=== PATIENT | female | born 1945 | race Caucasian/White ===

== ENCOUNTER 2018-06-26 12:33 | Inpatient (IN) ==
[2018-06-26] MEDS ORDERED: ACETAMINOPHEN 500 MG TABLET ONE (14:06)
[2018-06-26] MEDS ORDERED: ACETAMINOPHEN 500 MG TABLET PO STA (14:14)
[2018-06-26 14:15] LABS: Basophils # 0.1 10*3/uL (0.0-0.2); Basophils % 0.4 % (0.0-0.8); Eosinophils % 0.2 % (0.00-10.9); Hematocrit 35.1 VOL% (35.7-47.0); Hemoglobin 11.5 GM/DL (12.0-16.0); Immature Granulocytes % 0.4 %; Immature Granulocytes Absolute 0.05 #; Lymphocytes # 0.7 10*3/uL (1.4-4.0); Lymphocytes % 5.4 % (21.3-54.2); Mean Corpuscular HGB Conc 32.8 GM/DL (32-36); Mean Corpuscular Hemoglobin 27 PG (27-34); Mean Corpuscular Volume 83.6 FL (87-102); Mean Platelet Volume 9.2 FL (9.6-12.0); Monocytes # 0.5 10*3/uL (0.11-0.8); Monocytes % 4.2 % (1.7-12.7); Neutrophils # 11.3 10*3/uL (1.4-7.4); Neutrophils % 89.4 % (38.7-73.9); Platelet Count 311 T/CUMM (130-400); Red Cell Distribution Width 15.5 % (9.3-17.3); White Blood Count 12.6 T/CUMM (4-12)
[2018-06-26 14:23] LABS: INR 0.9
[2018-06-26] MEDS ORDERED: ALBUTEROL 2.5 MG/3 ML NEB RESP TX STA (14:26)
[2018-06-26] MEDS ORDERED: cefTRIAXone 1,000 MG in SODIUM CHLORIDE 0.9% 100 ML IV STA (14:28)
[2018-06-26 14:31] LABS: Albumin 3.4 G/DL (3.4-5.0); Bilirubin,Total 0.4 MG/DL (0.2-1.0); Calcium 8.8 MG/DL (8.5-10.1); Osmolality,Calculated 282.8 MOS/KG (273-304); Potassium 4.3 MMOL/L (3.5-5.1); Total Protein 6.7 G/DL (6.4-8.3)
[2018-06-26 14:32] LABS: Lactic Acid 1.8 MMOL/L (0.4-2.0)
[2018-06-26] MEDS ORDERED: cefTRIAXone 1,000 MG VIAL ONE (14:39)
[2018-06-26] MEDS ORDERED: SODIUM CHLORIDE 0.9% 100 ML IV ONE (14:39)
[2018-06-26] MEDS ORDERED: ACETAMINOPHEN 325 MG TABLET PO PRN (16:26)
[2018-06-26] MEDS ORDERED: GLUCAGON 1 MG VIAL IM PRN (16:26)
[2018-06-26] MEDS ORDERED: DEXTROSE 50% 25 GM/50 ML VIAL IV PRN (16:26)
[2018-06-26] MEDS: LACTATED RINGERS 1,000 ML IV SCH (16:53)
[2018-06-26] MEDS: EZETIMIBE 10 MG TABLET PO SCH (20:49)
[2018-06-26] MEDS: FOLIC ACID 0.4 MG TABLET PO SCH (20:49)
[2018-06-26] MEDS: GABAPENTIN 600 MG TABLET PO SCH (20:49)
[2018-06-26] MEDS: CHOLECALCIFEROL 1,000 UNIT TABLET PO SCH (20:50)
[2018-06-26] MEDS: LOVASTATIN 20 MG TABLET PO SCH (20:50)
[2018-06-26] MEDS: LOSARTAN 25 MG TABLET PO SCH (20:50)
[2018-06-26] MEDS: POTASSIUM CHLORIDE 10 MEQ TABLET PO SCH (20:50)
[2018-06-26] MEDS: DULoxetine 30 MG CAPSULE PO SCH (20:50)
[2018-06-26] MEDS ORDERED: VITAMIN E 400 UNIT CAPSULE PO SCH (21:00)
[2018-06-26] MEDS: oxyCODONE IR 5 MG TABLET PO SCH (22:17)
[2018-06-27] MEDS ORDERED: azaTHIOprine 50 MG TABLET PO SCH (09:00)
[2018-06-27] MEDS ORDERED: ELDERBERRY PO SCH (09:00)
[2018-06-27] MEDS ORDERED: [UNRECOGNIZED DRUG - OTHER] PO SCH (09:00)
[2018-06-27] MEDS: LEVOFLOXACIN INJ 500 MG in PREMIX 1 EACH IV SCH (09:26)
[2018-06-27] MEDS: PANTOPRAZOLE 40 MG TABLET PO SCH (09:28)
[2018-06-27] MEDS: DULoxetine 30 MG CAPSULE PO SCH ×2 (09:28→20:40)
[2018-06-27] MEDS: methylPREDNISolone SOD SUC 40 MG/1 ML VIAL IV SCH ×2 (09:28→20:41)
[2018-06-27] MEDS: FUROSEMIDE 80 MG TABLET PO SCH (09:29)
[2018-06-27] MEDS: amLODIPine 10 MG TABLET PO SCH (09:29)
[2018-06-27] MEDS: MAGNESIUM OXIDE 400 MG TABLET PO SCH (09:29)
[2018-06-27] MEDS: metOLazone 2.5 MG TABLET PO SCH (09:29)
[2018-06-27] MEDS: ASPIRIN EC 81 MG TABLET PO SCH (09:29)
[2018-06-27] MEDS: GABAPENTIN 600 MG TABLET PO SCH ×2 (09:29→20:40)
[2018-06-27] MEDS: POTASSIUM CHLORIDE 10 MEQ TABLET PO SCH ×3 (09:30→20:39)
[2018-06-27] MEDS: oxyCODONE IR 5 MG TABLET PO SCH ×2 (09:30→20:40)
[2018-06-27] MEDS: PIPERACILLIN/TAZOBACTAM 3,375 MG in SODIUM CHLORIDE 0.9% 100 ML IV SCH ×2 (10:35→17:59)
[2018-06-27] MEDS: SILDENAFIL 20 MG TABLET PO SCH (10:35)
[2018-06-27] MEDS: IPRATROPIUM 500 MCG/2.5 ML NEB RESP TX SCH (12:50)
[2018-06-27] MEDS: ALBUTEROL 0.63 MG/3 ML NEB RESP TX SCH ×2 (12:50→19:28)
[2018-06-27] MEDS: FUROSEMIDE 40 MG TABLET PO SCH (12:52)
[2018-06-27] MEDS: LACTATED RINGERS 1,000 ML IV SCH (12:52)
[2018-06-27] MEDS: oxyCODONE IR 5 MG TABLET PO PRN (14:58)
[2018-06-27] MEDS: LOVASTATIN 20 MG TABLET PO SCH (20:39)
[2018-06-27] MEDS: EZETIMIBE 10 MG TABLET PO SCH (20:40)
[2018-06-27] MEDS: LOSARTAN 25 MG TABLET PO SCH (20:40)
[2018-06-27] MEDS: CHOLECALCIFEROL 1,000 UNIT TABLET PO SCH (20:40)
[2018-06-27] MEDS: FOLIC ACID 0.4 MG TABLET PO SCH (20:40)
[2018-06-28] MEDS: ALBUTEROL 0.63 MG/3 ML NEB RESP TX SCH ×4 (01:39→19:55)
[2018-06-28] MEDS: PIPERACILLIN/TAZOBACTAM 3,375 MG in SODIUM CHLORIDE 0.9% 100 ML IV SCH ×3 (02:54→18:04)
[2018-06-28] MEDS: IPRATROPIUM 500 MCG/2.5 ML NEB RESP TX SCH (07:27)
[2018-06-28] MEDS: methylPREDNISolone SOD SUC 40 MG/1 ML VIAL IV SCH ×2 (08:32→21:08)
[2018-06-28] MEDS: LEVOFLOXACIN INJ 500 MG in PREMIX 1 EACH IV SCH (08:35)
[2018-06-28] MEDS: POTASSIUM CHLORIDE 10 MEQ TABLET PO SCH ×3 (08:36→21:08)
[2018-06-28] MEDS: DULoxetine 30 MG CAPSULE PO SCH ×2 (08:37→21:09)
[2018-06-28] MEDS: amLODIPine 10 MG TABLET PO SCH (08:37)
[2018-06-28] MEDS: metOLazone 2.5 MG TABLET PO SCH (08:37)
[2018-06-28] MEDS: SILDENAFIL 20 MG TABLET PO SCH (08:37)
[2018-06-28] MEDS: MAGNESIUM OXIDE 400 MG TABLET PO SCH (08:37)
[2018-06-28] MEDS: GABAPENTIN 600 MG TABLET PO SCH ×2 (08:37→21:09)
[2018-06-28] MEDS: ASPIRIN EC 81 MG TABLET PO SCH (08:37)
[2018-06-28] MEDS: oxyCODONE IR 5 MG TABLET PO SCH ×2 (08:37→21:08)
[2018-06-28] MEDS: PANTOPRAZOLE 40 MG TABLET PO SCH (08:37)
[2018-06-28] MEDS: FUROSEMIDE 80 MG TABLET PO SCH (08:38)
[2018-06-28] MEDS: FUROSEMIDE 40 MG TABLET PO SCH (14:09)
[2018-06-28] MEDS: oxyCODONE IR 5 MG TABLET PO PRN (16:28)
[2018-06-28] MEDS: LOSARTAN 25 MG TABLET PO SCH (21:08)
[2018-06-28] MEDS: FOLIC ACID 0.4 MG TABLET PO SCH (21:08)
[2018-06-28] MEDS: CHOLECALCIFEROL 1,000 UNIT TABLET PO SCH (21:09)
[2018-06-28] MEDS: EZETIMIBE 10 MG TABLET PO SCH (21:09)
[2018-06-28] MEDS: LOVASTATIN 20 MG TABLET PO SCH (21:09)
[2018-06-29] MEDS: ALBUTEROL 0.63 MG/3 ML NEB RESP TX SCH ×4 (01:44→19:02)
[2018-06-29] MEDS: PIPERACILLIN/TAZOBACTAM 3,375 MG in SODIUM CHLORIDE 0.9% 100 ML IV SCH ×3 (02:50→17:31)
[2018-06-29 03:07] LABS: Basophils % 0.2 % (0.0-0.8); Hematocrit 33.5 VOL% (35.7-47.0); Hemoglobin 11.1 GM/DL (12.0-16.0); Immature Granulocytes % 0.9 %; Lymphocytes # 0.7 10*3/uL (1.4-4.0); Lymphocytes % 5.9 % (21.3-54.2); Mean Corpuscular HGB Conc 33.1 GM/DL (32-36); Mean Corpuscular Hemoglobin 27 PG (27-34); Mean Corpuscular Volume 81.7 FL (87-102); Mean Platelet Volume 9.5 FL (9.6-12.0); Monocytes # 0.4 10*3/uL (0.11-0.8); Monocytes % 3.1 % (1.7-12.7); Neutrophils # 10.5 10*3/uL (1.4-7.4); Neutrophils % 89.9 % (38.7-73.9); Platelet Count 322 T/CUMM (130-400); Red Cell Distribution Width 15.3 % (9.3-17.3); White Blood Count 11.6 T/CUMM (4-12)
[2018-06-29 03:35] LABS: Calcium 9.2 MG/DL (8.5-10.1); Osmolality,Calculated 290.3 MOS/KG (273-304); Potassium 3.7 MMOL/L (3.5-5.1)
[2018-06-29] MEDS: IPRATROPIUM 500 MCG/2.5 ML NEB RESP TX SCH (07:26)
[2018-06-29] MEDS ORDERED: methylPREDNISolone SOD SUC 40 MG/1 ML VIAL IV SCH (08:00)
[2018-06-29] MEDS: oxyCODONE IR 5 MG TABLET PO SCH ×2 (10:08→20:59)
[2018-06-29] MEDS: GABAPENTIN 600 MG TABLET PO SCH ×2 (10:08→21:00)
[2018-06-29] MEDS: POTASSIUM CHLORIDE 10 MEQ TABLET PO SCH ×3 (10:09→21:00)
[2018-06-29] MEDS: metOLazone 2.5 MG TABLET PO SCH (10:10)
[2018-06-29] MEDS: FUROSEMIDE 80 MG TABLET PO SCH (10:11)
[2018-06-29] MEDS: amLODIPine 10 MG TABLET PO SCH (10:11)
[2018-06-29] MEDS: DULoxetine 30 MG CAPSULE PO SCH ×2 (10:11→21:00)
[2018-06-29] MEDS: MAGNESIUM OXIDE 400 MG TABLET PO SCH (10:12)
[2018-06-29] MEDS: ASPIRIN EC 81 MG TABLET PO SCH (10:12)
[2018-06-29] MEDS: LEVOFLOXACIN INJ 500 MG in PREMIX 1 EACH IV SCH (10:13)
[2018-06-29] MEDS: SILDENAFIL 20 MG TABLET PO SCH (10:19)
[2018-06-29] MEDS: PANTOPRAZOLE 40 MG TABLET PO SCH ×2 (12:03→21:01)
[2018-06-29] MEDS: FUROSEMIDE 40 MG TABLET PO SCH (12:49)
[2018-06-29] MEDS: LOSARTAN 25 MG TABLET PO SCH (21:00)
[2018-06-29] MEDS: LOVASTATIN 20 MG TABLET PO SCH (21:00)
[2018-06-29] MEDS: FOLIC ACID 0.4 MG TABLET PO SCH (21:00)
[2018-06-29] MEDS: CHOLECALCIFEROL 1,000 UNIT TABLET PO SCH (21:01)
[2018-06-29] MEDS: EZETIMIBE 10 MG TABLET PO SCH (21:01)
[2018-06-30] MEDS: ALBUTEROL 0.63 MG/3 ML NEB RESP TX SCH ×2 (00:55→07:52)
[2018-06-30] MEDS: PIPERACILLIN/TAZOBACTAM 3,375 MG in SODIUM CHLORIDE 0.9% 100 ML IV SCH ×2 (04:49→09:58)
[2018-06-30] MEDS: IPRATROPIUM 500 MCG/2.5 ML NEB RESP TX SCH (07:52)
[2018-06-30 08:36] VITALS: BP 136/71
[2018-06-30] MEDS ORDERED: predniSONE 20 MG TABLET PO SCH (09:00)
[2018-06-30] MEDS: DULoxetine 30 MG CAPSULE PO SCH (09:30)
[2018-06-30] MEDS: oxyCODONE IR 5 MG TABLET PO SCH (09:31)
[2018-06-30] MEDS: POTASSIUM CHLORIDE 10 MEQ TABLET PO SCH (09:32)
[2018-06-30] MEDS: ASPIRIN EC 81 MG TABLET PO SCH (09:32)
[2018-06-30] MEDS: GABAPENTIN 600 MG TABLET PO SCH (09:34)
[2018-06-30] MEDS: metOLazone 2.5 MG TABLET PO SCH (09:34)
[2018-06-30] MEDS: MAGNESIUM OXIDE 400 MG TABLET PO SCH (09:34)
[2018-06-30] MEDS: amLODIPine 10 MG TABLET PO SCH (09:34)
[2018-06-30] MEDS: LEVOFLOXACIN INJ 500 MG in PREMIX 1 EACH IV SCH (09:35)
[2018-06-30] MEDS: SILDENAFIL 20 MG TABLET PO SCH (09:42)
[2018-06-30] MEDS: FUROSEMIDE 80 MG TABLET PO SCH (09:42)
[2018-06-30] MEDS: PANTOPRAZOLE 40 MG TABLET PO SCH (09:42)
== END 2018-06-30 12:10 | disposition home or self-care (01) | DRG 190 ==
LOC: N.ED 12:33 → N.EDINP 14:52 → N.TELES 16:25
PROVIDERS: ADMIT Internal Medicine; ATTEND Internal Medicine

== ENCOUNTER 2018-09-02 14:27 | Inpatient (IN) ==
[2018-09-02 16:25] LABS: Basophils % 0.6 % (0.0-0.8); Eosinophils # 0.2 10*3/uL (0.0-0.87); Eosinophils % 3.5 % (0.00-10.9); Hematocrit 32.8 VOL% (35.7-47.0); Hemoglobin 10.3 GM/DL (12.0-16.0); Immature Granulocytes % 0.4 %; Immature Granulocytes Absolute 0.03 #; Lymphocytes # 1.7 10*3/uL (1.4-4.0); Lymphocytes % 25.1 % (21.3-54.2); Mean Corpuscular HGB Conc 31.4 GM/DL (32-36); Mean Corpuscular Hemoglobin 26 PG (27-34); Mean Corpuscular Volume 83.9 FL (87-102); Mean Platelet Volume 9.1 FL (9.6-12.0); Monocytes # 0.6 10*3/uL (0.11-0.8); Monocytes % 9.3 % (1.7-12.7); Neutrophils # 4.2 10*3/uL (1.4-7.4); Neutrophils % 61.1 % (38.7-73.9); Platelet Count 266 T/CUMM (130-400); Red Blood Count 3.91 MC/CUMM (3.8-5.5); Red Cell Distribution Width 16.2 % (9.3-17.3); White Blood Count 6.9 T/CUMM (4-12)
[2018-09-02 16:48] LABS: Alanine Aminotransferase 14 U/L (13-56); Albumin 3.2 G/DL (3.4-5.0); Alkaline Phosphatase 94 U/L (45-117); Aspartate Amino Transferase 10 U/L (0-37); Bilirubin,Total < 0.39 MG/DL (0.2-1.0); Blood Urea Nitrogen 16 MG/DL (7-18); Calcium 8.9 MG/DL (8.5-10.1); Glucose 148 MG/DL (74-106); Osmolality,Calculated 282.4 MOS/KG (273-304); Potassium 3.7 MMOL/L (3.5-5.1); Sodium 140 MMOL/L (136-145); Total Protein 6.9 G/DL (6.4-8.3)
[2018-09-02] MEDS ORDERED: FUROSEMIDE 40 MG/4 ML VIAL IV STA (16:59)
[2018-09-02] MEDS ORDERED: ONDANSETRON 4 MG/2 ML VIAL IV PRN (17:37)
[2018-09-02] MEDS ORDERED: ACETAMINOPHEN 325 MG TABLET PO PRN (17:37)
[2018-09-02 18:13] LABS: Apearance,Urine CLEAR (Clear); Bacteria,Urine Occasional /HPF (Few); Bilirubin,Urine Negative (Negative); Blood, Urine Negative (Negative); Glucose,Urine (UA) Negative (Negative); Ketones,Urine Negative (Negative); Nitrite,Urine Negative (Negative); Protein,Urine Negative; RBC,Urine 1 /HPF (0-4); Urine Color Yellow (Yellow); Urine Specific Gravity 1.006 (1.001-1.035); Urine Urobilinogen < 2.0 EU/DL (0.2-1.0); WBC,Urine 1 /HPF (0-6)
[2018-09-02] MEDS ORDERED: INSULIN LISPRO 100 UNIT/ML SUBCUT SCH (19:30)
[2018-09-02] MEDS ORDERED: oxyCODONE IR 5 MG TABLET PO PRN (19:30)
[2018-09-02] MEDS ORDERED: ALBUTEROL/IPRATROPIUM 3 ML NEB RESP TX PRN (19:30)
[2018-09-02] MEDS ORDERED: ALBUTEROL 2.5 MG/3 ML NEB RESP TX PRN (19:30)
[2018-09-02] MEDS ORDERED: GLUCAGON 1 MG VIAL IM PRN (19:44)
[2018-09-02] MEDS ORDERED: DEXTROSE 50% 25 GM/50 ML VIAL IV PRN (19:44)
[2018-09-02] MEDS ORDERED: DOCUSATE SODIUM 100 MG CAPSULE PO SCH (21:00)
[2018-09-02] MEDS: ENOXAPARIN 40 MG/0.4 ML SYRINGE SUBCUT SCH (21:13)
[2018-09-02] MEDS: EZETIMIBE 10 MG TABLET PO SCH (21:14)
[2018-09-02] MEDS: FOLIC ACID 0.4 MG TABLET PO SCH (21:14)
[2018-09-02] MEDS: DOCUSATE SODIUM 100 MG CAPSULE PO SCH (21:14)
[2018-09-02] MEDS: VITAMIN E 400 UNIT CAPSULE PO SCH (21:14)
[2018-09-02] MEDS: MULTIVITAMIN (OCUVITE) TABLET PO SCH (21:14)
[2018-09-02] MEDS: GABAPENTIN 600 MG TABLET PO SCH (21:14)
[2018-09-02] MEDS: oxyCODONE ER 20 MG TABLET PO SCH (21:15)
[2018-09-02] MEDS: DULoxetine 30 MG CAPSULE PO SCH (21:15)
[2018-09-02] MEDS: CHOLECALCIFEROL 1,000 UNIT TABLET PO SCH (21:15)
[2018-09-02] MEDS: PANTOPRAZOLE 40 MG TABLET PO SCH (21:16)
[2018-09-02] MEDS: LOVASTATIN 20 MG TABLET PO SCH (23:28)
[2018-09-03 06:38] LABS: Basophils % 0.7 % (0.0-0.8); Eosinophils # 0.4 10*3/uL (0.0-0.87); Hematocrit 32.7 VOL% (35.7-47.0); Hemoglobin 10.2 GM/DL (12.0-16.0); Immature Granulocytes % 0.5 %; Immature Granulocytes Absolute 0.03 #; Lymphocytes # 1.7 10*3/uL (1.4-4.0); Lymphocytes % 29.5 % (21.3-54.2); Mean Corpuscular HGB Conc 31.2 GM/DL (32-36); Mean Corpuscular Hemoglobin 26 PG (27-34); Mean Corpuscular Volume 84.3 FL (87-102); Mean Platelet Volume 9.1 FL (9.6-12.0); Monocytes # 0.6 10*3/uL (0.11-0.8); Neutrophils # 3.1 10*3/uL (1.4-7.4); Neutrophils % 53.3 % (38.7-73.9); Platelet Count 268 T/CUMM (130-400); Red Blood Count 3.88 MC/CUMM (3.8-5.5); Red Cell Distribution Width 16.4 % (9.3-17.3); White Blood Count 5.8 T/CUMM (4-12)
[2018-09-03 07:09] LABS: Calcium 8.4 MG/DL (8.5-10.1); Osmolality,Calculated 283.1 MOS/KG (273-304); Potassium 3.2 MMOL/L (3.5-5.1)
[2018-09-03] MEDS: IPRATROPIUM 500 MCG/2.5 ML NEB RESP TX SCH ×4 (07:16→20:23)
[2018-09-03] MEDS ORDERED: PANTOPRAZOLE 40 MG TABLET PO SCH (09:00)
[2018-09-03] MEDS ORDERED: metOLazone 2.5 MG TABLET PO SCH (09:00)
[2018-09-03] MEDS ORDERED: ELDERBERRY PO SCH (09:00)
[2018-09-03] MEDS ORDERED: NON-FORMULARY MEDICATION (Cranberry Conc/C/Bacill Coag [Cranberry Tablet] 1 EACH) PO SCH (09:00)
[2018-09-03] MEDS: oxyCODONE ER 20 MG TABLET PO SCH ×2 (09:45→21:00)
[2018-09-03] MEDS: GABAPENTIN 600 MG TABLET PO SCH ×2 (09:50→20:59)
[2018-09-03] MEDS: MAGNESIUM OXIDE 400 MG TABLET PO SCH (09:50)
[2018-09-03] MEDS: LOSARTAN 25 MG TABLET PO SCH (09:50)
[2018-09-03] MEDS: SILDENAFIL 20 MG TABLET PO SCH (09:50)
[2018-09-03] MEDS: CYANOCOBALAMIN 500 MCG TABLET PO SCH (09:50)
[2018-09-03] MEDS: DULoxetine 30 MG CAPSULE PO SCH ×2 (09:50→20:59)
[2018-09-03] MEDS: DOCUSATE SODIUM 100 MG CAPSULE PO SCH ×2 (09:50→20:59)
[2018-09-03] MEDS: amLODIPine 10 MG TABLET PO SCH (09:51)
[2018-09-03] MEDS: ATENOLOL 25 MG TABLET PO SCH (10:06)
[2018-09-03] MEDS: ASPIRIN EC 81 MG TABLET PO SCH (10:13)
[2018-09-03] MEDS: PANTOPRAZOLE 40 MG TABLET PO SCH (10:15)
[2018-09-03] MEDS: LEVOFLOXACIN 500 MG TABLET PO SCH (12:08)
[2018-09-03] MEDS: POTASSIUM CHLORIDE 8 MEQ CAPSULE PO SCH ×2 (12:09→20:59)
[2018-09-03] MEDS: POTASSIUM CHLORIDE 20 MEQ TABLET PO PRN ×4 (13:35→19:23)
[2018-09-03] MEDS: FUROSEMIDE 40 MG TABLET PO SCH (15:41)
[2018-09-03] MEDS: NEXIUM 40 MG PO SCH (20:58)
[2018-09-03] MEDS: VITAMIN E 400 UNIT CAPSULE PO SCH (20:59)
[2018-09-03] MEDS: ENOXAPARIN 40 MG/0.4 ML SYRINGE SUBCUT SCH (20:59)
[2018-09-03] MEDS: EZETIMIBE 10 MG TABLET PO SCH (20:59)
[2018-09-03] MEDS: MULTIVITAMIN (OCUVITE) TABLET PO SCH (21:00)
[2018-09-03] MEDS: FOLIC ACID 0.4 MG TABLET PO SCH (21:00)
[2018-09-03] MEDS: CHOLECALCIFEROL 1,000 UNIT TABLET PO SCH (21:00)
[2018-09-03] MEDS: LOVASTATIN 20 MG TABLET PO SCH (21:01)
[2018-09-04 05:22] LABS: Basophils # 0.1 10*3/uL (0.0-0.2); Basophils % 1.3 % (0.0-0.8); Eosinophils # 0.4 10*3/uL (0.0-0.87); Eosinophils % 6.6 % (0.00-10.9); Hematocrit 31.3 VOL% (35.7-47.0); Hemoglobin 9.8 GM/DL (12.0-16.0); Immature Granulocytes % 0.4 %; Immature Granulocytes Absolute 0.02 #; Lymphocytes # 1.8 10*3/uL (1.4-4.0); Lymphocytes % 34.4 % (21.3-54.2); Mean Corpuscular HGB Conc 31.3 GM/DL (32-36); Mean Corpuscular Hemoglobin 27 PG (27-34); Mean Corpuscular Volume 84.6 FL (87-102); Mean Platelet Volume 9.4 FL (9.6-12.0); Monocytes # 0.6 10*3/uL (0.11-0.8); Monocytes % 11.8 % (1.7-12.7); Neutrophils # 2.4 10*3/uL (1.4-7.4); Neutrophils % 45.5 % (38.7-73.9); Platelet Count 265 T/CUMM (130-400); White Blood Count 5.3 T/CUMM (4-12)
[2018-09-04 05:36] LABS: Osmolality,Calculated 283.3 MOS/KG (273-304); Potassium 3.9 MMOL/L (3.5-5.1)
[2018-09-04] MEDS: IPRATROPIUM 500 MCG/2.5 ML NEB RESP TX SCH (07:08)
[2018-09-04] MEDS: CYANOCOBALAMIN 500 MCG TABLET PO SCH (08:12)
[2018-09-04] MEDS: MAGNESIUM OXIDE 400 MG TABLET PO SCH (08:12)
[2018-09-04] MEDS: DULoxetine 30 MG CAPSULE PO SCH (08:12)
[2018-09-04] MEDS: ATENOLOL 25 MG TABLET PO SCH (08:12)
[2018-09-04] MEDS: DOCUSATE SODIUM 100 MG CAPSULE PO SCH (08:12)
[2018-09-04] MEDS: SILDENAFIL 20 MG TABLET PO SCH (08:13)
[2018-09-04] MEDS: FUROSEMIDE 40 MG TABLET PO SCH (08:13)
[2018-09-04] MEDS: GABAPENTIN 600 MG TABLET PO SCH (08:13)
[2018-09-04] MEDS: LEVOFLOXACIN 500 MG TABLET PO SCH (08:13)
[2018-09-04] MEDS: ASPIRIN EC 81 MG TABLET PO SCH (08:13)
[2018-09-04] MEDS: LOSARTAN 25 MG TABLET PO SCH (08:13)
[2018-09-04] MEDS: POTASSIUM CHLORIDE 8 MEQ CAPSULE PO SCH (08:13)
[2018-09-04] MEDS: amLODIPine 10 MG TABLET PO SCH (08:14)
[2018-09-04] MEDS: oxyCODONE ER 20 MG TABLET PO SCH (08:14)
[2018-09-04] MEDS: NEXIUM 40 MG PO SCH (08:14)
[2018-09-04 08:27] VITALS: BP 149/69
[2018-09-04] MEDS: POTASSIUM CHLORIDE 20 MEQ TABLET PO PRN (09:05)
== END 2018-09-04 12:40 | disposition home or self-care (01) | DRG 293 ==
LOC: N.ED 14:27 → N.EDINP 17:35 → N.5E 18:37
PROVIDERS: ADMIT Internal Medicine; ATTEND Internal Medicine

== ENCOUNTER 2018-10-04 07:37 | Inpatient (IN) ==
[2018-10-04] MEDS ORDERED: PIPERACILLIN/TAZOBACTAM 3,375 MG in SODIUM CHLORIDE 0.9% 100 ML IV STA (08:18)
[2018-10-04] MEDS ORDERED: ACETAMINOPHEN 500 MG TABLET PO STA (08:18)
[2018-10-04 08:29] LABS: Basophils % 0.4 % (0.0-0.8); Eosinophils # 0.1 10*3/uL (0.0-0.87); Eosinophils % 1.5 % (0.00-10.9); Hematocrit 39.6 VOL% (35.7-47.0); Hemoglobin 12.2 GM/DL (12.0-16.0); Immature Granulocytes % 0.4 %; Immature Granulocytes Absolute 0.02 #; Lymphocytes # 0.9 10*3/uL (1.4-4.0); Lymphocytes % 15.9 % (21.3-54.2); Mean Corpuscular HGB Conc 30.8 GM/DL (32-36); Mean Corpuscular Hemoglobin 26 PG (27-34); Mean Platelet Volume 8.7 FL (9.6-12.0); Monocytes # 0.2 10*3/uL (0.11-0.8); Monocytes % 3.5 % (1.7-12.7); Neutrophils # 4.3 10*3/uL (1.4-7.4); Neutrophils % 78.3 % (38.7-73.9); Platelet Count 381 T/CUMM (130-400); Red Blood Count 4.77 MC/CUMM (3.8-5.5); Red Cell Distribution Width 15.6 % (9.3-17.3); White Blood Count 5.5 T/CUMM (4-12)
[2018-10-04 08:38] LABS: INR 0.9; Partial Thromboplastin Time < 21.0 SECS (0-40)
[2018-10-04 08:46] LABS: Alanine Aminotransferase 14 U/L (13-56); Albumin 3.6 G/DL (3.4-5.0); Alkaline Phosphatase 111 U/L (45-117); Aspartate Amino Transferase 10 U/L (0-37); Blood Urea Nitrogen 19 MG/DL (7-18); Calcium 9.6 MG/DL (8.5-10.1); Glucose 170 MG/DL (74-106); Osmolality,Calculated 282.5 MOS/KG (273-304); Potassium 4.2 MMOL/L (3.5-5.1); Sodium 139 MMOL/L (136-145); Total Protein 7.3 G/DL (6.4-8.3)
[2018-10-04 08:52] LABS: Apearance,Urine CLEAR (Clear); Bacteria,Urine Occasional /HPF (Few); Bilirubin,Urine Negative (Negative); Blood, Urine Negative (Negative); Glucose,Urine (UA) Negative (Negative); Ketones,Urine Negative (Negative); Nitrite,Urine Negative (Negative); Protein,Urine Negative; RBC,Urine 1 /HPF (0-4); Urine Color Straw (Yellow); Urine Specific Gravity 1.005 (1.001-1.035); Urine Urobilinogen < 2.0 EU/DL (0.2-1.0); WBC,Urine <1 /HPF (0-6)
[2018-10-04] MEDS ORDERED: GLUCAGON 1 MG VIAL IM PRN (09:51)
[2018-10-04] MEDS ORDERED: DEXTROSE 50% 25 GM/50 ML VIAL IV PRN (09:51)
[2018-10-04] MEDS ORDERED: ACETAMINOPHEN 325 MG TABLET PO PRN (09:51)
[2018-10-04] MEDS ORDERED: ONDANSETRON 4 MG/2 ML VIAL IV PRN (09:51)
[2018-10-04] MEDS ORDERED: methylPREDNISolone SOD SUC 40 MG/1 ML VIAL IV SCH (10:00)
[2018-10-04] MEDS: SODIUM CHLORIDE 0.9% 1,000 ML IV SCH ×2 (10:13→18:34)
[2018-10-04] MEDS ORDERED: DEXTROSE 50% 25 GM/50 ML SYRINGE IV PRN (10:30)
[2018-10-04] MEDS ORDERED: ALBUTEROL 2.5 MG/3 ML NEB RESP TX SCH (11:00)
[2018-10-04] MEDS ORDERED: LINACLOTIDE 145 MCG CAPSULE PO PRN (11:34)
[2018-10-04] MEDS: PANTOPRAZOLE 40 MG TABLET PO SCH (11:39)
[2018-10-04] MEDS: ENOXAPARIN 40 MG/0.4 ML SYRINGE SUBCUT SCH (11:39)
[2018-10-04] MEDS: DOCUSATE SODIUM 100 MG CAPSULE PO SCH ×4 (11:39→21:19)
[2018-10-04] MEDS ORDERED: INSULIN LISPRO 100 UNIT/ML SUBCUT SCH (12:00)
[2018-10-04 12:02] LABS: ABG Base Excess 4.5 MMOL/L (-2.5-2.5); ABG HCO3 28.4 MMOL/L (20-26); ABG Oxygen Saturation 95.7 % (95-100); ABG PCO2 43.1 MM HG (35-48); ABG PH 7.439 (7.35-7.45); ABG PO2 82.7 MM HG (80-95); ABG TCO2 26.3 MMOL/L (23-27); Allen Test Positive
[2018-10-04] MEDS: ALBUTEROL/IPRATROPIUM 3 ML NEB RESP TX SCH ×2 (12:05→20:02)
[2018-10-04] MEDS: INSULIN LISPRO 100 UNIT/ML SUBCUT SCH ×3 (12:40→21:20)
[2018-10-04] MEDS: ASPIRIN EC 81 MG TABLET PO SCH (12:40)
[2018-10-04] MEDS: ATENOLOL 25 MG TABLET PO SCH (12:41)
[2018-10-04] MEDS: KETOROLAC 15 MG/1 ML VIAL IV SCH ×2 (12:41→21:16)
[2018-10-04] MEDS: SILDENAFIL 20 MG TABLET PO SCH (12:41)
[2018-10-04] MEDS: methylPREDNISolone SOD SUC 40 MG/1 ML VIAL IV SCH ×2 (12:41→21:14)
[2018-10-04] MEDS: metOLazone 2.5 MG TABLET PO SCH (12:42)
[2018-10-04] MEDS: oxyCODONE IR 5 MG TABLET PO PRN (12:56)
[2018-10-04] MEDS ORDERED: IPRATROPIUM 500 MCG/2.5 ML NEB RESP TX SCH (15:00)
[2018-10-04] MEDS ORDERED: oxyCODONE IR 5 MG TABLET PO ONE (15:30)
[2018-10-04] MEDS: POTASSIUM CHLORIDE 10 MEQ TABLET PO SCH ×2 (15:40→21:10)
[2018-10-04] MEDS: PIPERACILLIN/TAZOBACTAM 3,375 MG in SODIUM CHLORIDE 0.9% 100 ML IV SCH (15:41)
[2018-10-04] MEDS: GABAPENTIN 600 MG TABLET PO SCH (21:10)
[2018-10-04] MEDS: DULoxetine 30 MG CAPSULE PO SCH (21:10)
[2018-10-04] MEDS: FOLIC ACID 0.4 MG TABLET PO SCH (21:10)
[2018-10-04] MEDS: oxyCODONE ER 20 MG TABLET PO SCH (21:12)
[2018-10-05] MEDS: ALBUTEROL/IPRATROPIUM 3 ML NEB RESP TX SCH ×4 (00:10→20:20)
[2018-10-05] MEDS: PIPERACILLIN/TAZOBACTAM 3,375 MG in SODIUM CHLORIDE 0.9% 100 ML IV SCH ×3 (00:34→16:39)
[2018-10-05] MEDS: methylPREDNISolone SOD SUC 40 MG/1 ML VIAL IV SCH ×3 (04:14→20:42)
[2018-10-05 04:51] LABS: ABG Base Excess 1.9 MMOL/L (-2.5-2.5); ABG HCO3 26.6 MMOL/L (20-26); ABG Oxygen Saturation 96.9 % (95-100); ABG PCO2 42.5 MM HG (35-48); ABG PH 7.415 (7.35-7.45); ABG PO2 99.3 MM HG (80-95); ABG TCO2 27.9 MMOL/L (23-27); Allen Test Positive
[2018-10-05 05:06] LABS: Basophils % 0.2 % (0.0-0.8); Hematocrit 30.3 VOL% (35.7-47.0); Hemoglobin 9.7 GM/DL (12.0-16.0); Immature Granulocytes % 0.7 %; Immature Granulocytes Absolute 0.11 #; Lymphocytes # 0.7 10*3/uL (1.4-4.0); Lymphocytes % 4.1 % (21.3-54.2); Mean Corpuscular Hemoglobin 26 PG (27-34); Mean Corpuscular Volume 82.3 FL (87-102); Mean Platelet Volume 9.4 FL (9.6-12.0); Monocytes # 0.6 10*3/uL (0.11-0.8); Monocytes % 3.5 % (1.7-12.7); Neutrophils # 14.6 10*3/uL (1.4-7.4); Neutrophils % 91.5 % (38.7-73.9); Platelet Count 323 T/CUMM (130-400); Red Blood Count 3.68 MC/CUMM (3.8-5.5); Red Cell Distribution Width 15.9 % (9.3-17.3); White Blood Count 15.9 T/CUMM (4-12)
[2018-10-05 05:10] LABS: Calcium 8.7 MG/DL (8.5-10.1); Potassium 4.5 MMOL/L (3.5-5.1)
[2018-10-05 05:33] LABS: Band Neutrophils 8 % (0-10); Hypochromasia 1+; Lymphocytes 3 % (20-55); Ovalocytes Slight; Platelet Estimate Adequate; Segmented Neutrophils 88 % (50-85); Total Cells Counted 100
[2018-10-05] MEDS ORDERED: azaTHIOprine 50 MG TABLET PO SCH (09:00)
[2018-10-05] MEDS: DULoxetine 30 MG CAPSULE PO SCH ×2 (09:10→20:41)
[2018-10-05] MEDS: POTASSIUM CHLORIDE 10 MEQ TABLET PO SCH ×3 (09:10→20:40)
[2018-10-05] MEDS: ASPIRIN EC 81 MG TABLET PO SCH (09:11)
[2018-10-05] MEDS: oxyCODONE ER 20 MG TABLET PO SCH ×2 (09:11→20:41)
[2018-10-05] MEDS: GABAPENTIN 600 MG TABLET PO SCH ×2 (09:12→20:42)
[2018-10-05] MEDS: DOCUSATE SODIUM 100 MG CAPSULE PO SCH ×4 (09:12→20:47)
[2018-10-05] MEDS: ATENOLOL 25 MG TABLET PO SCH (09:12)
[2018-10-05] MEDS: SILDENAFIL 20 MG TABLET PO SCH (09:13)
[2018-10-05] MEDS: PANTOPRAZOLE 40 MG TABLET PO SCH (09:14)
[2018-10-05] MEDS: ENOXAPARIN 40 MG/0.4 ML SYRINGE SUBCUT SCH (09:17)
[2018-10-05] MEDS: MAGNESIUM OXIDE 400 MG TABLET PO SCH (09:21)
[2018-10-05] MEDS: INSULIN LISPRO 100 UNIT/ML SUBCUT SCH ×4 (09:21→20:43)
[2018-10-05] MEDS: amLODIPine 10 MG TABLET PO SCH (09:21)
[2018-10-05] MEDS: SODIUM CHLORIDE 0.9% 1,000 ML IV SCH ×3 (09:22→20:49)
[2018-10-05] MEDS: FOLIC ACID 0.4 MG TABLET PO SCH (20:42)
[2018-10-06] MEDS: ALBUTEROL/IPRATROPIUM 3 ML NEB RESP TX SCH ×4 (02:15→20:55)
[2018-10-06] MEDS: PIPERACILLIN/TAZOBACTAM 3,375 MG in SODIUM CHLORIDE 0.9% 100 ML IV SCH ×4 (02:21→16:23)
[2018-10-06 05:12] LABS: Basophils % 0.1 % (0.0-0.8); Hematocrit 28.7 VOL% (35.7-47.0); Hemoglobin 8.9 GM/DL (12.0-16.0); Immature Granulocytes % 0.8 %; Immature Granulocytes Absolute 0.11 #; Lymphocytes # 0.7 10*3/uL (1.4-4.0); Lymphocytes % 5.1 % (21.3-54.2); Mean Corpuscular Hemoglobin 26 PG (27-34); Mean Corpuscular Volume 83.7 FL (87-102); Mean Platelet Volume 9.5 FL (9.6-12.0); Monocytes # 0.7 10*3/uL (0.11-0.8); Monocytes % 5.1 % (1.7-12.7); Neutrophils # 12.3 10*3/uL (1.4-7.4); Neutrophils % 88.9 % (38.7-73.9); Platelet Count 321 T/CUMM (130-400); Red Blood Count 3.43 MC/CUMM (3.8-5.5); Red Cell Distribution Width 16.4 % (9.3-17.3); White Blood Count 13.9 T/CUMM (4-12)
[2018-10-06 05:46] LABS: Calcium 8.9 MG/DL (8.5-10.1); Osmolality,Calculated 284.5 MOS/KG (273-304); Potassium 5.1 MMOL/L (3.5-5.1)
[2018-10-06] MEDS: DULoxetine 30 MG CAPSULE PO SCH ×2 (09:11→21:39)
[2018-10-06] MEDS: methylPREDNISolone SOD SUC 40 MG/1 ML VIAL IV SCH ×2 (09:11→21:40)
[2018-10-06] MEDS: ASPIRIN EC 81 MG TABLET PO SCH (09:11)
[2018-10-06] MEDS: POTASSIUM CHLORIDE 10 MEQ TABLET PO SCH (09:11)
[2018-10-06] MEDS: GABAPENTIN 600 MG TABLET PO SCH ×2 (09:11→21:39)
[2018-10-06] MEDS ORDERED: POTASSIUM CHLORIDE 10 MEQ TABLET PO SCH (09:12)
[2018-10-06] MEDS: DOCUSATE SODIUM 100 MG CAPSULE PO SCH ×4 (09:12→21:45)
[2018-10-06] MEDS: MAGNESIUM OXIDE 400 MG TABLET PO SCH (09:12)
[2018-10-06] MEDS: PANTOPRAZOLE 40 MG TABLET PO SCH (09:12)
[2018-10-06] MEDS: oxyCODONE ER 20 MG TABLET PO SCH ×2 (09:12→21:39)
[2018-10-06] MEDS: SILDENAFIL 20 MG TABLET PO SCH (09:12)
[2018-10-06] MEDS: amLODIPine 10 MG TABLET PO SCH (09:12)
[2018-10-06] MEDS: ATENOLOL 25 MG TABLET PO SCH (09:13)
[2018-10-06] MEDS: INSULIN LISPRO 100 UNIT/ML SUBCUT SCH ×4 (09:22→21:45)
[2018-10-06] MEDS: ENOXAPARIN 40 MG/0.4 ML SYRINGE SUBCUT SCH (09:23)
[2018-10-06] MEDS: SODIUM CHLORIDE 0.9% 1,000 ML IV SCH ×2 (13:06→16:20)
[2018-10-06] MEDS ORDERED: FUROSEMIDE 40 MG TABLET PO SCH (13:30)
[2018-10-06] MEDS: FOLIC ACID 0.4 MG TABLET PO SCH (21:39)
[2018-10-07] MEDS: PIPERACILLIN/TAZOBACTAM 3,375 MG in SODIUM CHLORIDE 0.9% 100 ML IV SCH ×3 (00:49→17:42)
[2018-10-07 05:34] LABS: Basophils % 0.1 % (0.0-0.8); Hematocrit 29.7 VOL% (35.7-47.0); Hemoglobin 9.2 GM/DL (12.0-16.0); Immature Granulocytes Absolute 0.12 #; Lymphocytes # 0.6 10*3/uL (1.4-4.0); Lymphocytes % 5.2 % (21.3-54.2); Mean Corpuscular Hemoglobin 26 PG (27-34); Mean Corpuscular Volume 83.2 FL (87-102); Mean Platelet Volume 9.6 FL (9.6-12.0); Monocytes # 0.4 10*3/uL (0.11-0.8); Monocytes % 3.6 % (1.7-12.7); Neutrophils # 10.9 10*3/uL (1.4-7.4); Neutrophils % 90.1 % (38.7-73.9); Platelet Count 349 T/CUMM (130-400); Red Blood Count 3.57 MC/CUMM (3.8-5.5); Red Cell Distribution Width 16.5 % (9.3-17.3); White Blood Count 12.1 T/CUMM (4-12)
[2018-10-07] MEDS: ALBUTEROL/IPRATROPIUM 3 ML NEB RESP TX SCH ×4 (05:38→20:48)
[2018-10-07 05:55] LABS: Calcium 8.9 MG/DL (8.5-10.1); Osmolality,Calculated 290.8 MOS/KG (273-304); Potassium 4.7 MMOL/L (3.5-5.1)
[2018-10-07] MEDS: INSULIN LISPRO 100 UNIT/ML SUBCUT SCH ×4 (09:13→21:31)
[2018-10-07] MEDS: DULoxetine 30 MG CAPSULE PO SCH ×2 (09:19→21:28)
[2018-10-07] MEDS: ATENOLOL 25 MG TABLET PO SCH (09:19)
[2018-10-07] MEDS: oxyCODONE ER 20 MG TABLET PO SCH ×2 (09:19→21:29)
[2018-10-07] MEDS: GABAPENTIN 600 MG TABLET PO SCH ×2 (09:19→21:29)
[2018-10-07] MEDS: methylPREDNISolone SOD SUC 40 MG/1 ML VIAL IV SCH (09:19)
[2018-10-07] MEDS: DOCUSATE SODIUM 100 MG CAPSULE PO SCH ×4 (09:20→21:31)
[2018-10-07] MEDS: MAGNESIUM OXIDE 400 MG TABLET PO SCH (09:20)
[2018-10-07] MEDS: ASPIRIN EC 81 MG TABLET PO SCH (09:20)
[2018-10-07] MEDS: SILDENAFIL 20 MG TABLET PO SCH (09:20)
[2018-10-07] MEDS: amLODIPine 10 MG TABLET PO SCH (09:20)
[2018-10-07] MEDS: FUROSEMIDE 40 MG TABLET PO SCH ×2 (09:24→17:42)
[2018-10-07] MEDS: ENOXAPARIN 40 MG/0.4 ML SYRINGE SUBCUT SCH (09:25)
[2018-10-07] MEDS: PANTOPRAZOLE 40 MG TABLET PO SCH (09:41)
[2018-10-07] MEDS: FOLIC ACID 0.4 MG TABLET PO SCH (21:28)
[2018-10-08] MEDS: SODIUM CHLORIDE 0.9% 1,000 ML IV SCH (00:04)
[2018-10-08] MEDS: PIPERACILLIN/TAZOBACTAM 3,375 MG in SODIUM CHLORIDE 0.9% 100 ML IV SCH ×3 (00:29→17:06)
[2018-10-08] MEDS: ALBUTEROL/IPRATROPIUM 3 ML NEB RESP TX SCH ×4 (01:35→19:27)
[2018-10-08 05:25] LABS: Basophils % 0.3 % (0.0-0.8); Eosinophils # 0.2 10*3/uL (0.0-0.87); Eosinophils % 1.5 % (0.00-10.9); Hematocrit 29.9 VOL% (35.7-47.0); Hemoglobin 9.3 GM/DL (12.0-16.0); Immature Granulocytes % 3.6 %; Immature Granulocytes Absolute 0.38 #; Lymphocytes # 2.2 10*3/uL (1.4-4.0); Lymphocytes % 21.2 % (21.3-54.2); Mean Corpuscular HGB Conc 31.1 GM/DL (32-36); Mean Corpuscular Hemoglobin 26 PG (27-34); Mean Corpuscular Volume 83.5 FL (87-102); Mean Platelet Volume 9.4 FL (9.6-12.0); Monocytes # 0.9 10*3/uL (0.11-0.8); Monocytes % 8.2 % (1.7-12.7); Neutrophils # 6.9 10*3/uL (1.4-7.4); Neutrophils % 65.2 % (38.7-73.9); Platelet Count 349 T/CUMM (130-400); Red Blood Count 3.58 MC/CUMM (3.8-5.5); Red Cell Distribution Width 16.3 % (9.3-17.3); White Blood Count 10.5 T/CUMM (4-12)
[2018-10-08 05:54] LABS: Calcium 8.7 MG/DL (8.5-10.1); Osmolality,Calculated 287.3 MOS/KG (273-304); Potassium 3.7 MMOL/L (3.5-5.1)
[2018-10-08] MEDS: INSULIN LISPRO 100 UNIT/ML SUBCUT SCH ×4 (09:09→21:14)
[2018-10-08] MEDS: MAGNESIUM OXIDE 400 MG TABLET PO SCH (09:10)
[2018-10-08] MEDS: DOCUSATE SODIUM 100 MG CAPSULE PO SCH ×4 (09:10→21:13)
[2018-10-08] MEDS: DULoxetine 30 MG CAPSULE PO SCH ×2 (09:10→21:10)
[2018-10-08] MEDS: FUROSEMIDE 40 MG TABLET PO SCH ×2 (09:10→17:05)
[2018-10-08] MEDS: ASPIRIN EC 81 MG TABLET PO SCH (09:10)
[2018-10-08] MEDS: GABAPENTIN 600 MG TABLET PO SCH ×2 (09:10→21:10)
[2018-10-08] MEDS: ATENOLOL 25 MG TABLET PO SCH (09:10)
[2018-10-08] MEDS: amLODIPine 10 MG TABLET PO SCH (09:11)
[2018-10-08] MEDS: oxyCODONE ER 20 MG TABLET PO SCH ×2 (09:11→21:10)
[2018-10-08] MEDS: methylPREDNISolone SOD SUC 40 MG/1 ML VIAL IV SCH (09:11)
[2018-10-08] MEDS: ENOXAPARIN 40 MG/0.4 ML SYRINGE SUBCUT SCH (09:11)
[2018-10-08] MEDS: PANTOPRAZOLE 40 MG TABLET PO SCH (09:16)
[2018-10-08] MEDS: SILDENAFIL 20 MG TABLET PO SCH (09:17)
[2018-10-08] MEDS: metOLazone 2.5 MG TABLET PO SCH (12:24)
[2018-10-08] MEDS: oxyCODONE IR 5 MG TABLET PO PRN (17:05)
[2018-10-08] MEDS: FOLIC ACID 0.4 MG TABLET PO SCH (21:09)
[2018-10-08] MEDS: predniSONE 20 MG TABLET PO SCH (21:10)
[2018-10-09] MEDS: PIPERACILLIN/TAZOBACTAM 3,375 MG in SODIUM CHLORIDE 0.9% 100 ML IV SCH ×2 (00:08→10:04)
[2018-10-09] MEDS: ALBUTEROL/IPRATROPIUM 3 ML NEB RESP TX SCH ×2 (00:16→07:40)
[2018-10-09 06:19] LABS: Basophils % 0.4 % (0.0-0.8); Eosinophils % 0.3 % (0.00-10.9); Hematocrit 31.9 VOL% (35.7-47.0); Immature Granulocytes % 4.1 %; Immature Granulocytes Absolute 0.33 #; Lymphocytes # 1.1 10*3/uL (1.4-4.0); Lymphocytes % 13.3 % (21.3-54.2); Mean Corpuscular HGB Conc 31.3 GM/DL (32-36); Mean Corpuscular Hemoglobin 26 PG (27-34); Mean Corpuscular Volume 82.4 FL (87-102); Mean Platelet Volume 9.2 FL (9.6-12.0); Monocytes # 0.5 10*3/uL (0.11-0.8); Monocytes % 6.4 % (1.7-12.7); Neutrophils % 75.5 % (38.7-73.9); Platelet Count 363 T/CUMM (130-400); Red Blood Count 3.87 MC/CUMM (3.8-5.5)
[2018-10-09 06:43] LABS: Calcium 9.2 MG/DL (8.5-10.1); Osmolality,Calculated 282.8 MOS/KG (273-304); Potassium 4.2 MMOL/L (3.5-5.1)
[2018-10-09 09:33] VITALS: BP 160/66
[2018-10-09] MEDS: INSULIN LISPRO 100 UNIT/ML SUBCUT SCH ×2 (09:36→12:07)
[2018-10-09] MEDS: oxyCODONE ER 20 MG TABLET PO SCH (09:37)
[2018-10-09] MEDS: ASPIRIN EC 81 MG TABLET PO SCH (09:37)
[2018-10-09] MEDS: amLODIPine 10 MG TABLET PO SCH (09:37)
[2018-10-09] MEDS: DULoxetine 30 MG CAPSULE PO SCH (09:37)
[2018-10-09] MEDS: DOCUSATE SODIUM 100 MG CAPSULE PO SCH ×2 (09:37→10:04)
[2018-10-09] MEDS: ATENOLOL 25 MG TABLET PO SCH (09:38)
[2018-10-09] MEDS: MAGNESIUM OXIDE 400 MG TABLET PO SCH (09:38)
[2018-10-09] MEDS: GABAPENTIN 600 MG TABLET PO SCH (09:38)
[2018-10-09] MEDS: predniSONE 20 MG TABLET PO SCH (09:38)
[2018-10-09] MEDS: FUROSEMIDE 40 MG TABLET PO SCH (09:38)
[2018-10-09] MEDS: PANTOPRAZOLE 40 MG TABLET PO SCH (09:38)
[2018-10-09] MEDS: SILDENAFIL 20 MG TABLET PO SCH (09:44)
[2018-10-09] MEDS: ENOXAPARIN 40 MG/0.4 ML SYRINGE SUBCUT SCH (09:48)
[2018-10-09] MEDS: oxyCODONE IR 5 MG TABLET PO PRN (12:05)
== END 2018-10-09 13:35 | disposition home or self-care (01) | DRG 178 ==
LOC: N.ED 07:37 → N.EDINP 08:20 → N.ICU 09:30 → N.4E 17:34
PROVIDERS: ADMIT Internal Medicine; ATTEND Internal Medicine

== ENCOUNTER 2019-05-20 13:29 | Inpatient (IN) ==
[2019-05-20 14:14] LABS: Basophils % 0.3 % (0.0-0.8); Eosinophils % 0.4 % (0.00-10.9); Hematocrit 36.8 VOL% (35.7-47.0); Hemoglobin 12.2 GM/DL (12.0-16.0); Immature Granulocytes % 0.6 %; Immature Granulocytes Absolute 0.06 #; Lymphocytes # 0.5 10*3/uL (1.4-4.0); Lymphocytes % 4.9 % (21.3-54.2); Mean Corpuscular HGB Conc 33.2 GM/DL (32-36); Mean Corpuscular Volume 81.6 FL (87-102); Monocytes % 4.2 % (1.7-12.7); Neutrophils % 89.6 % (38.7-73.9); Platelet Count 281 T/CUMM (130-400); Red Blood Count 4.51 MC/CUMM (3.8-5.5); Red Cell Distribution Width 15.5 % (9.3-17.3); White Blood Count 10.5 T/CUMM (4-12)
[2019-05-20 14:35] LABS: Albumin 3.4 G/DL (3.4-5.0); Bilirubin,Total 0.7 MG/DL (0.2-1.0); Calcium 9.4 MG/DL (8.5-10.1); Osmolality,Calculated 288.1 MOS/KG (273-304); Total Protein 7.7 G/DL (6.4-8.3)
[2019-05-20 14:37] LABS: Band Neutrophils 1 % (0-10); Eosinophils 2 % (0-10); Lymphocytes 3 % (20-55); Segmented Neutrophils 91 % (50-85); Total Cells Counted 100
[2019-05-20 14:38] LABS: Hypochromasia 1+; Microcytosis 1+; Platelet Estimate Adequate; Polychromasia Slight
[2019-05-20 14:43] LABS: Apearance,Urine Slightly Hazy (Clear); Bacteria,Urine Occasional /HPF (Few); Bilirubin,Urine Negative (Negative); Blood, Urine Small mg/dL (Negative); Glucose,Urine (UA) Negative (Negative); Ketones,Urine Negative (Negative); Nitrite,Urine Negative (Negative); Protein,Urine Negative; RBC,Urine 8 /HPF (0-4); Squamous Epithelial Cell,Urine Occasional /HPF (0-10); Urine Color Yellow (Yellow); Urine Specific Gravity 1.008 (1.001-1.035); Urine Urobilinogen < 2.0 EU/DL (0.2-1.0); WBC,Urine 5 /HPF (0-6)
[2019-05-20] MEDS ORDERED: DEXTROSE 50% 25 GM/50 ML VIAL IV PRN (15:15)
[2019-05-20] MEDS ORDERED: GLUCAGON 1 MG VIAL IM PRN (15:15)
[2019-05-20] MEDS ORDERED: ONDANSETRON 4 MG/2 ML VIAL IV PRN (15:15)
[2019-05-20] MEDS ORDERED: ACETAMINOPHEN 325 MG TABLET PO PRN (15:15)
[2019-05-20] MEDS ORDERED: PIPERACILLIN/TAZOBACTAM 3,375 MG in SODIUM CHLORIDE 0.9% 100 ML IV STA (15:18)
[2019-05-20] MEDS: INSULIN LISPRO 100 UNIT/ML SUBCUT SCH ×2 (17:14→21:36)
[2019-05-20] MEDS: POTASSIUM CHLORIDE 20 MEQ TABLET PO PRN (18:15)
[2019-05-20] MEDS ORDERED: metOLazone 2.5 MG TABLET PO SCH (20:30)
[2019-05-20] MEDS ORDERED: PANTOPRAZOLE 40 MG TABLET PO SCH (21:00)
[2019-05-20] MEDS ORDERED: ESOMEPRAZOLE MAGNESIUM 80 MG PO SCH (21:00)
[2019-05-20] MEDS: VITAMIN E 400 UNIT CAPSULE PO SCH (21:30)
[2019-05-20] MEDS: EZETIMIBE 10 MG TABLET PO SCH (21:30)
[2019-05-20] MEDS: CHOLECALCIFEROL 1,000 UNIT TABLET PO SCH (21:30)
[2019-05-20] MEDS: DULoxetine 30 MG CAPSULE PO SCH (21:30)
[2019-05-20] MEDS: FOLIC ACID 0.4 MG TABLET PO SCH (21:31)
[2019-05-20] MEDS: GABAPENTIN 600 MG TABLET PO SCH (21:31)
[2019-05-20] MEDS: MULTIVITAMIN (OCUVITE) TABLET PO SCH (21:32)
[2019-05-20] MEDS: DOCUSATE SODIUM 100 MG CAPSULE PO SCH (21:33)
[2019-05-20] MEDS: ATENOLOL 25 MG TABLET PO SCH (21:33)
[2019-05-20] MEDS: POTASSIUM CHLORIDE 10 MEQ TABLET PO SCH (21:33)
[2019-05-20] MEDS: SIMVASTATIN 20 MG TABLET PO SCH (21:34)
[2019-05-20] MEDS: ENOXAPARIN 30 MG/0.3 ML SYRINGE SUBCUT SCH (21:35)
[2019-05-20] MEDS: oxyCODONE ER 20 MG TABLET PO SCH (21:35)
[2019-05-20] MEDS: SODIUM CHLORIDE 0.45% 1,000 ML IV SCH (21:36)
[2019-05-20] MEDS: metOLazone 2.5 MG TABLET PO SCH (21:36)
[2019-05-21] MEDS ORDERED: cefTRIAXone 1,000 MG VIAL IM ONE (04:16)
[2019-05-21] MEDS: PIPERACILLIN/TAZOBACTAM 3,375 MG in SODIUM CHLORIDE 0.9% 100 ML IV SCH ×4 (04:31→23:08)
[2019-05-21] MEDS: SODIUM CHLORIDE 0.45% 1,000 ML IV SCH ×3 (04:31→23:21)
[2019-05-21 06:40] LABS: Basophils % 0.4 % (0.0-0.8); Eosinophils # 0.2 10*3/uL (0.0-0.87); Eosinophils % 2.4 % (0.00-10.9); Hematocrit 34.5 VOL% (35.7-47.0); Hemoglobin 11.3 GM/DL (12.0-16.0); Immature Granulocytes % 0.3 %; Immature Granulocytes Absolute 0.02 #; Lymphocytes # 1.4 10*3/uL (1.4-4.0); Lymphocytes % 20.7 % (21.3-54.2); Mean Corpuscular HGB Conc 32.8 GM/DL (32-36); Mean Corpuscular Volume 83.1 FL (87-102); Mean Platelet Volume 9.7 FL (9.6-12.0); Monocytes % 7.7 % (1.7-12.7); Neutrophils % 68.5 % (38.7-73.9); Platelet Count 271 T/CUMM (130-400); Red Blood Count 4.15 MC/CUMM (3.8-5.5); Red Cell Distribution Width 15.9 % (9.3-17.3); White Blood Count 6.8 T/CUMM (4-12)
[2019-05-21] MEDS: ESOMEPRAZOLE PO SCH ×2 (08:39→20:36)
[2019-05-21] MEDS: SILDENAFIL 20 MG TABLET PO SCH (08:40)
[2019-05-21] MEDS: ASPIRIN EC 81 MG TABLET PO SCH (08:40)
[2019-05-21] MEDS: ATENOLOL 25 MG TABLET PO SCH ×2 (08:40→20:36)
[2019-05-21] MEDS: DOCUSATE SODIUM 100 MG CAPSULE PO SCH ×2 (08:41→20:34)
[2019-05-21] MEDS: oxyCODONE ER 20 MG TABLET PO SCH ×2 (08:41→20:35)
[2019-05-21] MEDS: POTASSIUM CHLORIDE 10 MEQ TABLET PO SCH ×3 (08:41→20:31)
[2019-05-21] MEDS: DULoxetine 30 MG CAPSULE PO SCH ×2 (08:41→20:33)
[2019-05-21] MEDS: GABAPENTIN 600 MG TABLET PO SCH ×2 (08:41→20:32)
[2019-05-21] MEDS: FUROSEMIDE 80 MG TABLET PO SCH (08:42)
[2019-05-21] MEDS: amLODIPine 10 MG TABLET PO SCH (08:42)
[2019-05-21] MEDS: CYANOCOBALAMIN 500 MCG TABLET PO SCH (08:42)
[2019-05-21] MEDS: azaTHIOprine 50 MG TABLET PO SCH (08:42)
[2019-05-21] MEDS: LOSARTAN 50 MG TABLET PO SCH (08:43)
[2019-05-21] MEDS: INSULIN LISPRO 100 UNIT/ML SUBCUT SCH ×4 (08:50→22:17)
[2019-05-21] MEDS ORDERED: CRANBERRY C BACILLUS COAG PO SCH (09:00)
[2019-05-21] MEDS ORDERED: ELDERBERRY FRUIT AND FLOWER PO SCH (09:00)
[2019-05-21] MEDS: MAGNESIUM OXIDE 400 MG TABLET PO SCH (12:05)
[2019-05-21] MEDS: FUROSEMIDE 40 MG TABLET PO SCH (15:42)
[2019-05-21] MEDS: FOLIC ACID 0.4 MG TABLET PO SCH (20:29)
[2019-05-21] MEDS: SIMVASTATIN 20 MG TABLET PO SCH (20:32)
[2019-05-21] MEDS: CHOLECALCIFEROL 1,000 UNIT TABLET PO SCH (20:33)
[2019-05-21] MEDS: VITAMIN E 400 UNIT CAPSULE PO SCH (20:34)
[2019-05-21] MEDS: EZETIMIBE 10 MG TABLET PO SCH (20:34)
[2019-05-21] MEDS: MULTIVITAMIN (OCUVITE) TABLET PO SCH (20:34)
[2019-05-21] MEDS: ENOXAPARIN 30 MG/0.3 ML SYRINGE SUBCUT SCH (20:37)
[2019-05-22 05:42] LABS: Basophils # 0.1 10*3/uL (0.0-0.2); Basophils % 0.8 % (0.0-0.8); Eosinophils # 0.4 10*3/uL (0.0-0.87); Hematocrit 32.5 VOL% (35.7-47.0); Hemoglobin 10.6 GM/DL (12.0-16.0); Immature Granulocytes % 0.6 %; Immature Granulocytes Absolute 0.04 #; Lymphocytes # 1.7 10*3/uL (1.4-4.0); Lymphocytes % 27.6 % (21.3-54.2); Mean Corpuscular HGB Conc 32.6 GM/DL (32-36); Mean Corpuscular Volume 83.5 FL (87-102); Mean Platelet Volume 9.5 FL (9.6-12.0); Monocytes % 9.1 % (1.7-12.7); Neutrophils % 54.9 % (38.7-73.9); Platelet Count 282 T/CUMM (130-400); Red Blood Count 3.89 MC/CUMM (3.8-5.5); Red Cell Distribution Width 15.4 % (9.3-17.3); White Blood Count 6.3 T/CUMM (4-12)
[2019-05-22 06:08] LABS: Calcium 9.1 MG/DL (8.5-10.1); Osmolality,Calculated 291.4 MOS/KG (273-304)
[2019-05-22] MEDS: PIPERACILLIN/TAZOBACTAM 3,375 MG in SODIUM CHLORIDE 0.9% 100 ML IV SCH ×3 (06:15→23:19)
[2019-05-22] MEDS ORDERED: INSULIN LISPRO 100 UNIT/ML SUBCUT PRN (07:00)
[2019-05-22] MEDS: FUROSEMIDE 80 MG TABLET PO SCH (08:08)
[2019-05-22] MEDS: ESOMEPRAZOLE PO SCH ×2 (08:11→21:03)
[2019-05-22] MEDS: POTASSIUM CHLORIDE 10 MEQ TABLET PO SCH (08:11)
[2019-05-22] MEDS: CYANOCOBALAMIN 500 MCG TABLET PO SCH (08:11)
[2019-05-22] MEDS: SILDENAFIL 20 MG TABLET PO SCH (08:11)
[2019-05-22] MEDS: amLODIPine 10 MG TABLET PO SCH (08:11)
[2019-05-22] MEDS: GABAPENTIN 600 MG TABLET PO SCH ×2 (08:11→20:59)
[2019-05-22] MEDS: DOCUSATE SODIUM 100 MG CAPSULE PO SCH ×2 (08:12→20:58)
[2019-05-22] MEDS: MAGNESIUM OXIDE 400 MG TABLET PO SCH (08:12)
[2019-05-22] MEDS: oxyCODONE ER 20 MG TABLET PO SCH ×2 (08:12→21:00)
[2019-05-22] MEDS: ASPIRIN EC 81 MG TABLET PO SCH (08:12)
[2019-05-22] MEDS: INSULIN LISPRO 100 UNIT/ML SUBCUT SCH ×4 (08:13→22:03)
[2019-05-22] MEDS: LOSARTAN 50 MG TABLET PO SCH (08:13)
[2019-05-22] MEDS: azaTHIOprine 50 MG TABLET PO SCH (08:13)
[2019-05-22] MEDS: ATENOLOL 25 MG TABLET PO SCH ×2 (08:51→21:40)
[2019-05-22] MEDS: DULoxetine 30 MG CAPSULE PO SCH ×2 (10:00→20:57)
[2019-05-22] MEDS ORDERED: oxyCODONE IR 5 MG TABLET PO PRN ×2 (16:15→21:00)
[2019-05-22] MEDS: SODIUM CHLORIDE 0.45% 1,000 ML IV SCH (16:17)
[2019-05-22] MEDS ORDERED: OXYCODONE 15 MG PO PRN (20:48)
[2019-05-22] MEDS: MULTIVITAMIN (OCUVITE) TABLET PO SCH (20:57)
[2019-05-22] MEDS: SIMVASTATIN 20 MG TABLET PO SCH (20:59)
[2019-05-22] MEDS: VITAMIN E 400 UNIT CAPSULE PO SCH (20:59)
[2019-05-22] MEDS: EZETIMIBE 10 MG TABLET PO SCH (21:00)
[2019-05-22] MEDS: CHOLECALCIFEROL 1,000 UNIT TABLET PO SCH (21:00)
[2019-05-22] MEDS: ENOXAPARIN 30 MG/0.3 ML SYRINGE SUBCUT SCH (21:02)
[2019-05-22] MEDS: FOLIC ACID 0.4 MG TABLET PO SCH (21:05)
[2019-05-23 04:44] LABS: Basophils # 0.1 10*3/uL (0.0-0.2); Basophils % 0.8 % (0.0-0.8); Eosinophils # 0.4 10*3/uL (0.0-0.87); Eosinophils % 6.8 % (0.00-10.9); Hematocrit 32.3 VOL% (35.7-47.0); Hemoglobin 10.2 GM/DL (12.0-16.0); Immature Granulocytes % 0.7 %; Immature Granulocytes Absolute 0.04 #; Lymphocytes # 1.6 10*3/uL (1.4-4.0); Lymphocytes % 26.7 % (21.3-54.2); Mean Corpuscular HGB Conc 31.6 GM/DL (32-36); Mean Corpuscular Volume 85.2 FL (87-102); Mean Platelet Volume 8.8 FL (9.6-12.0); Monocytes % 9.9 % (1.7-12.7); Neutrophils % 55.1 % (38.7-73.9); Platelet Count 275 T/CUMM (130-400); Red Blood Count 3.79 MC/CUMM (3.8-5.5); Red Cell Distribution Width 15.3 % (9.3-17.3)
[2019-05-23 05:12] LABS: Calcium 8.9 MG/DL (8.5-10.1); Osmolality,Calculated 285.5 MOS/KG (273-304)
[2019-05-23] MEDS: PIPERACILLIN/TAZOBACTAM 3,375 MG in SODIUM CHLORIDE 0.9% 100 ML IV SCH ×2 (06:16→17:51)
[2019-05-23] MEDS: metOLazone 2.5 MG TABLET PO SCH (09:44)
[2019-05-23] MEDS: amLODIPine 10 MG TABLET PO SCH (09:44)
[2019-05-23] MEDS: oxyCODONE ER 20 MG TABLET PO SCH ×2 (09:44→22:18)
[2019-05-23] MEDS: GABAPENTIN 600 MG TABLET PO SCH ×2 (09:44→22:18)
[2019-05-23] MEDS: ASPIRIN EC 81 MG TABLET PO SCH (09:44)
[2019-05-23] MEDS: DULoxetine 30 MG CAPSULE PO SCH ×2 (09:45→22:19)
[2019-05-23] MEDS: MAGNESIUM OXIDE 400 MG TABLET PO SCH (09:45)
[2019-05-23] MEDS: SILDENAFIL 20 MG TABLET PO SCH (09:45)
[2019-05-23] MEDS: DOCUSATE SODIUM 100 MG CAPSULE PO SCH ×2 (09:45→22:18)
[2019-05-23] MEDS: CYANOCOBALAMIN 500 MCG TABLET PO SCH (09:45)
[2019-05-23] MEDS: ESOMEPRAZOLE PO SCH ×2 (09:46→22:16)
[2019-05-23] MEDS: INSULIN LISPRO 100 UNIT/ML SUBCUT SCH ×4 (09:47→23:29)
[2019-05-23] MEDS: FUROSEMIDE 40 MG TABLET PO SCH (09:54)
[2019-05-23] MEDS: ATENOLOL 25 MG TABLET PO SCH ×2 (12:13→22:19)
[2019-05-23] MEDS: SODIUM CHLORIDE 0.45% 1,000 ML IV SCH (17:52)
[2019-05-23] MEDS: EZETIMIBE 10 MG TABLET PO SCH (22:17)
[2019-05-23] MEDS: FOLIC ACID 0.4 MG TABLET PO SCH (22:17)
[2019-05-23] MEDS: MULTIVITAMIN (OCUVITE) TABLET PO SCH (22:18)
[2019-05-23] MEDS: VITAMIN E 400 UNIT CAPSULE PO SCH (22:18)
[2019-05-23] MEDS: CHOLECALCIFEROL 1,000 UNIT TABLET PO SCH (22:19)
[2019-05-23] MEDS: SIMVASTATIN 20 MG TABLET PO SCH (22:19)
[2019-05-23] MEDS: ENOXAPARIN 30 MG/0.3 ML SYRINGE SUBCUT SCH (22:21)
[2019-05-24] MEDS: SODIUM CHLORIDE 0.45% 1,000 ML IV SCH (00:29)
[2019-05-24] MEDS ORDERED: hydrALAZINE 10 MG TABLET NG PRN (00:39)
[2019-05-24] MEDS: PIPERACILLIN/TAZOBACTAM 3,375 MG in SODIUM CHLORIDE 0.9% 100 ML IV SCH ×2 (00:56→09:30)
[2019-05-24 06:02] LABS: Basophils % 0.7 % (0.0-0.8); Eosinophils # 0.3 10*3/uL (0.0-0.87); Eosinophils % 5.3 % (0.00-10.9); Hematocrit 32.8 VOL% (35.7-47.0); Hemoglobin 10.6 GM/DL (12.0-16.0); Immature Granulocytes % 0.7 %; Immature Granulocytes Absolute 0.04 #; Lymphocytes # 1.5 10*3/uL (1.4-4.0); Lymphocytes % 26.5 % (21.3-54.2); Mean Corpuscular HGB Conc 32.3 GM/DL (32-36); Mean Corpuscular Volume 83.5 FL (87-102); Mean Platelet Volume 9.2 FL (9.6-12.0); Monocytes % 8.2 % (1.7-12.7); Neutrophils % 58.6 % (38.7-73.9); Platelet Count 299 T/CUMM (130-400); Red Blood Count 3.93 MC/CUMM (3.8-5.5); Red Cell Distribution Width 15.4 % (9.3-17.3); White Blood Count 5.6 T/CUMM (4-12)
[2019-05-24 06:29] LABS: Calcium 8.9 MG/DL (8.5-10.1); Osmolality,Calculated 287.1 MOS/KG (273-304)
[2019-05-24 08:00] VITALS: BP 156/90
[2019-05-24] MEDS: DULoxetine 30 MG CAPSULE PO SCH (09:31)
[2019-05-24] MEDS: MAGNESIUM OXIDE 400 MG TABLET PO SCH (09:32)
[2019-05-24] MEDS: CYANOCOBALAMIN 500 MCG TABLET PO SCH (09:32)
[2019-05-24] MEDS: GABAPENTIN 600 MG TABLET PO SCH (09:32)
[2019-05-24] MEDS: oxyCODONE ER 20 MG TABLET PO SCH (09:32)
[2019-05-24] MEDS: DOCUSATE SODIUM 100 MG CAPSULE PO SCH (09:32)
[2019-05-24] MEDS: ASPIRIN EC 81 MG TABLET PO SCH (09:32)
[2019-05-24] MEDS: SILDENAFIL 20 MG TABLET PO SCH (09:33)
[2019-05-24] MEDS: amLODIPine 10 MG TABLET PO SCH (09:33)
[2019-05-24] MEDS: ATENOLOL 25 MG TABLET PO SCH (09:33)
[2019-05-24] MEDS: INSULIN LISPRO 100 UNIT/ML SUBCUT SCH (09:34)
[2019-05-24] MEDS: ESOMEPRAZOLE PO SCH (09:36)
[2019-05-24] MEDS: FUROSEMIDE 80 MG TABLET PO SCH (09:38)
[2019-05-24] MEDS: POTASSIUM CHLORIDE 20 MEQ TABLET PO PRN (09:38)
== END 2019-05-24 10:35 | disposition home or self-care (01) | DRG 178 ==
LOC: N.ED 13:29 → N.EDINP 15:15 → N.2E 16:34
PROVIDERS: ADMIT Internal Medicine; ATTEND Internal Medicine

== ENCOUNTER 2019-06-04 12:57 | Inpatient (IN) ==
[2019-06-04] MEDS ORDERED: FUROSEMIDE 40 MG/4 ML VIAL IV STA (14:13)
[2019-06-04] MEDS: ALBUTEROL 2.5 MG/3 ML NEB RESP TX SCH (14:38)
[2019-06-04] MEDS ORDERED: GLUCAGON 1 MG VIAL IM PRN (15:49)
[2019-06-04] MEDS ORDERED: ACETAMINOPHEN 325 MG TABLET PO PRN (15:49)
[2019-06-04] MEDS ORDERED: NALOXONE 0.4 MG/ML VIAL IV PRN (15:49)
[2019-06-04] MEDS ORDERED: DEXTROSE 10% 250 ML BAG IV PRN (15:49)
[2019-06-04] MEDS ORDERED: ONDANSETRON 4 MG/2 ML VIAL IV PRN (15:49)
[2019-06-04] MEDS ORDERED: LINACLOTIDE 145 MCG CAPSULE PO PRN (15:54)
[2019-06-04] MEDS ORDERED: NALOXONE 4 MG BOTH NARES PRN (15:54)
[2019-06-04] MEDS: FUROSEMIDE 40 MG/4 ML VIAL IV SCH (16:20)
[2019-06-04] MEDS: INSULIN LISPRO 100 UNIT/ML SUBCUT SCH ×2 (17:35→21:54)
[2019-06-04] MEDS: MULTIVITAMIN (OCUVITE) TABLET PO SCH (21:45)
[2019-06-04] MEDS: ENOXAPARIN 30 MG/0.3 ML SYRINGE SUBCUT SCH (21:45)
[2019-06-04] MEDS: CHOLECALCIFEROL 1,000 UNIT TABLET PO SCH (21:45)
[2019-06-04] MEDS: VITAMIN E 400 UNIT CAPSULE PO SCH (21:46)
[2019-06-04] MEDS: DULoxetine 30 MG CAPSULE PO SCH (21:46)
[2019-06-04] MEDS: GABAPENTIN 600 MG TABLET PO SCH (21:46)
[2019-06-04] MEDS: DOCUSATE SODIUM 100 MG CAPSULE PO SCH (21:46)
[2019-06-04] MEDS: FOLIC ACID 0.4 MG TABLET PO SCH (21:46)
[2019-06-04] MEDS: EZETIMIBE 10 MG TABLET PO SCH (21:47)
[2019-06-04] MEDS: POTASSIUM CHLORIDE 20 MEQ TABLET PO SCH (21:47)
[2019-06-04] MEDS: SIMVASTATIN 20 MG TABLET PO SCH (21:47)
[2019-06-04] MEDS: MAGNESIUM OXIDE 400 MG TABLET PO SCH (21:47)
[2019-06-04] MEDS: PANTOPRAZOLE 40 MG TABLET PO SCH (21:47)
[2019-06-04] MEDS: oxyCODONE ER 20 MG TABLET PO SCH (21:47)
[2019-06-05 05:37] LABS: Risk Ratio 2.97; VLDL CHOLESTEROL 27.4 MG/DL
[2019-06-05] MEDS ORDERED: LOSARTAN 50 MG TABLET PO SCH (09:00)
[2019-06-05] MEDS ORDERED: azaTHIOprine 50 MG TABLET PO SCH (09:00)
[2019-06-05] MEDS ORDERED: PANTOPRAZOLE 40 MG TABLET PO SCH (09:00)
[2019-06-05 09:24] LABS: Basophils % 0.4 % (0.0-0.8); Eosinophils # 0.3 10*3/uL (0.0-0.87); Eosinophils % 3.3 % (0.00-10.9); Hemoglobin 9.4 GM/DL (12.0-16.0); Immature Granulocytes % 0.6 %; Immature Granulocytes Absolute 0.05 #; Lymphocytes # 1.2 10*3/uL (1.4-4.0); Lymphocytes % 14.8 % (21.3-54.2); Mean Corpuscular HGB Conc 32.4 GM/DL (32-36); Mean Corpuscular Volume 85.3 FL (87-102); Monocytes % 9.6 % (1.7-12.7); Neutrophils % 71.3 % (38.7-73.9); Platelet Count 246 T/CUMM (130-400); Red Cell Distribution Width 15.9 % (9.3-17.3)
[2019-06-05] MEDS: CYANOCOBALAMIN 500 MCG TABLET PO SCH (09:28)
[2019-06-05] MEDS: POTASSIUM CHLORIDE 20 MEQ TABLET PO SCH ×3 (09:29→21:59)
[2019-06-05] MEDS: amLODIPine 10 MG TABLET PO SCH (09:30)
[2019-06-05] MEDS: DOCUSATE SODIUM 100 MG CAPSULE PO SCH ×2 (09:31→22:02)
[2019-06-05] MEDS: oxyCODONE ER 20 MG TABLET PO SCH ×2 (09:31→23:05)
[2019-06-05] MEDS: ASPIRIN EC 81 MG TABLET PO SCH (09:31)
[2019-06-05] MEDS: SILDENAFIL 20 MG TABLET PO SCH (09:31)
[2019-06-05] MEDS: GABAPENTIN 600 MG TABLET PO SCH ×2 (09:32→22:00)
[2019-06-05] MEDS: DULoxetine 30 MG CAPSULE PO SCH ×2 (09:32→21:59)
[2019-06-05] MEDS: ATENOLOL 25 MG TABLET PO SCH (09:33)
[2019-06-05] MEDS: FUROSEMIDE 40 MG/4 ML VIAL IV SCH ×2 (09:36→15:14)
[2019-06-05 09:51] LABS: Calcium 8.6 MG/DL (8.5-10.1); Osmolality,Calculated 266.9 MOS/KG (273-304)
[2019-06-05] MEDS: PANTOPRAZOLE 40 MG TABLET PO SCH ×2 (10:53→22:02)
[2019-06-05] MEDS: oxyCODONE IR 5 MG TABLET PO PRN ×2 (11:01→22:08)
[2019-06-05] MEDS: INSULIN LISPRO 100 UNIT/ML SUBCUT SCH ×4 (11:10→22:02)
[2019-06-05] MEDS: [UNRECOGNIZED DRUG - OTHER] PO SCH (12:12)
[2019-06-05] MEDS: ELDERBERRY FRUIT AND FLOWER PO SCH (12:12)
[2019-06-05] MEDS ORDERED: ALBUTEROL 2.5 MG/3 ML NEB RESP TX STA (20:41)
[2019-06-05] MEDS: FOLIC ACID 0.4 MG TABLET PO SCH (21:59)
[2019-06-05] MEDS: MULTIVITAMIN (OCUVITE) TABLET PO SCH (21:59)
[2019-06-05] MEDS: VITAMIN E 400 UNIT CAPSULE PO SCH (21:59)
[2019-06-05] MEDS: EZETIMIBE 10 MG TABLET PO SCH (22:00)
[2019-06-05] MEDS: CHOLECALCIFEROL 1,000 UNIT TABLET PO SCH (22:00)
[2019-06-05] MEDS: ENOXAPARIN 30 MG/0.3 ML SYRINGE SUBCUT SCH (22:01)
[2019-06-05] MEDS: SIMVASTATIN 20 MG TABLET PO SCH (22:01)
[2019-06-05] MEDS: MAGNESIUM OXIDE 400 MG TABLET PO SCH (22:02)
[2019-06-06] MEDS: ALBUTEROL 2.5 MG/3 ML NEB RESP TX SCH ×3 (02:05→07:40)
[2019-06-06 04:29] LABS: Basophils % 0.3 % (0.0-0.8); Eosinophils # 0.2 10*3/uL (0.0-0.87); Eosinophils % 2.1 % (0.00-10.9); Hematocrit 27.7 VOL% (35.7-47.0); Hemoglobin 9.2 GM/DL (12.0-16.0); Immature Granulocytes % 0.7 %; Immature Granulocytes Absolute 0.05 #; Lymphocytes % 12.5 % (21.3-54.2); Mean Corpuscular HGB Conc 33.2 GM/DL (32-36); Mean Corpuscular Volume 83.4 FL (87-102); Mean Platelet Volume 9.7 FL (9.6-12.0); Monocytes % 9.9 % (1.7-12.7); Neutrophils % 74.5 % (38.7-73.9); Platelet Count 247 T/CUMM (130-400); Red Blood Count 3.32 MC/CUMM (3.8-5.5); Red Cell Distribution Width 15.3 % (9.3-17.3); White Blood Count 7.6 T/CUMM (4-12)
[2019-06-06 05:00] LABS: Calcium 8.7 MG/DL (8.5-10.1); Osmolality,Calculated 271.5 MOS/KG (273-304)
[2019-06-06 09:39] LABS: Apearance,Urine CLEAR (Clear); Bilirubin,Urine Negative (Negative); Blood, Urine Negative (Negative); Glucose,Urine (UA) Negative (Negative); Ketones,Urine Negative (Negative); Nitrite,Urine Negative (Negative); Protein,Urine Negative; RBC,Urine 1 /HPF (0-4); Urine Color Straw (Yellow); Urine Specific Gravity 1.006 (1.001-1.035); Urine Urobilinogen < 2.0 EU/DL (0.2-1.0); WBC,Urine <1 /HPF (0-6)
[2019-06-06] MEDS: INSULIN LISPRO 100 UNIT/ML SUBCUT SCH ×4 (09:48→22:13)
[2019-06-06] MEDS: FUROSEMIDE 40 MG/4 ML VIAL IV SCH ×2 (10:27→15:38)
[2019-06-06] MEDS: methylPREDNISolone SOD SUC 40 MG/1 ML VIAL IV SCH ×3 (10:29→22:15)
[2019-06-06] MEDS: metOLazone 2.5 MG TABLET PO SCH (10:32)
[2019-06-06] MEDS: PANTOPRAZOLE 40 MG TABLET PO SCH ×2 (10:32→22:15)
[2019-06-06] MEDS: DULoxetine 30 MG CAPSULE PO SCH ×2 (10:32→22:13)
[2019-06-06] MEDS: DOCUSATE SODIUM 100 MG CAPSULE PO SCH ×2 (10:33→22:13)
[2019-06-06] MEDS: GABAPENTIN 600 MG TABLET PO SCH ×2 (10:33→22:14)
[2019-06-06] MEDS: SILDENAFIL 20 MG TABLET PO SCH (10:33)
[2019-06-06] MEDS: CYANOCOBALAMIN 500 MCG TABLET PO SCH (10:33)
[2019-06-06] MEDS: ASPIRIN EC 81 MG TABLET PO SCH (10:33)
[2019-06-06] MEDS: ATENOLOL 25 MG TABLET PO SCH (10:33)
[2019-06-06] MEDS: amLODIPine 10 MG TABLET PO SCH (10:34)
[2019-06-06] MEDS: POTASSIUM CHLORIDE 20 MEQ TABLET PO SCH (10:34)
[2019-06-06] MEDS: [UNRECOGNIZED DRUG - OTHER] PO SCH (10:36)
[2019-06-06] MEDS: ELDERBERRY FRUIT AND FLOWER PO SCH (10:37)
[2019-06-06] MEDS: oxyCODONE ER 20 MG TABLET PO SCH ×2 (10:41→22:14)
[2019-06-06] MEDS: MORPHINE 4 MG/1 ML VIAL IV PRN ×2 (12:00→20:00)
[2019-06-06] MEDS: CEFEPIME 1,000 MG in SYRINGE 1 EACH IV SCH (12:29)
[2019-06-06] MEDS: metroNIDAZOLE INJ 500 MG in PREMIX 1 EACH IV SCH ×2 (12:37→18:53)
[2019-06-06] MEDS: ALBUTEROL/IPRATROPIUM 3 ML NEB RESP TX SCH ×2 (13:35→19:09)
[2019-06-06] MEDS ORDERED: ERYTHROMYCIN INJ 500 MG in SODIUM CHLORIDE 0.9% 100 ML IV SCH (14:00)
[2019-06-06 14:21] LABS: CKMB % 1.5 %; Troponin I < 0.015 NG/ML (0.00-0.045)
[2019-06-06] MEDS ORDERED: POTASSIUM CHLORIDE 20 MEQ TABLET PO SCH (21:00)
[2019-06-06] MEDS: FOLIC ACID 0.4 MG TABLET PO SCH (22:13)
[2019-06-06] MEDS: MULTIVITAMIN (OCUVITE) TABLET PO SCH (22:14)
[2019-06-06] MEDS: ENOXAPARIN 30 MG/0.3 ML SYRINGE SUBCUT SCH (22:14)
[2019-06-06] MEDS: MAGNESIUM OXIDE 400 MG TABLET PO SCH (22:14)
[2019-06-06] MEDS: VITAMIN E 400 UNIT CAPSULE PO SCH (22:15)
[2019-06-06] MEDS: CHOLECALCIFEROL 1,000 UNIT TABLET PO SCH (22:15)
[2019-06-06] MEDS: EZETIMIBE 10 MG TABLET PO SCH (22:16)
[2019-06-06] MEDS: SIMVASTATIN 20 MG TABLET PO SCH (22:16)
[2019-06-07] MEDS: ALBUTEROL/IPRATROPIUM 3 ML NEB RESP TX SCH ×4 (01:42→19:39)
[2019-06-07] MEDS: metroNIDAZOLE INJ 500 MG in PREMIX 1 EACH IV SCH ×4 (02:32→18:41)
[2019-06-07] MEDS: methylPREDNISolone SOD SUC 40 MG/1 ML VIAL IV SCH ×3 (02:33→16:27)
[2019-06-07 05:01] LABS: Basophils % 0.1 % (0.0-0.8); Hematocrit 26.8 VOL% (35.7-47.0); Hemoglobin 8.8 GM/DL (12.0-16.0); Immature Granulocytes % 0.8 %; Immature Granulocytes Absolute 0.07 #; Lymphocytes # 0.3 10*3/uL (1.4-4.0); Lymphocytes % 3.4 % (21.3-54.2); Mean Corpuscular HGB Conc 32.8 GM/DL (32-36); Mean Corpuscular Volume 82.7 FL (87-102); Mean Platelet Volume 9.5 FL (9.6-12.0); Monocytes % 2.5 % (1.7-12.7); Neutrophils % 93.2 % (38.7-73.9); Platelet Count 273 T/CUMM (130-400); Red Blood Count 3.24 MC/CUMM (3.8-5.5); Red Cell Distribution Width 15.1 % (9.3-17.3); White Blood Count 9.2 T/CUMM (4-12)
[2019-06-07 05:32] LABS: Band Neutrophils 2 % (0-10); Hypochromasia 1+; Lymphocytes 5 % (20-55); Ovalocytes Slight; Platelet Estimate Adequate; Segmented Neutrophils 92 % (50-85); Total Cells Counted 100
[2019-06-07 05:35] LABS: Calcium 9.1 MG/DL (8.5-10.1); Osmolality,Calculated 275.6 MOS/KG (273-304)
[2019-06-07 05:38] LABS: Calcium 8.7 MG/DL (8.5-10.1); Osmolality,Calculated 280.4 MOS/KG (273-304)
[2019-06-07] MEDS: oxyCODONE IR 5 MG TABLET PO PRN (08:27)
[2019-06-07] MEDS: FUROSEMIDE 40 MG/4 ML VIAL IV SCH ×2 (08:31→16:27)
[2019-06-07] MEDS: amLODIPine 10 MG TABLET PO SCH (08:33)
[2019-06-07] MEDS: SILDENAFIL 20 MG TABLET PO SCH (08:33)
[2019-06-07] MEDS: DULoxetine 30 MG CAPSULE PO SCH ×2 (08:33→21:28)
[2019-06-07] MEDS: ASPIRIN EC 81 MG TABLET PO SCH (08:33)
[2019-06-07] MEDS: DOCUSATE SODIUM 100 MG CAPSULE PO SCH ×2 (08:33→21:29)
[2019-06-07] MEDS: [UNRECOGNIZED DRUG - OTHER] PO SCH (08:33)
[2019-06-07] MEDS: oxyCODONE ER 20 MG TABLET PO SCH ×2 (08:33→21:37)
[2019-06-07] MEDS: ELDERBERRY FRUIT AND FLOWER PO SCH (08:33)
[2019-06-07] MEDS: GABAPENTIN 600 MG TABLET PO SCH ×2 (08:33→21:28)
[2019-06-07] MEDS: ATENOLOL 25 MG TABLET PO SCH (08:33)
[2019-06-07] MEDS: CYANOCOBALAMIN 500 MCG TABLET PO SCH (08:33)
[2019-06-07] MEDS: PANTOPRAZOLE 40 MG TABLET PO SCH ×2 (08:37→21:30)
[2019-06-07] MEDS: INSULIN LISPRO 100 UNIT/ML SUBCUT SCH ×4 (08:52→21:33)
[2019-06-07] MEDS: CLORAZEPATE 3.75 MG TABLET PO PRN ×2 (11:30→21:27)
[2019-06-07] MEDS: CEFEPIME 1,000 MG in SYRINGE 1 EACH IV SCH (11:58)
[2019-06-07] MEDS ORDERED: FUROSEMIDE 40 MG/4 ML VIAL IV SCH (13:34)
[2019-06-07] MEDS: MORPHINE 4 MG/1 ML VIAL IV PRN ×2 (14:34→20:53)
[2019-06-07] MEDS: FOLIC ACID 0.4 MG TABLET PO SCH (21:28)
[2019-06-07] MEDS: MAGNESIUM OXIDE 400 MG TABLET PO SCH (21:29)
[2019-06-07] MEDS: MULTIVITAMIN (OCUVITE) TABLET PO SCH (21:29)
[2019-06-07] MEDS: CHOLECALCIFEROL 1,000 UNIT TABLET PO SCH (21:29)
[2019-06-07] MEDS: SIMVASTATIN 20 MG TABLET PO SCH (21:29)
[2019-06-07] MEDS: VITAMIN E 400 UNIT CAPSULE PO SCH (21:30)
[2019-06-07] MEDS: EZETIMIBE 10 MG TABLET PO SCH (21:30)
[2019-06-07] MEDS: ENOXAPARIN 30 MG/0.3 ML SYRINGE SUBCUT SCH (21:34)
[2019-06-08] MEDS: oxyCODONE IR 5 MG TABLET PO PRN (00:40)
[2019-06-08] MEDS: methylPREDNISolone SOD SUC 40 MG/1 ML VIAL IV SCH (00:42)
[2019-06-08] MEDS: metroNIDAZOLE INJ 500 MG in PREMIX 1 EACH IV SCH ×4 (00:49→18:18)
[2019-06-08] MEDS: ALBUTEROL/IPRATROPIUM 3 ML NEB RESP TX SCH ×4 (01:32→19:30)
[2019-06-08] MEDS: ZALEPLON 5 MG CAPSULE PO PRN (02:47)
[2019-06-08 05:40] LABS: Basophils % 0.1 % (0.0-0.8); Hematocrit 29.3 VOL% (35.7-47.0); Hemoglobin 9.9 GM/DL (12.0-16.0); Immature Granulocytes % 0.6 %; Immature Granulocytes Absolute 0.08 #; Lymphocytes # 0.7 10*3/uL (1.4-4.0); Lymphocytes % 5.7 % (21.3-54.2); Mean Corpuscular HGB Conc 33.8 GM/DL (32-36); Mean Corpuscular Volume 80.9 FL (87-102); Mean Platelet Volume 9.4 FL (9.6-12.0); Monocytes % 7.5 % (1.7-12.7); Neutrophils % 86.1 % (38.7-73.9); Platelet Count 371 T/CUMM (130-400); Red Blood Count 3.62 MC/CUMM (3.8-5.5); Red Cell Distribution Width 15.1 % (9.3-17.3); White Blood Count 12.9 T/CUMM (4-12)
[2019-06-08 05:53] LABS: Calcium 9.3 MG/DL (8.5-10.1); Osmolality,Calculated 276.2 MOS/KG (273-304)
[2019-06-08] MEDS: MORPHINE 4 MG/1 ML VIAL IV PRN ×2 (06:38→18:31)
[2019-06-08] MEDS: DORNASE ALFA 2.5 MG/2.5 ML VIAL RESP TX SCH ×2 (07:32→19:40)
[2019-06-08] MEDS ORDERED: LACTULOSE 20 GM/30 ML UDCUP PO PRN (08:07)
[2019-06-08] MEDS: DULoxetine 30 MG CAPSULE PO SCH ×2 (08:32→20:10)
[2019-06-08] MEDS: ASPIRIN EC 81 MG TABLET PO SCH (08:32)
[2019-06-08] MEDS: CLORAZEPATE 3.75 MG TABLET PO PRN ×2 (08:33→22:06)
[2019-06-08] MEDS: PANTOPRAZOLE 40 MG TABLET PO SCH ×2 (08:33→20:21)
[2019-06-08] MEDS: CYANOCOBALAMIN 500 MCG TABLET PO SCH (08:33)
[2019-06-08] MEDS: SILDENAFIL 20 MG TABLET PO SCH (08:33)
[2019-06-08] MEDS: oxyCODONE ER 20 MG TABLET PO SCH ×2 (08:33→20:11)
[2019-06-08] MEDS: GABAPENTIN 600 MG TABLET PO SCH ×2 (08:33→20:10)
[2019-06-08] MEDS: ATENOLOL 25 MG TABLET PO SCH (08:33)
[2019-06-08] MEDS: DOCUSATE SODIUM 100 MG CAPSULE PO SCH ×2 (08:33→20:11)
[2019-06-08] MEDS: amLODIPine 10 MG TABLET PO SCH (08:33)
[2019-06-08] MEDS: [UNRECOGNIZED DRUG - OTHER] PO SCH (08:34)
[2019-06-08] MEDS: ELDERBERRY FRUIT AND FLOWER PO SCH (08:34)
[2019-06-08] MEDS: FUROSEMIDE 40 MG/4 ML VIAL IV SCH ×3 (08:35→17:03)
[2019-06-08] MEDS: INSULIN LISPRO 100 UNIT/ML SUBCUT SCH ×4 (08:37→20:22)
[2019-06-08] MEDS: LINACLOTIDE 145 MCG CAPSULE PO SCH (10:23)
[2019-06-08] MEDS: cloNIDine 0.1 MG TABLET PO PRN (10:45)
[2019-06-08] MEDS: CEFEPIME 1,000 MG in SYRINGE 1 EACH IV SCH (12:59)
[2019-06-08] MEDS: FOLIC ACID 0.4 MG TABLET PO SCH (20:10)
[2019-06-08] MEDS: MAGNESIUM OXIDE 400 MG TABLET PO SCH (20:10)
[2019-06-08] MEDS: CHOLECALCIFEROL 1,000 UNIT TABLET PO SCH (20:10)
[2019-06-08] MEDS: ENOXAPARIN 30 MG/0.3 ML SYRINGE SUBCUT SCH (20:10)
[2019-06-08] MEDS: SIMVASTATIN 20 MG TABLET PO SCH (20:11)
[2019-06-08] MEDS: EZETIMIBE 10 MG TABLET PO SCH (20:11)
[2019-06-08] MEDS: VITAMIN E 400 UNIT CAPSULE PO SCH (20:11)
[2019-06-08] MEDS: MULTIVITAMIN (OCUVITE) TABLET PO SCH (20:21)
[2019-06-08] MEDS: LORazepam 2 MG/1 ML VIAL IV PRN (23:01)
[2019-06-09] MEDS: metroNIDAZOLE INJ 500 MG in PREMIX 1 EACH IV SCH ×4 (00:47→18:20)
[2019-06-09] MEDS: LORazepam 2 MG/1 ML VIAL IV PRN (03:55)
[2019-06-09 04:38] LABS: Basophils % 0.1 % (0.0-0.8); Eosinophils % 0.1 % (0.00-10.9); Hematocrit 29.4 VOL% (35.7-47.0); Immature Granulocytes % 0.5 %; Immature Granulocytes Absolute 0.06 #; Lymphocytes # 0.8 10*3/uL (1.4-4.0); Lymphocytes % 7.4 % (21.3-54.2); Mean Corpuscular Volume 81.2 FL (87-102); Mean Platelet Volume 9.4 FL (9.6-12.0); Monocytes % 4.4 % (1.7-12.7); Neutrophils % 87.5 % (38.7-73.9); Platelet Count 338 T/CUMM (130-400); Red Blood Count 3.62 MC/CUMM (3.8-5.5); Red Cell Distribution Width 15.6 % (9.3-17.3); White Blood Count 10.9 T/CUMM (4-12)
[2019-06-09 04:40] LABS: Calcium 8.7 MG/DL (8.5-10.1); Osmolality,Calculated 281.1 MOS/KG (273-304)
[2019-06-09] MEDS: INSULIN LISPRO 100 UNIT/ML SUBCUT SCH ×5 (07:30→20:55)
[2019-06-09] MEDS: ALBUTEROL/IPRATROPIUM 3 ML NEB RESP TX SCH ×3 (08:03→19:26)
[2019-06-09] MEDS: DORNASE ALFA 2.5 MG/2.5 ML VIAL RESP TX SCH ×2 (08:03→19:26)
[2019-06-09] MEDS: ELDERBERRY FRUIT AND FLOWER PO SCH (09:00)
[2019-06-09] MEDS: CYANOCOBALAMIN 500 MCG TABLET PO SCH (09:00)
[2019-06-09] MEDS: FUROSEMIDE 40 MG/4 ML VIAL IV SCH ×2 (09:00→16:07)
[2019-06-09] MEDS: DOCUSATE SODIUM 100 MG CAPSULE PO SCH ×2 (09:00→21:45)
[2019-06-09] MEDS: [UNRECOGNIZED DRUG - OTHER] PO SCH (09:00)
[2019-06-09] MEDS: SILDENAFIL 20 MG TABLET PO SCH (09:40)
[2019-06-09] MEDS: ATENOLOL 25 MG TABLET PO SCH (09:40)
[2019-06-09] MEDS: amLODIPine 10 MG TABLET PO SCH (09:40)
[2019-06-09] MEDS: ASPIRIN EC 81 MG TABLET PO SCH (09:40)
[2019-06-09] MEDS: GABAPENTIN 600 MG TABLET PO SCH ×2 (09:40→20:53)
[2019-06-09] MEDS: PANTOPRAZOLE 40 MG TABLET PO SCH ×2 (09:40→20:54)
[2019-06-09] MEDS: DULoxetine 30 MG CAPSULE PO SCH ×2 (09:40→20:54)
[2019-06-09] MEDS: oxyCODONE ER 20 MG TABLET PO SCH ×2 (09:40→20:54)
[2019-06-09] MEDS: CLORAZEPATE 3.75 MG TABLET PO PRN ×2 (09:40→23:10)
[2019-06-09] MEDS: methylPREDNISolone SOD SUC 40 MG/1 ML VIAL IV SCH ×3 (10:00→21:42)
[2019-06-09] MEDS: INSULIN GLARGINE 100 UNIT/ML SUBCUT SCH (11:35)
[2019-06-09] MEDS: LINACLOTIDE 145 MCG CAPSULE PO SCH (12:17)
[2019-06-09] MEDS: PIPERACILLIN/TAZOBACTAM 3,375 MG in SODIUM CHLORIDE 0.9% 100 ML IV SCH ×2 (13:50→21:42)
[2019-06-09] MEDS: oxyCODONE IR 5 MG TABLET PO PRN (14:20)
[2019-06-09] MEDS: SIMVASTATIN 20 MG TABLET PO SCH (20:53)
[2019-06-09] MEDS: MAGNESIUM OXIDE 400 MG TABLET PO SCH (20:53)
[2019-06-09] MEDS: FOLIC ACID 0.4 MG TABLET PO SCH (20:53)
[2019-06-09] MEDS: ENOXAPARIN 30 MG/0.3 ML SYRINGE SUBCUT SCH (20:55)
[2019-06-09] MEDS: CHOLECALCIFEROL 1,000 UNIT TABLET PO SCH (21:47)
[2019-06-09] MEDS: MULTIVITAMIN (OCUVITE) TABLET PO SCH (21:47)
[2019-06-09] MEDS: VITAMIN E 400 UNIT CAPSULE PO SCH (21:47)
[2019-06-09] MEDS: EZETIMIBE 10 MG TABLET PO SCH (21:48)
[2019-06-10] MEDS: INSULIN LISPRO 100 UNIT/ML SUBCUT SCH ×6 (00:13→20:55)
[2019-06-10] MEDS: LORazepam 2 MG/1 ML VIAL IV PRN ×2 (00:30→22:36)
[2019-06-10] MEDS: metroNIDAZOLE INJ 500 MG in PREMIX 1 EACH IV SCH ×4 (01:26→18:30)
[2019-06-10] MEDS: methylPREDNISolone SOD SUC 40 MG/1 ML VIAL IV SCH ×4 (05:01→22:35)
[2019-06-10] MEDS: PIPERACILLIN/TAZOBACTAM 3,375 MG in SODIUM CHLORIDE 0.9% 100 ML IV SCH ×3 (05:02→22:37)
[2019-06-10 05:14] LABS: Basophils % 0.1 % (0.0-0.8); Hematocrit 28.8 VOL% (35.7-47.0); Hemoglobin 9.6 GM/DL (12.0-16.0); Immature Granulocytes % 0.9 %; Immature Granulocytes Absolute 0.09 #; Lymphocytes # 0.3 10*3/uL (1.4-4.0); Lymphocytes % 3.1 % (21.3-54.2); Mean Corpuscular HGB Conc 33.3 GM/DL (32-36); Mean Corpuscular Volume 81.4 FL (87-102); Mean Platelet Volume 9.3 FL (9.6-12.0); Monocytes % 5.2 % (1.7-12.7); Neutrophils % 90.7 % (38.7-73.9); Platelet Count 313 T/CUMM (130-400); Red Blood Count 3.54 MC/CUMM (3.8-5.5); Red Cell Distribution Width 15.4 % (9.3-17.3); White Blood Count 10.5 T/CUMM (4-12)
[2019-06-10 05:55] LABS: Band Neutrophils 2 % (0-10); Hypochromasia 1+; Lymphocytes 2 % (20-55); Ovalocytes Few; Segmented Neutrophils 93 % (50-85); Total Cells Counted 100
[2019-06-10 05:56] LABS: Microcytosis 1+; Platelet Estimate Normal
[2019-06-10 05:57] LABS: Calcium 8.7 MG/DL (8.5-10.1); Osmolality,Calculated 285.4 MOS/KG (273-304)
[2019-06-10] MEDS: ALBUTEROL/IPRATROPIUM 3 ML NEB RESP TX SCH ×4 (07:37→19:35)
[2019-06-10] MEDS: DORNASE ALFA 2.5 MG/2.5 ML VIAL RESP TX SCH ×2 (07:37→19:35)
[2019-06-10] MEDS: INSULIN GLARGINE 100 UNIT/ML SUBCUT SCH (07:55)
[2019-06-10] MEDS: FUROSEMIDE 40 MG/4 ML VIAL IV SCH (07:55)
[2019-06-10] MEDS: amLODIPine 10 MG TABLET PO SCH (08:45)
[2019-06-10] MEDS: oxyCODONE ER 20 MG TABLET PO SCH ×2 (08:45→22:02)
[2019-06-10] MEDS: DOCUSATE SODIUM 100 MG CAPSULE PO SCH ×2 (08:45→20:54)
[2019-06-10] MEDS: POTASSIUM CHLORIDE RIDER 10 MEQ in PREMIX 1 EACH IV PRN ×4 (08:45→12:35)
[2019-06-10] MEDS: ELDERBERRY FRUIT AND FLOWER PO SCH (08:45)
[2019-06-10] MEDS: PANTOPRAZOLE 40 MG TABLET PO SCH ×2 (08:45→20:54)
[2019-06-10] MEDS: LINACLOTIDE 145 MCG CAPSULE PO SCH (08:45)
[2019-06-10] MEDS: CYANOCOBALAMIN 500 MCG TABLET PO SCH (08:45)
[2019-06-10] MEDS: [UNRECOGNIZED DRUG - OTHER] PO SCH (08:45)
[2019-06-10] MEDS: SILDENAFIL 20 MG TABLET PO SCH (08:45)
[2019-06-10] MEDS: ASPIRIN EC 81 MG TABLET PO SCH (08:45)
[2019-06-10] MEDS: GABAPENTIN 600 MG TABLET PO SCH ×2 (08:45→20:54)
[2019-06-10] MEDS: metOLazone 2.5 MG TABLET PO SCH (08:45)
[2019-06-10] MEDS: DULoxetine 30 MG CAPSULE PO SCH ×2 (08:45→20:53)
[2019-06-10] MEDS: ATENOLOL 25 MG TABLET PO SCH (08:45)
[2019-06-10] MEDS: oxyCODONE IR 5 MG TABLET PO PRN (14:35)
[2019-06-10] MEDS: VITAMIN E 400 UNIT CAPSULE PO SCH (20:53)
[2019-06-10] MEDS: FOLIC ACID 0.4 MG TABLET PO SCH (20:53)
[2019-06-10] MEDS: SIMVASTATIN 20 MG TABLET PO SCH (20:53)
[2019-06-10] MEDS: MAGNESIUM OXIDE 400 MG TABLET PO SCH (20:54)
[2019-06-10] MEDS: MULTIVITAMIN (OCUVITE) TABLET PO SCH (20:54)
[2019-06-10] MEDS: ZALEPLON 5 MG CAPSULE PO PRN (20:54)
[2019-06-10] MEDS: CHOLECALCIFEROL 1,000 UNIT TABLET PO SCH (20:54)
[2019-06-10] MEDS: EZETIMIBE 10 MG TABLET PO SCH (20:54)
[2019-06-10] MEDS: ENOXAPARIN 30 MG/0.3 ML SYRINGE SUBCUT SCH (20:55)
[2019-06-11] MEDS: INSULIN LISPRO 100 UNIT/ML SUBCUT SCH ×9 (00:16→23:53)
[2019-06-11] MEDS: metroNIDAZOLE INJ 500 MG in PREMIX 1 EACH IV SCH ×4 (00:17→18:29)
[2019-06-11] MEDS: ALBUTEROL/IPRATROPIUM 3 ML NEB RESP TX SCH ×4 (01:32→19:19)
[2019-06-11 05:16] LABS: Basophils % 0.1 % (0.0-0.8); Hemoglobin 9.6 GM/DL (12.0-16.0); Immature Granulocytes Absolute 0.11 #; Lymphocytes # 0.5 10*3/uL (1.4-4.0); Mean Corpuscular HGB Conc 34.3 GM/DL (32-36); Mean Corpuscular Volume 80.2 FL (87-102); Mean Platelet Volume 9.4 FL (9.6-12.0); Monocytes % 4.1 % (1.7-12.7); Neutrophils % 90.8 % (38.7-73.9); Platelet Count 374 T/CUMM (130-400); Red Blood Count 3.49 MC/CUMM (3.8-5.5); Red Cell Distribution Width 15.4 % (9.3-17.3); White Blood Count 11.2 T/CUMM (4-12)
[2019-06-11 05:26] LABS: Calcium 8.9 MG/DL (8.5-10.1); Osmolality,Calculated 298.2 MOS/KG (273-304)
[2019-06-11] MEDS: methylPREDNISolone SOD SUC 40 MG/1 ML VIAL IV SCH ×4 (05:37→21:26)
[2019-06-11] MEDS: PIPERACILLIN/TAZOBACTAM 3,375 MG in SODIUM CHLORIDE 0.9% 100 ML IV SCH ×3 (05:40→21:27)
[2019-06-11 05:50] LABS: Band Neutrophils 2 % (0-10); Lymphocytes 3 % (20-55); Platelet Estimate Normal; Segmented Neutrophils 90 % (50-85); Total Cells Counted 100
[2019-06-11] MEDS: POTASSIUM CHLORIDE RIDER 10 MEQ in PREMIX 1 EACH IV PRN ×6 (08:55→18:30)
[2019-06-11] MEDS: PANTOPRAZOLE 40 MG TABLET PO SCH ×2 (08:56→21:25)
[2019-06-11] MEDS: CYANOCOBALAMIN 500 MCG TABLET PO SCH (08:56)
[2019-06-11] MEDS: GABAPENTIN 600 MG TABLET PO SCH ×2 (08:56→21:07)
[2019-06-11] MEDS: ATENOLOL 25 MG TABLET PO SCH (08:56)
[2019-06-11] MEDS: amLODIPine 10 MG TABLET PO SCH (08:56)
[2019-06-11] MEDS: ASPIRIN EC 81 MG TABLET PO SCH (08:56)
[2019-06-11] MEDS: SILDENAFIL 20 MG TABLET PO SCH (08:56)
[2019-06-11] MEDS: DOCUSATE SODIUM 100 MG CAPSULE PO SCH ×2 (08:56→21:06)
[2019-06-11] MEDS: DULoxetine 30 MG CAPSULE PO SCH ×2 (08:56→21:06)
[2019-06-11] MEDS: INSULIN GLARGINE 100 UNIT/ML SUBCUT SCH (08:57)
[2019-06-11] MEDS: FUROSEMIDE 40 MG/4 ML VIAL IV SCH (08:57)
[2019-06-11] MEDS: ELDERBERRY FRUIT AND FLOWER PO SCH (08:59)
[2019-06-11] MEDS: [UNRECOGNIZED DRUG - OTHER] PO SCH (09:00)
[2019-06-11] MEDS: oxyCODONE ER 20 MG TABLET PO SCH ×2 (09:03→21:04)
[2019-06-11] MEDS: LINACLOTIDE 145 MCG CAPSULE PO SCH (09:04)
[2019-06-11] MEDS: oxyCODONE IR 5 MG TABLET PO PRN (14:44)
[2019-06-11] MEDS: ENOXAPARIN 30 MG/0.3 ML SYRINGE SUBCUT SCH (21:04)
[2019-06-11] MEDS: MAGNESIUM OXIDE 400 MG TABLET PO SCH (21:05)
[2019-06-11] MEDS: VITAMIN E 400 UNIT CAPSULE PO SCH (21:05)
[2019-06-11] MEDS: MULTIVITAMIN (OCUVITE) TABLET PO SCH (21:05)
[2019-06-11] MEDS: SIMVASTATIN 20 MG TABLET PO SCH (21:05)
[2019-06-11] MEDS: ZALEPLON 5 MG CAPSULE PO PRN (21:06)
[2019-06-11] MEDS: EZETIMIBE 10 MG TABLET PO SCH (21:06)
[2019-06-11] MEDS: CLORAZEPATE 3.75 MG TABLET PO PRN (21:06)
[2019-06-11] MEDS: CHOLECALCIFEROL 1,000 UNIT TABLET PO SCH (21:06)
[2019-06-11] MEDS: FOLIC ACID 0.4 MG TABLET PO SCH (21:07)
[2019-06-11] MEDS: LORazepam 2 MG/1 ML VIAL IV PRN (23:18)
[2019-06-12] MEDS: ALBUTEROL/IPRATROPIUM 3 ML NEB RESP TX SCH ×4 (00:44→19:01)
[2019-06-12] MEDS: INSULIN LISPRO 100 UNIT/ML SUBCUT SCH ×6 (00:58→20:39)
[2019-06-12] MEDS: metroNIDAZOLE INJ 500 MG in PREMIX 1 EACH IV SCH ×4 (00:59→18:18)
[2019-06-12 04:44] LABS: Basophils % 0.1 % (0.0-0.8); Eosinophils % 0.1 % (0.00-10.9); Hematocrit 29.7 VOL% (35.7-47.0); Hemoglobin 9.8 GM/DL (12.0-16.0); Immature Granulocytes % 4.1 %; Lymphocytes # 0.9 10*3/uL (1.4-4.0); Lymphocytes % 7.3 % (21.3-54.2); Mean Corpuscular Volume 81.6 FL (87-102); Monocytes % 6.4 % (1.7-12.7); Platelet Count 361 T/CUMM (130-400); Red Blood Count 3.64 MC/CUMM (3.8-5.5); Red Cell Distribution Width 15.8 % (9.3-17.3); White Blood Count 12.1 T/CUMM (4-12)
[2019-06-12] MEDS: methylPREDNISolone SOD SUC 40 MG/1 ML VIAL IV SCH ×4 (04:55→21:14)
[2019-06-12] MEDS: PIPERACILLIN/TAZOBACTAM 3,375 MG in SODIUM CHLORIDE 0.9% 100 ML IV SCH ×3 (05:00→21:14)
[2019-06-12 05:23] LABS: Albumin 1.9 G/DL (3.4-5.0); Bilirubin,Total 0.7 MG/DL (0.2-1.0); Calcium 7.9 MG/DL (8.5-10.1); Total Protein 5.8 G/DL (6.4-8.3)
[2019-06-12] MEDS: INSULIN GLARGINE 100 UNIT/ML SUBCUT SCH ×2 (08:04→20:40)
[2019-06-12] MEDS: DULoxetine 30 MG CAPSULE PO SCH ×2 (08:05→20:40)
[2019-06-12] MEDS: ATENOLOL 25 MG TABLET PO SCH ×2 (08:05→20:42)
[2019-06-12] MEDS: SILDENAFIL 20 MG TABLET PO SCH (08:05)
[2019-06-12] MEDS: DOCUSATE SODIUM 100 MG CAPSULE PO SCH ×2 (08:05→20:42)
[2019-06-12] MEDS: LINACLOTIDE 145 MCG CAPSULE PO SCH (08:06)
[2019-06-12] MEDS: ASPIRIN EC 81 MG TABLET PO SCH (08:06)
[2019-06-12] MEDS: GABAPENTIN 600 MG TABLET PO SCH ×2 (08:06→20:42)
[2019-06-12] MEDS: CYANOCOBALAMIN 500 MCG TABLET PO SCH (08:06)
[2019-06-12] MEDS: PANTOPRAZOLE 40 MG TABLET PO SCH ×2 (08:06→20:42)
[2019-06-12] MEDS: amLODIPine 10 MG TABLET PO SCH (08:06)
[2019-06-12] MEDS: [UNRECOGNIZED DRUG - OTHER] PO SCH (08:10)
[2019-06-12] MEDS: ELDERBERRY FRUIT AND FLOWER PO SCH (08:10)
[2019-06-12] MEDS: FUROSEMIDE 40 MG/4 ML VIAL IV SCH (08:15)
[2019-06-12] MEDS: oxyCODONE ER 20 MG TABLET PO SCH ×2 (08:20→20:45)
[2019-06-12] MEDS: POTASSIUM CHLORIDE RIDER 10 MEQ in PREMIX 1 EACH IV PRN ×2 (08:28→09:55)
[2019-06-12] MEDS: oxyCODONE IR 5 MG TABLET PO PRN (11:19)
[2019-06-12] MEDS: ENOXAPARIN 30 MG/0.3 ML SYRINGE SUBCUT SCH (20:39)
[2019-06-12] MEDS: ZALEPLON 5 MG CAPSULE PO PRN (20:40)
[2019-06-12] MEDS: CHOLECALCIFEROL 1,000 UNIT TABLET PO SCH (20:40)
[2019-06-12] MEDS: MAGNESIUM OXIDE 400 MG TABLET PO SCH (20:40)
[2019-06-12] MEDS: MULTIVITAMIN (OCUVITE) TABLET PO SCH (20:40)
[2019-06-12] MEDS: FOLIC ACID 0.4 MG TABLET PO SCH (20:40)
[2019-06-12] MEDS: VITAMIN E 400 UNIT CAPSULE PO SCH (20:41)
[2019-06-12] MEDS: EZETIMIBE 10 MG TABLET PO SCH (20:41)
[2019-06-12] MEDS: SIMVASTATIN 20 MG TABLET PO SCH (20:42)
[2019-06-13] MEDS: INSULIN LISPRO 100 UNIT/ML SUBCUT SCH ×6 (00:14→21:14)
[2019-06-13] MEDS: ALBUTEROL/IPRATROPIUM 3 ML NEB RESP TX SCH ×4 (00:28→20:40)
[2019-06-13] MEDS: metroNIDAZOLE INJ 500 MG in PREMIX 1 EACH IV SCH ×4 (01:30→18:40)
[2019-06-13] MEDS: methylPREDNISolone SOD SUC 40 MG/1 ML VIAL IV SCH ×4 (04:28→21:18)
[2019-06-13 04:34] LABS: Basophils # 0.1 10*3/uL (0.0-0.2); Basophils % 0.4 % (0.0-0.8); Eosinophils % 0.3 % (0.00-10.9); Hematocrit 32.4 VOL% (35.7-47.0); Hemoglobin 10.5 GM/DL (12.0-16.0); Immature Granulocytes % 10.4 %; Immature Granulocytes Absolute 1.31 #; Lymphocytes # 1.5 10*3/uL (1.4-4.0); Lymphocytes % 11.8 % (21.3-54.2); Mean Corpuscular HGB Conc 32.4 GM/DL (32-36); Mean Corpuscular Volume 82.2 FL (87-102); Monocytes % 7.7 % (1.7-12.7); Neutrophils % 69.4 % (38.7-73.9); Platelet Count 485 T/CUMM (130-400); Red Blood Count 3.94 MC/CUMM (3.8-5.5); Red Cell Distribution Width 16.1 % (9.3-17.3); White Blood Count 12.6 T/CUMM (4-12)
[2019-06-13 04:48] LABS: Osmolality,Calculated 295.4 MOS/KG (273-304)
[2019-06-13] MEDS: cloNIDine 0.1 MG TABLET PO PRN (05:05)
[2019-06-13 05:09] LABS: Anisocytosis 2+; Eosinophils 2 % (0-10); Hypochromasia Slight; Lymphocytes 13 % (20-55); Macrocytosis 2+; Platelet Estimate Increased; Segmented Neutrophils 79 % (50-85); Total Cells Counted 100
[2019-06-13] MEDS: PIPERACILLIN/TAZOBACTAM 3,375 MG in SODIUM CHLORIDE 0.9% 100 ML IV SCH ×3 (06:00→21:18)
[2019-06-13] MEDS: POTASSIUM CHLORIDE RIDER 10 MEQ in PREMIX 1 EACH IV PRN ×2 (06:32→07:30)
[2019-06-13] MEDS: GABAPENTIN 600 MG TABLET PO SCH ×2 (08:19→21:16)
[2019-06-13] MEDS: SILDENAFIL 20 MG TABLET PO SCH (08:20)
[2019-06-13] MEDS: DOXAZOSIN 1 MG TABLET PO SCH ×2 (08:20→21:15)
[2019-06-13] MEDS: ASPIRIN EC 81 MG TABLET PO SCH (08:20)
[2019-06-13] MEDS: CYANOCOBALAMIN 500 MCG TABLET PO SCH (08:20)
[2019-06-13] MEDS: metOLazone 2.5 MG TABLET PO SCH (08:20)
[2019-06-13] MEDS: DULoxetine 30 MG CAPSULE PO SCH ×2 (08:20→21:16)
[2019-06-13] MEDS: ATENOLOL 25 MG TABLET PO SCH ×2 (08:21→21:17)
[2019-06-13] MEDS: amLODIPine 10 MG TABLET PO SCH (08:21)
[2019-06-13] MEDS: DOCUSATE SODIUM 100 MG CAPSULE PO SCH ×2 (08:21→21:17)
[2019-06-13] MEDS: oxyCODONE ER 20 MG TABLET PO SCH ×2 (08:21→21:24)
[2019-06-13] MEDS: LINACLOTIDE 145 MCG CAPSULE PO SCH (08:22)
[2019-06-13] MEDS: INSULIN GLARGINE 100 UNIT/ML SUBCUT SCH ×2 (08:25→21:14)
[2019-06-13] MEDS: FUROSEMIDE 40 MG/4 ML VIAL IV SCH (08:25)
[2019-06-13] MEDS: [UNRECOGNIZED DRUG - OTHER] PO SCH (08:31)
[2019-06-13] MEDS: ELDERBERRY FRUIT AND FLOWER PO SCH (08:31)
[2019-06-13] MEDS: PANTOPRAZOLE 40 MG TABLET PO SCH ×2 (08:31→21:18)
[2019-06-13] MEDS: oxyCODONE IR 5 MG TABLET PO PRN (13:08)
[2019-06-13] MEDS ORDERED: CALCIUM CARBONATE CHEW 500 MG TABLET PO PRN (19:29)
[2019-06-13] MEDS: ENOXAPARIN 30 MG/0.3 ML SYRINGE SUBCUT SCH (21:14)
[2019-06-13] MEDS: ESOMEPRAZOLE PO SCH (21:14)
[2019-06-13] MEDS: MAGNESIUM OXIDE 400 MG TABLET PO SCH (21:15)
[2019-06-13] MEDS: FOLIC ACID 0.4 MG TABLET PO SCH (21:15)
[2019-06-13] MEDS: ZALEPLON 5 MG CAPSULE PO PRN (21:15)
[2019-06-13] MEDS: VITAMIN E 400 UNIT CAPSULE PO SCH (21:16)
[2019-06-13] MEDS: MULTIVITAMIN (OCUVITE) TABLET PO SCH (21:16)
[2019-06-13] MEDS: EZETIMIBE 10 MG TABLET PO SCH (21:16)
[2019-06-13] MEDS: SIMVASTATIN 20 MG TABLET PO SCH (21:17)
[2019-06-13] MEDS: CHOLECALCIFEROL 1,000 UNIT TABLET PO SCH (21:17)
[2019-06-14] MEDS: INSULIN LISPRO 100 UNIT/ML SUBCUT SCH ×4 (00:29→10:08)
[2019-06-14] MEDS: ALBUTEROL/IPRATROPIUM 3 ML NEB RESP TX SCH ×4 (01:19→19:23)
[2019-06-14] MEDS: methylPREDNISolone SOD SUC 40 MG/1 ML VIAL IV SCH ×4 (04:15→22:08)
[2019-06-14] MEDS: oxyCODONE IR 5 MG TABLET PO PRN ×2 (04:16→14:52)
[2019-06-14 04:44] LABS: Calcium 8.8 MG/DL (8.5-10.1); Osmolality,Calculated 296.7 MOS/KG (273-304)
[2019-06-14] MEDS: PIPERACILLIN/TAZOBACTAM 3,375 MG in SODIUM CHLORIDE 0.9% 100 ML IV SCH ×3 (05:49→22:13)
[2019-06-14] MEDS: LINACLOTIDE 145 MCG CAPSULE PO SCH (09:22)
[2019-06-14] MEDS: PANTOPRAZOLE 40 MG TABLET PO SCH ×2 (09:23→22:04)
[2019-06-14] MEDS: ESOMEPRAZOLE PO SCH ×2 (09:24→22:04)
[2019-06-14] MEDS: [UNRECOGNIZED DRUG - OTHER] PO SCH (09:24)
[2019-06-14] MEDS: ELDERBERRY FRUIT AND FLOWER PO SCH (09:24)
[2019-06-14] MEDS: oxyCODONE ER 20 MG TABLET PO SCH ×2 (09:25→22:03)
[2019-06-14] MEDS: amLODIPine 10 MG TABLET PO SCH (09:25)
[2019-06-14] MEDS: ASPIRIN EC 81 MG TABLET PO SCH (09:25)
[2019-06-14] MEDS: SILDENAFIL 20 MG TABLET PO SCH (09:25)
[2019-06-14] MEDS: ATENOLOL 25 MG TABLET PO SCH ×2 (09:25→22:05)
[2019-06-14] MEDS: DOCUSATE SODIUM 100 MG CAPSULE PO SCH ×2 (09:25→22:03)
[2019-06-14] MEDS: CYANOCOBALAMIN 500 MCG TABLET PO SCH (09:25)
[2019-06-14] MEDS: GABAPENTIN 600 MG TABLET PO SCH ×2 (09:25→22:05)
[2019-06-14] MEDS: DOXAZOSIN 1 MG TABLET PO SCH ×2 (09:25→22:02)
[2019-06-14] MEDS: DULoxetine 30 MG CAPSULE PO SCH ×2 (09:25→22:01)
[2019-06-14] MEDS: INSULIN GLARGINE 100 UNIT/ML SUBCUT SCH (10:07)
[2019-06-14] MEDS: VITAMIN E 400 UNIT CAPSULE PO SCH (22:00)
[2019-06-14] MEDS: MAGNESIUM OXIDE 400 MG TABLET PO SCH (22:00)
[2019-06-14] MEDS: MULTIVITAMIN (OCUVITE) TABLET PO SCH (22:00)
[2019-06-14] MEDS: FOLIC ACID 0.4 MG TABLET PO SCH (22:00)
[2019-06-14] MEDS: EZETIMIBE 10 MG TABLET PO SCH (22:01)
[2019-06-14] MEDS: ENOXAPARIN 30 MG/0.3 ML SYRINGE SUBCUT SCH (22:05)
[2019-06-14] MEDS: CHOLECALCIFEROL 1,000 UNIT TABLET PO SCH (22:05)
[2019-06-14] MEDS: SIMVASTATIN 20 MG TABLET PO SCH (22:05)
[2019-06-14] MEDS: ZALEPLON 5 MG CAPSULE PO PRN (22:26)
[2019-06-15] MEDS: ALBUTEROL/IPRATROPIUM 3 ML NEB RESP TX SCH ×4 (00:58→19:16)
[2019-06-15] MEDS: methylPREDNISolone SOD SUC 40 MG/1 ML VIAL IV SCH ×3 (04:11→21:48)
[2019-06-15 04:32] LABS: Basophils # 0.1 10*3/uL (0.0-0.2); Basophils % 0.4 % (0.0-0.8); Eosinophils # 0.1 10*3/uL (0.0-0.87); Eosinophils % 0.3 % (0.00-10.9); Hematocrit 29.9 VOL% (35.7-47.0); Immature Granulocytes % 11.1 %; Lymphocytes # 1.7 10*3/uL (1.4-4.0); Lymphocytes % 8.6 % (21.3-54.2); Mean Corpuscular HGB Conc 33.4 GM/DL (32-36); Mean Corpuscular Volume 81.9 FL (87-102); Mean Platelet Volume 8.7 FL (9.6-12.0); Monocytes % 5.4 % (1.7-12.7); NRBC # 0.02 10*3/uL; Neutrophils % 74.2 % (38.7-73.9); Platelet Count 467 T/CUMM (130-400); Red Blood Count 3.65 MC/CUMM (3.8-5.5); Red Cell Distribution Width 16.2 % (9.3-17.3); White Blood Count 19.9 T/CUMM (4-12)
[2019-06-15 04:46] LABS: Calcium 8.8 MG/DL (8.5-10.1); Osmolality,Calculated 289.7 MOS/KG (273-304)
[2019-06-15 05:05] LABS: Band Neutrophils 1 % (0-10); Hypochromasia 1+; Lymphocytes 9 % (20-55); Microcytosis 1+; Myelocytes 2 %; Segmented Neutrophils 85 % (50-85); Target Cells Slight; Total Cells Counted 100
[2019-06-15 05:06] LABS: Ovalocytes Slight; Platelet Estimate Increased; Polychromasia Slight
[2019-06-15] MEDS: PIPERACILLIN/TAZOBACTAM 3,375 MG in SODIUM CHLORIDE 0.9% 100 ML IV SCH ×3 (06:32→21:43)
[2019-06-15] MEDS ORDERED: DOXAZOSIN 1 MG TABLET PO ONE (09:17)
[2019-06-15] MEDS: DULoxetine 30 MG CAPSULE PO SCH ×2 (09:28→21:46)
[2019-06-15] MEDS: GABAPENTIN 600 MG TABLET PO SCH ×2 (09:29→21:45)
[2019-06-15] MEDS: ASPIRIN EC 81 MG TABLET PO SCH (09:30)
[2019-06-15] MEDS: oxyCODONE ER 20 MG TABLET PO SCH ×2 (09:30→21:47)
[2019-06-15] MEDS: DOCUSATE SODIUM 100 MG CAPSULE PO SCH ×2 (09:30→21:46)
[2019-06-15] MEDS: ESOMEPRAZOLE PO SCH ×2 (09:31→21:51)
[2019-06-15] MEDS: ATENOLOL 25 MG TABLET PO SCH ×2 (09:31→21:47)
[2019-06-15] MEDS: amLODIPine 10 MG TABLET PO SCH (09:31)
[2019-06-15] MEDS: SILDENAFIL 20 MG TABLET PO SCH (09:31)
[2019-06-15] MEDS: ELDERBERRY FRUIT AND FLOWER PO SCH (09:32)
[2019-06-15] MEDS: [UNRECOGNIZED DRUG - OTHER] PO SCH (09:32)
[2019-06-15] MEDS: PANTOPRAZOLE 40 MG TABLET PO SCH ×2 (10:22→21:46)
[2019-06-15] MEDS: LINACLOTIDE 145 MCG CAPSULE PO SCH (10:23)
[2019-06-15] MEDS: CYANOCOBALAMIN 500 MCG TABLET PO SCH (10:23)
[2019-06-15] MEDS: FUROSEMIDE 40 MG TABLET PO SCH (10:40)
[2019-06-15] MEDS: DOXAZOSIN 1 MG TABLET PO SCH ×2 (19:14→21:45)
[2019-06-15] MEDS: CHOLECALCIFEROL 1,000 UNIT TABLET PO SCH (21:45)
[2019-06-15] MEDS: MULTIVITAMIN (OCUVITE) TABLET PO SCH (21:45)
[2019-06-15] MEDS: VITAMIN E 400 UNIT CAPSULE PO SCH (21:45)
[2019-06-15] MEDS: FOLIC ACID 0.4 MG TABLET PO SCH (21:45)
[2019-06-15] MEDS: EZETIMIBE 10 MG TABLET PO SCH (21:46)
[2019-06-15] MEDS: SIMVASTATIN 20 MG TABLET PO SCH (21:46)
[2019-06-15] MEDS: MAGNESIUM OXIDE 400 MG TABLET PO SCH (21:46)
[2019-06-15] MEDS: ENOXAPARIN 30 MG/0.3 ML SYRINGE SUBCUT SCH (21:51)
[2019-06-15] MEDS: oxyCODONE IR 5 MG TABLET PO PRN (22:58)
[2019-06-16] MEDS: ALBUTEROL/IPRATROPIUM 3 ML NEB RESP TX SCH ×4 (00:54→19:23)
[2019-06-16] MEDS: methylPREDNISolone SOD SUC 40 MG/1 ML VIAL IV SCH ×3 (03:56→19:24)
[2019-06-16 04:11] LABS: Basophils % 0.2 % (0.0-0.8); Eosinophils # 0.1 10*3/uL (0.0-0.87); Eosinophils % 0.3 % (0.00-10.9); Hematocrit 28.9 VOL% (35.7-47.0); Hemoglobin 9.5 GM/DL (12.0-16.0); Immature Granulocytes % 9.3 %; Immature Granulocytes Absolute 1.75 #; Lymphocytes # 1.4 10*3/uL (1.4-4.0); Lymphocytes % 7.3 % (21.3-54.2); Mean Corpuscular HGB Conc 32.9 GM/DL (32-36); Mean Corpuscular Volume 82.8 FL (87-102); Mean Platelet Volume 8.9 FL (9.6-12.0); Monocytes % 5.1 % (1.7-12.7); NRBC # 0.02 10*3/uL; Neutrophils % 77.8 % (38.7-73.9); Platelet Count 473 T/CUMM (130-400); Red Blood Count 3.49 MC/CUMM (3.8-5.5); White Blood Count 18.8 T/CUMM (4-12)
[2019-06-16 04:29] LABS: Calcium 8.4 MG/DL (8.5-10.1); Osmolality,Calculated 293.8 MOS/KG (273-304)
[2019-06-16 04:30] LABS: Osmolality,Calculated 296.7 MOS/KG (273-304)
[2019-06-16 04:33] LABS: Band Neutrophils 1 % (0-10); Eosinophils 1 % (0-10); Hypochromasia 1+; Lymphocytes 11 % (20-55); Platelet Estimate Adequate; Segmented Neutrophils 82 % (50-85); Total Cells Counted 100
[2019-06-16 04:34] LABS: Microcytosis 1+
[2019-06-16] MEDS: PIPERACILLIN/TAZOBACTAM 3,375 MG in SODIUM CHLORIDE 0.9% 100 ML IV SCH ×3 (06:18→21:21)
[2019-06-16] MEDS: DOXAZOSIN 1 MG TABLET PO SCH ×2 (08:45→21:23)
[2019-06-16] MEDS: CYANOCOBALAMIN 500 MCG TABLET PO SCH (08:45)
[2019-06-16] MEDS: SILDENAFIL 20 MG TABLET PO SCH (08:45)
[2019-06-16] MEDS: DOCUSATE SODIUM 100 MG CAPSULE PO SCH ×2 (08:45→21:24)
[2019-06-16] MEDS: FUROSEMIDE 40 MG TABLET PO SCH (08:45)
[2019-06-16] MEDS: amLODIPine 10 MG TABLET PO SCH (08:45)
[2019-06-16] MEDS: LINACLOTIDE 145 MCG CAPSULE PO SCH (08:45)
[2019-06-16] MEDS: ASPIRIN EC 81 MG TABLET PO SCH (08:45)
[2019-06-16] MEDS: DULoxetine 30 MG CAPSULE PO SCH ×2 (08:45→21:22)
[2019-06-16] MEDS: PANTOPRAZOLE 40 MG TABLET PO SCH ×2 (08:45→21:26)
[2019-06-16] MEDS: GABAPENTIN 600 MG TABLET PO SCH ×2 (08:46→21:22)
[2019-06-16] MEDS: ATENOLOL 25 MG TABLET PO SCH ×2 (08:46→21:24)
[2019-06-16] MEDS: ESOMEPRAZOLE PO SCH ×2 (08:46→21:24)
[2019-06-16] MEDS: oxyCODONE ER 20 MG TABLET PO SCH ×2 (08:46→21:29)
[2019-06-16] MEDS: [UNRECOGNIZED DRUG - OTHER] PO SCH (08:47)
[2019-06-16] MEDS: ELDERBERRY FRUIT AND FLOWER PO SCH (08:47)
[2019-06-16] MEDS: MAGNESIUM OXIDE 400 MG TABLET PO SCH (21:22)
[2019-06-16] MEDS: VITAMIN E 400 UNIT CAPSULE PO SCH (21:22)
[2019-06-16] MEDS: MULTIVITAMIN (OCUVITE) TABLET PO SCH (21:23)
[2019-06-16] MEDS: FOLIC ACID 0.4 MG TABLET PO SCH (21:23)
[2019-06-16] MEDS: ENOXAPARIN 30 MG/0.3 ML SYRINGE SUBCUT SCH (21:23)
[2019-06-16] MEDS: CHOLECALCIFEROL 1,000 UNIT TABLET PO SCH (21:24)
[2019-06-16] MEDS: SIMVASTATIN 20 MG TABLET PO SCH (21:24)
[2019-06-16] MEDS: EZETIMIBE 10 MG TABLET PO SCH (21:29)
[2019-06-17] MEDS: ALBUTEROL/IPRATROPIUM 3 ML NEB RESP TX SCH ×4 (00:57→20:17)
[2019-06-17] MEDS: methylPREDNISolone SOD SUC 40 MG/1 ML VIAL IV SCH ×3 (04:53→21:38)
[2019-06-17] MEDS: PIPERACILLIN/TAZOBACTAM 3,375 MG in SODIUM CHLORIDE 0.9% 100 ML IV SCH ×3 (05:00→23:00)
[2019-06-17 05:48] LABS: Basophils % 0.2 % (0.0-0.8); Eosinophils # 0.1 10*3/uL (0.0-0.87); Eosinophils % 0.3 % (0.00-10.9); Hematocrit 27.6 VOL% (35.7-47.0); Hemoglobin 8.8 GM/DL (12.0-16.0); Immature Granulocytes % 6.3 %; Lymphocytes # 1.9 10*3/uL (1.4-4.0); Lymphocytes % 10.8 % (21.3-54.2); Mean Corpuscular HGB Conc 31.9 GM/DL (32-36); Mean Corpuscular Volume 84.9 FL (87-102); Mean Platelet Volume 9.2 FL (9.6-12.0); Monocytes % 5.3 % (1.7-12.7); Neutrophils % 77.1 % (38.7-73.9); Platelet Count 486 T/CUMM (130-400); Red Blood Count 3.25 MC/CUMM (3.8-5.5); Red Cell Distribution Width 17.3 % (9.3-17.3); White Blood Count 17.6 T/CUMM (4-12)
[2019-06-17 06:05] LABS: Calcium 8.4 MG/DL (8.5-10.1); Osmolality,Calculated 294.4 MOS/KG (273-304)
[2019-06-17 07:46] LABS: Atypical Lymphocytes Few; Band Neutrophils 1 % (0-10); Lymphocytes 11 % (20-55); Segmented Neutrophils 82 % (50-85); Total Cells Counted 100
[2019-06-17 07:47] LABS: Hypochromasia 1+; Microcytosis 1+; Ovalocytes Few; Platelet Estimate Increased; Polychromasia Slight; Target Cells Slight
[2019-06-17] MEDS: ESOMEPRAZOLE PO SCH ×2 (09:12→21:33)
[2019-06-17] MEDS: [UNRECOGNIZED DRUG - OTHER] PO SCH (09:13)
[2019-06-17] MEDS: LINACLOTIDE 145 MCG CAPSULE PO SCH (09:14)
[2019-06-17] MEDS: ELDERBERRY FRUIT AND FLOWER PO SCH (09:14)
[2019-06-17] MEDS: GABAPENTIN 600 MG TABLET PO SCH ×2 (09:15→21:36)
[2019-06-17] MEDS: CYANOCOBALAMIN 500 MCG TABLET PO SCH (09:15)
[2019-06-17] MEDS: SILDENAFIL 20 MG TABLET PO SCH (09:15)
[2019-06-17] MEDS: DOXAZOSIN 1 MG TABLET PO SCH ×2 (09:15→21:33)
[2019-06-17] MEDS: ASPIRIN EC 81 MG TABLET PO SCH (09:15)
[2019-06-17] MEDS: ATENOLOL 25 MG TABLET PO SCH ×2 (09:16→21:37)
[2019-06-17] MEDS: DULoxetine 30 MG CAPSULE PO SCH ×2 (09:16→21:36)
[2019-06-17] MEDS: oxyCODONE ER 20 MG TABLET PO SCH ×2 (09:17→21:36)
[2019-06-17] MEDS: amLODIPine 10 MG TABLET PO SCH (09:17)
[2019-06-17] MEDS: PANTOPRAZOLE 40 MG TABLET PO SCH ×2 (09:17→21:37)
[2019-06-17] MEDS: DOCUSATE SODIUM 100 MG CAPSULE PO SCH ×2 (09:17→21:37)
[2019-06-17] MEDS: FUROSEMIDE 40 MG TABLET PO SCH (09:17)
[2019-06-17] MEDS: INSULIN LISPRO 100 UNIT/ML SUBCUT SCH (11:22)
[2019-06-17] MEDS: oxyCODONE IR 5 MG TABLET PO PRN (15:44)
[2019-06-17] MEDS: VITAMIN E 400 UNIT CAPSULE PO SCH (21:33)
[2019-06-17] MEDS: MAGNESIUM OXIDE 400 MG TABLET PO SCH (21:35)
[2019-06-17] MEDS: FOLIC ACID 0.4 MG TABLET PO SCH (21:35)
[2019-06-17] MEDS: SIMVASTATIN 20 MG TABLET PO SCH (21:36)
[2019-06-17] MEDS: EZETIMIBE 10 MG TABLET PO SCH (21:36)
[2019-06-17] MEDS: CHOLECALCIFEROL 1,000 UNIT TABLET PO SCH (21:37)
[2019-06-17] MEDS: MULTIVITAMIN (OCUVITE) TABLET PO SCH (21:37)
[2019-06-17] MEDS: ENOXAPARIN 30 MG/0.3 ML SYRINGE SUBCUT SCH (21:37)
[2019-06-18] MEDS: ALBUTEROL/IPRATROPIUM 3 ML NEB RESP TX SCH ×4 (01:48→19:49)
[2019-06-18 04:42] LABS: Basophils # 0.1 10*3/uL (0.0-0.2); Basophils % 0.3 % (0.0-0.8); Eosinophils % 0.1 % (0.00-10.9); Hematocrit 27.4 VOL% (35.7-47.0); Hemoglobin 8.8 GM/DL (12.0-16.0); Immature Granulocytes Absolute 1.11 #; Lymphocytes # 1.1 10*3/uL (1.4-4.0); Lymphocytes % 5.8 % (21.3-54.2); Mean Corpuscular HGB Conc 32.1 GM/DL (32-36); Mean Corpuscular Volume 85.4 FL (87-102); Mean Platelet Volume 9.3 FL (9.6-12.0); Monocytes % 4.7 % (1.7-12.7); NRBC # 0.02 10*3/uL; Neutrophils % 83.1 % (38.7-73.9); Platelet Count 484 T/CUMM (130-400); Red Blood Count 3.21 MC/CUMM (3.8-5.5); Red Cell Distribution Width 17.6 % (9.3-17.3); White Blood Count 18.5 T/CUMM (4-12)
[2019-06-18 05:08] LABS: Calcium 8.5 MG/DL (8.5-10.1); Osmolality,Calculated 294.3 MOS/KG (273-304)
[2019-06-18] MEDS: PIPERACILLIN/TAZOBACTAM 3,375 MG in SODIUM CHLORIDE 0.9% 100 ML IV SCH (06:20)
[2019-06-18 06:24] LABS: Anisocytosis Slight; Band Neutrophils 1 % (0-10); Lymphocytes 9 % (20-55); Metamyelocytes 1 %; Polychromasia Few; Segmented Neutrophils 85 % (50-85); Target Cells Slight; Total Cells Counted 100
[2019-06-18 06:25] LABS: Hypochromasia Slight; Microcytosis 1+; Ovalocytes Slight
[2019-06-18 06:26] LABS: Platelet Estimate Normal
[2019-06-18] MEDS: DULoxetine 30 MG CAPSULE PO SCH ×2 (08:48→20:22)
[2019-06-18] MEDS: GABAPENTIN 600 MG TABLET PO SCH ×2 (08:49→20:23)
[2019-06-18] MEDS: SILDENAFIL 20 MG TABLET PO SCH (08:49)
[2019-06-18] MEDS: DOCUSATE SODIUM 100 MG CAPSULE PO SCH ×2 (08:49→20:24)
[2019-06-18] MEDS: ASPIRIN EC 81 MG TABLET PO SCH (08:49)
[2019-06-18] MEDS: CYANOCOBALAMIN 500 MCG TABLET PO SCH (08:49)
[2019-06-18] MEDS: DOXAZOSIN 1 MG TABLET PO SCH ×2 (08:49→20:23)
[2019-06-18] MEDS: amLODIPine 10 MG TABLET PO SCH (08:49)
[2019-06-18] MEDS: ATENOLOL 25 MG TABLET PO SCH ×2 (08:50→20:23)
[2019-06-18] MEDS: FUROSEMIDE 40 MG TABLET PO SCH (08:50)
[2019-06-18] MEDS: oxyCODONE ER 20 MG TABLET PO SCH ×2 (08:50→20:24)
[2019-06-18] MEDS: LINACLOTIDE 145 MCG CAPSULE PO SCH (08:51)
[2019-06-18] MEDS: ELDERBERRY FRUIT AND FLOWER PO SCH (08:55)
[2019-06-18] MEDS: ESOMEPRAZOLE PO SCH ×2 (08:55→20:24)
[2019-06-18] MEDS: [UNRECOGNIZED DRUG - OTHER] PO SCH (08:55)
[2019-06-18] MEDS: methylPREDNISolone SOD SUC 40 MG/1 ML VIAL IV SCH (09:28)
[2019-06-18] MEDS: PANTOPRAZOLE 40 MG TABLET PO SCH ×2 (10:09→20:24)
[2019-06-18] MEDS ORDERED: methylPREDNISolone SOD SUC 40 MG/1 ML VIAL IV SCH (10:30)
[2019-06-18] MEDS: MEROPENEM 1,000 MG in SODIUM CHLORIDE 0.9% 100 ML IV SCH ×2 (12:51→23:40)
[2019-06-18] MEDS: ENOXAPARIN 30 MG/0.3 ML SYRINGE SUBCUT SCH (20:22)
[2019-06-18] MEDS: VITAMIN E 400 UNIT CAPSULE PO SCH (20:22)
[2019-06-18] MEDS: MULTIVITAMIN (OCUVITE) TABLET PO SCH (20:23)
[2019-06-18] MEDS: SIMVASTATIN 20 MG TABLET PO SCH (20:23)
[2019-06-18] MEDS: CHOLECALCIFEROL 1,000 UNIT TABLET PO SCH (20:23)
[2019-06-18] MEDS: FOLIC ACID 0.4 MG TABLET PO SCH (20:23)
[2019-06-18] MEDS: EZETIMIBE 10 MG TABLET PO SCH (20:23)
[2019-06-18] MEDS: MAGNESIUM OXIDE 400 MG TABLET PO SCH (20:23)
[2019-06-19] MEDS: ALBUTEROL/IPRATROPIUM 3 ML NEB RESP TX SCH ×2 (00:38→08:08)
[2019-06-19 04:39] LABS: Basophils % 0.2 % (0.0-0.8); Eosinophils # 0.2 10*3/uL (0.0-0.87); Hemoglobin 9.5 GM/DL (12.0-16.0); Immature Granulocytes % 4.6 %; Immature Granulocytes Absolute 0.75 #; Lymphocytes # 2.7 10*3/uL (1.4-4.0); Lymphocytes % 16.5 % (21.3-54.2); Mean Corpuscular HGB Conc 31.7 GM/DL (32-36); Mean Corpuscular Volume 85.5 FL (87-102); Monocytes % 7.3 % (1.7-12.7); NRBC # 0.03 10*3/uL; Neutrophils % 70.4 % (38.7-73.9); Platelet Count 503 T/CUMM (130-400); Red Blood Count 3.51 MC/CUMM (3.8-5.5); Red Cell Distribution Width 18.5 % (9.3-17.3); White Blood Count 16.2 T/CUMM (4-12)
[2019-06-19 05:05] LABS: Calcium 8.6 MG/DL (8.5-10.1); Osmolality,Calculated 292.1 MOS/KG (273-304)
[2019-06-19 05:09] LABS: Eosinophils 4 % (0-10); Hypochromasia 1+; Lymphocytes 18 % (20-55); Platelet Estimate Adequate; Segmented Neutrophils 75 % (50-85); Total Cells Counted 100
[2019-06-19 05:10] LABS: Microcytosis Slight
[2019-06-19 08:14] VITALS: BP 159/70
[2019-06-19] MEDS ORDERED: methylPREDNISolone SOD SUC 40 MG/1 ML VIAL IV SCH (09:00)
[2019-06-19] MEDS ORDERED: DOXAZOSIN 4 MG TABLET PO SCH (09:00)
[2019-06-19] MEDS: ASPIRIN EC 81 MG TABLET PO SCH (09:32)
[2019-06-19] MEDS: DOCUSATE SODIUM 100 MG CAPSULE PO SCH (09:35)
[2019-06-19] MEDS: [UNRECOGNIZED DRUG - OTHER] PO SCH (09:35)
[2019-06-19] MEDS: DULoxetine 30 MG CAPSULE PO SCH (09:36)
[2019-06-19] MEDS: ELDERBERRY FRUIT AND FLOWER PO SCH (09:37)
[2019-06-19] MEDS: FUROSEMIDE 40 MG TABLET PO SCH (09:38)
[2019-06-19] MEDS: GABAPENTIN 600 MG TABLET PO SCH (09:41)
[2019-06-19] MEDS: amLODIPine 10 MG TABLET PO SCH (09:42)
[2019-06-19] MEDS: ESOMEPRAZOLE PO SCH (09:42)
[2019-06-19] MEDS: PANTOPRAZOLE 40 MG TABLET PO SCH (09:43)
[2019-06-19] MEDS: oxyCODONE ER 20 MG TABLET PO SCH (09:43)
[2019-06-19] MEDS: SILDENAFIL 20 MG TABLET PO SCH (09:44)
[2019-06-19] MEDS: ATENOLOL 25 MG TABLET PO SCH (09:44)
[2019-06-19] MEDS: CYANOCOBALAMIN 500 MCG TABLET PO SCH (09:45)
[2019-06-19] MEDS: MEROPENEM 1,000 MG in SODIUM CHLORIDE 0.9% 100 ML IV SCH (11:41)
[2019-06-19] MEDS: LINACLOTIDE 145 MCG CAPSULE PO SCH (12:29)
== END 2019-06-19 13:21 | disposition home health service (06) | DRG 291 ==
LOC: N.ED 12:57 → N.EDINP 15:49 → N.TELEN 17:33 → N.ICU 06-06 08:51 → N.TELES 06-14 12:08
PROVIDERS: ADMIT Internal Medicine; ATTEND Internal Medicine

== ENCOUNTER 2019-07-11 12:29 | Inpatient (IN) ==
[2019-07-11] MEDS ORDERED: FUROSEMIDE 100 MG/10 ML VIAL IV STA (13:17)
[2019-07-11] MEDS ORDERED: LEVOFLOXACIN INJ 750 MG in PREMIX 1 EACH IV STA (14:20)
[2019-07-11 14:45] LABS: Basophils % 0.4 % (0.0-0.8); Eosinophils # 0.1 10*3/uL (0.0-0.87); Eosinophils % 1.4 % (0.00-10.9); Hematocrit 28.8 VOL% (35.7-47.0); Hemoglobin 9.3 GM/DL (12.0-16.0); Immature Granulocytes % 0.9 %; Immature Granulocytes Absolute 0.07 #; Lymphocytes # 0.8 10*3/uL (1.4-4.0); Lymphocytes % 10.6 % (21.3-54.2); Mean Corpuscular HGB Conc 32.3 GM/DL (32-36); Mean Platelet Volume 8.9 FL (9.6-12.0); Monocytes % 6.1 % (1.7-12.7); Neutrophils % 80.6 % (38.7-73.9); Platelet Count 202 T/CUMM (130-400); Red Blood Count 3.35 MC/CUMM (3.8-5.5); Red Cell Distribution Width 17.2 % (9.3-17.3); White Blood Count 7.7 T/CUMM (4-12)
[2019-07-11 14:54] LABS: PT Patient Result 10.4 SECS (9.6-12.2)
[2019-07-11 15:04] LABS: Bilirubin,Total 0.4 MG/DL (0.2-1.0); Calcium 9.2 MG/DL (8.5-10.1); Osmolality,Calculated 280.7 MOS/KG (273-304); Total Protein 6.5 G/DL (6.4-8.3)
[2019-07-11 15:21] LABS: Apearance,Urine CLEAR (Clear); Bilirubin,Urine Negative (Negative); Blood, Urine Negative (Negative); Glucose,Urine (UA) Negative (Negative); Ketones,Urine Negative (Negative); Nitrite,Urine Negative (Negative); Protein,Urine Negative; RBC,Urine 1 /HPF (0-4); Urine Color Straw (Yellow); Urine Specific Gravity 1.004 (1.001-1.035); Urine Urobilinogen < 2.0 EU/DL (0.2-1.0); WBC,Urine 11 /HPF (0-6)
[2019-07-11] MEDS ORDERED: ONDANSETRON 4 MG/2 ML VIAL IV PRN (17:11)
[2019-07-11] MEDS ORDERED: GLUCAGON 1 MG VIAL IM PRN (17:11)
[2019-07-11] MEDS ORDERED: DEXTROSE 10% 250 ML BAG IV PRN (17:11)
[2019-07-11] MEDS ORDERED: POTASSIUM CHLORIDE 20 MEQ TABLET PO PRN (19:19)
[2019-07-11] MEDS ORDERED: NALOXONE 4 MG BOTH NARES PRN (19:36)
[2019-07-11] MEDS ORDERED: INSULIN LISPRO 100 UNIT/ML SUBCUT SCH (20:00)
[2019-07-11] MEDS ORDERED: SIMVASTATIN 20 MG TABLET PO SCH (21:00)
[2019-07-11] MEDS ORDERED: predniSONE 10 MG TABLET PO SCH (21:00)
[2019-07-11] MEDS: VITAMIN E 400 UNIT CAPSULE PO SCH (23:08)
[2019-07-11] MEDS: ESOMEPRAZOLE MAGNESIUM 80 MG PO SCH (23:08)
[2019-07-11] MEDS: POTASSIUM CHLORIDE 20 MEQ TABLET PO SCH (23:12)
[2019-07-11] MEDS: DULoxetine 30 MG CAPSULE PO SCH (23:12)
[2019-07-11] MEDS: GABAPENTIN 600 MG TABLET PO SCH (23:12)
[2019-07-11] MEDS: FOLIC ACID 0.4 MG TABLET PO SCH (23:12)
[2019-07-11] MEDS: CHOLECALCIFEROL 1,000 UNIT TABLET PO SCH (23:12)
[2019-07-11] MEDS: DOXAZOSIN 4 MG TABLET PO SCH (23:13)
[2019-07-11] MEDS: EZETIMIBE 10 MG TABLET PO SCH (23:13)
[2019-07-11] MEDS: MULTIVITAMIN (OCUVITE) TABLET PO SCH (23:13)
[2019-07-11] MEDS: DOCUSATE SODIUM 100 MG CAPSULE PO SCH (23:13)
[2019-07-11] MEDS: oxyCODONE ER 20 MG TABLET PO SCH (23:15)
[2019-07-12] MEDS: ALBUTEROL/IPRATROPIUM 3 ML NEB RESP TX SCH ×4 (00:20→19:10)
[2019-07-12] MEDS: POTASSIUM CHLORIDE 20 MEQ TABLET PO SCH ×5 (02:10→22:22)
[2019-07-12] MEDS ORDERED: FUROSEMIDE 40 MG/4 ML VIAL IV ONE (02:50)
[2019-07-12] MEDS ORDERED: FUROSEMIDE 40 MG/4 ML VIAL ONE (02:53)
[2019-07-12] MEDS: ALBUTEROL/IPRATROPIUM 3 ML NEB RESP TX PRN (03:15)
[2019-07-12 04:25] LABS: Basophils % 0.3 % (0.0-0.8); Eosinophils # 0.1 10*3/uL (0.0-0.87); Eosinophils % 1.5 % (0.00-10.9); Hematocrit 27.6 VOL% (35.7-47.0); Hemoglobin 8.9 GM/DL (12.0-16.0); Immature Granulocytes % 0.8 %; Immature Granulocytes Absolute 0.05 #; Lymphocytes # 0.9 10*3/uL (1.4-4.0); Mean Corpuscular HGB Conc 32.2 GM/DL (32-36); Mean Corpuscular Volume 84.7 FL (87-102); Mean Platelet Volume 9.3 FL (9.6-12.0); Monocytes % 9.9 % (1.7-12.7); Neutrophils % 73.5 % (38.7-73.9); Platelet Count 220 T/CUMM (130-400); Red Blood Count 3.26 MC/CUMM (3.8-5.5); Red Cell Distribution Width 16.8 % (9.3-17.3); White Blood Count 6.1 T/CUMM (4-12)
[2019-07-12 04:41] LABS: Albumin 2.9 G/DL (3.4-5.0); Bilirubin,Total 0.5 MG/DL (0.2-1.0); Calcium 8.7 MG/DL (8.5-10.1); Osmolality,Calculated 277.7 MOS/KG (273-304); Total Protein 6.4 G/DL (6.4-8.3)
[2019-07-12] MEDS ORDERED: LOSARTAN 50 MG TABLET PO SCH (09:00)
[2019-07-12] MEDS: ASPIRIN EC 81 MG TABLET PO SCH (09:00)
[2019-07-12] MEDS ORDERED: azaTHIOprine 50 MG TABLET PO SCH (09:00)
[2019-07-12] MEDS ORDERED: CRANBERRY C BACILLUS COAG PO SCH (09:00)
[2019-07-12] MEDS ORDERED: PANTOPRAZOLE 40 MG TABLET PO SCH (09:00)
[2019-07-12] MEDS ORDERED: ELDERBERRY FRUIT AND FLOWER PO SCH (09:00)
[2019-07-12] MEDS ORDERED: FUROSEMIDE 40 MG TABLET PO SCH (09:00)
[2019-07-12] MEDS: GABAPENTIN 600 MG TABLET PO SCH ×2 (09:01→22:22)
[2019-07-12] MEDS: DULoxetine 30 MG CAPSULE PO SCH ×2 (09:01→22:20)
[2019-07-12] MEDS: CYANOCOBALAMIN 500 MCG TABLET PO SCH (09:01)
[2019-07-12] MEDS: DOCUSATE SODIUM 100 MG CAPSULE PO SCH ×2 (09:01→22:20)
[2019-07-12] MEDS: DOXAZOSIN 4 MG TABLET PO SCH ×2 (09:01→22:21)
[2019-07-12] MEDS: amLODIPine 10 MG TABLET PO SCH (09:02)
[2019-07-12] MEDS: oxyCODONE ER 20 MG TABLET PO SCH ×2 (09:02→22:22)
[2019-07-12] MEDS: SILDENAFIL 20 MG TABLET PO SCH (09:02)
[2019-07-12] MEDS: FUROSEMIDE 40 MG/4 ML VIAL IV SCH ×2 (09:03→16:20)
[2019-07-12] MEDS: ATENOLOL 25 MG TABLET PO SCH (09:03)
[2019-07-12] MEDS: ESOMEPRAZOLE MAGNESIUM 80 MG PO SCH ×2 (09:04→22:19)
[2019-07-12] MEDS: oxyCODONE IR 5 MG TABLET PO PRN (10:34)
[2019-07-12] MEDS: SIMVASTATIN 20 MG TABLET PO SCH (16:20)
[2019-07-12] MEDS ORDERED: MAGNESIUM OXIDE 400 MG TABLET PO SCH (19:00)
[2019-07-12] MEDS: EZETIMIBE 10 MG TABLET PO SCH (22:21)
[2019-07-12] MEDS: FOLIC ACID 0.4 MG TABLET PO SCH (22:21)
[2019-07-12] MEDS: MULTIVITAMIN (OCUVITE) TABLET PO SCH (22:21)
[2019-07-12] MEDS: VITAMIN E 400 UNIT CAPSULE PO SCH (22:21)
[2019-07-12] MEDS: CHOLECALCIFEROL 1,000 UNIT TABLET PO SCH (22:22)
[2019-07-12] MEDS: MAGNESIUM OXIDE 400 MG TABLET PO SCH (22:22)
[2019-07-12] MEDS: LEVOFLOXACIN INJ 250 MG in PREMIX 1 EACH IV SCH (22:27)
[2019-07-13] MEDS: ALBUTEROL/IPRATROPIUM 3 ML NEB RESP TX SCH ×4 (00:49→19:32)
[2019-07-13 08:05] LABS: Basophils % 0.1 % (0.0-0.8); Eosinophils # 0.1 10*3/uL (0.0-0.87); Eosinophils % 2.1 % (0.00-10.9); Hematocrit 26.2 VOL% (35.7-47.0); Hemoglobin 8.2 GM/DL (12.0-16.0); Immature Granulocytes % 0.9 %; Immature Granulocytes Absolute 0.06 #; Lymphocytes % 14.5 % (21.3-54.2); Mean Corpuscular HGB Conc 31.3 GM/DL (32-36); Mean Corpuscular Volume 86.8 FL (87-102); Monocytes % 11.1 % (1.7-12.7); Neutrophils % 71.3 % (38.7-73.9); Platelet Count 218 T/CUMM (130-400); Red Blood Count 3.02 MC/CUMM (3.8-5.5); Red Cell Distribution Width 16.9 % (9.3-17.3); White Blood Count 6.7 T/CUMM (4-12)
[2019-07-13 08:27] LABS: Osmolality,Calculated 274.5 MOS/KG (273-304)
[2019-07-13] MEDS: FUROSEMIDE 40 MG/4 ML VIAL IV SCH ×2 (08:50→10:13)
[2019-07-13] MEDS: ASPIRIN EC 81 MG TABLET PO SCH (08:51)
[2019-07-13] MEDS: DULoxetine 30 MG CAPSULE PO SCH ×2 (08:51→21:54)
[2019-07-13] MEDS: oxyCODONE ER 20 MG TABLET PO SCH ×2 (08:51→23:05)
[2019-07-13] MEDS: SILDENAFIL 20 MG TABLET PO SCH (08:52)
[2019-07-13] MEDS: DOCUSATE SODIUM 100 MG CAPSULE PO SCH ×2 (08:55→21:54)
[2019-07-13] MEDS: CYANOCOBALAMIN 500 MCG TABLET PO SCH (08:55)
[2019-07-13] MEDS: ATENOLOL 25 MG TABLET PO SCH (08:56)
[2019-07-13] MEDS: POTASSIUM CHLORIDE 20 MEQ TABLET PO SCH ×2 (08:56→21:59)
[2019-07-13] MEDS: GABAPENTIN 600 MG TABLET PO SCH ×2 (08:56→21:55)
[2019-07-13] MEDS: DOXAZOSIN 4 MG TABLET PO SCH ×2 (08:56→21:53)
[2019-07-13] MEDS: ESOMEPRAZOLE MAGNESIUM 80 MG PO SCH ×2 (08:57→21:50)
[2019-07-13] MEDS: amLODIPine 10 MG TABLET PO SCH (08:57)
[2019-07-13] MEDS: ALBUTEROL/IPRATROPIUM 3 ML NEB RESP TX PRN (14:46)
[2019-07-13] MEDS: SIMVASTATIN 20 MG TABLET PO SCH (18:00)
[2019-07-13] MEDS: LINACLOTIDE 145 MCG CAPSULE PO PRN (18:00)
[2019-07-13] MEDS ORDERED: FUROSEMIDE 40 MG/4 ML VIAL IV ONE (18:35)
[2019-07-13] MEDS: ACETAMINOPHEN 325 MG TABLET PO PRN (19:30)
[2019-07-13] MEDS: VITAMIN E 400 UNIT CAPSULE PO SCH (21:53)
[2019-07-13] MEDS: MULTIVITAMIN (OCUVITE) TABLET PO SCH (21:55)
[2019-07-13] MEDS: FOLIC ACID 0.4 MG TABLET PO SCH (21:56)
[2019-07-13] MEDS: MAGNESIUM OXIDE 400 MG TABLET PO SCH (21:56)
[2019-07-13] MEDS: CHOLECALCIFEROL 1,000 UNIT TABLET PO SCH (21:56)
[2019-07-13] MEDS: EZETIMIBE 10 MG TABLET PO SCH (21:56)
[2019-07-13] MEDS: oxyCODONE IR 5 MG TABLET PO PRN (21:57)
[2019-07-13] MEDS: methylPREDNISolone SOD SUC 40 MG/1 ML VIAL IV SCH (22:00)
[2019-07-13] MEDS: LEVOFLOXACIN INJ 250 MG in PREMIX 1 EACH IV SCH (22:05)
[2019-07-13] MEDS: INSULIN REGULAR 100 UNIT/ML SUBCUT SCH (22:10)
[2019-07-14] MEDS: ALBUTEROL/IPRATROPIUM 3 ML NEB RESP TX SCH ×4 (00:05→20:21)
[2019-07-14] MEDS: methylPREDNISolone SOD SUC 40 MG/1 ML VIAL IV SCH ×4 (02:37→16:18)
[2019-07-14 04:39] LABS: Basophils % 0.2 % (0.0-0.8); Hematocrit 24.8 VOL% (35.7-47.0); Hemoglobin 8.1 GM/DL (12.0-16.0); Immature Granulocytes % 1.5 %; Immature Granulocytes Absolute 0.13 #; Lymphocytes # 0.2 10*3/uL (1.4-4.0); Lymphocytes % 2.8 % (21.3-54.2); Mean Corpuscular HGB Conc 32.7 GM/DL (32-36); Mean Corpuscular Volume 86.4 FL (87-102); Mean Platelet Volume 8.9 FL (9.6-12.0); Monocytes % 1.6 % (1.7-12.7); Neutrophils % 93.9 % (38.7-73.9); Platelet Count 241 T/CUMM (130-400); Red Blood Count 2.87 MC/CUMM (3.8-5.5); Red Cell Distribution Width 16.4 % (9.3-17.3); White Blood Count 8.7 T/CUMM (4-12)
[2019-07-14 05:02] LABS: Band Neutrophils 3 % (0-10); Hypochromasia Slight; Lymphocytes 2 % (20-55); Platelet Estimate Normal; Segmented Neutrophils 93 % (50-85); Total Cells Counted 100
[2019-07-14 05:30] LABS: Calcium 8.4 MG/DL (8.5-10.1); Osmolality,Calculated 267.8 MOS/KG (273-304)
[2019-07-14 06:34] LABS: Basophils % 0.3 % (0.0-0.8); Hematocrit 26.1 VOL% (35.7-47.0); Hemoglobin 8.4 GM/DL (12.0-16.0); Immature Granulocytes % 1.3 %; Lymphocytes # 0.2 10*3/uL (1.4-4.0); Mean Corpuscular HGB Conc 32.2 GM/DL (32-36); Mean Corpuscular Volume 85.6 FL (87-102); Mean Platelet Volume 8.7 FL (9.6-12.0); Monocytes % 1.6 % (1.7-12.7); Neutrophils % 93.8 % (38.7-73.9); Platelet Count 238 T/CUMM (130-400); Red Blood Count 3.05 MC/CUMM (3.8-5.5); Red Cell Distribution Width 16.2 % (9.3-17.3); White Blood Count 7.5 T/CUMM (4-12)
[2019-07-14 06:49] LABS: Calcium 8.9 MG/DL (8.5-10.1); Osmolality,Calculated 270.5 MOS/KG (273-304)
[2019-07-14 06:58] LABS: Band Neutrophils 2 % (0-10); Hypochromasia 1+; Lymphocytes 7 % (20-55); Ovalocytes Slight; Platelet Estimate Adequate; Segmented Neutrophils 90 % (50-85); Total Cells Counted 100
[2019-07-14] MEDS ORDERED: SODIUM POLYSTYRENE SULFATE 15 GM/60 ML BOTTLE PO STA (07:09)
[2019-07-14] MEDS: INSULIN REGULAR 100 UNIT/ML SUBCUT SCH ×4 (08:55→21:09)
[2019-07-14] MEDS: ASPIRIN EC 81 MG TABLET PO SCH (08:56)
[2019-07-14] MEDS: ATENOLOL 25 MG TABLET PO SCH (08:56)
[2019-07-14] MEDS: GABAPENTIN 600 MG TABLET PO SCH ×2 (08:56→21:06)
[2019-07-14] MEDS: DULoxetine 30 MG CAPSULE PO SCH ×2 (08:56→21:06)
[2019-07-14] MEDS: DOXAZOSIN 4 MG TABLET PO SCH ×2 (08:57→21:06)
[2019-07-14] MEDS: CYANOCOBALAMIN 500 MCG TABLET PO SCH (08:57)
[2019-07-14] MEDS: DOCUSATE SODIUM 100 MG CAPSULE PO SCH ×2 (08:57→21:19)
[2019-07-14] MEDS: amLODIPine 10 MG TABLET PO SCH (08:57)
[2019-07-14] MEDS: FUROSEMIDE 40 MG/4 ML VIAL IV SCH (08:58)
[2019-07-14] MEDS: ESOMEPRAZOLE MAGNESIUM 80 MG PO SCH ×2 (09:00→21:10)
[2019-07-14] MEDS: SILDENAFIL 20 MG TABLET PO SCH (09:05)
[2019-07-14] MEDS: oxyCODONE ER 20 MG TABLET PO SCH ×2 (09:06→21:05)
[2019-07-14] MEDS ORDERED: FUROSEMIDE 40 MG/4 ML VIAL IV ONE (13:01)
[2019-07-14 14:19] LABS: Osmolality,Calculated 273.4 MOS/KG (273-304)
[2019-07-14] MEDS: SIMVASTATIN 20 MG TABLET PO SCH (16:18)
[2019-07-14] MEDS: MULTIVITAMIN (OCUVITE) TABLET PO SCH (21:05)
[2019-07-14] MEDS: MAGNESIUM OXIDE 400 MG TABLET PO SCH (21:05)
[2019-07-14] MEDS: CHOLECALCIFEROL 1,000 UNIT TABLET PO SCH (21:05)
[2019-07-14] MEDS: EZETIMIBE 10 MG TABLET PO SCH (21:05)
[2019-07-14] MEDS: FOLIC ACID 0.4 MG TABLET PO SCH (21:06)
[2019-07-14] MEDS: VITAMIN E 400 UNIT CAPSULE PO SCH (21:06)
[2019-07-14] MEDS: LEVOFLOXACIN INJ 250 MG in PREMIX 1 EACH IV SCH (21:20)
[2019-07-14] MEDS ORDERED: SODIUM PHOSPHATE ENEMA 133 ML BOTTLE RECTAL ONE (21:59)
[2019-07-14] MEDS: ALPRAZolam 0.5 MG TABLET PO PRN (22:15)
[2019-07-15] MEDS: ALBUTEROL/IPRATROPIUM 3 ML NEB RESP TX SCH ×4 (00:46→20:16)
[2019-07-15] MEDS: methylPREDNISolone SOD SUC 40 MG/1 ML VIAL IV SCH (02:48)
[2019-07-15] MEDS ORDERED: methylPREDNISolone SOD SUC 40 MG/1 ML VIAL IV SCH (03:00)
[2019-07-15 04:32] LABS: Basophils % 0.2 % (0.0-0.8); Hemoglobin 8.4 GM/DL (12.0-16.0); Immature Granulocytes % 1.3 %; Immature Granulocytes Absolute 0.16 #; Lymphocytes # 0.6 10*3/uL (1.4-4.0); Lymphocytes % 5.2 % (21.3-54.2); Mean Corpuscular HGB Conc 32.3 GM/DL (32-36); Mean Corpuscular Volume 83.9 FL (87-102); Monocytes % 7.5 % (1.7-12.7); Neutrophils % 85.8 % (38.7-73.9); Platelet Count 288 T/CUMM (130-400); Red Cell Distribution Width 15.9 % (9.3-17.3)
[2019-07-15 04:58] LABS: Calcium 8.8 MG/DL (8.5-10.1); Osmolality,Calculated 267.6 MOS/KG (273-304)
[2019-07-15] MEDS: ALBUTEROL/IPRATROPIUM 3 ML NEB RESP TX PRN (05:45)
[2019-07-15] MEDS: oxyCODONE IR 5 MG TABLET PO PRN (05:45)
[2019-07-15] MEDS: LINACLOTIDE 145 MCG CAPSULE PO PRN (08:18)
[2019-07-15] MEDS: CYANOCOBALAMIN 500 MCG TABLET PO SCH (09:24)
[2019-07-15] MEDS: ATENOLOL 25 MG TABLET PO SCH (09:24)
[2019-07-15] MEDS: DOCUSATE SODIUM 100 MG CAPSULE PO SCH ×2 (09:24→21:15)
[2019-07-15] MEDS: GABAPENTIN 600 MG TABLET PO SCH ×2 (09:24→21:17)
[2019-07-15] MEDS: amLODIPine 10 MG TABLET PO SCH (09:24)
[2019-07-15] MEDS: DOXAZOSIN 4 MG TABLET PO SCH ×2 (09:24→21:15)
[2019-07-15] MEDS: SILDENAFIL 20 MG TABLET PO SCH (09:24)
[2019-07-15] MEDS: DULoxetine 30 MG CAPSULE PO SCH ×2 (09:24→21:15)
[2019-07-15] MEDS: FUROSEMIDE 40 MG/4 ML VIAL IV SCH ×2 (09:25→17:31)
[2019-07-15] MEDS: ASPIRIN EC 81 MG TABLET PO SCH (09:25)
[2019-07-15] MEDS: INSULIN REGULAR 100 UNIT/ML SUBCUT SCH ×4 (09:25→21:19)
[2019-07-15] MEDS: ESOMEPRAZOLE MAGNESIUM 80 MG PO SCH ×2 (09:43→21:17)
[2019-07-15] MEDS: oxyCODONE ER 20 MG TABLET PO SCH ×2 (09:43→21:16)
[2019-07-15] MEDS ORDERED: LACTULOSE 20 GM/30 ML UDCUP PO SCH (11:30)
[2019-07-15] MEDS: LACTULOSE 20 GM/30 ML UDCUP PO PRN (11:48)
[2019-07-15] MEDS: SIMVASTATIN 20 MG TABLET PO SCH (17:32)
[2019-07-15] MEDS: CHOLECALCIFEROL 1,000 UNIT TABLET PO SCH (21:15)
[2019-07-15] MEDS: FOLIC ACID 0.4 MG TABLET PO SCH (21:15)
[2019-07-15] MEDS: VITAMIN E 400 UNIT CAPSULE PO SCH (21:15)
[2019-07-15] MEDS: MULTIVITAMIN (OCUVITE) TABLET PO SCH (21:16)
[2019-07-15] MEDS: MAGNESIUM OXIDE 400 MG TABLET PO SCH (21:17)
[2019-07-15] MEDS: EZETIMIBE 10 MG TABLET PO SCH (21:17)
[2019-07-15] MEDS: LEVOFLOXACIN INJ 250 MG in PREMIX 1 EACH IV SCH (21:38)
[2019-07-16] MEDS: oxyCODONE IR 5 MG TABLET PO PRN ×2 (01:46→22:19)
[2019-07-16] MEDS: ALBUTEROL/IPRATROPIUM 3 ML NEB RESP TX SCH ×4 (01:55→19:30)
[2019-07-16 05:32] LABS: Basophils % 0.2 % (0.0-0.8); Eosinophils % 0.5 % (0.00-10.9); Hematocrit 26.1 VOL% (35.7-47.0); Hemoglobin 8.5 GM/DL (12.0-16.0); Immature Granulocytes % 1.9 %; Immature Granulocytes Absolute 0.16 #; Lymphocytes # 1.1 10*3/uL (1.4-4.0); Lymphocytes % 12.9 % (21.3-54.2); Mean Corpuscular HGB Conc 32.6 GM/DL (32-36); Mean Corpuscular Volume 84.2 FL (87-102); Mean Platelet Volume 8.8 FL (9.6-12.0); Monocytes % 10.1 % (1.7-12.7); Neutrophils % 74.4 % (38.7-73.9); Platelet Count 344 T/CUMM (130-400); Red Cell Distribution Width 16.7 % (9.3-17.3); White Blood Count 8.2 T/CUMM (4-12)
[2019-07-16 05:45] LABS: Calcium 8.9 MG/DL (8.5-10.1); Osmolality,Calculated 285.4 MOS/KG (273-304)
[2019-07-16] MEDS: INSULIN REGULAR 100 UNIT/ML SUBCUT SCH ×4 (08:57→20:08)
[2019-07-16] MEDS: ESOMEPRAZOLE MAGNESIUM 80 MG PO SCH ×2 (08:58→20:01)
[2019-07-16] MEDS: CYANOCOBALAMIN 500 MCG TABLET PO SCH (08:59)
[2019-07-16] MEDS: ATENOLOL 25 MG TABLET PO SCH (08:59)
[2019-07-16] MEDS: DULoxetine 30 MG CAPSULE PO SCH ×2 (08:59→20:01)
[2019-07-16] MEDS: ASPIRIN EC 81 MG TABLET PO SCH (08:59)
[2019-07-16] MEDS: DOCUSATE SODIUM 100 MG CAPSULE PO SCH ×2 (09:00→20:02)
[2019-07-16] MEDS: SILDENAFIL 20 MG TABLET PO SCH (09:00)
[2019-07-16] MEDS: DOXAZOSIN 4 MG TABLET PO SCH ×2 (09:00→20:02)
[2019-07-16] MEDS: amLODIPine 10 MG TABLET PO SCH (09:00)
[2019-07-16] MEDS: GABAPENTIN 600 MG TABLET PO SCH ×2 (09:03→20:02)
[2019-07-16] MEDS: oxyCODONE ER 20 MG TABLET PO SCH ×2 (09:03→20:02)
[2019-07-16] MEDS: LINACLOTIDE 145 MCG CAPSULE PO PRN (09:09)
[2019-07-16] MEDS: LACTULOSE 20 GM/30 ML UDCUP PO PRN (09:09)
[2019-07-16] MEDS: FUROSEMIDE 40 MG/4 ML VIAL IV SCH ×2 (09:54→18:43)
[2019-07-16] MEDS: SIMVASTATIN 20 MG TABLET PO SCH (18:10)
[2019-07-16] MEDS: FOLIC ACID 0.4 MG TABLET PO SCH (20:01)
[2019-07-16] MEDS: VITAMIN E 400 UNIT CAPSULE PO SCH (20:02)
[2019-07-16] MEDS: MAGNESIUM OXIDE 400 MG TABLET PO SCH (20:02)
[2019-07-16] MEDS: CHOLECALCIFEROL 1,000 UNIT TABLET PO SCH (20:02)
[2019-07-16] MEDS: MULTIVITAMIN (OCUVITE) TABLET PO SCH (20:02)
[2019-07-16] MEDS: EZETIMIBE 10 MG TABLET PO SCH (20:02)
[2019-07-16] MEDS: LEVOFLOXACIN INJ 250 MG in PREMIX 1 EACH IV SCH (20:07)
[2019-07-17] MEDS: ALBUTEROL/IPRATROPIUM 3 ML NEB RESP TX SCH ×4 (00:59→19:10)
[2019-07-17 04:35] LABS: Basophils % 0.3 % (0.0-0.8); Eosinophils # 0.1 10*3/uL (0.0-0.87); Eosinophils % 0.8 % (0.00-10.9); Hematocrit 27.5 VOL% (35.7-47.0); Hemoglobin 8.7 GM/DL (12.0-16.0); Immature Granulocytes % 2.8 %; Immature Granulocytes Absolute 0.17 #; Lymphocytes # 1.1 10*3/uL (1.4-4.0); Lymphocytes % 17.6 % (21.3-54.2); Mean Corpuscular HGB Conc 31.6 GM/DL (32-36); Mean Corpuscular Volume 85.7 FL (87-102); Mean Platelet Volume 8.5 FL (9.6-12.0); Monocytes % 12.9 % (1.7-12.7); Neutrophils % 65.6 % (38.7-73.9); Platelet Count 355 T/CUMM (130-400); Red Blood Count 3.21 MC/CUMM (3.8-5.5); Red Cell Distribution Width 16.9 % (9.3-17.3)
[2019-07-17 05:12] LABS: Calcium 8.7 MG/DL (8.5-10.1); Osmolality,Calculated 284.5 MOS/KG (273-304)
[2019-07-17] MEDS: INSULIN REGULAR 100 UNIT/ML SUBCUT SCH ×4 (07:52→20:59)
[2019-07-17] MEDS: FUROSEMIDE 40 MG/4 ML VIAL IV SCH ×2 (08:33→17:14)
[2019-07-17] MEDS: ASPIRIN EC 81 MG TABLET PO SCH (08:41)
[2019-07-17] MEDS: DOXAZOSIN 4 MG TABLET PO SCH ×2 (08:41→20:58)
[2019-07-17] MEDS: DOCUSATE SODIUM 100 MG CAPSULE PO SCH ×2 (08:42→20:59)
[2019-07-17] MEDS: DULoxetine 30 MG CAPSULE PO SCH ×2 (08:43→20:57)
[2019-07-17] MEDS: ESOMEPRAZOLE MAGNESIUM 80 MG PO SCH ×2 (08:44→20:59)
[2019-07-17] MEDS: GABAPENTIN 600 MG TABLET PO SCH ×2 (08:45→20:58)
[2019-07-17] MEDS: amLODIPine 10 MG TABLET PO SCH (08:46)
[2019-07-17] MEDS: oxyCODONE ER 20 MG TABLET PO SCH ×2 (08:46→20:58)
[2019-07-17] MEDS: SILDENAFIL 20 MG TABLET PO SCH (08:48)
[2019-07-17] MEDS: CYANOCOBALAMIN 500 MCG TABLET PO SCH (08:48)
[2019-07-17] MEDS: ATENOLOL 25 MG TABLET PO SCH (08:48)
[2019-07-17] MEDS: LACTULOSE 20 GM/30 ML UDCUP PO PRN (09:04)
[2019-07-17] MEDS: LINACLOTIDE 145 MCG CAPSULE PO SCH (10:47)
[2019-07-17] MEDS: SIMVASTATIN 20 MG TABLET PO SCH (17:15)
[2019-07-17] MEDS: LEVOFLOXACIN INJ 250 MG in PREMIX 1 EACH IV SCH (20:57)
[2019-07-17] MEDS: EZETIMIBE 10 MG TABLET PO SCH (20:58)
[2019-07-17] MEDS: MULTIVITAMIN (OCUVITE) TABLET PO SCH (20:58)
[2019-07-17] MEDS: FOLIC ACID 0.4 MG TABLET PO SCH (20:58)
[2019-07-17] MEDS: MAGNESIUM OXIDE 400 MG TABLET PO SCH (20:58)
[2019-07-17] MEDS: VITAMIN E 400 UNIT CAPSULE PO SCH (20:58)
[2019-07-17] MEDS: CHOLECALCIFEROL 1,000 UNIT TABLET PO SCH (20:58)
[2019-07-17] MEDS: oxyCODONE IR 5 MG TABLET PO PRN (23:45)
[2019-07-17] MEDS: ALPRAZolam 0.5 MG TABLET PO PRN (23:48)
[2019-07-18] MEDS: ALBUTEROL/IPRATROPIUM 3 ML NEB RESP TX SCH ×4 (00:20→19:21)
[2019-07-18 05:48] LABS: Basophils % 0.6 % (0.0-0.8); Eosinophils # 0.1 10*3/uL (0.0-0.87); Eosinophils % 1.8 % (0.00-10.9); Hematocrit 28.9 VOL% (35.7-47.0); Hemoglobin 9.2 GM/DL (12.0-16.0); Immature Granulocytes % 4.3 %; Lymphocytes # 1.5 10*3/uL (1.4-4.0); Lymphocytes % 21.6 % (21.3-54.2); Mean Corpuscular HGB Conc 31.8 GM/DL (32-36); Mean Corpuscular Volume 86.3 FL (87-102); Mean Platelet Volume 8.4 FL (9.6-12.0); Monocytes % 10.8 % (1.7-12.7); Neutrophils % 60.9 % (38.7-73.9); Platelet Count 393 T/CUMM (130-400); Red Blood Count 3.35 MC/CUMM (3.8-5.5); Red Cell Distribution Width 17.2 % (9.3-17.3); White Blood Count 7.1 T/CUMM (4-12)
[2019-07-18 06:07] LABS: Calcium 8.8 MG/DL (8.5-10.1); Osmolality,Calculated 282.7 MOS/KG (273-304)
[2019-07-18] MEDS ORDERED: FUROSEMIDE 40 MG/4 ML VIAL IV ONE (08:14)
[2019-07-18] MEDS ORDERED: FUROSEMIDE 80 MG TABLET PO ONE (10:12)
[2019-07-18] MEDS: ENOXAPARIN 40 MG/0.4 ML SYRINGE SUBCUT SCH (10:56)
[2019-07-18] MEDS: DOXAZOSIN 4 MG TABLET PO SCH ×2 (10:57→20:34)
[2019-07-18] MEDS: POTASSIUM CHLORIDE 8 MEQ CAPSULE PO SCH (10:58)
[2019-07-18] MEDS: GABAPENTIN 600 MG TABLET PO SCH ×2 (10:58→20:37)
[2019-07-18] MEDS: DULoxetine 30 MG CAPSULE PO SCH ×2 (10:58→20:35)
[2019-07-18] MEDS: ATENOLOL 25 MG TABLET PO SCH (10:58)
[2019-07-18] MEDS: DOCUSATE SODIUM 100 MG CAPSULE PO SCH ×2 (10:59→20:34)
[2019-07-18] MEDS: amLODIPine 10 MG TABLET PO SCH (10:59)
[2019-07-18] MEDS: ASPIRIN EC 81 MG TABLET PO SCH (10:59)
[2019-07-18] MEDS: oxyCODONE ER 20 MG TABLET PO SCH ×2 (11:00→20:36)
[2019-07-18] MEDS: SILDENAFIL 20 MG TABLET PO SCH (11:00)
[2019-07-18] MEDS: ESOMEPRAZOLE MAGNESIUM 80 MG PO SCH ×2 (11:01→20:37)
[2019-07-18] MEDS: CYANOCOBALAMIN 500 MCG TABLET PO SCH (11:01)
[2019-07-18] MEDS: LINACLOTIDE 145 MCG CAPSULE PO SCH (11:04)
[2019-07-18] MEDS: INSULIN REGULAR 100 UNIT/ML SUBCUT SCH ×3 (12:53→21:44)
[2019-07-18] MEDS: FUROSEMIDE 40 MG/4 ML VIAL IV SCH (14:29)
[2019-07-18] MEDS: FUROSEMIDE 80 MG TABLET PO SCH (17:11)
[2019-07-18] MEDS: SIMVASTATIN 20 MG TABLET PO SCH (17:11)
[2019-07-18] MEDS: LACTULOSE 20 GM/30 ML UDCUP PO PRN (17:40)
[2019-07-18] MEDS: FOLIC ACID 0.4 MG TABLET PO SCH (20:34)
[2019-07-18] MEDS: MAGNESIUM OXIDE 400 MG TABLET PO SCH (20:34)
[2019-07-18] MEDS: MULTIVITAMIN (OCUVITE) TABLET PO SCH (20:35)
[2019-07-18] MEDS: VITAMIN E 400 UNIT CAPSULE PO SCH (20:35)
[2019-07-18] MEDS: EZETIMIBE 10 MG TABLET PO SCH (20:35)
[2019-07-18] MEDS: CHOLECALCIFEROL 1,000 UNIT TABLET PO SCH (20:35)
[2019-07-18] MEDS: LEVOFLOXACIN INJ 250 MG in PREMIX 1 EACH IV SCH (21:29)
[2019-07-19] MEDS: ALBUTEROL/IPRATROPIUM 3 ML NEB RESP TX SCH ×4 (00:27→20:00)
[2019-07-19 04:38] LABS: Basophils # 0.1 10*3/uL (0.0-0.2); Basophils % 0.6 % (0.0-0.8); Eosinophils # 0.2 10*3/uL (0.0-0.87); Eosinophils % 1.9 % (0.00-10.9); Hematocrit 27.3 VOL% (35.7-47.0); Hemoglobin 8.6 GM/DL (12.0-16.0); Immature Granulocytes % 5.9 %; Immature Granulocytes Absolute 0.49 #; Lymphocytes # 1.6 10*3/uL (1.4-4.0); Lymphocytes % 19.6 % (21.3-54.2); Mean Corpuscular HGB Conc 31.5 GM/DL (32-36); Mean Corpuscular Volume 85.8 FL (87-102); Mean Platelet Volume 8.1 FL (9.6-12.0); Monocytes % 8.4 % (1.7-12.7); Neutrophils % 63.6 % (38.7-73.9); Platelet Count 404 T/CUMM (130-400); Red Blood Count 3.18 MC/CUMM (3.8-5.5); White Blood Count 8.3 T/CUMM (4-12)
[2019-07-19 05:03] LABS: Band Neutrophils 1 % (0-10); Eosinophils 2 % (0-10); Hypochromasia 1+; Lymphocytes 28 % (20-55); Ovalocytes Slight; Platelet Estimate Adequate; Segmented Neutrophils 62 % (50-85); Total Cells Counted 100
[2019-07-19 05:19] LABS: Calcium 8.8 MG/DL (8.5-10.1); Osmolality,Calculated 288.1 MOS/KG (273-304)
[2019-07-19] MEDS: INSULIN REGULAR 100 UNIT/ML SUBCUT SCH ×4 (09:05→21:22)
[2019-07-19] MEDS: LINACLOTIDE 145 MCG CAPSULE PO SCH (09:08)
[2019-07-19] MEDS: ASPIRIN EC 81 MG TABLET PO SCH (09:09)
[2019-07-19] MEDS: ATENOLOL 25 MG TABLET PO SCH (09:09)
[2019-07-19] MEDS: CYANOCOBALAMIN 500 MCG TABLET PO SCH (09:09)
[2019-07-19] MEDS: SILDENAFIL 20 MG TABLET PO SCH (09:09)
[2019-07-19] MEDS: DOXAZOSIN 4 MG TABLET PO SCH ×2 (09:10→20:35)
[2019-07-19] MEDS: GABAPENTIN 600 MG TABLET PO SCH ×2 (09:10→20:35)
[2019-07-19] MEDS: POTASSIUM CHLORIDE 8 MEQ CAPSULE PO SCH (09:10)
[2019-07-19] MEDS: amLODIPine 10 MG TABLET PO SCH (09:10)
[2019-07-19] MEDS: DULoxetine 30 MG CAPSULE PO SCH ×2 (09:10→20:34)
[2019-07-19] MEDS: FUROSEMIDE 80 MG TABLET PO SCH ×2 (09:11→16:20)
[2019-07-19] MEDS: DOCUSATE SODIUM 100 MG CAPSULE PO SCH ×2 (09:12→20:34)
[2019-07-19] MEDS: ENOXAPARIN 40 MG/0.4 ML SYRINGE SUBCUT SCH (09:12)
[2019-07-19] MEDS: ESOMEPRAZOLE MAGNESIUM 80 MG PO SCH ×2 (09:14→20:35)
[2019-07-19] MEDS: ACETAMINOPHEN 325 MG TABLET PO PRN (13:59)
[2019-07-19] MEDS: LACTULOSE 20 GM/30 ML UDCUP PO PRN (14:07)
[2019-07-19] MEDS: SIMVASTATIN 20 MG TABLET PO SCH (16:20)
[2019-07-19] MEDS: MULTIVITAMIN (OCUVITE) TABLET PO SCH (20:34)
[2019-07-19] MEDS: FOLIC ACID 0.4 MG TABLET PO SCH (20:34)
[2019-07-19] MEDS: CHOLECALCIFEROL 1,000 UNIT TABLET PO SCH (20:34)
[2019-07-19] MEDS: LEVOFLOXACIN INJ 250 MG in PREMIX 1 EACH IV SCH (20:34)
[2019-07-19] MEDS: VITAMIN E 400 UNIT CAPSULE PO SCH (20:34)
[2019-07-19] MEDS: MAGNESIUM OXIDE 400 MG TABLET PO SCH (20:35)
[2019-07-19] MEDS: EZETIMIBE 10 MG TABLET PO SCH (20:35)
[2019-07-20] MEDS: ALBUTEROL/IPRATROPIUM 3 ML NEB RESP TX SCH ×2 (00:29→07:20)
[2019-07-20 05:21] LABS: Basophils % 0.5 % (0.0-0.8); Eosinophils % 1.9 % (0.00-10.9); Hematocrit 27.9 VOL% (35.7-47.0); Hemoglobin 8.9 GM/DL (12.0-16.0); Immature Granulocytes % 5.3 %; Lymphocytes % 21.5 % (21.3-54.2); Mean Corpuscular HGB Conc 31.9 GM/DL (32-36); Mean Corpuscular Volume 84.5 FL (87-102); Mean Platelet Volume 8.6 FL (9.6-12.0); Monocytes % 8.6 % (1.7-12.7); Neutrophils % 62.2 % (38.7-73.9); Platelet Count 430 T/CUMM (130-400); Red Cell Distribution Width 17.2 % (9.3-17.3)
[2019-07-20 05:22] LABS: Eosinophils # 0.2 10*3/uL (0.0-0.87); Immature Granulocytes Absolute 0.42 #; Lymphocytes # 1.7 10*3/uL (1.4-4.0)
[2019-07-20 05:48] LABS: Atypical Lymphocytes Few; Band Neutrophils 1 % (0-10); Eosinophils 2 % (0-10); Lymphocytes 20 % (20-55); Myelocytes 2 %; Segmented Neutrophils 67 % (50-85); Total Cells Counted 100
[2019-07-20 05:49] LABS: Hypochromasia 1+; Microcytosis 1+; Platelet Estimate Increased; Polychromasia Slight
[2019-07-20 05:52] LABS: Calcium 8.9 MG/DL (8.5-10.1); Osmolality,Calculated 289.1 MOS/KG (273-304)
[2019-07-20 08:04] VITALS: BP 161/80
[2019-07-20] MEDS ORDERED: hydrALAZINE 25 MG TABLET PO SCH (09:00)
[2019-07-20] MEDS ORDERED: ATENOLOL 25 MG TABLET PO SCH (09:00)
[2019-07-20] MEDS: ESOMEPRAZOLE MAGNESIUM 80 MG PO SCH (09:10)
[2019-07-20] MEDS: LINACLOTIDE 145 MCG CAPSULE PO SCH (09:10)
[2019-07-20] MEDS: FUROSEMIDE 80 MG TABLET PO SCH (09:11)
[2019-07-20] MEDS: POTASSIUM CHLORIDE 8 MEQ CAPSULE PO SCH (09:11)
[2019-07-20] MEDS: DOCUSATE SODIUM 100 MG CAPSULE PO SCH (09:11)
[2019-07-20] MEDS: amLODIPine 10 MG TABLET PO SCH (09:12)
[2019-07-20] MEDS: ASPIRIN EC 81 MG TABLET PO SCH (09:12)
[2019-07-20] MEDS: CYANOCOBALAMIN 500 MCG TABLET PO SCH (09:12)
[2019-07-20] MEDS: DULoxetine 30 MG CAPSULE PO SCH (09:12)
[2019-07-20] MEDS: GABAPENTIN 600 MG TABLET PO SCH (09:13)
[2019-07-20] MEDS: DOXAZOSIN 4 MG TABLET PO SCH (09:13)
[2019-07-20] MEDS: SILDENAFIL 20 MG TABLET PO SCH (09:13)
[2019-07-20] MEDS: ENOXAPARIN 40 MG/0.4 ML SYRINGE SUBCUT SCH (09:13)
[2019-07-20] MEDS: INSULIN REGULAR 100 UNIT/ML SUBCUT SCH (09:14)
== END 2019-07-20 11:01 | disposition home health service (06) | DRG 291 ==
LOC: N.EDINP 12:29 → N.ED 12:29 → N.TELES 17:44
PROVIDERS: ADMIT Internal Medicine; ATTEND Internal Medicine

== ENCOUNTER 2019-12-29 01:23 | Inpatient (IN) ==
[2019-12-29] MEDS ORDERED: methylPREDNISolone SOD SUC 125 MG/2 ML VIAL IV STA (02:08)
[2019-12-29] MEDS ORDERED: ALBUTEROL/IPRATROPIUM 3 ML NEB RESP TX STA (02:08)
[2019-12-29 02:18] LABS: Basophils % 0.3 % (0.0-0.8); Eosinophils % 0.3 % (0.00-10.9); Hematocrit 32.4 VOL% (35.7-47.0); Immature Granulocytes % 0.3 %; Immature Granulocytes Absolute 0.04 #; Lymphocytes # 0.4 10*3/uL (1.4-4.0); Lymphocytes % 3.5 % (21.3-54.2); Mean Corpuscular HGB Conc 30.9 GM/DL (32-36); Mean Corpuscular Volume 83.5 FL (87-102); Mean Platelet Volume 8.8 FL (9.6-12.0); Monocytes % 4.6 % (1.7-12.7); Platelet Count 299 T/CUMM (130-400); Red Blood Count 3.88 MC/CUMM (3.8-5.5); Red Cell Distribution Width 18.6 % (9.3-17.3); White Blood Count 11.9 T/CUMM (4-12)
[2019-12-29 02:31] LABS: Albumin 3.3 G/DL (3.4-5.0); Bilirubin,Total 0.5 MG/DL (0.2-1.0); Calcium 8.8 MG/DL (8.5-10.1); Osmolality,Calculated 283.5 MOS/KG (273-304); Total Protein 7.4 G/DL (6.4-8.3)
[2019-12-29] MEDS ORDERED: LEVOFLOXACIN INJ 750 MG in PREMIX 1 EACH IV STA (02:37)
[2019-12-29] MEDS ORDERED: ACETAMINOPHEN 325 MG TABLET PO PRN (02:40)
[2019-12-29] MEDS ORDERED: ONDANSETRON 4 MG/2 ML VIAL IV PRN (02:40)
[2019-12-29 02:52] LABS: Band Neutrophils 4 % (0-10); Eosinophils 1 % (0-10); Lymphocytes 2 % (20-55); Segmented Neutrophils 88 % (50-85); Total Cells Counted 100
[2019-12-29 02:53] LABS: Anisocytosis 1+; Ovalocytes 1+; Platelet Estimate Normal
[2019-12-29] MEDS: ALBUTEROL/IPRATROPIUM 3 ML NEB RESP TX SCH ×6 (03:00→23:49)
[2019-12-29 05:24] LABS: Basophils % 0.3 % (0.0-0.8); Hematocrit 30.8 VOL% (35.7-47.0); Hemoglobin 9.8 GM/DL (12.0-16.0); Immature Granulocytes % 0.2 %; Immature Granulocytes Absolute 0.03 #; Lymphocytes # 0.2 10*3/uL (1.4-4.0); Lymphocytes % 1.5 % (21.3-54.2); Mean Corpuscular HGB Conc 31.8 GM/DL (32-36); Mean Corpuscular Volume 82.1 FL (87-102); Mean Platelet Volume 9.3 FL (9.6-12.0); Monocytes % 2.2 % (1.7-12.7); Neutrophils % 95.8 % (38.7-73.9); Platelet Count 287 T/CUMM (130-400); Red Blood Count 3.75 MC/CUMM (3.8-5.5); Red Cell Distribution Width 18.6 % (9.3-17.3); White Blood Count 12.8 T/CUMM (4-12)
[2019-12-29 05:46] LABS: Band Neutrophils 9 % (0-10); Segmented Neutrophils 88 % (50-85); Total Cells Counted 100
[2019-12-29 05:47] LABS: Acanthocytes Few; Anisocytosis 1+; Ovalocytes 1+; Platelet Estimate Normal
[2019-12-29 05:55] LABS: Calcium 8.6 MG/DL (8.5-10.1); Osmolality,Calculated 287.8 MOS/KG (273-304)
[2019-12-29] MEDS: SODIUM CHLORIDE 0.9% 1,000 ML IV SCH (06:00)
[2019-12-29] MEDS ORDERED: LINACLOTIDE 145 MCG CAPSULE PO PRN (08:29)
[2019-12-29] MEDS ORDERED: ALBUTEROL/IPRATROPIUM 3 ML NEB RESP TX PRN (08:29)
[2019-12-29] MEDS ORDERED: MUPIROCIN 2% OINT 22 GM TUBE TOP PRN (08:29)
[2019-12-29] MEDS ORDERED: INSULIN ASPART SUBCUT SCH (08:30)
[2019-12-29] MEDS ORDERED: ESOMEPRAZOLE MAGNESIUM 80 MG PO SCH (09:00)
[2019-12-29] MEDS ORDERED: MULTIVITAMIN (PRENATAL) TABLET PO SCH (09:00)
[2019-12-29] MEDS: PIPERACILLIN/TAZOBACTAM 3,375 MG in SODIUM CHLORIDE 0.9% 100 ML IV SCH ×2 (09:31→18:56)
[2019-12-29] MEDS: PANTOPRAZOLE 40 MG VIAL IV SCH (09:33)
[2019-12-29] MEDS: methylPREDNISolone SOD SUC 40 MG/1 ML VIAL IV SCH ×2 (09:35→17:11)
[2019-12-29] MEDS: POTASSIUM CHLORIDE 8 MEQ CAPSULE PO SCH ×2 (09:36→14:03)
[2019-12-29] MEDS: NITROFURANTOIN MACROCRYSTALS 50 MG CAPSULE PO SCH (09:36)
[2019-12-29] MEDS: DULoxetine 30 MG CAPSULE PO SCH ×2 (09:36→22:00)
[2019-12-29] MEDS: DOXAZOSIN 4 MG TABLET PO SCH (09:36)
[2019-12-29] MEDS: FUROSEMIDE 80 MG TABLET PO SCH ×2 (09:37→14:03)
[2019-12-29] MEDS: amLODIPine 5 MG TABLET PO SCH (09:37)
[2019-12-29] MEDS: [UNRECOGNIZED DRUG - OTHER] PO SCH (09:37)
[2019-12-29] MEDS: atenoloL 25 MG TABLET PO SCH (09:37)
[2019-12-29] MEDS: GABAPENTIN 600 MG TABLET PO SCH ×2 (09:37→22:00)
[2019-12-29] MEDS: DOCUSATE SODIUM 100 MG CAPSULE PO SCH ×2 (09:37→22:00)
[2019-12-29] MEDS: oxyCODONE ER 20 MG TABLET PO SCH ×2 (09:37→22:03)
[2019-12-29 09:38] LABS: Apearance,Urine CLEAR (Clear); Bilirubin,Urine Negative (Negative); Blood, Urine Negative (Negative); Glucose,Urine (UA) >=500 mg/dL (Negative); Ketones,Urine 5 mg/dL (Negative); Mucus,Urine Occasional /LPF (Occasional); Nitrite,Urine Negative (Negative); Protein,Urine Negative; RBC,Urine 3 /HPF (0-4); Urine Color Yellow (Yellow); Urine Specific Gravity 1.012 (1.001-1.035); Urine Urobilinogen < 2.0 EU/DL (0.2-1.0)
[2019-12-29] MEDS: SILDENAFIL 20 MG TABLET PO SCH (09:38)
[2019-12-29] MEDS: SIMVASTATIN 20 MG TABLET PO SCH (09:39)
[2019-12-29] MEDS: ASPIRIN EC 81 MG TABLET PO SCH (09:39)
[2019-12-29] MEDS: hydrALAZINE 25 MG TABLET PO SCH ×2 (09:39→22:03)
[2019-12-29] MEDS: ENOXAPARIN 30 MG/0.3 ML SYRINGE SUBCUT SCH (09:39)
[2019-12-29] MEDS: MULTIVITAMIN (PRENATAL) TABLET PO SCH (15:30)
[2019-12-29] MEDS ORDERED: LIDOCAINE 2% 5 ML VIAL ONE (18:11)
[2019-12-29] MEDS ORDERED: SEVOFLURANE 1 UNIT/15 MINUTE INH ONE (18:11)
[2019-12-29] MEDS ORDERED: propofoL 200 MG/20 ML VIAL IV ONE (18:11)
[2019-12-29] MEDS: MAGNESIUM OXIDE 400 MG TABLET PO SCH (21:59)
[2019-12-29] MEDS: FOLIC ACID 0.4 MG TABLET PO SCH (22:00)
[2019-12-29] MEDS: MULTIVITAMIN (OCUVITE) TABLET PO SCH (22:00)
[2019-12-29] MEDS: EZETIMIBE 10 MG TABLET PO SCH (22:00)
[2019-12-30] MEDS: PIPERACILLIN/TAZOBACTAM 3,375 MG in SODIUM CHLORIDE 0.9% 100 ML IV SCH ×3 (02:17→21:03)
[2019-12-30] MEDS: methylPREDNISolone SOD SUC 40 MG/1 ML VIAL IV SCH ×3 (02:19→18:18)
[2019-12-30] MEDS: SODIUM CHLORIDE 0.9% 1,000 ML IV SCH ×2 (02:58→20:56)
[2019-12-30] MEDS: ALBUTEROL/IPRATROPIUM 3 ML NEB RESP TX SCH ×6 (03:03→23:52)
[2019-12-30 04:32] LABS: Basophils % 0.1 % (0.0-0.8); Hemoglobin 9.4 GM/DL (12.0-16.0); Immature Granulocytes % 0.9 %; Immature Granulocytes Absolute 0.12 #; Lymphocytes # 0.3 10*3/uL (1.4-4.0); Lymphocytes % 2.2 % (21.3-54.2); Mean Corpuscular HGB Conc 32.4 GM/DL (32-36); Mean Platelet Volume 9.3 FL (9.6-12.0); Neutrophils % 93.8 % (38.7-73.9); Platelet Count 272 T/CUMM (130-400); Red Blood Count 3.58 MC/CUMM (3.8-5.5); Red Cell Distribution Width 18.7 % (9.3-17.3)
[2019-12-30 05:06] LABS: Osmolality,Calculated 286.5 MOS/KG (273-304)
[2019-12-30 08:44] LABS: Hypochromasia 2+; Lymphocytes 4 % (20-55); Macrocytosis Slight; Microcytosis 1+; Ovalocytes Few; Polychromasia Slight; Segmented Neutrophils 95 % (50-85); Total Cells Counted 100
[2019-12-30 08:45] LABS: Platelet Estimate Normal
[2019-12-30] MEDS: PANTOPRAZOLE 40 MG VIAL IV SCH (09:35)
[2019-12-30] MEDS: ENOXAPARIN 30 MG/0.3 ML SYRINGE SUBCUT SCH (09:42)
[2019-12-30] MEDS: FUROSEMIDE 80 MG TABLET PO SCH ×2 (09:43→14:21)
[2019-12-30] MEDS: [UNRECOGNIZED DRUG - OTHER] PO SCH (09:43)
[2019-12-30] MEDS: DULoxetine 30 MG CAPSULE PO SCH ×2 (09:44→20:55)
[2019-12-30] MEDS: POTASSIUM CHLORIDE 8 MEQ CAPSULE PO SCH ×2 (09:45→14:21)
[2019-12-30] MEDS: SIMVASTATIN 20 MG TABLET PO SCH (09:45)
[2019-12-30] MEDS: NITROFURANTOIN MACROCRYSTALS 50 MG CAPSULE PO SCH (09:45)
[2019-12-30] MEDS: ASPIRIN EC 81 MG TABLET PO SCH (09:46)
[2019-12-30] MEDS: atenoloL 25 MG TABLET PO SCH (09:46)
[2019-12-30] MEDS: hydrALAZINE 25 MG TABLET PO SCH ×2 (09:46→20:55)
[2019-12-30] MEDS: GABAPENTIN 600 MG TABLET PO SCH ×2 (09:46→21:05)
[2019-12-30] MEDS: MULTIVITAMIN (PRENATAL) TABLET PO SCH (09:46)
[2019-12-30] MEDS: DOCUSATE SODIUM 100 MG CAPSULE PO SCH ×2 (09:47→20:55)
[2019-12-30] MEDS: DOXAZOSIN 4 MG TABLET PO SCH (09:47)
[2019-12-30] MEDS: amLODIPine 5 MG TABLET PO SCH (09:47)
[2019-12-30] MEDS: oxyCODONE ER 20 MG TABLET PO SCH ×2 (09:51→20:54)
[2019-12-30] MEDS: SILDENAFIL 20 MG TABLET PO SCH (09:51)
[2019-12-30] MEDS ORDERED: GLUCAGON 1 MG VIAL IM PRN (11:55)
[2019-12-30] MEDS ORDERED: DEXTROSE 10% 250 ML BAG IV PRN (11:55)
[2019-12-30] MEDS: oxyCODONE IR 5 MG TABLET PO PRN (14:35)
[2019-12-30] MEDS: EZETIMIBE 10 MG TABLET PO SCH (20:54)
[2019-12-30] MEDS: MAGNESIUM OXIDE 400 MG TABLET PO SCH (20:54)
[2019-12-30] MEDS: MULTIVITAMIN (OCUVITE) TABLET PO SCH (20:55)
[2019-12-30] MEDS: FOLIC ACID 0.4 MG TABLET PO SCH (20:55)
[2019-12-31] MEDS: methylPREDNISolone SOD SUC 40 MG/1 ML VIAL IV SCH ×3 (02:39→17:45)
[2019-12-31] MEDS: ALBUTEROL/IPRATROPIUM 3 ML NEB RESP TX SCH ×6 (03:53→23:00)
[2019-12-31] MEDS: PIPERACILLIN/TAZOBACTAM 3,375 MG in SODIUM CHLORIDE 0.9% 100 ML IV SCH ×3 (04:17→20:47)
[2019-12-31 05:19] LABS: Basophils % 0.1 % (0.0-0.8); Hematocrit 28.6 VOL% (35.7-47.0); Hemoglobin 9.2 GM/DL (12.0-16.0); Immature Granulocytes Absolute 0.12 #; Lymphocytes # 0.5 10*3/uL (1.4-4.0); Lymphocytes % 4.2 % (21.3-54.2); Mean Corpuscular HGB Conc 32.2 GM/DL (32-36); Mean Corpuscular Volume 80.3 FL (87-102); Mean Platelet Volume 9.3 FL (9.6-12.0); Monocytes % 3.3 % (1.7-12.7); Neutrophils % 91.4 % (38.7-73.9); Platelet Count 326 T/CUMM (130-400); Red Blood Count 3.56 MC/CUMM (3.8-5.5); White Blood Count 11.9 T/CUMM (4-12)
[2019-12-31] MEDS: LEVOFLOXACIN INJ 750 MG in PREMIX 1 EACH IV SCH (05:27)
[2019-12-31 05:53] LABS: Calcium 9.1 MG/DL (8.5-10.1); Osmolality,Calculated 292.4 MOS/KG (273-304)
[2019-12-31 06:25] LABS: Anisocytosis 1+; Eosinophils 1 % (0-10); Hypochromasia 1+; Lymphocytes 3 % (20-55); Microcytosis 1+; Ovalocytes 1+; Platelet Estimate Adequate; Polychromasia Slight; Segmented Neutrophils 92 % (50-85); Target Cells Slight; Total Cells Counted 100
[2019-12-31] MEDS: MULTIVITAMIN (PRENATAL) TABLET PO SCH (09:04)
[2019-12-31] MEDS: DOCUSATE SODIUM 100 MG CAPSULE PO SCH ×2 (09:04→20:43)
[2019-12-31] MEDS: DOXAZOSIN 4 MG TABLET PO SCH (09:04)
[2019-12-31] MEDS: [UNRECOGNIZED DRUG - OTHER] PO SCH (09:04)
[2019-12-31] MEDS: DULoxetine 30 MG CAPSULE PO SCH ×2 (09:04→20:42)
[2019-12-31] MEDS: NITROFURANTOIN MACROCRYSTALS 50 MG CAPSULE PO SCH (09:04)
[2019-12-31] MEDS: POTASSIUM CHLORIDE 8 MEQ CAPSULE PO SCH ×2 (09:04→13:45)
[2019-12-31] MEDS: ASPIRIN EC 81 MG TABLET PO SCH (09:05)
[2019-12-31] MEDS: FUROSEMIDE 80 MG TABLET PO SCH ×2 (09:05→13:45)
[2019-12-31] MEDS: SIMVASTATIN 20 MG TABLET PO SCH (09:05)
[2019-12-31] MEDS: oxyCODONE ER 20 MG TABLET PO SCH ×2 (09:05→20:43)
[2019-12-31] MEDS: SILDENAFIL 20 MG TABLET PO SCH (09:05)
[2019-12-31] MEDS: GABAPENTIN 600 MG TABLET PO SCH ×2 (09:05→20:42)
[2019-12-31] MEDS: atenoloL 25 MG TABLET PO SCH (09:05)
[2019-12-31] MEDS: amLODIPine 5 MG TABLET PO SCH (09:06)
[2019-12-31] MEDS: hydrALAZINE 25 MG TABLET PO SCH ×2 (09:06→20:42)
[2019-12-31] MEDS: ENOXAPARIN 30 MG/0.3 ML SYRINGE SUBCUT SCH (09:06)
[2019-12-31] MEDS: PANTOPRAZOLE 40 MG VIAL IV SCH (09:09)
[2019-12-31] MEDS ORDERED: BISACODYL 10 MG SUPP RECTAL PRN (09:42)
[2019-12-31] MEDS: FOLIC ACID 0.4 MG TABLET PO SCH (20:42)
[2019-12-31] MEDS: MULTIVITAMIN (OCUVITE) TABLET PO SCH (20:42)
[2019-12-31] MEDS: SODIUM CHLORIDE 0.9% 1,000 ML IV SCH (20:48)
[2019-12-31] MEDS: EZETIMIBE 10 MG TABLET PO SCH (20:48)
[2019-12-31] MEDS: MAGNESIUM OXIDE 400 MG TABLET PO SCH (20:51)
[2020-01-01] MEDS: ALBUTEROL/IPRATROPIUM 3 ML NEB RESP TX SCH ×5 (02:40→20:04)
[2020-01-01] MEDS: methylPREDNISolone SOD SUC 40 MG/1 ML VIAL IV SCH ×3 (03:03→22:05)
[2020-01-01] MEDS: PIPERACILLIN/TAZOBACTAM 3,375 MG in SODIUM CHLORIDE 0.9% 100 ML IV SCH ×3 (03:25→22:04)
[2020-01-01] MEDS: SODIUM CHLORIDE 0.9% 1,000 ML IV SCH (03:32)
[2020-01-01 05:42] LABS: Hematocrit 30.5 VOL% (35.7-47.0); Hemoglobin 9.4 GM/DL (12.0-16.0); Immature Granulocytes % 1.6 %; Immature Granulocytes Absolute 0.15 #; Lymphocytes # 0.8 10*3/uL (1.4-4.0); Mean Corpuscular HGB Conc 30.8 GM/DL (32-36); Mean Corpuscular Volume 81.6 FL (87-102); Mean Platelet Volume 8.9 FL (9.6-12.0); Monocytes % 6.1 % (1.7-12.7); Neutrophils % 84.3 % (38.7-73.9); Platelet Count 346 T/CUMM (130-400); Red Blood Count 3.74 MC/CUMM (3.8-5.5); Red Cell Distribution Width 18.6 % (9.3-17.3); White Blood Count 9.5 T/CUMM (4-12)
[2020-01-01 06:13] LABS: Calcium 8.8 MG/DL (8.5-10.1); Osmolality,Calculated 300.2 MOS/KG (273-304)
[2020-01-01] MEDS: MULTIVITAMIN (PRENATAL) TABLET PO SCH (09:03)
[2020-01-01] MEDS: DULoxetine 30 MG CAPSULE PO SCH ×2 (09:03→22:02)
[2020-01-01] MEDS: DOXAZOSIN 4 MG TABLET PO SCH (09:04)
[2020-01-01] MEDS: POTASSIUM CHLORIDE 8 MEQ CAPSULE PO SCH ×2 (09:04→13:15)
[2020-01-01] MEDS: NITROFURANTOIN MACROCRYSTALS 50 MG CAPSULE PO SCH (09:05)
[2020-01-01] MEDS: SIMVASTATIN 20 MG TABLET PO SCH (09:05)
[2020-01-01] MEDS: GABAPENTIN 600 MG TABLET PO SCH ×2 (09:05→22:03)
[2020-01-01] MEDS: FUROSEMIDE 80 MG TABLET PO SCH ×2 (09:06→13:16)
[2020-01-01] MEDS: SILDENAFIL 20 MG TABLET PO SCH (09:06)
[2020-01-01] MEDS: POTASSIUM CHLORIDE 20 MEQ TABLET PO PRN ×3 (09:06→13:15)
[2020-01-01] MEDS: [UNRECOGNIZED DRUG - OTHER] PO SCH (09:06)
[2020-01-01] MEDS: hydrALAZINE 25 MG TABLET PO SCH ×2 (09:06→22:06)
[2020-01-01] MEDS: atenoloL 25 MG TABLET PO SCH (09:07)
[2020-01-01] MEDS: ASPIRIN EC 81 MG TABLET PO SCH (09:07)
[2020-01-01] MEDS: amLODIPine 5 MG TABLET PO SCH (09:07)
[2020-01-01] MEDS: DOCUSATE SODIUM 100 MG CAPSULE PO SCH ×2 (09:07→22:06)
[2020-01-01] MEDS: oxyCODONE ER 20 MG TABLET PO SCH ×2 (09:07→22:03)
[2020-01-01] MEDS: PANTOPRAZOLE 40 MG VIAL IV SCH (09:08)
[2020-01-01] MEDS: ENOXAPARIN 30 MG/0.3 ML SYRINGE SUBCUT SCH (09:14)
[2020-01-01] MEDS: oxyCODONE IR 5 MG TABLET PO PRN (14:55)
[2020-01-01] MEDS: MAGNESIUM OXIDE 400 MG TABLET PO SCH (18:25)
[2020-01-01] MEDS: FOLIC ACID 0.4 MG TABLET PO SCH (22:02)
[2020-01-01] MEDS: EZETIMIBE 10 MG TABLET PO SCH (22:03)
[2020-01-01] MEDS: BISACODYL 5 MG TABLET PO SCH (22:04)
[2020-01-01] MEDS: MULTIVITAMIN (OCUVITE) TABLET PO SCH (22:04)
[2020-01-02] MEDS: ALBUTEROL/IPRATROPIUM 3 ML NEB RESP TX SCH ×6 (00:46→20:21)
[2020-01-02] MEDS: PIPERACILLIN/TAZOBACTAM 3,375 MG in SODIUM CHLORIDE 0.9% 100 ML IV SCH ×3 (03:10→20:52)
[2020-01-02 05:28] LABS: Basophils % 0.3 % (0.0-0.8); Eosinophils % 0.1 % (0.00-10.9); Hematocrit 31.8 VOL% (35.7-47.0); Hemoglobin 10.3 GM/DL (12.0-16.0); Immature Granulocytes % 2.7 %; Immature Granulocytes Absolute 0.26 #; Lymphocytes # 0.8 10*3/uL (1.4-4.0); Lymphocytes % 7.7 % (21.3-54.2); Mean Corpuscular HGB Conc 32.4 GM/DL (32-36); Mean Corpuscular Volume 79.9 FL (87-102); Mean Platelet Volume 8.7 FL (9.6-12.0); Monocytes % 6.3 % (1.7-12.7); Neutrophils % 82.9 % (38.7-73.9); Platelet Count 324 T/CUMM (130-400); Red Blood Count 3.98 MC/CUMM (3.8-5.5); Red Cell Distribution Width 18.6 % (9.3-17.3); White Blood Count 9.7 T/CUMM (4-12)
[2020-01-02 05:54] LABS: Calcium 8.7 MG/DL (8.5-10.1)
[2020-01-02] MEDS: LEVOFLOXACIN INJ 750 MG in PREMIX 1 EACH IV SCH (07:11)
[2020-01-02] MEDS ORDERED: LEVOFLOXACIN 500 MG TABLET PO SCH (08:30)
[2020-01-02] MEDS: DOXAZOSIN 4 MG TABLET PO SCH (09:07)
[2020-01-02] MEDS: SILDENAFIL 20 MG TABLET PO SCH (09:08)
[2020-01-02] MEDS: ASPIRIN EC 81 MG TABLET PO SCH (09:08)
[2020-01-02] MEDS: oxyCODONE ER 20 MG TABLET PO SCH ×2 (09:08→20:54)
[2020-01-02] MEDS: [UNRECOGNIZED DRUG - OTHER] PO SCH (09:08)
[2020-01-02] MEDS: atenoloL 25 MG TABLET PO SCH (09:08)
[2020-01-02] MEDS: SIMVASTATIN 20 MG TABLET PO SCH (09:09)
[2020-01-02] MEDS: DOCUSATE SODIUM 100 MG CAPSULE PO SCH ×2 (09:09→20:53)
[2020-01-02] MEDS: MULTIVITAMIN (PRENATAL) TABLET PO SCH (09:09)
[2020-01-02] MEDS: POTASSIUM CHLORIDE 8 MEQ CAPSULE PO SCH ×2 (09:09→13:21)
[2020-01-02] MEDS: DULoxetine 30 MG CAPSULE PO SCH ×2 (09:09→20:52)
[2020-01-02] MEDS: GABAPENTIN 600 MG TABLET PO SCH ×2 (09:10→20:54)
[2020-01-02] MEDS: amLODIPine 5 MG TABLET PO SCH (09:10)
[2020-01-02] MEDS: hydrALAZINE 25 MG TABLET PO SCH ×2 (09:10→20:53)
[2020-01-02] MEDS: FUROSEMIDE 80 MG TABLET PO SCH ×2 (09:10→13:20)
[2020-01-02] MEDS: NITROFURANTOIN MACROCRYSTALS 50 MG CAPSULE PO SCH (09:10)
[2020-01-02] MEDS: methylPREDNISolone SOD SUC 40 MG/1 ML VIAL IV SCH (09:14)
[2020-01-02] MEDS: PANTOPRAZOLE 40 MG VIAL IV SCH (09:15)
[2020-01-02] MEDS: ENOXAPARIN 30 MG/0.3 ML SYRINGE SUBCUT SCH (09:17)
[2020-01-02] MEDS: SODIUM CHLORIDE 0.9% 1,000 ML IV SCH (10:45)
[2020-01-02] MEDS: oxyCODONE IR 5 MG TABLET PO PRN (15:19)
[2020-01-02] MEDS: MAGNESIUM OXIDE 400 MG TABLET PO SCH (18:11)
[2020-01-02] MEDS: MULTIVITAMIN (OCUVITE) TABLET PO SCH (20:53)
[2020-01-02] MEDS: EZETIMIBE 10 MG TABLET PO SCH (20:53)
[2020-01-02] MEDS: BISACODYL 5 MG TABLET PO SCH (20:53)
[2020-01-02] MEDS: FOLIC ACID 0.4 MG TABLET PO SCH (20:53)
[2020-01-03] MEDS: ALBUTEROL/IPRATROPIUM 3 ML NEB RESP TX SCH ×3 (00:07→07:18)
[2020-01-03] MEDS: PIPERACILLIN/TAZOBACTAM 3,375 MG in SODIUM CHLORIDE 0.9% 100 ML IV SCH (04:03)
[2020-01-03 05:30] LABS: Basophils % 0.3 % (0.0-0.8); Eosinophils # 0.3 10*3/uL (0.0-0.87); Hemoglobin 10.8 GM/DL (12.0-16.0); Immature Granulocytes % 4.7 %; Immature Granulocytes Absolute 0.48 #; Lymphocytes # 2.1 10*3/uL (1.4-4.0); Lymphocytes % 20.9 % (21.3-54.2); Mean Corpuscular HGB Conc 30.9 GM/DL (32-36); Mean Corpuscular Volume 82.4 FL (87-102); Mean Platelet Volume 8.6 FL (9.6-12.0); Monocytes % 11.5 % (1.7-12.7); Neutrophils % 59.6 % (38.7-73.9); Platelet Count 322 T/CUMM (130-400); Red Blood Count 4.25 MC/CUMM (3.8-5.5); Red Cell Distribution Width 18.6 % (9.3-17.3); White Blood Count 10.3 T/CUMM (4-12)
[2020-01-03 05:52] LABS: Calcium 8.5 MG/DL (8.5-10.1); Osmolality,Calculated 289.5 MOS/KG (273-304)
[2020-01-03] MEDS: POTASSIUM CHLORIDE 20 MEQ TABLET PO PRN ×2 (06:05→09:07)
[2020-01-03 08:18] VITALS: BP 139/53
[2020-01-03] MEDS: DOCUSATE SODIUM 100 MG CAPSULE PO SCH (09:07)
[2020-01-03] MEDS: [UNRECOGNIZED DRUG - OTHER] PO SCH (09:07)
[2020-01-03] MEDS: oxyCODONE ER 20 MG TABLET PO SCH (09:07)
[2020-01-03] MEDS: DOXAZOSIN 4 MG TABLET PO SCH (09:07)
[2020-01-03] MEDS: GABAPENTIN 600 MG TABLET PO SCH (09:07)
[2020-01-03] MEDS: amLODIPine 5 MG TABLET PO SCH (09:08)
[2020-01-03] MEDS: FUROSEMIDE 80 MG TABLET PO SCH (09:08)
[2020-01-03] MEDS: hydrALAZINE 25 MG TABLET PO SCH (09:08)
[2020-01-03] MEDS: SILDENAFIL 20 MG TABLET PO SCH (09:08)
[2020-01-03] MEDS: POTASSIUM CHLORIDE 8 MEQ CAPSULE PO SCH (09:09)
[2020-01-03] MEDS: MULTIVITAMIN (PRENATAL) TABLET PO SCH (09:09)
[2020-01-03] MEDS: atenoloL 25 MG TABLET PO SCH (09:09)
[2020-01-03] MEDS: ASPIRIN EC 81 MG TABLET PO SCH (09:09)
[2020-01-03] MEDS: DULoxetine 30 MG CAPSULE PO SCH (09:09)
[2020-01-03] MEDS: NITROFURANTOIN MACROCRYSTALS 50 MG CAPSULE PO SCH (09:09)
[2020-01-03] MEDS: PANTOPRAZOLE 40 MG VIAL IV SCH (09:09)
[2020-01-03] MEDS: methylPREDNISolone SOD SUC 40 MG/1 ML VIAL IV SCH (09:10)
[2020-01-03] MEDS: ENOXAPARIN 30 MG/0.3 ML SYRINGE SUBCUT SCH (09:10)
[2020-01-03] MEDS ORDERED: SIMVASTATIN 20 MG TABLET PO SCH (21:00)
== END 2020-01-03 10:40 | disposition home health service (06) | DRG 177 ==
LOC: N.ED 01:23 → N.EDINP 02:39 → N.TELEN 03:53
PROVIDERS: ADMIT Internal Medicine; ATTEND Internal Medicine

== ENCOUNTER 2020-01-21 06:10 | Inpatient (IN) ==
[2020-01-21] MEDS ORDERED: CLINDAMYCIN INJ 900 MG in PREMIX 1 EACH IV STA (07:10)
[2020-01-21 07:14] LABS: Basophils % 0.3 % (0.0-0.8); Eosinophils # 0.2 10*3/uL (0.0-0.87); Eosinophils % 1.8 % (0.00-10.9); Hematocrit 34.6 VOL% (35.7-47.0); Hemoglobin 10.6 GM/DL (12.0-16.0); Immature Granulocytes % 0.4 %; Immature Granulocytes Absolute 0.04 #; Lymphocytes # 0.4 10*3/uL (1.4-4.0); Lymphocytes % 4.2 % (21.3-54.2); Mean Corpuscular HGB Conc 30.6 GM/DL (32-36); Mean Corpuscular Volume 84.6 FL (87-102); Mean Platelet Volume 9.3 FL (9.6-12.0); Monocytes % 3.2 % (1.7-12.7); Neutrophils % 90.1 % (38.7-73.9); Platelet Count 257 T/CUMM (130-400); Red Blood Count 4.09 MC/CUMM (3.8-5.5); Red Cell Distribution Width 18.6 % (9.3-17.3); White Blood Count 9.3 T/CUMM (4-12)
[2020-01-21 07:28] LABS: Albumin 2.9 G/DL (3.4-5.0); Calcium 8.8 MG/DL (8.5-10.1); Osmolality,Calculated 285.8 MOS/KG (273-304); Total Protein 6.7 G/DL (6.4-8.3)
[2020-01-21] MEDS ORDERED: PIPERACILLIN/TAZOBACTAM 3,375 MG in SODIUM CHLORIDE 0.9% 100 ML IV STA (07:32)
[2020-01-21] MEDS ORDERED: ACETAMINOPHEN 325 MG TABLET PO PRN (07:34)
[2020-01-21] MEDS ORDERED: ALBUTEROL/IPRATROPIUM 3 ML NEB RESP TX PRN (07:34)
[2020-01-21] MEDS ORDERED: ALBUTEROL/IPRATROPIUM 3 ML NEB RESP TX STA (07:34)
[2020-01-21] MEDS ORDERED: ONDANSETRON 4 MG/2 ML VIAL IV PRN (07:34)
[2020-01-21 07:49] LABS: Band Neutrophils 5 % (0-10); Eosinophils 3 % (0-10); Hypochromasia 1+; Lymphocytes 5 % (20-55); Microcytosis 1+; Segmented Neutrophils 85 % (50-85); Total Cells Counted 100
[2020-01-21 07:50] LABS: Ovalocytes Slight; Platelet Estimate Normal; Tear Drop Cells Slight
[2020-01-21] MEDS ORDERED: DOCUSATE SODIUM 100 MG CAPSULE PO SCH (09:00)
[2020-01-21] MEDS ORDERED: PANTOPRAZOLE 40 MG TABLET PO SCH (09:00)
[2020-01-21] MEDS: SILDENAFIL 20 MG TABLET PO SCH (11:35)
[2020-01-21] MEDS: PIPERACILLIN/TAZOBACTAM 3,375 MG in SODIUM CHLORIDE 0.9% 100 ML IV SCH ×2 (11:35→19:10)
[2020-01-21] MEDS: SODIUM CHLORIDE 0.9% 1,000 ML IV SCH (11:35)
[2020-01-21] MEDS: DOXAZOSIN 4 MG TABLET PO SCH (11:36)
[2020-01-21] MEDS: ASPIRIN EC 81 MG TABLET PO SCH (11:36)
[2020-01-21] MEDS: DULoxetine 30 MG CAPSULE PO SCH ×2 (11:36→20:58)
[2020-01-21] MEDS: hydrALAZINE 25 MG TABLET PO SCH ×2 (11:36→20:58)
[2020-01-21] MEDS: amLODIPine 5 MG TABLET PO SCH (11:36)
[2020-01-21] MEDS: DOCUSATE SODIUM 100 MG CAPSULE PO SCH ×2 (11:37→20:58)
[2020-01-21] MEDS: GABAPENTIN 600 MG TABLET PO SCH ×2 (11:37→20:58)
[2020-01-21] MEDS: FUROSEMIDE 80 MG TABLET PO SCH ×2 (11:37→14:17)
[2020-01-21] MEDS: predniSONE 20 MG TABLET PO SCH (11:38)
[2020-01-21] MEDS: azaTHIOprine 50 MG TABLET PO SCH (11:38)
[2020-01-21] MEDS: atenoloL 25 MG TABLET PO SCH (11:38)
[2020-01-21] MEDS: POTASSIUM CHLORIDE 8 MEQ CAPSULE PO SCH ×2 (11:38→14:18)
[2020-01-21] MEDS: ENOXAPARIN 30 MG/0.3 ML SYRINGE SUBCUT SCH (11:39)
[2020-01-21] MEDS ORDERED: DEXTROSE 50% 25 GM/50 ML VIAL IV PRN (14:14)
[2020-01-21] MEDS ORDERED: GLUCAGON 1 MG VIAL IM PRN (14:14)
[2020-01-21] MEDS: CLINDAMYCIN INJ 600 MG in PREMIX 1 EACH IV SCH ×2 (16:34→21:57)
[2020-01-21] MEDS: oxyCODONE ER 20 MG TABLET PO SCH (20:58)
[2020-01-21] MEDS: NEXIUM 40 MG PO SCH (20:58)
[2020-01-21] MEDS: FOLIC ACID 0.4 MG TABLET PO SCH (20:58)
[2020-01-21] MEDS: CRANBERRY 12600 MG PO SCH (20:58)
[2020-01-21] MEDS: tiZANidine 4 MG TABLET PO SCH (20:58)
[2020-01-21] MEDS: EZETIMIBE 10 MG TABLET PO SCH (20:58)
[2020-01-21] MEDS: BIOTIN 10000 MG PO SCH (20:58)
[2020-01-21] MEDS ORDERED: ESOMEPRAZOLE MAGNESIUM 80 MG PO SCH (21:00)
[2020-01-21] MEDS ORDERED: NON-FORMULARY MEDICATION (Biotin 10,000 MCG) PO SCH (21:00)
[2020-01-22] MEDS: CLINDAMYCIN INJ 600 MG in PREMIX 1 EACH IV SCH ×2 (02:29→08:00)
[2020-01-22] MEDS: PIPERACILLIN/TAZOBACTAM 3,375 MG in SODIUM CHLORIDE 0.9% 100 ML IV SCH ×3 (03:00→18:14)
[2020-01-22] MEDS: SODIUM CHLORIDE 0.9% 1,000 ML IV SCH (04:00)
[2020-01-22 04:36] LABS: Basophils % 0.2 % (0.0-0.8); Eosinophils % 0.1 % (0.00-10.9); Hematocrit 27.6 VOL% (35.7-47.0); Hemoglobin 8.7 GM/DL (12.0-16.0); Immature Granulocytes % 0.5 %; Immature Granulocytes Absolute 0.04 #; Lymphocytes # 0.6 10*3/uL (1.4-4.0); Mean Corpuscular HGB Conc 31.5 GM/DL (32-36); Mean Corpuscular Volume 82.6 FL (87-102); Mean Platelet Volume 9.2 FL (9.6-12.0); Monocytes % 5.2 % (1.7-12.7); Platelet Count 211 T/CUMM (130-400); Red Blood Count 3.34 MC/CUMM (3.8-5.5); Red Cell Distribution Width 18.5 % (9.3-17.3); White Blood Count 8.1 T/CUMM (4-12)
[2020-01-22 05:01] LABS: Calcium 8.4 MG/DL (8.5-10.1)
[2020-01-22] MEDS: ENOXAPARIN 30 MG/0.3 ML SYRINGE SUBCUT SCH (08:00)
[2020-01-22] MEDS: DULoxetine 30 MG CAPSULE PO SCH ×2 (08:01→20:57)
[2020-01-22] MEDS: FUROSEMIDE 80 MG TABLET PO SCH ×2 (08:01→14:15)
[2020-01-22] MEDS: tiZANidine 4 MG TABLET PO SCH ×2 (08:01→20:58)
[2020-01-22] MEDS: ASPIRIN EC 81 MG TABLET PO SCH (08:01)
[2020-01-22] MEDS: DOXAZOSIN 4 MG TABLET PO SCH (08:01)
[2020-01-22] MEDS: amLODIPine 5 MG TABLET PO SCH (08:01)
[2020-01-22] MEDS: MULTIVITAMIN (CENTRUM) TABLET PO SCH (08:01)
[2020-01-22] MEDS: DOCUSATE SODIUM 100 MG CAPSULE PO SCH ×2 (08:01→20:58)
[2020-01-22] MEDS: GABAPENTIN 600 MG TABLET PO SCH ×2 (08:01→20:57)
[2020-01-22] MEDS: CYANOCOBALAMIN 500 MCG TABLET PO SCH (08:02)
[2020-01-22] MEDS: oxyCODONE ER 20 MG TABLET PO SCH ×2 (08:02→21:04)
[2020-01-22] MEDS: azaTHIOprine 50 MG TABLET PO SCH (08:02)
[2020-01-22] MEDS: predniSONE 20 MG TABLET PO SCH (08:02)
[2020-01-22] MEDS: atenoloL 25 MG TABLET PO SCH (08:02)
[2020-01-22] MEDS: hydrALAZINE 25 MG TABLET PO SCH ×2 (08:02→21:04)
[2020-01-22] MEDS: SILDENAFIL 20 MG TABLET PO SCH (08:02)
[2020-01-22] MEDS: POTASSIUM CHLORIDE 8 MEQ CAPSULE PO SCH ×2 (08:02→14:15)
[2020-01-22] MEDS ORDERED: GABAPENTIN 600 MG TABLET PO PRN (08:32)
[2020-01-22] MEDS ORDERED: oxyCODONE IR 5 MG TABLET PO PRN (08:32)
[2020-01-22] MEDS ORDERED: ALBUTEROL SULFATE INH PRN (08:32)
[2020-01-22] MEDS ORDERED: INSULIN ASPART U 1 UNIT SUBCUT SCH (08:45)
[2020-01-22] MEDS ORDERED: ELDERBERRY FRUIT AND FLOWER PO SCH (09:00)
[2020-01-22] MEDS: LINACLOTIDE 145 MCG CAPSULE PO SCH (09:38)
[2020-01-22] MEDS: NEXIUM 40 MG PO SCH ×2 (09:38→21:04)
[2020-01-22] MEDS: BIOTIN 10000 MG PO SCH ×2 (09:38→21:04)
[2020-01-22] MEDS: FOLIC ACID 0.4 MG TABLET PO SCH (20:56)
[2020-01-22] MEDS: EZETIMIBE 10 MG TABLET PO SCH (20:57)
[2020-01-22] MEDS: SIMVASTATIN 20 MG TABLET PO SCH (20:58)
[2020-01-22] MEDS: CRANBERRY 12600 MG PO SCH (21:04)
[2020-01-22] MEDS: MAGNESIUM OXIDE 400 MG TABLET PO SCH (23:49)
[2020-01-23] MEDS: PIPERACILLIN/TAZOBACTAM 3,375 MG in SODIUM CHLORIDE 0.9% 100 ML IV SCH ×3 (04:55→19:48)
[2020-01-23 06:28] LABS: Basophils % 0.4 % (0.0-0.8); Eosinophils # 0.2 10*3/uL (0.0-0.87); Eosinophils % 2.8 % (0.00-10.9); Hemoglobin 8.7 GM/DL (12.0-16.0); Immature Granulocytes % 0.4 %; Immature Granulocytes Absolute 0.03 #; Lymphocytes # 1.1 10*3/uL (1.4-4.0); Lymphocytes % 16.2 % (21.3-54.2); Mean Corpuscular HGB Conc 31.1 GM/DL (32-36); Mean Corpuscular Volume 83.3 FL (87-102); Mean Platelet Volume 9.3 FL (9.6-12.0); Monocytes % 7.9 % (1.7-12.7); Neutrophils % 72.3 % (38.7-73.9); Platelet Count 242 T/CUMM (130-400); Red Blood Count 3.36 MC/CUMM (3.8-5.5); Red Cell Distribution Width 18.5 % (9.3-17.3); White Blood Count 6.9 T/CUMM (4-12)
[2020-01-23] MEDS: SODIUM CHLORIDE 0.9% 1,000 ML IV SCH (06:52)
[2020-01-23 06:55] LABS: Calcium 8.9 MG/DL (8.5-10.1); Osmolality,Calculated 285.3 MOS/KG (273-304)
[2020-01-23] MEDS: ENOXAPARIN 30 MG/0.3 ML SYRINGE SUBCUT SCH (09:05)
[2020-01-23] MEDS: BIOTIN 10000 MG PO SCH ×2 (09:06→20:23)
[2020-01-23] MEDS: DULoxetine 30 MG CAPSULE PO SCH ×2 (09:06→20:21)
[2020-01-23] MEDS: hydrALAZINE 25 MG TABLET PO SCH ×2 (09:06→21:39)
[2020-01-23] MEDS: ASPIRIN EC 81 MG TABLET PO SCH (09:06)
[2020-01-23] MEDS: FUROSEMIDE 80 MG TABLET PO SCH ×2 (09:06→17:00)
[2020-01-23] MEDS: MULTIVITAMIN (CENTRUM) TABLET PO SCH (09:06)
[2020-01-23] MEDS: DOXAZOSIN 4 MG TABLET PO SCH (09:06)
[2020-01-23] MEDS: DOCUSATE SODIUM 100 MG CAPSULE PO SCH ×2 (09:06→20:22)
[2020-01-23] MEDS: LINACLOTIDE 145 MCG CAPSULE PO SCH (09:07)
[2020-01-23] MEDS: GABAPENTIN 600 MG TABLET PO SCH ×2 (09:07→20:22)
[2020-01-23] MEDS: oxyCODONE ER 20 MG TABLET PO SCH ×2 (09:07→20:21)
[2020-01-23] MEDS: NEXIUM 40 MG PO SCH ×2 (09:07→20:23)
[2020-01-23] MEDS: amLODIPine 5 MG TABLET PO SCH (09:07)
[2020-01-23] MEDS: POTASSIUM CHLORIDE 8 MEQ CAPSULE PO SCH ×2 (09:07→17:00)
[2020-01-23] MEDS: tiZANidine 4 MG TABLET PO SCH ×2 (09:08→20:22)
[2020-01-23] MEDS: atenoloL 25 MG TABLET PO SCH (09:08)
[2020-01-23] MEDS: SILDENAFIL 20 MG TABLET PO SCH (09:08)
[2020-01-23] MEDS: CYANOCOBALAMIN 500 MCG TABLET PO SCH (09:08)
[2020-01-23] MEDS: predniSONE 20 MG TABLET PO SCH (09:08)
[2020-01-23] MEDS: EZETIMIBE 10 MG TABLET PO SCH (20:22)
[2020-01-23] MEDS: MAGNESIUM OXIDE 400 MG TABLET PO SCH (20:22)
[2020-01-23] MEDS: FOLIC ACID 0.4 MG TABLET PO SCH (20:22)
[2020-01-23] MEDS: SIMVASTATIN 20 MG TABLET PO SCH (20:22)
[2020-01-23] MEDS: CRANBERRY 12600 MG PO SCH (20:23)
[2020-01-24] MEDS: SODIUM CHLORIDE 0.9% 1,000 ML IV SCH ×2 (03:26→17:18)
[2020-01-24] MEDS: PIPERACILLIN/TAZOBACTAM 3,375 MG in SODIUM CHLORIDE 0.9% 100 ML IV SCH ×3 (03:58→18:15)
[2020-01-24 05:56] LABS: Basophils % 0.7 % (0.0-0.8); Eosinophils # 0.2 10*3/uL (0.0-0.87); Eosinophils % 2.8 % (0.00-10.9); Hematocrit 30.3 VOL% (35.7-47.0); Hemoglobin 9.6 GM/DL (12.0-16.0); Immature Granulocytes % 0.2 %; Immature Granulocytes Absolute 0.01 #; Lymphocytes # 1.2 10*3/uL (1.4-4.0); Lymphocytes % 19.6 % (21.3-54.2); Mean Corpuscular HGB Conc 31.7 GM/DL (32-36); Mean Corpuscular Volume 81.5 FL (87-102); Monocytes % 8.7 % (1.7-12.7); Platelet Count 241 T/CUMM (130-400); Red Blood Count 3.72 MC/CUMM (3.8-5.5); Red Cell Distribution Width 18.6 % (9.3-17.3)
[2020-01-24 06:20] LABS: Osmolality,Calculated 289.3 MOS/KG (273-304)
[2020-01-24] MEDS: MULTIVITAMIN (CENTRUM) TABLET PO SCH (08:49)
[2020-01-24] MEDS: ENOXAPARIN 30 MG/0.3 ML SYRINGE SUBCUT SCH (08:49)
[2020-01-24] MEDS: LINACLOTIDE 145 MCG CAPSULE PO SCH (08:49)
[2020-01-24] MEDS: DOXAZOSIN 4 MG TABLET PO SCH (08:49)
[2020-01-24] MEDS: CYANOCOBALAMIN 500 MCG TABLET PO SCH (08:50)
[2020-01-24] MEDS: POTASSIUM CHLORIDE 8 MEQ CAPSULE PO SCH ×2 (08:50→13:38)
[2020-01-24] MEDS: DOCUSATE SODIUM 100 MG CAPSULE PO SCH ×2 (08:50→21:40)
[2020-01-24] MEDS: tiZANidine 4 MG TABLET PO SCH ×2 (08:50→21:41)
[2020-01-24] MEDS: oxyCODONE ER 20 MG TABLET PO SCH ×2 (08:50→21:40)
[2020-01-24] MEDS: DULoxetine 30 MG CAPSULE PO SCH ×2 (08:50→21:40)
[2020-01-24] MEDS: atenoloL 25 MG TABLET PO SCH (08:50)
[2020-01-24] MEDS: predniSONE 20 MG TABLET PO SCH (08:50)
[2020-01-24] MEDS: ASPIRIN EC 81 MG TABLET PO SCH (08:50)
[2020-01-24] MEDS: SILDENAFIL 20 MG TABLET PO SCH (08:51)
[2020-01-24] MEDS: amLODIPine 5 MG TABLET PO SCH (08:51)
[2020-01-24] MEDS: FUROSEMIDE 80 MG TABLET PO SCH ×2 (08:51→13:38)
[2020-01-24] MEDS: hydrALAZINE 25 MG TABLET PO SCH ×2 (08:51→21:40)
[2020-01-24] MEDS: GABAPENTIN 600 MG TABLET PO SCH ×2 (08:51→21:40)
[2020-01-24] MEDS: NEXIUM 40 MG PO SCH ×2 (08:52→21:40)
[2020-01-24] MEDS: BIOTIN 10000 MG PO SCH ×2 (08:52→21:40)
[2020-01-24] MEDS: CRANBERRY 12600 MG PO SCH (21:40)
[2020-01-24] MEDS: MAGNESIUM OXIDE 400 MG TABLET PO SCH (21:40)
[2020-01-24] MEDS: FOLIC ACID 0.4 MG TABLET PO SCH (21:40)
[2020-01-24] MEDS: EZETIMIBE 10 MG TABLET PO SCH (21:41)
[2020-01-24] MEDS: SIMVASTATIN 20 MG TABLET PO SCH (21:41)
[2020-01-25] MEDS: PIPERACILLIN/TAZOBACTAM 3,375 MG in SODIUM CHLORIDE 0.9% 100 ML IV SCH (04:19)
[2020-01-25 05:43] LABS: Basophils % 0.5 % (0.0-0.8); Eosinophils # 0.1 10*3/uL (0.0-0.87); Hematocrit 34.5 VOL% (35.7-47.0); Hemoglobin 10.6 GM/DL (12.0-16.0); Immature Granulocytes % 0.4 %; Immature Granulocytes Absolute 0.02 #; Lymphocytes # 1.3 10*3/uL (1.4-4.0); Lymphocytes % 24.3 % (21.3-54.2); Mean Corpuscular HGB Conc 30.7 GM/DL (32-36); Mean Corpuscular Volume 83.5 FL (87-102); Mean Platelet Volume 9.6 FL (9.6-12.0); Neutrophils % 63.8 % (38.7-73.9); Platelet Count 290 T/CUMM (130-400); Red Blood Count 4.13 MC/CUMM (3.8-5.5); Red Cell Distribution Width 18.1 % (9.3-17.3); White Blood Count 5.5 T/CUMM (4-12)
[2020-01-25 06:19] LABS: Calcium 9.2 MG/DL (8.5-10.1); Osmolality,Calculated 292.5 MOS/KG (273-304)
[2020-01-25] MEDS: DOXAZOSIN 4 MG TABLET PO SCH (08:57)
[2020-01-25] MEDS: hydrALAZINE 25 MG TABLET PO SCH (08:57)
[2020-01-25] MEDS: ASPIRIN EC 81 MG TABLET PO SCH (08:57)
[2020-01-25] MEDS: ENOXAPARIN 30 MG/0.3 ML SYRINGE SUBCUT SCH (08:57)
[2020-01-25] MEDS: BIOTIN 10000 MG PO SCH (08:57)
[2020-01-25] MEDS: oxyCODONE ER 20 MG TABLET PO SCH (08:58)
[2020-01-25] MEDS: MULTIVITAMIN (CENTRUM) TABLET PO SCH (08:58)
[2020-01-25] MEDS: SILDENAFIL 20 MG TABLET PO SCH (08:58)
[2020-01-25] MEDS: atenoloL 25 MG TABLET PO SCH (08:58)
[2020-01-25] MEDS: DOCUSATE SODIUM 100 MG CAPSULE PO SCH (08:58)
[2020-01-25] MEDS: amLODIPine 5 MG TABLET PO SCH (08:58)
[2020-01-25] MEDS: GABAPENTIN 600 MG TABLET PO SCH (08:58)
[2020-01-25] MEDS: LINACLOTIDE 145 MCG CAPSULE PO SCH (08:58)
[2020-01-25] MEDS: DULoxetine 30 MG CAPSULE PO SCH (08:58)
[2020-01-25] MEDS: CYANOCOBALAMIN 500 MCG TABLET PO SCH (08:58)
[2020-01-25] MEDS: NEXIUM 40 MG PO SCH (08:58)
[2020-01-25] MEDS: predniSONE 20 MG TABLET PO SCH (08:58)
[2020-01-25] MEDS: FUROSEMIDE 80 MG TABLET PO SCH (08:58)
[2020-01-25] MEDS: POTASSIUM CHLORIDE 8 MEQ CAPSULE PO SCH (08:58)
[2020-01-25] MEDS: tiZANidine 4 MG TABLET PO SCH (08:59)
[2020-01-25 10:24] VITALS: BP 169/81
== END 2020-01-25 12:15 | disposition home or self-care (01) | DRG 178 ==
LOC: N.ED 06:10 → N.EDINP 07:34 → N.TELEN 08:44 → N.2E 14:36
PROVIDERS: ADMIT Internal Medicine; ATTEND Internal Medicine

== ENCOUNTER 2020-03-05 14:02 | Inpatient (IN) ==
[2020-03-05 15:32] LABS: Basophils % 0.3 % (0.0-0.8); Eosinophils % 0.2 % (0.00-10.9); Hematocrit 36.6 VOL% (35.7-47.0); Hemoglobin 11.4 GM/DL (12.0-16.0); Immature Granulocytes % 0.6 %; Lymphocytes # 0.8 10*3/uL (1.4-4.0); Mean Corpuscular HGB Conc 31.1 GM/DL (32-36); Mean Corpuscular Volume 82.4 FL (87-102); Mean Platelet Volume 8.7 FL (9.6-12.0); Monocytes % 4.1 % (1.7-12.7); Neutrophils % 89.8 % (38.7-73.9); Platelet Count 339 T/CUMM (130-400); Red Blood Count 4.44 MC/CUMM (3.8-5.5); Red Cell Distribution Width 16.7 % (9.3-17.3); White Blood Count 15.4 T/CUMM (4-12)
[2020-03-05 15:41] LABS: Apearance,Urine CLEAR (Clear); Bilirubin,Urine Negative (Negative); Blood, Urine Negative (Negative); Glucose,Urine (UA) Negative (Negative); Hyaline Casts,Urine 12 /LPF (0-3); Ketones,Urine 5 mg/dL (Negative); Mucus,Urine Occasional /LPF (Occasional); Nitrite,Urine Negative (Negative); Protein,Urine Negative; RBC,Urine 1 /HPF (0-4); Squamous Epithelial Cell,Urine Occasional /HPF (0-10); Urine Color Amber (Yellow); Urine Specific Gravity 1.018 (1.001-1.035); Urine Urobilinogen < 2.0 EU/DL (0.2-1.0); WBC,Urine 1 /HPF (0-6)
[2020-03-05 15:51] LABS: Albumin 3.2 G/DL (3.4-5.0); Bilirubin,Total 0.4 MG/DL (0.2-1.0); Calcium 8.5 MG/DL (8.5-10.1); Total Protein 7.2 G/DL (6.4-8.3)
[2020-03-05] MEDS ORDERED: ACETAMINOPHEN 325 MG TABLET PO PRN (16:13)
[2020-03-05] MEDS ORDERED: GLUCAGON 1 MG VIAL IM PRN (16:13)
[2020-03-05] MEDS ORDERED: DEXTROSE 10% 250 ML BAG IV PRN (16:13)
[2020-03-05] MEDS ORDERED: ONDANSETRON 4 MG/2 ML VIAL IV PRN (16:13)
[2020-03-05] MEDS ORDERED: cefTRIAXone 1,000 MG in SODIUM CHLORIDE 0.9% 100 ML IV STA (16:15)
[2020-03-05] MEDS ORDERED: AZITHROMYCIN 250 MG TABLET PO STA (16:15)
[2020-03-06] MEDS: DOCUSATE SODIUM 100 MG CAPSULE PO SCH ×4 (01:42→20:55)
[2020-03-06] MEDS ORDERED: ALBUTEROL/IPRATROPIUM 3 ML NEB RESP TX PRN ×3 (08:33→13:58)
[2020-03-06] MEDS ORDERED: DEXTROSE 50% 25 GM/50 ML VIAL IV PRN (08:34)
[2020-03-06] MEDS ORDERED: GLUCAGON 1 MG VIAL IM PRN (08:34)
[2020-03-06] MEDS ORDERED: PANTOPRAZOLE 40 MG TABLET PO SCH (09:00)
[2020-03-06] MEDS: PIPERACILLIN/TAZOBACTAM 3,375 MG in SODIUM CHLORIDE 0.9% 100 ML IV SCH ×4 (09:22→22:53)
[2020-03-06] MEDS ORDERED: INSULIN LISPRO 100 UNIT/ML SUBCUT SCH (11:30)
[2020-03-06] MEDS: ALBUTEROL/IPRATROPIUM 3 ML NEB RESP TX SCH ×2 (12:50→19:37)
[2020-03-06] MEDS ORDERED: ALBUTEROL SULFATE INH PRN (13:58)
[2020-03-06] MEDS ORDERED: GABAPENTIN 600 MG TABLET PO PRN (13:58)
[2020-03-06] MEDS ORDERED: ALBUTEROL 2.5 MG/3 ML NEB RESP TX PRN (13:58)
[2020-03-06] MEDS ORDERED: INSULIN ASPART U SUBCUT SCH (14:00)
[2020-03-06] MEDS: METHOCARBAMOL 750 MG TABLET PO SCH ×2 (15:06→22:53)
[2020-03-06] MEDS: ENOXAPARIN 40 MG/0.4 ML SYRINGE SUBCUT SCH (15:06)
[2020-03-06] MEDS: busPIRone 5 MG TABLET PO SCH ×2 (15:06→20:55)
[2020-03-06] MEDS: FUROSEMIDE 80 MG TABLET PO SCH (15:06)
[2020-03-06] MEDS: oxyCODONE IR 5 MG TABLET PO PRN (16:07)
[2020-03-06] MEDS: DULoxetine 30 MG CAPSULE PO SCH (20:53)
[2020-03-06] MEDS: oxyCODONE ER 20 MG TABLET PO SCH (20:53)
[2020-03-06] MEDS: PANTOPRAZOLE 40 MG TABLET PO SCH (20:53)
[2020-03-06] MEDS: SIMVASTATIN 20 MG TABLET PO SCH (20:54)
[2020-03-06] MEDS: EZETIMIBE 10 MG TABLET PO SCH (20:54)
[2020-03-06] MEDS: FOLIC ACID 0.4 MG TABLET PO SCH (20:54)
[2020-03-06] MEDS: VITAMIN E 400 UNIT CAPSULE PO SCH (20:55)
[2020-03-06] MEDS: POTASSIUM CHLORIDE 8 MEQ CAPSULE PO SCH (20:55)
[2020-03-06] MEDS: SILDENAFIL 20 MG TABLET PO SCH (20:55)
[2020-03-06] MEDS: GABAPENTIN 600 MG TABLET PO SCH (20:55)
[2020-03-06] MEDS: MAGNESIUM OXIDE 400 MG TABLET PO SCH (20:55)
[2020-03-06] MEDS: hydrALAZINE 25 MG TABLET PO SCH (20:56)
[2020-03-06] MEDS: CHOLECALCIFEROL 1,000 UNIT TABLET PO SCH (20:56)
[2020-03-06] MEDS ORDERED: NON-FORMULARY MEDICATION (Esomeprazole Magnesium [Nexium] 40 MG) PO SCH (21:00)
[2020-03-07] MEDS: oxyCODONE IR 5 MG TABLET PO PRN ×2 (00:53→19:11)
[2020-03-07] MEDS: ALBUTEROL/IPRATROPIUM 3 ML NEB RESP TX SCH ×4 (00:53→19:42)
[2020-03-07] MEDS: METHOCARBAMOL 750 MG TABLET PO SCH ×3 (05:25→22:49)
[2020-03-07] MEDS: PIPERACILLIN/TAZOBACTAM 3,375 MG in SODIUM CHLORIDE 0.9% 100 ML IV SCH ×3 (07:13→22:48)
[2020-03-07 07:32] LABS: Basophils # 0.1 10*3/uL (0.0-0.2); Basophils % 0.7 % (0.0-0.8); Eosinophils # 0.2 10*3/uL (0.0-0.87); Eosinophils % 2.2 % (0.00-10.9); Hematocrit 32.5 VOL% (35.7-47.0); Hemoglobin 10.1 GM/DL (12.0-16.0); Immature Granulocytes % 0.4 %; Immature Granulocytes Absolute 0.03 #; Lymphocytes # 1.2 10*3/uL (1.4-4.0); Lymphocytes % 17.2 % (21.3-54.2); Mean Corpuscular HGB Conc 31.1 GM/DL (32-36); Mean Corpuscular Volume 82.3 FL (87-102); Mean Platelet Volume 8.8 FL (9.6-12.0); Monocytes % 8.8 % (1.7-12.7); Neutrophils % 70.7 % (38.7-73.9); Platelet Count 305 T/CUMM (130-400); Red Blood Count 3.95 MC/CUMM (3.8-5.5); White Blood Count 7.2 T/CUMM (4-12)
[2020-03-07 07:54] LABS: Calcium 8.8 MG/DL (8.5-10.1)
[2020-03-07] MEDS ORDERED: NITROFURANTOIN MACROCRYSTALS 50 MG CAPSULE PO SCH (09:00)
[2020-03-07] MEDS ORDERED: NON-FORMULARY MEDICATION (Biotin 10,000 MCG) PO SCH (09:00)
[2020-03-07] MEDS ORDERED: ELDERBERRY FRUIT AND FLOWER PO SCH (09:00)
[2020-03-07] MEDS ORDERED: azaTHIOprine 50 MG TABLET PO SCH (09:00)
[2020-03-07] MEDS: MULTIVITAMIN (PRENATAL) TABLET PO SCH (09:18)
[2020-03-07] MEDS: metOLazone 2.5 MG TABLET PO SCH (09:18)
[2020-03-07] MEDS: POTASSIUM CHLORIDE 8 MEQ CAPSULE PO SCH ×2 (09:18→20:58)
[2020-03-07] MEDS: CYANOCOBALAMIN 500 MCG TABLET PO SCH (09:18)
[2020-03-07] MEDS: SILDENAFIL 20 MG TABLET PO SCH ×2 (09:18→20:57)
[2020-03-07] MEDS: DULoxetine 30 MG CAPSULE PO SCH ×2 (09:18→20:58)
[2020-03-07] MEDS: ASPIRIN EC 81 MG TABLET PO SCH (09:19)
[2020-03-07] MEDS: FUROSEMIDE 80 MG TABLET PO SCH ×2 (09:19→14:30)
[2020-03-07] MEDS: DOCUSATE SODIUM 100 MG CAPSULE PO SCH ×3 (09:21→20:58)
[2020-03-07] MEDS: oxyCODONE ER 20 MG TABLET PO SCH ×2 (09:21→20:58)
[2020-03-07] MEDS: atenoloL 25 MG TABLET PO SCH (09:21)
[2020-03-07] MEDS: amLODIPine 10 MG TABLET PO SCH (09:21)
[2020-03-07] MEDS: busPIRone 5 MG TABLET PO SCH ×3 (09:22→20:58)
[2020-03-07] MEDS: DOXAZOSIN 4 MG TABLET PO SCH (09:22)
[2020-03-07] MEDS: GABAPENTIN 600 MG TABLET PO SCH ×2 (09:22→20:59)
[2020-03-07] MEDS: LINACLOTIDE 145 MCG CAPSULE PO SCH (09:23)
[2020-03-07] MEDS: PANTOPRAZOLE 40 MG TABLET PO SCH (09:30)
[2020-03-07] MEDS: hydrALAZINE 25 MG TABLET PO SCH ×2 (10:30→20:58)
[2020-03-07] MEDS: ENOXAPARIN 40 MG/0.4 ML SYRINGE SUBCUT SCH (16:44)
[2020-03-07] MEDS: FOLIC ACID 0.4 MG TABLET PO SCH (20:57)
[2020-03-07] MEDS: VITAMIN E 400 UNIT CAPSULE PO SCH (20:57)
[2020-03-07] MEDS: SIMVASTATIN 20 MG TABLET PO SCH (20:57)
[2020-03-07] MEDS: MAGNESIUM OXIDE 400 MG TABLET PO SCH (20:57)
[2020-03-07] MEDS: CHOLECALCIFEROL 1,000 UNIT TABLET PO SCH (20:58)
[2020-03-07] MEDS: EZETIMIBE 10 MG TABLET PO SCH (20:58)
[2020-03-08] MEDS: ALBUTEROL/IPRATROPIUM 3 ML NEB RESP TX SCH ×4 (00:13→19:16)
[2020-03-08] MEDS: PANTOPRAZOLE 40 MG TABLET PO SCH ×3 (01:26→21:56)
[2020-03-08] MEDS: DOCUSATE SODIUM 100 MG CAPSULE PO SCH ×5 (01:26→21:56)
[2020-03-08 05:57] LABS: Basophils # 0.1 10*3/uL (0.0-0.2); Basophils % 0.9 % (0.0-0.8); Eosinophils # 0.3 10*3/uL (0.0-0.87); Eosinophils % 4.2 % (0.00-10.9); Hemoglobin 10.3 GM/DL (12.0-16.0); Immature Granulocytes % 0.5 %; Immature Granulocytes Absolute 0.03 #; Lymphocytes # 1.3 10*3/uL (1.4-4.0); Lymphocytes % 19.6 % (21.3-54.2); Mean Corpuscular HGB Conc 32.2 GM/DL (32-36); Mean Corpuscular Volume 79.8 FL (87-102); Mean Platelet Volume 9.2 FL (9.6-12.0); Monocytes % 9.7 % (1.7-12.7); Neutrophils % 65.1 % (38.7-73.9); Platelet Count 301 T/CUMM (130-400); Red Blood Count 4.01 MC/CUMM (3.8-5.5); Red Cell Distribution Width 16.9 % (9.3-17.3); White Blood Count 6.4 T/CUMM (4-12)
[2020-03-08 06:20] LABS: Calcium 8.7 MG/DL (8.5-10.1); Osmolality,Calculated 276.8 MOS/KG (273-304)
[2020-03-08] MEDS: METHOCARBAMOL 750 MG TABLET PO SCH ×3 (06:39→21:50)
[2020-03-08] MEDS: PIPERACILLIN/TAZOBACTAM 3,375 MG in SODIUM CHLORIDE 0.9% 100 ML IV SCH ×3 (06:39→23:28)
[2020-03-08] MEDS: DULoxetine 30 MG CAPSULE PO SCH ×2 (08:32→21:49)
[2020-03-08] MEDS: busPIRone 5 MG TABLET PO SCH ×3 (08:32→21:51)
[2020-03-08] MEDS: amLODIPine 10 MG TABLET PO SCH (08:32)
[2020-03-08] MEDS: metOLazone 2.5 MG TABLET PO SCH (08:32)
[2020-03-08] MEDS: CYANOCOBALAMIN 500 MCG TABLET PO SCH (08:32)
[2020-03-08] MEDS: DOXAZOSIN 4 MG TABLET PO SCH (08:33)
[2020-03-08] MEDS: hydrALAZINE 25 MG TABLET PO SCH ×2 (08:33→21:51)
[2020-03-08] MEDS: FUROSEMIDE 80 MG TABLET PO SCH ×2 (08:33→14:41)
[2020-03-08] MEDS: SILDENAFIL 20 MG TABLET PO SCH ×2 (08:33→21:50)
[2020-03-08] MEDS: GABAPENTIN 600 MG TABLET PO SCH ×2 (08:33→21:50)
[2020-03-08] MEDS: LINACLOTIDE 145 MCG CAPSULE PO SCH (08:34)
[2020-03-08] MEDS: oxyCODONE ER 20 MG TABLET PO SCH ×2 (08:34→21:48)
[2020-03-08] MEDS: MULTIVITAMIN (PRENATAL) TABLET PO SCH (08:34)
[2020-03-08] MEDS: ASPIRIN EC 81 MG TABLET PO SCH (08:34)
[2020-03-08] MEDS: atenoloL 25 MG TABLET PO SCH (08:34)
[2020-03-08] MEDS: POTASSIUM CHLORIDE 20 MEQ TABLET PO PRN ×4 (08:35→14:41)
[2020-03-08] MEDS: POTASSIUM CHLORIDE 8 MEQ CAPSULE PO SCH ×3 (08:37→21:50)
[2020-03-08] MEDS: oxyCODONE IR 5 MG TABLET PO PRN ×2 (12:46→19:25)
[2020-03-08] MEDS: ENOXAPARIN 40 MG/0.4 ML SYRINGE SUBCUT SCH (14:40)
[2020-03-08] MEDS: MAGNESIUM OXIDE 400 MG TABLET PO SCH (21:49)
[2020-03-08] MEDS: FOLIC ACID 0.4 MG TABLET PO SCH (21:49)
[2020-03-08] MEDS: EZETIMIBE 10 MG TABLET PO SCH (21:49)
[2020-03-08] MEDS: SIMVASTATIN 20 MG TABLET PO SCH (21:50)
[2020-03-08] MEDS: CHOLECALCIFEROL 1,000 UNIT TABLET PO SCH (21:51)
[2020-03-08] MEDS: VITAMIN E 400 UNIT CAPSULE PO SCH (21:51)
[2020-03-09] MEDS: ALBUTEROL/IPRATROPIUM 3 ML NEB RESP TX SCH ×4 (00:14→19:33)
[2020-03-09] MEDS: oxyCODONE IR 5 MG TABLET PO PRN ×2 (05:11→13:22)
[2020-03-09] MEDS: METHOCARBAMOL 750 MG TABLET PO SCH ×3 (06:32→21:57)
[2020-03-09] MEDS: PIPERACILLIN/TAZOBACTAM 3,375 MG in SODIUM CHLORIDE 0.9% 100 ML IV SCH ×3 (06:32→23:45)
[2020-03-09 07:06] LABS: Basophils # 0.1 10*3/uL (0.0-0.2); Eosinophils # 0.2 10*3/uL (0.0-0.87); Eosinophils % 3.9 % (0.00-10.9); Hematocrit 33.6 VOL% (35.7-47.0); Hemoglobin 10.7 GM/DL (12.0-16.0); Immature Granulocytes % 0.6 %; Immature Granulocytes Absolute 0.04 #; Lymphocytes # 1.3 10*3/uL (1.4-4.0); Lymphocytes % 20.8 % (21.3-54.2); Mean Corpuscular HGB Conc 31.8 GM/DL (32-36); Mean Platelet Volume 8.7 FL (9.6-12.0); Monocytes % 9.4 % (1.7-12.7); Neutrophils % 64.3 % (38.7-73.9); Platelet Count 294 T/CUMM (130-400); White Blood Count 6.2 T/CUMM (4-12)
[2020-03-09 07:21] LABS: Calcium 9.2 MG/DL (8.5-10.1); Osmolality,Calculated 274.2 MOS/KG (273-304)
[2020-03-09] MEDS: SILDENAFIL 20 MG TABLET PO SCH ×2 (09:36→20:56)
[2020-03-09] MEDS: DOXAZOSIN 4 MG TABLET PO SCH (09:36)
[2020-03-09] MEDS: DULoxetine 30 MG CAPSULE PO SCH ×2 (09:36→20:55)
[2020-03-09] MEDS: POTASSIUM CHLORIDE 20 MEQ TABLET PO PRN ×2 (09:36→13:18)
[2020-03-09] MEDS: DOCUSATE SODIUM 100 MG CAPSULE PO SCH ×4 (09:36→20:59)
[2020-03-09] MEDS: LINACLOTIDE 145 MCG CAPSULE PO SCH (09:36)
[2020-03-09] MEDS: POTASSIUM CHLORIDE 8 MEQ CAPSULE PO SCH ×3 (09:36→20:57)
[2020-03-09] MEDS: PANTOPRAZOLE 40 MG TABLET PO SCH ×2 (09:37→21:08)
[2020-03-09] MEDS: atenoloL 25 MG TABLET PO SCH (09:37)
[2020-03-09] MEDS: metOLazone 2.5 MG TABLET PO SCH (09:37)
[2020-03-09] MEDS: CYANOCOBALAMIN 500 MCG TABLET PO SCH (09:37)
[2020-03-09] MEDS: GABAPENTIN 600 MG TABLET PO SCH ×2 (09:37→20:56)
[2020-03-09] MEDS: ASPIRIN EC 81 MG TABLET PO SCH (09:37)
[2020-03-09] MEDS: MULTIVITAMIN (PRENATAL) TABLET PO SCH (09:37)
[2020-03-09] MEDS: amLODIPine 10 MG TABLET PO SCH (09:37)
[2020-03-09] MEDS: FUROSEMIDE 80 MG TABLET PO SCH ×2 (09:37→14:53)
[2020-03-09] MEDS: busPIRone 5 MG TABLET PO SCH ×3 (09:37→20:57)
[2020-03-09] MEDS: oxyCODONE ER 20 MG TABLET PO SCH ×2 (09:38→20:58)
[2020-03-09] MEDS: hydrALAZINE 25 MG TABLET PO SCH ×2 (09:45→20:57)
[2020-03-09] MEDS: ENOXAPARIN 40 MG/0.4 ML SYRINGE SUBCUT SCH (14:53)
[2020-03-09] MEDS: MAGNESIUM OXIDE 400 MG TABLET PO SCH (20:55)
[2020-03-09] MEDS: FOLIC ACID 0.4 MG TABLET PO SCH (20:55)
[2020-03-09] MEDS: EZETIMIBE 10 MG TABLET PO SCH (20:56)
[2020-03-09] MEDS: SIMVASTATIN 20 MG TABLET PO SCH (20:57)
[2020-03-09] MEDS: CHOLECALCIFEROL 1,000 UNIT TABLET PO SCH (20:57)
[2020-03-09] MEDS: VITAMIN E 400 UNIT CAPSULE PO SCH (20:58)
[2020-03-10] MEDS: ALBUTEROL/IPRATROPIUM 3 ML NEB RESP TX SCH ×2 (00:20→07:13)
[2020-03-10 05:48] LABS: Basophils # 0.1 10*3/uL (0.0-0.2); Eosinophils # 0.3 10*3/uL (0.0-0.87); Eosinophils % 4.4 % (0.00-10.9); Hematocrit 33.6 VOL% (35.7-47.0); Hemoglobin 10.9 GM/DL (12.0-16.0); Immature Granulocytes % 0.4 %; Immature Granulocytes Absolute 0.03 #; Lymphocytes # 1.7 10*3/uL (1.4-4.0); Lymphocytes % 23.6 % (21.3-54.2); Mean Corpuscular HGB Conc 32.4 GM/DL (32-36); Mean Corpuscular Volume 79.2 FL (87-102); Mean Platelet Volume 9.1 FL (9.6-12.0); Monocytes % 9.7 % (1.7-12.7); Neutrophils % 60.9 % (38.7-73.9); Platelet Count 282 T/CUMM (130-400); Red Blood Count 4.24 MC/CUMM (3.8-5.5); Red Cell Distribution Width 16.7 % (9.3-17.3); White Blood Count 7.1 T/CUMM (4-12)
[2020-03-10] MEDS: METHOCARBAMOL 750 MG TABLET PO SCH (05:58)
[2020-03-10 06:14] LABS: Calcium 9.1 MG/DL (8.5-10.1); Osmolality,Calculated 273.4 MOS/KG (273-304)
[2020-03-10] MEDS: PIPERACILLIN/TAZOBACTAM 3,375 MG in SODIUM CHLORIDE 0.9% 100 ML IV SCH (07:15)
[2020-03-10] MEDS: DOXAZOSIN 4 MG TABLET PO SCH (08:53)
[2020-03-10] MEDS: LINACLOTIDE 145 MCG CAPSULE PO SCH (08:53)
[2020-03-10] MEDS: DULoxetine 30 MG CAPSULE PO SCH (08:53)
[2020-03-10] MEDS: GABAPENTIN 600 MG TABLET PO SCH (08:54)
[2020-03-10] MEDS: metOLazone 2.5 MG TABLET PO SCH (08:54)
[2020-03-10] MEDS: CYANOCOBALAMIN 500 MCG TABLET PO SCH (08:54)
[2020-03-10] MEDS: SILDENAFIL 20 MG TABLET PO SCH (08:54)
[2020-03-10] MEDS: DOCUSATE SODIUM 100 MG CAPSULE PO SCH ×2 (08:54→08:57)
[2020-03-10] MEDS: POTASSIUM CHLORIDE 20 MEQ TABLET PO PRN (08:54)
[2020-03-10] MEDS: MULTIVITAMIN (PRENATAL) TABLET PO SCH (08:54)
[2020-03-10] MEDS: ASPIRIN EC 81 MG TABLET PO SCH (08:54)
[2020-03-10] MEDS: oxyCODONE ER 20 MG TABLET PO SCH (08:55)
[2020-03-10] MEDS: atenoloL 25 MG TABLET PO SCH (08:55)
[2020-03-10] MEDS: PANTOPRAZOLE 40 MG TABLET PO SCH (08:55)
[2020-03-10] MEDS: FUROSEMIDE 80 MG TABLET PO SCH (08:55)
[2020-03-10] MEDS: busPIRone 5 MG TABLET PO SCH (08:55)
[2020-03-10] MEDS: hydrALAZINE 25 MG TABLET PO SCH (08:56)
[2020-03-10] MEDS: amLODIPine 10 MG TABLET PO SCH (08:56)
[2020-03-10] MEDS: POTASSIUM CHLORIDE 8 MEQ CAPSULE PO SCH (08:56)
[2020-03-10 11:57] VITALS: BP 151/65
== END 2020-03-10 13:00 | disposition home or self-care (01) | DRG 177 ==
LOC: N.ED 14:02 → N.EDINP 16:12 → N.3E 22:44
PROVIDERS: ADMIT Internal Medicine; ATTEND Internal Medicine

== ENCOUNTER 2020-03-12 14:50 | Inpatient (IN) ==
[2020-03-12] MEDS ORDERED: ONDANSETRON 4 MG/2 ML VIAL IV STA (16:13)
[2020-03-12 16:16] LABS: Basophils # 0.1 10*3/uL (0.0-0.2); Basophils % 0.4 % (0.0-0.8); Eosinophils % 0.2 % (0.00-10.9); Hematocrit 37.8 VOL% (35.7-47.0); Hemoglobin 11.9 GM/DL (12.0-16.0); Immature Granulocytes % 0.7 %; Immature Granulocytes Absolute 0.12 #; Lymphocytes # 1.2 10*3/uL (1.4-4.0); Lymphocytes % 7.2 % (21.3-54.2); Mean Corpuscular HGB Conc 31.5 GM/DL (32-36); Mean Corpuscular Volume 81.1 FL (87-102); Mean Platelet Volume 8.7 FL (9.6-12.0); Monocytes % 4.4 % (1.7-12.7); Neutrophils % 87.1 % (38.7-73.9); Platelet Count 310 T/CUMM (130-400); Red Blood Count 4.66 MC/CUMM (3.8-5.5); Red Cell Distribution Width 16.6 % (9.3-17.3); White Blood Count 16.3 T/CUMM (4-12)
[2020-03-12 16:53] LABS: Albumin 3.3 G/DL (3.4-5.0); Bilirubin,Total 0.4 MG/DL (0.2-1.0); Calcium 9.4 MG/DL (8.5-10.1); Osmolality,Calculated 267.8 MOS/KG (273-304); Total Protein 7.6 G/DL (6.4-8.3)
[2020-03-12] MEDS ORDERED: DEXTROSE 50% 25 GM/50 ML SYRINGE IV ONE (16:59)
[2020-03-12] MEDS ORDERED: DEXTROSE 50% 25 GM/50 ML VIAL IV STA (17:00)
[2020-03-12] MEDS ORDERED: POTASSIUM CHLORIDE INJ 40 MEQ in SODIUM CHLORIDE 0.9% 500 ML IV STA (17:47)
[2020-03-12 18:24] LABS: Apearance,Urine CLEAR (Clear); Bacteria,Urine Occasional /HPF (Few); Blood, Urine Negative (Negative); Glucose,Urine (UA) Negative (Negative); Ketones,Urine Negative (Negative); Mucus,Urine Occasional /LPF (Occasional); Nitrite,Urine Negative (Negative); Protein,Urine Negative; RBC,Urine 1 /HPF (0-4); Squamous Epithelial Cell,Urine Occasional /HPF (0-10); Urine Color Yellow (Yellow); Urine Specific Gravity 1.018 (1.001-1.035); Urine Urobilinogen < 2.0 EU/DL (0.2-1.0); WBC,Urine 1 /HPF (0-6)
[2020-03-12] MEDS ORDERED: DEXTROSE 10% 250 ML BAG IV PRN (18:27)
[2020-03-12] MEDS ORDERED: ACETAMINOPHEN 325 MG TABLET PO PRN (18:27)
[2020-03-12] MEDS ORDERED: GLUCAGON 1 MG VIAL IM PRN ×2 (18:27)
[2020-03-12] MEDS ORDERED: DEXTROSE 50% 25 GM/50 ML VIAL IV PRN (18:27)
[2020-03-12 18:29] LABS: Bilirubin,Urine Small mg/dL (Negative)
[2020-03-12] MEDS: PIPERACILLIN/TAZOBACTAM 3,375 MG in SODIUM CHLORIDE 0.9% 100 ML IV SCH (19:07)
[2020-03-12] MEDS: ALBUTEROL/IPRATROPIUM 3 ML NEB RESP TX SCH (20:14)
[2020-03-12] MEDS: INSULIN LISPRO 100 UNIT/ML SUBCUT SCH (21:23)
[2020-03-13] MEDS: ALBUTEROL/IPRATROPIUM 3 ML NEB RESP TX SCH ×4 (00:50→19:10)
[2020-03-13] MEDS: PIPERACILLIN/TAZOBACTAM 3,375 MG in SODIUM CHLORIDE 0.9% 100 ML IV SCH ×3 (02:50→18:38)
[2020-03-13 06:41] LABS: Basophils % 0.4 % (0.0-0.8); Eosinophils # 0.2 10*3/uL (0.0-0.87); Eosinophils % 1.6 % (0.00-10.9); Immature Granulocytes % 0.4 %; Immature Granulocytes Absolute 0.04 #; Lymphocytes # 0.7 10*3/uL (1.4-4.0); Lymphocytes % 7.5 % (21.3-54.2); Mean Corpuscular HGB Conc 31.3 GM/DL (32-36); Mean Corpuscular Volume 81.2 FL (87-102); Mean Platelet Volume 8.8 FL (9.6-12.0); Neutrophils % 84.1 % (38.7-73.9); Platelet Count 251 T/CUMM (130-400); Red Blood Count 3.94 MC/CUMM (3.8-5.5); Red Cell Distribution Width 16.9 % (9.3-17.3); White Blood Count 9.7 T/CUMM (4-12)
[2020-03-13 06:59] LABS: Calcium 8.3 MG/DL (8.5-10.1); Osmolality,Calculated 272.2 MOS/KG (273-304)
[2020-03-13] MEDS ORDERED: PANTOPRAZOLE 40 MG TABLET PO SCH ×2 (09:00→21:00)
[2020-03-13] MEDS ORDERED: ALBUTEROL/IPRATROPIUM 3 ML NEB RESP TX PRN ×2 (09:11)
[2020-03-13] MEDS ORDERED: ALBUTEROL 2.5 MG/3 ML NEB RESP TX PRN (09:11)
[2020-03-13] MEDS ORDERED: GABAPENTIN 600 MG TABLET PO PRN (09:11)
[2020-03-13] MEDS ORDERED: ALBUTEROL SULFATE INH PRN (09:11)
[2020-03-13] MEDS ORDERED: INSULIN ASPART U 1 UNIT SUBCUT SCH (09:15)
[2020-03-13] MEDS ORDERED: PIPERACILLIN/TAZOBACTAM 3,375 MG in SODIUM CHLORIDE 0.9% 100 ML IV SCH (09:30)
[2020-03-13] MEDS ORDERED: METHOCARBAMOL 750 MG TABLET PO PRN (09:30)
[2020-03-13] MEDS: INSULIN LISPRO 100 UNIT/ML SUBCUT SCH ×4 (09:44→20:50)
[2020-03-13] MEDS: amLODIPine 10 MG TABLET PO SCH (09:45)
[2020-03-13] MEDS: oxyCODONE ER 20 MG TABLET PO SCH ×2 (09:51→20:48)
[2020-03-13] MEDS: Esomeprazole Magnesium [Nexium] 40 MG PO SCH ×2 (10:13→20:42)
[2020-03-13] MEDS: SODIUM CHLORIDE 0.9% 1,000 ML IV SCH (11:50)
[2020-03-13] MEDS: busPIRone 5 MG TABLET PO SCH ×2 (14:16→20:35)
[2020-03-13] MEDS: POTASSIUM CHLORIDE 8 MEQ CAPSULE PO SCH ×2 (14:16→20:34)
[2020-03-13] MEDS: BACLOFEN 10 MG TABLET PO SCH ×2 (18:38→20:51)
[2020-03-13] MEDS: oxyCODONE IR 5 MG TABLET PO PRN ×2 (20:30→23:26)
[2020-03-13] MEDS: VITAMIN E 400 UNIT CAPSULE PO SCH (20:34)
[2020-03-13] MEDS: DOCUSATE SODIUM 100 MG CAPSULE PO SCH (20:34)
[2020-03-13] MEDS: DULoxetine 30 MG CAPSULE PO SCH (20:34)
[2020-03-13] MEDS: SIMVASTATIN 20 MG TABLET PO SCH (20:35)
[2020-03-13] MEDS: CHOLECALCIFEROL 1,000 UNIT TABLET PO SCH (20:35)
[2020-03-13] MEDS: MAGNESIUM OXIDE 400 MG TABLET PO SCH (20:35)
[2020-03-13] MEDS: SILDENAFIL 20 MG TABLET PO SCH (20:35)
[2020-03-13] MEDS: FOLIC ACID 0.4 MG TABLET PO SCH (20:36)
[2020-03-13] MEDS: EZETIMIBE 10 MG TABLET PO SCH (20:36)
[2020-03-13] MEDS ORDERED: NON-FORMULARY MEDICATION (Esomeprazole Magnesium [Nexium] 40 MG) PO SCH (21:00)
[2020-03-13] MEDS: hydrALAZINE 25 MG TABLET PO SCH (23:28)
[2020-03-14] MEDS: ALBUTEROL/IPRATROPIUM 3 ML NEB RESP TX SCH ×4 (00:25→19:19)
[2020-03-14] MEDS: hydrALAZINE 25 MG TABLET PO SCH ×3 (01:26→22:20)
[2020-03-14] MEDS: PIPERACILLIN/TAZOBACTAM 3,375 MG in SODIUM CHLORIDE 0.9% 100 ML IV SCH ×3 (05:29→18:55)
[2020-03-14] MEDS ORDERED: SODIUM CHLORIDE 0.9% 1,000 ML IV SCH (05:30)
[2020-03-14] MEDS: SODIUM CHLORIDE 0.9% 1,000 ML IV SCH (05:31)
[2020-03-14 07:01] LABS: Basophils # 0.1 10*3/uL (0.0-0.2); Basophils % 0.4 % (0.0-0.8); Eosinophils # 0.3 10*3/uL (0.0-0.87); Eosinophils % 2.4 % (0.00-10.9); Hematocrit 32.5 VOL% (35.7-47.0); Hemoglobin 10.5 GM/DL (12.0-16.0); Immature Granulocytes % 0.4 %; Immature Granulocytes Absolute 0.04 #; Lymphocytes % 8.6 % (21.3-54.2); Mean Corpuscular HGB Conc 32.3 GM/DL (32-36); Mean Corpuscular Volume 79.3 FL (87-102); Mean Platelet Volume 9.4 FL (9.6-12.0); Monocytes % 5.3 % (1.7-12.7); Neutrophils % 82.9 % (38.7-73.9); Platelet Count 263 T/CUMM (130-400); Red Cell Distribution Width 16.7 % (9.3-17.3); White Blood Count 11.3 T/CUMM (4-12)
[2020-03-14 07:21] LABS: Calcium 8.8 MG/DL (8.5-10.1); Osmolality,Calculated 276.8 MOS/KG (273-304)
[2020-03-14] MEDS ORDERED: FUROSEMIDE 40 MG/4 ML VIAL IV ONE (08:00)
[2020-03-14] MEDS: methylPREDNISolone SOD SUC 40 MG/1 ML VIAL IV SCH ×2 (08:44→17:34)
[2020-03-14] MEDS: INSULIN LISPRO 100 UNIT/ML SUBCUT SCH ×4 (08:44→22:34)
[2020-03-14] MEDS: ONDANSETRON 4 MG/2 ML VIAL IV PRN (08:45)
[2020-03-14] MEDS: ENOXAPARIN 30 MG/0.3 ML SYRINGE SUBCUT SCH (08:52)
[2020-03-14] MEDS ORDERED: NON-FORMULARY MEDICATION (Biotin 10,000 MCG) PO SCH (09:00)
[2020-03-14] MEDS ORDERED: ELDERBERRY FRUIT AND FLOWER PO SCH (09:00)
[2020-03-14] MEDS: POTASSIUM CHLORIDE 8 MEQ CAPSULE PO SCH ×3 (10:42→22:28)
[2020-03-14] MEDS: DULoxetine 30 MG CAPSULE PO SCH ×2 (10:42→22:26)
[2020-03-14] MEDS: DOCUSATE SODIUM 100 MG CAPSULE PO SCH ×2 (10:42→22:27)
[2020-03-14] MEDS: MULTIVITAMIN (PRENATAL) TABLET PO SCH (10:43)
[2020-03-14] MEDS: BACLOFEN 10 MG TABLET PO SCH ×3 (10:43→22:27)
[2020-03-14] MEDS: SILDENAFIL 20 MG TABLET PO SCH ×2 (10:44→22:28)
[2020-03-14] MEDS: oxyCODONE ER 20 MG TABLET PO SCH ×2 (10:44→22:29)
[2020-03-14] MEDS: amLODIPine 10 MG TABLET PO SCH (10:44)
[2020-03-14] MEDS: POTASSIUM CHLORIDE 20 MEQ TABLET PO PRN ×2 (10:44→14:08)
[2020-03-14] MEDS: atenoloL 25 MG TABLET PO SCH (10:45)
[2020-03-14] MEDS: DOXAZOSIN 4 MG TABLET PO SCH (10:45)
[2020-03-14] MEDS: Esomeprazole Magnesium [Nexium] 40 MG PO SCH ×2 (10:45→22:29)
[2020-03-14] MEDS: busPIRone 5 MG TABLET PO SCH ×3 (10:45→22:29)
[2020-03-14] MEDS: LINACLOTIDE 145 MCG CAPSULE PO SCH (10:45)
[2020-03-14] MEDS: ASPIRIN EC 81 MG TABLET PO SCH (10:45)
[2020-03-14] MEDS: CYANOCOBALAMIN 500 MCG TABLET PO SCH (10:55)
[2020-03-14] MEDS: FUROSEMIDE 40 MG/4 ML VIAL IV SCH (17:23)
[2020-03-14] MEDS: VITAMIN E 400 UNIT CAPSULE PO SCH (22:27)
[2020-03-14] MEDS: EZETIMIBE 10 MG TABLET PO SCH (22:27)
[2020-03-14] MEDS: SIMVASTATIN 20 MG TABLET PO SCH (22:27)
[2020-03-14] MEDS: FOLIC ACID 0.4 MG TABLET PO SCH (22:28)
[2020-03-14] MEDS: CHOLECALCIFEROL 1,000 UNIT TABLET PO SCH (22:28)
[2020-03-14] MEDS: MAGNESIUM OXIDE 400 MG TABLET PO SCH (22:29)
[2020-03-15] MEDS: methylPREDNISolone SOD SUC 40 MG/1 ML VIAL IV SCH ×3 (01:14→21:16)
[2020-03-15] MEDS: ALBUTEROL/IPRATROPIUM 3 ML NEB RESP TX SCH ×4 (02:10→19:38)
[2020-03-15] MEDS: PIPERACILLIN/TAZOBACTAM 3,375 MG in SODIUM CHLORIDE 0.9% 100 ML IV SCH ×3 (03:52→18:10)
[2020-03-15 05:49] LABS: Basophils % 0.2 % (0.0-0.8); Hematocrit 29.6 VOL% (35.7-47.0); Hemoglobin 9.3 GM/DL (12.0-16.0); Immature Granulocytes % 0.6 %; Immature Granulocytes Absolute 0.07 #; Lymphocytes # 0.3 10*3/uL (1.4-4.0); Lymphocytes % 2.6 % (21.3-54.2); Mean Corpuscular HGB Conc 31.4 GM/DL (32-36); Mean Corpuscular Volume 80.2 FL (87-102); Mean Platelet Volume 9.3 FL (9.6-12.0); Monocytes % 1.1 % (1.7-12.7); Neutrophils % 95.5 % (38.7-73.9); Platelet Count 260 T/CUMM (130-400); Red Blood Count 3.69 MC/CUMM (3.8-5.5); Red Cell Distribution Width 16.8 % (9.3-17.3); White Blood Count 11.7 T/CUMM (4-12)
[2020-03-15 06:08] LABS: Calcium 9.1 MG/DL (8.5-10.1); Osmolality,Calculated 294.8 MOS/KG (273-304)
[2020-03-15 06:50] LABS: Band Neutrophils 1 % (0-10); Hypochromasia 1+; Lymphocytes 2 % (20-55); Platelet Estimate Adequate; Segmented Neutrophils 96 % (50-85); Total Cells Counted 100
[2020-03-15] MEDS: INSULIN LISPRO 100 UNIT/ML SUBCUT SCH ×4 (09:20→16:04)
[2020-03-15] MEDS: FUROSEMIDE 40 MG/4 ML VIAL IV SCH ×3 (09:31→16:16)
[2020-03-15] MEDS: ENOXAPARIN 30 MG/0.3 ML SYRINGE SUBCUT SCH (10:02)
[2020-03-15] MEDS: hydrALAZINE 25 MG TABLET PO SCH ×2 (10:02→21:17)
[2020-03-15] MEDS: DOXAZOSIN 4 MG TABLET PO SCH (10:03)
[2020-03-15] MEDS: amLODIPine 10 MG TABLET PO SCH (10:03)
[2020-03-15] MEDS: busPIRone 5 MG TABLET PO SCH ×3 (10:03→21:17)
[2020-03-15] MEDS: DOCUSATE SODIUM 100 MG CAPSULE PO SCH ×2 (10:03→21:00)
[2020-03-15] MEDS: LINACLOTIDE 145 MCG CAPSULE PO SCH (10:03)
[2020-03-15] MEDS: ASPIRIN EC 81 MG TABLET PO SCH (10:03)
[2020-03-15] MEDS: POTASSIUM CHLORIDE 8 MEQ CAPSULE PO SCH ×3 (10:03→21:18)
[2020-03-15] MEDS: BACLOFEN 10 MG TABLET PO SCH ×3 (10:03→21:17)
[2020-03-15] MEDS: DULoxetine 30 MG CAPSULE PO SCH ×2 (10:03→21:18)
[2020-03-15] MEDS: Esomeprazole Magnesium [Nexium] 40 MG PO SCH ×2 (10:03→21:24)
[2020-03-15] MEDS: oxyCODONE ER 20 MG TABLET PO SCH ×2 (10:04→21:17)
[2020-03-15] MEDS: CYANOCOBALAMIN 500 MCG TABLET PO SCH (10:04)
[2020-03-15] MEDS: MULTIVITAMIN (PRENATAL) TABLET PO SCH (10:04)
[2020-03-15] MEDS: SILDENAFIL 20 MG TABLET PO SCH ×2 (10:04→21:17)
[2020-03-15] MEDS: atenoloL 25 MG TABLET PO SCH (10:04)
[2020-03-15] MEDS ORDERED: INSULIN LISPRO 100 UNIT/ML SUBCUT SCH (16:00)
[2020-03-15] MEDS: oxyCODONE IR 5 MG TABLET PO PRN (18:47)
[2020-03-15] MEDS: SIMVASTATIN 20 MG TABLET PO SCH (21:17)
[2020-03-15] MEDS: VITAMIN E 400 UNIT CAPSULE PO SCH (21:17)
[2020-03-15] MEDS: CHOLECALCIFEROL 1,000 UNIT TABLET PO SCH (21:17)
[2020-03-15] MEDS: MAGNESIUM OXIDE 400 MG TABLET PO SCH (21:17)
[2020-03-15] MEDS: EZETIMIBE 10 MG TABLET PO SCH (21:18)
[2020-03-15] MEDS: FOLIC ACID 0.4 MG TABLET PO SCH (21:18)
[2020-03-16] MEDS: ALBUTEROL/IPRATROPIUM 3 ML NEB RESP TX SCH ×4 (00:41→20:01)
[2020-03-16] MEDS: PIPERACILLIN/TAZOBACTAM 3,375 MG in SODIUM CHLORIDE 0.9% 100 ML IV SCH ×3 (03:39→18:29)
[2020-03-16 05:45] LABS: Basophils % 0.1 % (0.0-0.8); Hematocrit 28.8 VOL% (35.7-47.0); Hemoglobin 9.4 GM/DL (12.0-16.0); Immature Granulocytes % 0.6 %; Immature Granulocytes Absolute 0.09 #; Lymphocytes # 0.7 10*3/uL (1.4-4.0); Lymphocytes % 4.8 % (21.3-54.2); Mean Corpuscular HGB Conc 32.6 GM/DL (32-36); Mean Corpuscular Volume 78.7 FL (87-102); Mean Platelet Volume 9.7 FL (9.6-12.0); Monocytes % 2.5 % (1.7-12.7); Platelet Count 313 T/CUMM (130-400); Red Blood Count 3.66 MC/CUMM (3.8-5.5); Red Cell Distribution Width 16.9 % (9.3-17.3); White Blood Count 13.9 T/CUMM (4-12)
[2020-03-16 06:19] LABS: Calcium 9.2 MG/DL (8.5-10.1); Osmolality,Calculated 289.9 MOS/KG (273-304)
[2020-03-16 07:09] LABS: Hypochromasia 1+; Lymphocytes 5 % (20-55); Segmented Neutrophils 93 % (50-85); Total Cells Counted 100
[2020-03-16 07:10] LABS: Anisocytosis 1+; Microcytosis 1+; Ovalocytes Slight
[2020-03-16 07:11] LABS: Platelet Estimate Normal
[2020-03-16] MEDS: ENOXAPARIN 30 MG/0.3 ML SYRINGE SUBCUT SCH (10:16)
[2020-03-16] MEDS: POTASSIUM CHLORIDE 8 MEQ CAPSULE PO SCH ×2 (10:16→14:49)
[2020-03-16] MEDS: DULoxetine 30 MG CAPSULE PO SCH ×2 (10:16→21:16)
[2020-03-16] MEDS: MULTIVITAMIN (PRENATAL) TABLET PO SCH (10:17)
[2020-03-16] MEDS: DOCUSATE SODIUM 100 MG CAPSULE PO SCH ×2 (10:17→21:15)
[2020-03-16] MEDS: DOXAZOSIN 4 MG TABLET PO SCH (10:17)
[2020-03-16] MEDS: oxyCODONE ER 20 MG TABLET PO SCH ×2 (10:18→21:14)
[2020-03-16] MEDS: busPIRone 5 MG TABLET PO SCH ×3 (10:18→21:16)
[2020-03-16] MEDS: CYANOCOBALAMIN 500 MCG TABLET PO SCH (10:18)
[2020-03-16] MEDS: SILDENAFIL 20 MG TABLET PO SCH ×2 (10:18→21:16)
[2020-03-16] MEDS: ASPIRIN EC 81 MG TABLET PO SCH (10:19)
[2020-03-16] MEDS: amLODIPine 10 MG TABLET PO SCH (10:19)
[2020-03-16] MEDS: hydrALAZINE 25 MG TABLET PO SCH ×2 (10:19→21:15)
[2020-03-16] MEDS: BACLOFEN 10 MG TABLET PO SCH ×3 (10:20→21:15)
[2020-03-16] MEDS: atenoloL 25 MG TABLET PO SCH (10:20)
[2020-03-16] MEDS: Esomeprazole Magnesium [Nexium] 40 MG PO SCH ×2 (10:21→22:18)
[2020-03-16] MEDS: FUROSEMIDE 40 MG/4 ML VIAL IV SCH ×2 (10:24→15:13)
[2020-03-16] MEDS: LINACLOTIDE 145 MCG CAPSULE PO SCH (10:27)
[2020-03-16] MEDS: EZETIMIBE 10 MG TABLET PO SCH (21:14)
[2020-03-16] MEDS: CHOLECALCIFEROL 1,000 UNIT TABLET PO SCH (21:15)
[2020-03-16] MEDS: FOLIC ACID 0.4 MG TABLET PO SCH (21:15)
[2020-03-16] MEDS: SIMVASTATIN 20 MG TABLET PO SCH (21:15)
[2020-03-16] MEDS: VITAMIN E 400 UNIT CAPSULE PO SCH (21:16)
[2020-03-16] MEDS: MAGNESIUM OXIDE 400 MG TABLET PO SCH (21:16)
[2020-03-17] MEDS: ALBUTEROL/IPRATROPIUM 3 ML NEB RESP TX SCH ×4 (01:58→20:05)
[2020-03-17] MEDS: PIPERACILLIN/TAZOBACTAM 3,375 MG in SODIUM CHLORIDE 0.9% 100 ML IV SCH ×3 (02:40→18:48)
[2020-03-17] MEDS: oxyCODONE IR 5 MG TABLET PO PRN (09:58)
[2020-03-17] MEDS: ENOXAPARIN 30 MG/0.3 ML SYRINGE SUBCUT SCH (09:58)
[2020-03-17] MEDS: DULoxetine 30 MG CAPSULE PO SCH ×2 (09:58→21:00)
[2020-03-17] MEDS: MULTIVITAMIN (PRENATAL) TABLET PO SCH (09:59)
[2020-03-17] MEDS: CYANOCOBALAMIN 500 MCG TABLET PO SCH (09:59)
[2020-03-17] MEDS: DOCUSATE SODIUM 100 MG CAPSULE PO SCH ×2 (09:59→21:00)
[2020-03-17] MEDS: BACLOFEN 10 MG TABLET PO SCH ×3 (09:59→21:00)
[2020-03-17] MEDS: busPIRone 5 MG TABLET PO SCH ×3 (09:59→21:02)
[2020-03-17] MEDS: DOXAZOSIN 4 MG TABLET PO SCH (09:59)
[2020-03-17] MEDS: SILDENAFIL 20 MG TABLET PO SCH ×2 (09:59→21:01)
[2020-03-17] MEDS: amLODIPine 10 MG TABLET PO SCH (10:00)
[2020-03-17] MEDS: atenoloL 25 MG TABLET PO SCH (10:00)
[2020-03-17] MEDS: hydrALAZINE 25 MG TABLET PO SCH ×2 (10:00→21:04)
[2020-03-17] MEDS: ASPIRIN EC 81 MG TABLET PO SCH (10:00)
[2020-03-17] MEDS: Esomeprazole Magnesium [Nexium] 40 MG PO SCH ×2 (10:00→21:04)
[2020-03-17] MEDS: LINACLOTIDE 145 MCG CAPSULE PO SCH (10:00)
[2020-03-17] MEDS: FUROSEMIDE 40 MG/4 ML VIAL IV SCH ×2 (10:01→18:45)
[2020-03-17] MEDS: oxyCODONE ER 20 MG TABLET PO SCH ×2 (10:16→21:01)
[2020-03-17] MEDS: VITAMIN E 400 UNIT CAPSULE PO SCH (21:00)
[2020-03-17] MEDS: CHOLECALCIFEROL 1,000 UNIT TABLET PO SCH (21:01)
[2020-03-17] MEDS: EZETIMIBE 10 MG TABLET PO SCH (21:01)
[2020-03-17] MEDS: SIMVASTATIN 20 MG TABLET PO SCH (21:02)
[2020-03-17] MEDS: FOLIC ACID 0.4 MG TABLET PO SCH (21:02)
[2020-03-17] MEDS: MAGNESIUM OXIDE 400 MG TABLET PO SCH (21:03)
[2020-03-18] MEDS: ALBUTEROL/IPRATROPIUM 3 ML NEB RESP TX SCH ×4 (00:43→19:55)
[2020-03-18] MEDS: PIPERACILLIN/TAZOBACTAM 3,375 MG in SODIUM CHLORIDE 0.9% 100 ML IV SCH ×3 (03:45→18:24)
[2020-03-18] MEDS: oxyCODONE IR 5 MG TABLET PO PRN ×2 (04:52→10:20)
[2020-03-18 06:04] LABS: Basophils % 0.5 % (0.0-0.8); Eosinophils # 0.2 10*3/uL (0.0-0.87); Eosinophils % 2.9 % (0.00-10.9); Hematocrit 33.1 VOL% (35.7-47.0); Hemoglobin 10.4 GM/DL (12.0-16.0); Immature Granulocytes % 2.4 %; Immature Granulocytes Absolute 0.19 #; Lymphocytes # 1.5 10*3/uL (1.4-4.0); Lymphocytes % 18.5 % (21.3-54.2); Mean Corpuscular HGB Conc 31.4 GM/DL (32-36); Mean Corpuscular Volume 81.3 FL (87-102); Mean Platelet Volume 9.5 FL (9.6-12.0); Monocytes % 7.8 % (1.7-12.7); Neutrophils % 67.9 % (38.7-73.9); Platelet Count 353 T/CUMM (130-400); Red Blood Count 4.07 MC/CUMM (3.8-5.5); Red Cell Distribution Width 17.7 % (9.3-17.3)
[2020-03-18 06:15] LABS: Calcium 8.9 MG/DL (8.5-10.1); Osmolality,Calculated 289.7 MOS/KG (273-304)
[2020-03-18] MEDS: FUROSEMIDE 40 MG/4 ML VIAL IV SCH (09:31)
[2020-03-18] MEDS: ONDANSETRON 4 MG/2 ML VIAL IV PRN (09:32)
[2020-03-18] MEDS: ENOXAPARIN 30 MG/0.3 ML SYRINGE SUBCUT SCH (09:32)
[2020-03-18] MEDS: Esomeprazole Magnesium [Nexium] 40 MG PO SCH ×2 (10:19→21:37)
[2020-03-18] MEDS: busPIRone 5 MG TABLET PO SCH ×3 (10:20→21:34)
[2020-03-18] MEDS: MULTIVITAMIN (PRENATAL) TABLET PO SCH (10:21)
[2020-03-18] MEDS: DOXAZOSIN 4 MG TABLET PO SCH (10:21)
[2020-03-18] MEDS: DULoxetine 30 MG CAPSULE PO SCH ×2 (10:21→21:34)
[2020-03-18] MEDS: atenoloL 25 MG TABLET PO SCH (10:22)
[2020-03-18] MEDS: CYANOCOBALAMIN 500 MCG TABLET PO SCH (10:22)
[2020-03-18] MEDS: oxyCODONE ER 20 MG TABLET PO SCH ×2 (10:22→21:34)
[2020-03-18] MEDS: SILDENAFIL 20 MG TABLET PO SCH ×2 (10:23→21:34)
[2020-03-18] MEDS: BACLOFEN 10 MG TABLET PO SCH ×3 (10:23→21:34)
[2020-03-18] MEDS: ASPIRIN EC 81 MG TABLET PO SCH (10:23)
[2020-03-18] MEDS: FUROSEMIDE 80 MG TABLET PO SCH ×2 (10:23→14:34)
[2020-03-18] MEDS: amLODIPine 10 MG TABLET PO SCH (10:24)
[2020-03-18] MEDS: LINACLOTIDE 145 MCG CAPSULE PO SCH (10:24)
[2020-03-18] MEDS: hydrALAZINE 25 MG TABLET PO SCH ×2 (10:24→21:34)
[2020-03-18] MEDS: DOCUSATE SODIUM 100 MG CAPSULE PO SCH ×2 (10:24→21:34)
[2020-03-18] MEDS: SIMVASTATIN 20 MG TABLET PO SCH (21:34)
[2020-03-18] MEDS: FOLIC ACID 0.4 MG TABLET PO SCH (21:34)
[2020-03-18] MEDS: VITAMIN E 400 UNIT CAPSULE PO SCH (21:34)
[2020-03-18] MEDS: EZETIMIBE 10 MG TABLET PO SCH (21:34)
[2020-03-18] MEDS: MAGNESIUM OXIDE 400 MG TABLET PO SCH (21:35)
[2020-03-18] MEDS: CHOLECALCIFEROL 1,000 UNIT TABLET PO SCH (21:35)
[2020-03-19] MEDS: ALBUTEROL/IPRATROPIUM 3 ML NEB RESP TX SCH ×4 (01:24→19:48)
[2020-03-19] MEDS: PIPERACILLIN/TAZOBACTAM 3,375 MG in SODIUM CHLORIDE 0.9% 100 ML IV SCH ×3 (03:59→21:25)
[2020-03-19 05:46] LABS: Basophils % 0.5 % (0.0-0.8); Eosinophils # 0.4 10*3/uL (0.0-0.87); Eosinophils % 4.7 % (0.00-10.9); Hematocrit 31.5 VOL% (35.7-47.0); Immature Granulocytes % 2.6 %; Lymphocytes # 1.9 10*3/uL (1.4-4.0); Lymphocytes % 24.5 % (21.3-54.2); Mean Corpuscular HGB Conc 31.7 GM/DL (32-36); Mean Corpuscular Volume 80.2 FL (87-102); Mean Platelet Volume 9.1 FL (9.6-12.0); Neutrophils % 57.7 % (38.7-73.9); Platelet Count 357 T/CUMM (130-400); Red Blood Count 3.93 MC/CUMM (3.8-5.5); Red Cell Distribution Width 17.5 % (9.3-17.3); White Blood Count 7.6 T/CUMM (4-12)
[2020-03-19 06:01] LABS: Calcium 8.6 MG/DL (8.5-10.1)
[2020-03-19] MEDS: ENOXAPARIN 30 MG/0.3 ML SYRINGE SUBCUT SCH (09:04)
[2020-03-19] MEDS: Esomeprazole Magnesium [Nexium] 40 MG PO SCH ×2 (09:05→21:30)
[2020-03-19] MEDS: DOXAZOSIN 4 MG TABLET PO SCH (09:05)
[2020-03-19] MEDS: LINACLOTIDE 145 MCG CAPSULE PO SCH (09:05)
[2020-03-19] MEDS: DULoxetine 30 MG CAPSULE PO SCH ×2 (09:06→21:26)
[2020-03-19] MEDS: BACLOFEN 10 MG TABLET PO SCH ×3 (09:06→21:27)
[2020-03-19] MEDS: DOCUSATE SODIUM 100 MG CAPSULE PO SCH ×2 (09:06→21:26)
[2020-03-19] MEDS: CYANOCOBALAMIN 500 MCG TABLET PO SCH (09:06)
[2020-03-19] MEDS: POTASSIUM CHLORIDE 20 MEQ TABLET PO SCH ×2 (09:07→21:26)
[2020-03-19] MEDS: SILDENAFIL 20 MG TABLET PO SCH ×2 (09:07→21:27)
[2020-03-19] MEDS: amLODIPine 10 MG TABLET PO SCH (09:07)
[2020-03-19] MEDS: busPIRone 5 MG TABLET PO SCH ×3 (09:07→21:26)
[2020-03-19] MEDS: hydrALAZINE 25 MG TABLET PO SCH ×2 (09:07→21:27)
[2020-03-19] MEDS: atenoloL 25 MG TABLET PO SCH (09:08)
[2020-03-19] MEDS: ASPIRIN EC 81 MG TABLET PO SCH (09:08)
[2020-03-19] MEDS: oxyCODONE ER 20 MG TABLET PO SCH ×2 (09:08→21:27)
[2020-03-19] MEDS: FUROSEMIDE 80 MG TABLET PO SCH ×2 (09:08→14:53)
[2020-03-19] MEDS: MULTIVITAMIN (PRENATAL) TABLET PO SCH (09:17)
[2020-03-19] MEDS: FOLIC ACID 0.4 MG TABLET PO SCH (21:26)
[2020-03-19] MEDS: VITAMIN E 400 UNIT CAPSULE PO SCH (21:26)
[2020-03-19] MEDS: MAGNESIUM OXIDE 400 MG TABLET PO SCH (21:26)
[2020-03-19] MEDS: EZETIMIBE 10 MG TABLET PO SCH (21:26)
[2020-03-19] MEDS: SIMVASTATIN 20 MG TABLET PO SCH (21:27)
[2020-03-19] MEDS: CHOLECALCIFEROL 1,000 UNIT TABLET PO SCH (21:27)
[2020-03-20] MEDS: ALBUTEROL/IPRATROPIUM 3 ML NEB RESP TX SCH ×3 (00:35→12:30)
[2020-03-20] MEDS: PIPERACILLIN/TAZOBACTAM 3,375 MG in SODIUM CHLORIDE 0.9% 100 ML IV SCH (04:46)
[2020-03-20 05:32] LABS: Basophils # 0.1 10*3/uL (0.0-0.2); Basophils % 0.7 % (0.0-0.8); Eosinophils # 0.5 10*3/uL (0.0-0.87); Eosinophils % 6.1 % (0.00-10.9); Hemoglobin 10.1 GM/DL (12.0-16.0); Immature Granulocytes % 2.6 %; Lymphocytes # 1.8 10*3/uL (1.4-4.0); Lymphocytes % 22.9 % (21.3-54.2); Mean Corpuscular HGB Conc 31.6 GM/DL (32-36); Mean Corpuscular Volume 81.2 FL (87-102); Mean Platelet Volume 8.6 FL (9.6-12.0); Monocytes % 9.7 % (1.7-12.7); Platelet Count 355 T/CUMM (130-400); Red Blood Count 3.94 MC/CUMM (3.8-5.5); Red Cell Distribution Width 17.5 % (9.3-17.3); White Blood Count 7.7 T/CUMM (4-12)
[2020-03-20 05:54] LABS: Calcium 8.8 MG/DL (8.5-10.1); Osmolality,Calculated 282.5 MOS/KG (273-304)
[2020-03-20] MEDS: DULoxetine 30 MG CAPSULE PO SCH (09:52)
[2020-03-20] MEDS: POTASSIUM CHLORIDE 20 MEQ TABLET PO SCH (09:52)
[2020-03-20] MEDS: ENOXAPARIN 30 MG/0.3 ML SYRINGE SUBCUT SCH (09:52)
[2020-03-20] MEDS: SILDENAFIL 20 MG TABLET PO SCH (09:53)
[2020-03-20] MEDS: DOXAZOSIN 4 MG TABLET PO SCH (09:53)
[2020-03-20] MEDS: hydrALAZINE 25 MG TABLET PO SCH (09:53)
[2020-03-20] MEDS: CYANOCOBALAMIN 500 MCG TABLET PO SCH (09:53)
[2020-03-20] MEDS: amLODIPine 10 MG TABLET PO SCH (09:53)
[2020-03-20] MEDS: MULTIVITAMIN (PRENATAL) TABLET PO SCH (09:53)
[2020-03-20] MEDS: ASPIRIN EC 81 MG TABLET PO SCH (09:54)
[2020-03-20] MEDS: FUROSEMIDE 80 MG TABLET PO SCH (09:54)
[2020-03-20] MEDS: busPIRone 5 MG TABLET PO SCH (09:54)
[2020-03-20] MEDS: BACLOFEN 10 MG TABLET PO SCH (09:54)
[2020-03-20] MEDS: atenoloL 25 MG TABLET PO SCH (09:54)
[2020-03-20] MEDS: DOCUSATE SODIUM 100 MG CAPSULE PO SCH (09:54)
[2020-03-20] MEDS: Esomeprazole Magnesium [Nexium] 40 MG PO SCH (09:54)
[2020-03-20] MEDS: oxyCODONE ER 20 MG TABLET PO SCH (09:54)
[2020-03-20] MEDS: LINACLOTIDE 145 MCG CAPSULE PO SCH (09:57)
[2020-03-20 12:03] VITALS: BP 115/57
== END 2020-03-20 13:43 | disposition home health service (06) | DRG 177 ==
LOC: N.ED 14:50 → N.EDINP 18:27 → N.3E 20:21
PROVIDERS: ADMIT Internal Medicine; ATTEND Internal Medicine

== ENCOUNTER 2020-08-22 19:10 | Inpatient (IN) ==
[2020-08-22 20:43] LABS: Basophils # 0.1 10*3/uL (0.0-0.2); Basophils % 0.6 % (0.0-0.8); Eosinophils % 0.4 % (0.00-10.9); Hematocrit 34.3 VOL% (35.7-47.0); Hemoglobin 11.3 GM/DL (12.0-16.0); Immature Granulocytes % 0.8 %; Immature Granulocytes Absolute 0.07 #; Lymphocytes # 0.4 10*3/uL (1.4-4.0); Lymphocytes % 4.2 % (21.3-54.2); Mean Corpuscular HGB Conc 32.9 GM/DL (32-36); Mean Corpuscular Volume 82.5 FL (87-102); Mean Platelet Volume 9.2 FL (9.6-12.0); Monocytes % 9.8 % (1.7-12.7); Neutrophils % 84.2 % (38.7-73.9); Platelet Count 229 T/CUMM (130-400); Red Blood Count 4.16 MC/CUMM (3.8-5.5); Red Cell Distribution Width 16.5 % (9.3-17.3); White Blood Count 8.4 T/CUMM (4-12)
[2020-08-22 20:56] LABS: Bilirubin,Urine Negative (Negative); Blood, Urine Negative (Negative); Glucose,Urine (UA) Negative (Negative); Hyaline Casts,Urine 16 /LPF (0-3); Ketones,Urine Negative (Negative); Mucus,Urine Occasional /LPF (Occasional); Nitrite,Urine Negative (Negative); Protein,Urine 30 MG/DL; RBC,Urine 4 /HPF (0-4); Urine Appearance CLEAR (Clear); Urine Color Amber (Yellow); Urine Specific Gravity 1.019 (1.001-1.035); Urine Urobilinogen < 2.0 EU/DL (0.2-1.0); WBC,Urine <1 /HPF (0-6)
[2020-08-22 21:04] LABS: Albumin 3.4 G/DL (3.4-5.0); Bilirubin,Total 0.4 MG/DL (0.2-1.0); Calcium 8.9 MG/DL (8.5-10.1); Osmolality,Calculated 265.1 MOS/KG (273-304); Potassium 3.5 MMOL/L (3.5-5.1); Total Protein 7.4 G/DL (6.4-8.3)
[2020-08-22] MEDS ORDERED: ACETAMINOPHEN 325 MG TABLET PO PRN (21:21)
[2020-08-22] MEDS ORDERED: GLUCAGON 1 MG VIAL IM PRN (21:21)
[2020-08-22] MEDS ORDERED: DEXTROSE 50% 25 GM/50 ML VIAL IV PRN (21:21)
[2020-08-22] MEDS ORDERED: ONDANSETRON 4 MG/2 ML VIAL IV PRN (21:21)
[2020-08-22] MEDS ORDERED: cefTRIAXone 1,000 MG in SODIUM CHLORIDE 0.9% 100 ML IV STA (21:24)
[2020-08-22 21:26] LABS: Band Neutrophils 8 % (0-10); Lymphocytes 7 % (20-55); Metamyelocytes 1 %; Platelet Estimate Normal; Segmented Neutrophils 73 % (50-85); Total Cells Counted 100
[2020-08-22 21:27] LABS: Hypochromasia Slight; Microcytosis Slight
[2020-08-22] MEDS: SODIUM CHLORIDE 0.45% 1,000 ML IV SCH (22:25)
[2020-08-22] MEDS ORDERED: MORPHINE 4 MG/1 ML VIAL IV STA (23:33)
[2020-08-22] MEDS ORDERED: ONDANSETRON 4 MG/2 ML VIAL IV STA (23:33)
[2020-08-23] MEDS: SODIUM CHLORIDE 0.45% 1,000 ML IV SCH ×2 (07:00→15:56)
[2020-08-23] MEDS ORDERED: oxyCODONE IR 5 MG TABLET PO PRN (08:41)
[2020-08-23] MEDS ORDERED: ALBUTEROL/IPRATROPIUM 3 ML NEB RESP TX PRN ×2 (08:41)
[2020-08-23] MEDS ORDERED: GABAPENTIN 600 MG TABLET PO PRN (08:41)
[2020-08-23] MEDS: INSULIN GLARGINE 100 UNIT/ML SUBCUT SCH (09:00)
[2020-08-23] MEDS ORDERED: oxyCODONE ER 20 MG TABLET PO SCH (09:00)
[2020-08-23] MEDS ORDERED: NON-FORMULARY MEDICATION (Esomeprazole Magnesium [Nexium] 40 mg Capsule,Delayed Release(Dr PO SCH (09:00)
[2020-08-23] MEDS ORDERED: DEXTROSE 50% 25 GM/50 ML VIAL IV PRN (09:28)
[2020-08-23] MEDS ORDERED: GLUCAGON 1 MG VIAL IM PRN (09:28)
[2020-08-23] MEDS ORDERED: INSULIN LISPRO 100 UNIT/ML SUBCUT ONE (09:30)
[2020-08-23] MEDS: methylPREDNISolone SOD SUC 40 MG/1 ML VIAL IV SCH ×2 (10:15→17:57)
[2020-08-23] MEDS: PIPERACILLIN/TAZOBACTAM 3,375 MG in SODIUM CHLORIDE 0.9% 100 ML IV SCH ×2 (10:30→17:57)
[2020-08-23] MEDS: ASPIRIN EC 81 MG TABLET PO SCH (12:00)
[2020-08-23] MEDS: busPIRone 5 MG TABLET PO SCH ×3 (12:00→22:42)
[2020-08-23] MEDS: LINACLOTIDE 145 MCG CAPSULE PO SCH (12:00)
[2020-08-23] MEDS: atenoloL 25 MG TABLET PO SCH (12:00)
[2020-08-23] MEDS: DOCUSATE SODIUM 100 MG CAPSULE PO SCH ×2 (12:00→22:44)
[2020-08-23] MEDS: DULoxetine 30 MG CAPSULE PO SCH ×2 (12:00→22:45)
[2020-08-23] MEDS: SILDENAFIL 20 MG TABLET PO SCH ×2 (12:00→22:45)
[2020-08-23] MEDS: SIMVASTATIN 20 MG TABLET PO SCH (12:00)
[2020-08-23] MEDS: DOXAZOSIN 4 MG TABLET PO SCH (12:00)
[2020-08-23] MEDS: METHOCARBAMOL 750 MG TABLET PO SCH ×2 (12:00→17:56)
[2020-08-23] MEDS: POTASSIUM CHLORIDE 8 MEQ CAPSULE PO SCH ×3 (12:00→22:44)
[2020-08-23] MEDS: PANTOPRAZOLE 40 MG TABLET PO SCH (13:17)
[2020-08-23] MEDS: oxyCODONE ER 20 MG TABLET PO SCH (15:55)
[2020-08-23] MEDS: INSULIN LISPRO 100 UNIT/ML SUBCUT SCH ×4 (16:16→22:54)
[2020-08-23] MEDS ORDERED: PROMETHAZINE 25 MG/1 ML VIAL IM PRN (22:18)
[2020-08-23] MEDS ORDERED: ALUMINUM/MAGNES/SIMETH MAX STR 30 ML UDCUP PO PRN (22:20)
[2020-08-23] MEDS: CALCIUM CARBONATE CHEW 500 MG TABLET PO PRN (22:43)
[2020-08-23] MEDS: BENZONATATE 100 MG CAPSULE PO PRN (22:44)
[2020-08-23] MEDS: MAGNESIUM OXIDE 400 MG TABLET PO SCH (22:44)
[2020-08-23] MEDS: FOLIC ACID 0.4 MG TABLET PO SCH (22:45)
[2020-08-23] MEDS: VITAMIN E 400 UNIT CAPSULE PO SCH (22:45)
[2020-08-23] MEDS: INSULIN REGULAR 100 UNIT/ML IV SCH (22:45)
[2020-08-24] MEDS: methylPREDNISolone SOD SUC 40 MG/1 ML VIAL IV SCH ×3 (01:08→16:44)
[2020-08-24] MEDS: oxyCODONE ER 20 MG TABLET PO SCH ×3 (01:08→22:22)
[2020-08-24] MEDS: PIPERACILLIN/TAZOBACTAM 3,375 MG in SODIUM CHLORIDE 0.9% 100 ML IV SCH ×3 (01:09→16:44)
[2020-08-24] MEDS: INSULIN LISPRO 100 UNIT/ML SUBCUT SCH ×6 (01:09→20:47)
[2020-08-24] MEDS: METHOCARBAMOL 750 MG TABLET PO SCH ×3 (01:16→16:44)
[2020-08-24 01:24] LABS: Basophils % 0.2 % (0.0-0.8); Hematocrit 31.1 VOL% (35.7-47.0); Hemoglobin 10.4 GM/DL (12.0-16.0); Immature Granulocytes % 0.7 %; Immature Granulocytes Absolute 0.03 #; Lymphocytes # 0.2 10*3/uL (1.4-4.0); Lymphocytes % 3.7 % (21.3-54.2); Mean Corpuscular HGB Conc 33.4 GM/DL (32-36); Mean Corpuscular Volume 82.1 FL (87-102); Mean Platelet Volume 9.2 FL (9.6-12.0); Monocytes % 4.7 % (1.7-12.7); Neutrophils % 90.7 % (38.7-73.9); Platelet Count 191 T/CUMM (130-400); Red Blood Count 3.79 MC/CUMM (3.8-5.5); Red Cell Distribution Width 16.2 % (9.3-17.3); White Blood Count 4.3 T/CUMM (4-12)
[2020-08-24] MEDS: INSULIN REGULAR 100 UNIT/ML IV SCH (03:18)
[2020-08-24 04:50] LABS: Band Neutrophils 2 % (0-10); Lymphocytes 5 % (20-55); Platelet Estimate Normal; Segmented Neutrophils 90 % (50-85); Total Cells Counted 100
[2020-08-24 05:14] LABS: Calcium 8.8 MG/DL (8.5-10.1); Osmolality,Calculated 286.4 MOS/KG (273-304); Potassium 3.9 MMOL/L (3.5-5.1)
[2020-08-24] MEDS: SODIUM CHLORIDE 0.45% 1,000 ML IV SCH (07:11)
[2020-08-24] MEDS: DULoxetine 30 MG CAPSULE PO SCH ×2 (08:59→22:21)
[2020-08-24] MEDS: ASPIRIN EC 81 MG TABLET PO SCH (08:59)
[2020-08-24] MEDS: DOXAZOSIN 4 MG TABLET PO SCH (08:59)
[2020-08-24] MEDS: busPIRone 5 MG TABLET PO SCH ×3 (08:59→22:23)
[2020-08-24] MEDS: DOCUSATE SODIUM 100 MG CAPSULE PO SCH ×3 (08:59→22:18)
[2020-08-24] MEDS: INSULIN GLARGINE 100 UNIT/ML SUBCUT SCH (09:00)
[2020-08-24] MEDS: SILDENAFIL 20 MG TABLET PO SCH ×2 (09:00→22:22)
[2020-08-24] MEDS: LINACLOTIDE 145 MCG CAPSULE PO SCH ×2 (09:00→09:19)
[2020-08-24] MEDS: PANTOPRAZOLE 40 MG TABLET PO SCH ×2 (09:00→09:19)
[2020-08-24] MEDS: POTASSIUM CHLORIDE 8 MEQ CAPSULE PO SCH ×3 (09:00→22:22)
[2020-08-24] MEDS: atenoloL 25 MG TABLET PO SCH (09:01)
[2020-08-24] MEDS: SIMVASTATIN 20 MG TABLET PO SCH (09:01)
[2020-08-24] MEDS: SODIUM CHLOR 0.45% KCL 20 MEQ 20 MEQ/1,000 ML BAG IV SCH (12:40)
[2020-08-24] MEDS: FUROSEMIDE 80 MG TABLET PO SCH (13:28)
[2020-08-24] MEDS: VITAMIN E 400 UNIT CAPSULE PO SCH (22:21)
[2020-08-24] MEDS: FOLIC ACID 0.4 MG TABLET PO SCH (22:21)
[2020-08-24] MEDS: BENZONATATE 100 MG CAPSULE PO PRN (22:22)
[2020-08-24] MEDS: MAGNESIUM OXIDE 400 MG TABLET PO SCH (22:22)
[2020-08-24] MEDS: EZETIMIBE 10 MG TABLET PO SCH (22:22)
[2020-08-24] MEDS: CALCIUM CARBONATE CHEW 500 MG TABLET PO PRN (22:22)
[2020-08-24] MEDS: CHOLECALCIFEROL 1,000 UNIT TABLET PO SCH (22:23)
[2020-08-24] MEDS: ALBUTEROL INHALER 18 GM INH PRN (22:25)
[2020-08-25] MEDS: METHOCARBAMOL 750 MG TABLET PO SCH ×3 (00:55→17:11)
[2020-08-25] MEDS: PIPERACILLIN/TAZOBACTAM 3,375 MG in SODIUM CHLORIDE 0.9% 100 ML IV SCH ×3 (00:55→17:12)
[2020-08-25] MEDS: INSULIN LISPRO 100 UNIT/ML SUBCUT SCH ×8 (00:56→22:10)
[2020-08-25] MEDS: methylPREDNISolone SOD SUC 40 MG/1 ML VIAL IV SCH ×3 (00:56→17:11)
[2020-08-25] MEDS: SODIUM CHLOR 0.45% KCL 20 MEQ 20 MEQ/1,000 ML BAG IV SCH ×2 (05:00→22:18)
[2020-08-25 07:12] LABS: Basophils % 0.1 % (0.0-0.8); Hematocrit 34.7 VOL% (35.7-47.0); Hemoglobin 11.5 GM/DL (12.0-16.0); Immature Granulocytes % 0.4 %; Immature Granulocytes Absolute 0.04 #; Lymphocytes # 0.3 10*3/uL (1.4-4.0); Lymphocytes % 2.8 % (21.3-54.2); Mean Corpuscular HGB Conc 33.1 GM/DL (32-36); Mean Corpuscular Volume 83.4 FL (87-102); Mean Platelet Volume 9.7 FL (9.6-12.0); Neutrophils % 94.7 % (38.7-73.9); Platelet Count 227 T/CUMM (130-400); Red Blood Count 4.16 MC/CUMM (3.8-5.5); Red Cell Distribution Width 16.5 % (9.3-17.3); White Blood Count 9.7 T/CUMM (4-12)
[2020-08-25 07:28] LABS: Calcium 8.3 MG/DL (8.5-10.1); Osmolality,Calculated 293.1 MOS/KG (273-304); Potassium 4.4 MMOL/L (3.5-5.1)
[2020-08-25 07:39] LABS: Thyroid Stimulating Hormone 0.161 uIU/ml (0.358-3.74)
[2020-08-25 08:20] LABS: Ferritin 206.4 ng/ml (8-252)
[2020-08-25 08:21] LABS: Band Neutrophils 26 % (0-10); Lymphocytes 2 % (20-55); Platelet Estimate Normal; Segmented Neutrophils 71 % (50-85); Total Cells Counted 100
[2020-08-25 08:22] LABS: Anisocytosis 1+; Ovalocytes Few; Smudge Cells Few
[2020-08-25] MEDS: ASPIRIN EC 81 MG TABLET PO SCH (09:20)
[2020-08-25] MEDS: DULoxetine 30 MG CAPSULE PO SCH ×2 (09:20→22:05)
[2020-08-25] MEDS: LINACLOTIDE 145 MCG CAPSULE PO SCH (09:20)
[2020-08-25] MEDS: CYANOCOBALAMIN 500 MCG TABLET PO SCH (09:21)
[2020-08-25] MEDS: busPIRone 5 MG TABLET PO SCH ×3 (09:21→22:04)
[2020-08-25] MEDS: DOCUSATE SODIUM 100 MG CAPSULE PO SCH ×2 (09:21→22:17)
[2020-08-25] MEDS: FUROSEMIDE 80 MG TABLET PO SCH ×2 (09:21→15:01)
[2020-08-25] MEDS: SILDENAFIL 20 MG TABLET PO SCH ×2 (09:21→22:06)
[2020-08-25] MEDS: oxyCODONE ER 20 MG TABLET PO SCH ×2 (09:21→22:06)
[2020-08-25] MEDS: PANTOPRAZOLE 40 MG TABLET PO SCH (09:21)
[2020-08-25] MEDS: POTASSIUM CHLORIDE 8 MEQ CAPSULE PO SCH ×3 (09:21→22:05)
[2020-08-25] MEDS: atenoloL 25 MG TABLET PO SCH (09:21)
[2020-08-25] MEDS: DOXAZOSIN 4 MG TABLET PO SCH (09:22)
[2020-08-25] MEDS: SIMVASTATIN 20 MG TABLET PO SCH (09:22)
[2020-08-25] MEDS: INSULIN GLARGINE 100 UNIT/ML SUBCUT SCH (10:01)
[2020-08-25] MEDS: ALBUTEROL INHALER 18 GM INH PRN (19:45)
[2020-08-25] MEDS: CALCIUM CARBONATE CHEW 500 MG TABLET PO PRN (22:05)
[2020-08-25] MEDS: BENZONATATE 100 MG CAPSULE PO PRN (22:06)
[2020-08-25] MEDS: VITAMIN E 400 UNIT CAPSULE PO SCH (22:06)
[2020-08-25] MEDS: FOLIC ACID 0.4 MG TABLET PO SCH (22:06)
[2020-08-25] MEDS: EZETIMIBE 10 MG TABLET PO SCH (22:06)
[2020-08-25] MEDS: MAGNESIUM OXIDE 400 MG TABLET PO SCH (22:07)
[2020-08-25] MEDS: CHOLECALCIFEROL 1,000 UNIT TABLET PO SCH (22:07)
[2020-08-26] MEDS: INSULIN LISPRO 100 UNIT/ML SUBCUT SCH ×7 (00:39→20:46)
[2020-08-26 02:06] LABS: Basophils % 0.1 % (0.0-0.8); Hematocrit 35.1 VOL% (35.7-47.0); Hemoglobin 11.6 GM/DL (12.0-16.0); Immature Granulocytes % 0.5 %; Immature Granulocytes Absolute 0.04 #; Lymphocytes # 0.5 10*3/uL (1.4-4.0); Lymphocytes % 5.1 % (21.3-54.2); Mean Corpuscular Volume 82.8 FL (87-102); Mean Platelet Volume 9.8 FL (9.6-12.0); Monocytes % 3.2 % (1.7-12.7); Neutrophils % 91.1 % (38.7-73.9); Platelet Count 236 T/CUMM (130-400); Red Blood Count 4.24 MC/CUMM (3.8-5.5); Red Cell Distribution Width 16.9 % (9.3-17.3); White Blood Count 8.8 T/CUMM (4-12)
[2020-08-26 02:19] LABS: Calcium 8.1 MG/DL (8.5-10.1); Osmolality,Calculated 288.8 MOS/KG (273-304); Potassium 4.4 MMOL/L (3.5-5.1)
[2020-08-26] MEDS ORDERED: INSULIN LISPRO 100 UNIT/ML SUBCUT ONE (02:29)
[2020-08-26] MEDS: methylPREDNISolone SOD SUC 40 MG/1 ML VIAL IV SCH ×4 (02:32→21:45)
[2020-08-26] MEDS: PIPERACILLIN/TAZOBACTAM 3,375 MG in SODIUM CHLORIDE 0.9% 100 ML IV SCH ×3 (02:43→16:28)
[2020-08-26] MEDS: METHOCARBAMOL 750 MG TABLET PO SCH ×3 (02:43→16:32)
[2020-08-26 03:29] LABS: Band Neutrophils 4 % (0-10); Lymphocytes 6 % (20-55); Platelet Estimate Normal; Segmented Neutrophils 85 % (50-85); Total Cells Counted 100
[2020-08-26 03:30] LABS: Hypochromasia Slight; Ovalocytes Few
[2020-08-26] MEDS: SODIUM CHLOR 0.45% KCL 20 MEQ 20 MEQ/1,000 ML BAG IV SCH ×3 (08:28→18:44)
[2020-08-26] MEDS: oxyCODONE ER 20 MG TABLET PO SCH ×2 (09:26→21:24)
[2020-08-26] MEDS: SILDENAFIL 20 MG TABLET PO SCH ×2 (09:27→21:24)
[2020-08-26] MEDS: busPIRone 5 MG TABLET PO SCH ×3 (09:27→21:23)
[2020-08-26] MEDS: POTASSIUM CHLORIDE 8 MEQ CAPSULE PO SCH ×3 (09:27→21:24)
[2020-08-26] MEDS: DOXAZOSIN 4 MG TABLET PO SCH (09:27)
[2020-08-26] MEDS: FUROSEMIDE 80 MG TABLET PO SCH (09:27)
[2020-08-26] MEDS: DULoxetine 30 MG CAPSULE PO SCH ×2 (09:27→21:23)
[2020-08-26] MEDS: SIMVASTATIN 20 MG TABLET PO SCH (09:27)
[2020-08-26] MEDS: ASPIRIN EC 81 MG TABLET PO SCH (09:27)
[2020-08-26] MEDS: PANTOPRAZOLE 40 MG TABLET PO SCH (09:27)
[2020-08-26] MEDS: CYANOCOBALAMIN 500 MCG TABLET PO SCH (09:28)
[2020-08-26] MEDS: INSULIN GLARGINE 100 UNIT/ML SUBCUT SCH (09:28)
[2020-08-26] MEDS: DOCUSATE SODIUM 100 MG CAPSULE PO SCH ×2 (09:28→21:23)
[2020-08-26] MEDS: LINACLOTIDE 145 MCG CAPSULE PO SCH ×2 (09:29→10:03)
[2020-08-26] MEDS: atenoloL 25 MG TABLET PO SCH (09:29)
[2020-08-26] MEDS: EZETIMIBE 10 MG TABLET PO SCH (21:24)
[2020-08-26] MEDS: MAGNESIUM OXIDE 400 MG TABLET PO SCH (21:24)
[2020-08-26] MEDS: CHOLECALCIFEROL 1,000 UNIT TABLET PO SCH (21:24)
[2020-08-26] MEDS: VITAMIN E 400 UNIT CAPSULE PO SCH (21:24)
[2020-08-26] MEDS: FOLIC ACID 0.4 MG TABLET PO SCH (21:24)
[2020-08-27] MEDS: INSULIN LISPRO 100 UNIT/ML SUBCUT SCH ×3 (01:09→09:04)
[2020-08-27] MEDS: PIPERACILLIN/TAZOBACTAM 3,375 MG in SODIUM CHLORIDE 0.9% 100 ML IV SCH ×3 (01:09→16:12)
[2020-08-27] MEDS: METHOCARBAMOL 750 MG TABLET PO SCH ×3 (01:09→16:11)
[2020-08-27 06:22] LABS: Eosinophils % 0.1 % (0.00-10.9); Hematocrit 35.8 VOL% (35.7-47.0); Hemoglobin 11.8 GM/DL (12.0-16.0); Immature Granulocytes % 0.7 %; Immature Granulocytes Absolute 0.05 #; Lymphocytes # 0.9 10*3/uL (1.4-4.0); Lymphocytes % 13.2 % (21.3-54.2); Mean Corpuscular Volume 82.3 FL (87-102); Mean Platelet Volume 9.5 FL (9.6-12.0); Platelet Count 212 T/CUMM (130-400); Red Blood Count 4.35 MC/CUMM (3.8-5.5); Red Cell Distribution Width 17.1 % (9.3-17.3); White Blood Count 6.7 T/CUMM (4-12)
[2020-08-27 06:49] LABS: Calcium 8.1 MG/DL (8.5-10.1); Osmolality,Calculated 288.4 MOS/KG (273-304); Potassium 3.8 MMOL/L (3.5-5.1)
[2020-08-27] MEDS: POTASSIUM CHLORIDE 8 MEQ CAPSULE PO SCH ×3 (09:04→21:45)
[2020-08-27] MEDS: methylPREDNISolone SOD SUC 40 MG/1 ML VIAL IV SCH (09:04)
[2020-08-27] MEDS: DOXAZOSIN 4 MG TABLET PO SCH (09:05)
[2020-08-27] MEDS: FUROSEMIDE 80 MG TABLET PO SCH (09:05)
[2020-08-27] MEDS: SILDENAFIL 20 MG TABLET PO SCH ×2 (09:05→21:45)
[2020-08-27] MEDS: ASPIRIN EC 81 MG TABLET PO SCH (09:05)
[2020-08-27] MEDS: SIMVASTATIN 20 MG TABLET PO SCH (09:05)
[2020-08-27] MEDS: DOCUSATE SODIUM 100 MG CAPSULE PO SCH ×2 (09:05→21:45)
[2020-08-27] MEDS: busPIRone 5 MG TABLET PO SCH ×3 (09:05→21:45)
[2020-08-27] MEDS: PANTOPRAZOLE 40 MG TABLET PO SCH (09:05)
[2020-08-27] MEDS: atenoloL 25 MG TABLET PO SCH (09:05)
[2020-08-27] MEDS: INSULIN GLARGINE 100 UNIT/ML SUBCUT SCH (09:06)
[2020-08-27] MEDS: LINACLOTIDE 145 MCG CAPSULE PO SCH (09:28)
[2020-08-27] MEDS: CYANOCOBALAMIN 500 MCG TABLET PO SCH (09:30)
[2020-08-27] MEDS: DULoxetine 30 MG CAPSULE PO SCH ×2 (09:46→21:45)
[2020-08-27] MEDS: oxyCODONE ER 20 MG TABLET PO SCH ×2 (09:47→21:45)
[2020-08-27] MEDS ORDERED: INSULIN LISPRO 100 UNIT/ML SUBCUT ONE (10:00)
[2020-08-27] MEDS: MAGNESIUM OXIDE 400 MG TABLET PO SCH (21:45)
[2020-08-27] MEDS: VITAMIN E 400 UNIT CAPSULE PO SCH (21:45)
[2020-08-27] MEDS: FOLIC ACID 0.4 MG TABLET PO SCH (21:45)
[2020-08-27] MEDS: EZETIMIBE 10 MG TABLET PO SCH (21:45)
[2020-08-27] MEDS: CHOLECALCIFEROL 1,000 UNIT TABLET PO SCH (21:45)
[2020-08-28] MEDS: PIPERACILLIN/TAZOBACTAM 3,375 MG in SODIUM CHLORIDE 0.9% 100 ML IV SCH ×2 (01:11→08:59)
[2020-08-28] MEDS: METHOCARBAMOL 750 MG TABLET PO SCH ×2 (01:12→08:54)
[2020-08-28 06:01] LABS: Basophils % 0.2 % (0.0-0.8); Eosinophils % 0.6 % (0.00-10.9); Hematocrit 35.2 VOL% (35.7-47.0); Hemoglobin 11.5 GM/DL (12.0-16.0); Immature Granulocytes % 1.2 %; Immature Granulocytes Absolute 0.06 #; Lymphocytes # 0.7 10*3/uL (1.4-4.0); Lymphocytes % 13.4 % (21.3-54.2); Mean Corpuscular HGB Conc 32.7 GM/DL (32-36); Mean Corpuscular Volume 82.4 FL (87-102); Mean Platelet Volume 9.3 FL (9.6-12.0); Monocytes % 7.4 % (1.7-12.7); Neutrophils % 77.2 % (38.7-73.9); Platelet Count 199 T/CUMM (130-400); Red Blood Count 4.27 MC/CUMM (3.8-5.5)
[2020-08-28 06:13] LABS: Calcium 8.5 MG/DL (8.5-10.1); Osmolality,Calculated 277.2 MOS/KG (273-304); Potassium 3.7 MMOL/L (3.5-5.1)
[2020-08-28] MEDS: SODIUM CHLOR 0.45% KCL 20 MEQ 20 MEQ/1,000 ML BAG IV SCH (06:32)
[2020-08-28 07:20] LABS: Band Neutrophils 4 % (0-10); Eosinophils 1 % (0-10); Hypochromasia 2+; Lymphocytes 15 % (20-55); Platelet Estimate Normal; Segmented Neutrophils 73 % (50-85); Total Cells Counted 100
[2020-08-28 07:21] LABS: Anisocytosis 1+; Macrocytosis 1+
[2020-08-28] MEDS: methylPREDNISolone SOD SUC 40 MG/1 ML VIAL IV SCH (08:52)
[2020-08-28] MEDS: DULoxetine 30 MG CAPSULE PO SCH (08:52)
[2020-08-28] MEDS: FUROSEMIDE 80 MG TABLET PO SCH (08:53)
[2020-08-28] MEDS: DOCUSATE SODIUM 100 MG CAPSULE PO SCH (08:53)
[2020-08-28] MEDS: DOXAZOSIN 4 MG TABLET PO SCH (08:53)
[2020-08-28] MEDS: busPIRone 5 MG TABLET PO SCH (08:53)
[2020-08-28] MEDS: CYANOCOBALAMIN 500 MCG TABLET PO SCH (08:53)
[2020-08-28] MEDS: ASPIRIN EC 81 MG TABLET PO SCH (08:54)
[2020-08-28] MEDS: LINACLOTIDE 145 MCG CAPSULE PO SCH (08:54)
[2020-08-28] MEDS: atenoloL 25 MG TABLET PO SCH (08:54)
[2020-08-28] MEDS: PANTOPRAZOLE 40 MG TABLET PO SCH (08:54)
[2020-08-28] MEDS: SILDENAFIL 20 MG TABLET PO SCH (08:54)
[2020-08-28] MEDS: SIMVASTATIN 20 MG TABLET PO SCH (10:03)
[2020-08-28] MEDS: oxyCODONE ER 20 MG TABLET PO SCH (10:03)
[2020-08-28] MEDS: POTASSIUM CHLORIDE 8 MEQ CAPSULE PO SCH (10:03)
[2020-08-28 11:20] VITALS: BP 143/48
== END 2020-08-28 10:52 | disposition home health service (06) | DRG 177 ==
LOC: N.ED 19:10 → N.EDINP 21:21 → N.2E 08-23 15:30
PROVIDERS: ADMIT Internal Medicine; ATTEND Internal Medicine

== ENCOUNTER 2020-08-29 13:00 | Inpatient (IN) ==
[2020-08-29 13:43] LABS: Basophils % 0.1 % (0.0-0.8); Eosinophils % 0.6 % (0.00-10.9); Hematocrit 38.4 VOL% (35.7-47.0); Hemoglobin 12.6 GM/DL (12.0-16.0); Immature Granulocytes % 1.8 %; Immature Granulocytes Absolute 0.13 #; Lymphocytes # 0.8 10*3/uL (1.4-4.0); Mean Corpuscular HGB Conc 32.8 GM/DL (32-36); Mean Corpuscular Volume 82.4 FL (87-102); Mean Platelet Volume 9.5 FL (9.6-12.0); Monocytes % 4.6 % (1.7-12.7); Neutrophils % 81.9 % (38.7-73.9); Platelet Count 248 T/CUMM (130-400); Red Blood Count 4.66 MC/CUMM (3.8-5.5); Red Cell Distribution Width 16.9 % (9.3-17.3); White Blood Count 7.2 T/CUMM (4-12)
[2020-08-29 13:54] LABS: PT Patient Result 10.3 SECS (9.8-11.9)
[2020-08-29] MEDS ORDERED: PIPERACILLIN/TAZOBACTAM 3,375 MG in SODIUM CHLORIDE 0.9% 100 ML IV STA (13:54)
[2020-08-29 14:09] LABS: Lymphocytes 11 % (20-55); Segmented Neutrophils 82 % (50-85); Total Cells Counted 100
[2020-08-29 14:10] LABS: Elliptocytes Few; Hypochromasia 1+; Platelet Estimate Adequate; Reactive Lymphocytes Few
[2020-08-29 14:22] LABS: Alanine Aminotransferase 16 U/L (13-56); Albumin 2.6 G/DL (3.4-5.0); Alkaline Phosphatase 81 U/L (45-117); Aspartate Amino Transferase 19 U/L (0-37); Bilirubin,Total < 0.39 MG/DL (0.2-1.0); Blood Urea Nitrogen 34 MG/DL (7-18); Calcium 8.5 MG/DL (8.5-10.1); Estimated Glom Filtration Rate 27 ML/MIN; Ferritin 385.7 ng/ml (8-252); Glucose 166 MG/DL (74-106); Osmolality,Calculated 277.4 MOS/KG (273-304); Total Protein 7.1 G/DL (6.4-8.3)
[2020-08-29] MEDS ORDERED: GLUCAGON 1 MG VIAL IM PRN (16:32)
[2020-08-29] MEDS ORDERED: DEXTROSE 50% 25 GM/50 ML VIAL IV PRN (16:32)
[2020-08-29] MEDS ORDERED: ONDANSETRON 4 MG/2 ML VIAL IV PRN (16:32)
[2020-08-29] MEDS ORDERED: ACETAMINOPHEN 325 MG TABLET PO PRN (16:32)
[2020-08-29] MEDS ORDERED: INSULIN REGULAR 100 UNIT/ML SUBCUT SCH (18:00)
[2020-08-29] MEDS: methylPREDNISolone SOD SUC 40 MG/1 ML VIAL IV SCH (18:01)
[2020-08-29] MEDS: SODIUM CHLORIDE 0.9% 1,000 ML IV SCH (18:01)
[2020-08-29] MEDS: FUROSEMIDE 40 MG/4 ML VIAL IV SCH (18:01)
[2020-08-29] MEDS: ENOXAPARIN 30 MG/0.3 ML SYRINGE SUBCUT SCH (18:02)
[2020-08-29] MEDS: DOCUSATE SODIUM 100 MG CAPSULE PO SCH (20:20)
[2020-08-29] MEDS: INSULIN REGULAR 100 UNIT/ML SUBCUT SCH (22:06)
[2020-08-29] MEDS: PIPERACILLIN/TAZOBACTAM 3,375 MG in SODIUM CHLORIDE 0.9% 100 ML IV SCH (23:37)
[2020-08-30] MEDS ORDERED: ALBUTEROL/IPRATROPIUM 3 ML NEB RESP TX PRN ×2 (00:10)
[2020-08-30] MEDS ORDERED: BENZONATATE 100 MG CAPSULE PO PRN (00:10)
[2020-08-30] MEDS: METHOCARBAMOL 750 MG TABLET PO SCH ×3 (00:37→16:19)
[2020-08-30] MEDS ORDERED: oxyCODONE IR 5 MG TABLET PO PRN (00:44)
[2020-08-30] MEDS ORDERED: ALBUTEROL 2.5 MG/3 ML NEB RESP TX PRN (01:00)
[2020-08-30] MEDS: INSULIN REGULAR 100 UNIT/ML SUBCUT SCH ×6 (02:43→22:01)
[2020-08-30] MEDS: methylPREDNISolone SOD SUC 40 MG/1 ML VIAL IV SCH ×2 (03:43→15:54)
[2020-08-30 05:31] LABS: Basophils % 0.2 % (0.0-0.8); Hematocrit 38.7 VOL% (35.7-47.0); Immature Granulocytes % 1.8 %; Immature Granulocytes Absolute 0.09 #; Lymphocytes # 0.5 10*3/uL (1.4-4.0); Lymphocytes % 10.7 % (21.3-54.2); Mean Corpuscular HGB Conc 33.6 GM/DL (32-36); Mean Platelet Volume 9.4 FL (9.6-12.0); Monocytes % 5.2 % (1.7-12.7); Neutrophils % 82.1 % (38.7-73.9); Platelet Count 263 T/CUMM (130-400); Red Blood Count 4.72 MC/CUMM (3.8-5.5); Red Cell Distribution Width 16.3 % (9.3-17.3)
[2020-08-30 06:49] LABS: Albumin 2.5 G/DL (3.4-5.0); Bilirubin,Total 0.7 MG/DL (0.2-1.0); Calcium 8.7 MG/DL (8.5-10.1); Osmolality,Calculated 288.1 MOS/KG (273-304)
[2020-08-30] MEDS: PIPERACILLIN/TAZOBACTAM 3,375 MG in SODIUM CHLORIDE 0.9% 100 ML IV SCH ×2 (08:46→16:18)
[2020-08-30] MEDS: POTASSIUM CHLORIDE 8 MEQ CAPSULE PO SCH ×3 (08:49→21:30)
[2020-08-30] MEDS: hydrALAZINE 25 MG TABLET PO SCH ×2 (08:49→20:47)
[2020-08-30] MEDS: ASPIRIN EC 81 MG TABLET PO SCH (08:49)
[2020-08-30] MEDS: busPIRone 5 MG TABLET PO SCH ×3 (08:50→20:47)
[2020-08-30] MEDS: CYANOCOBALAMIN 500 MCG TABLET PO SCH (08:50)
[2020-08-30] MEDS: PANTOPRAZOLE 40 MG TABLET PO SCH ×3 (08:50→20:47)
[2020-08-30] MEDS: SIMVASTATIN 20 MG TABLET PO SCH (08:50)
[2020-08-30] MEDS: DULoxetine 30 MG CAPSULE PO SCH ×2 (08:50→20:46)
[2020-08-30] MEDS: atenoloL 25 MG TABLET PO SCH (08:51)
[2020-08-30] MEDS: SILDENAFIL 20 MG TABLET PO SCH ×2 (08:51→20:47)
[2020-08-30] MEDS: DOXAZOSIN 4 MG TABLET PO SCH (08:51)
[2020-08-30] MEDS: DOCUSATE SODIUM 100 MG CAPSULE PO SCH ×4 (08:51→20:47)
[2020-08-30] MEDS: amLODIPine 10 MG TABLET PO SCH (08:51)
[2020-08-30] MEDS: azaTHIOprine 50 MG TABLET PO SCH (08:52)
[2020-08-30] MEDS: FUROSEMIDE 40 MG/4 ML VIAL IV SCH ×2 (08:52→16:18)
[2020-08-30] MEDS: NITROFURANTOIN MACROCRYSTALS 50 MG CAPSULE PO SCH (08:52)
[2020-08-30] MEDS: metOLazone 2.5 MG TABLET PO SCH (08:52)
[2020-08-30] MEDS: LINACLOTIDE 145 MCG CAPSULE PO SCH ×2 (08:53→09:53)
[2020-08-30] MEDS ORDERED: PNV CMB FERROUS FUMARATE FA PO SCH (09:00)
[2020-08-30] MEDS ORDERED: AMOXICILLIN/CLAV 875 MG TABLET PO SCH (09:00)
[2020-08-30] MEDS ORDERED: [UNRECOGNIZED DRUG - OTHER] PO SCH (09:00)
[2020-08-30] MEDS ORDERED: PANTOPRAZOLE 40 MG TABLET PO SCH (09:00)
[2020-08-30] MEDS ORDERED: FUROSEMIDE 80 MG TABLET PO SCH (09:00)
[2020-08-30] MEDS: oxyCODONE ER 20 MG TABLET PO SCH ×2 (09:13→21:31)
[2020-08-30] MEDS: NON-FORMULARY MEDICATION (Elderberry Fruit And Flower 460-115 mg Capsule) PO SCH (09:52)
[2020-08-30] MEDS: CRANBERRY C BACILLUS COAG PO SCH (09:52)
[2020-08-30 10:13] LABS: Bilirubin,Urine Negative (Negative); Blood, Urine Negative (Negative); Glucose,Urine (UA) 50 mg/dL (Negative); Ketones,Urine Negative (Negative); Mucus,Urine Occasional /LPF (Occasional); Nitrite,Urine Negative (Negative); Protein,Urine 30 MG/DL; RBC,Urine <1 /HPF (0-4); Squamous Epithelial Cell,Urine Occasional /HPF (0-10); Urine Appearance CLEAR (Clear); Urine Color Yellow (Yellow); Urine Urobilinogen < 2.0 EU/DL (0.2-1.0)
[2020-08-30] MEDS: SODIUM CHLORIDE 0.9% 1,000 ML IV SCH (15:53)
[2020-08-30] MEDS: ENOXAPARIN 30 MG/0.3 ML SYRINGE SUBCUT SCH (18:00)
[2020-08-30] MEDS: FOLIC ACID 0.4 MG TABLET PO SCH (20:46)
[2020-08-30] MEDS: EZETIMIBE 10 MG TABLET PO SCH (20:46)
[2020-08-30] MEDS: MAGNESIUM OXIDE 400 MG TABLET PO SCH (20:46)
[2020-08-30] MEDS: GABAPENTIN 600 MG TABLET PO PRN (20:46)
[2020-08-30] MEDS: VITAMIN E 400 UNIT CAPSULE PO SCH (20:47)
[2020-08-30] MEDS: CHOLECALCIFEROL 1,000 UNIT TABLET PO SCH (20:47)
[2020-08-31] MEDS: PIPERACILLIN/TAZOBACTAM 3,375 MG in SODIUM CHLORIDE 0.9% 100 ML IV SCH ×3 (00:19→15:59)
[2020-08-31] MEDS: METHOCARBAMOL 750 MG TABLET PO SCH ×3 (00:19→15:59)
[2020-08-31] MEDS: INSULIN REGULAR 100 UNIT/ML SUBCUT SCH ×7 (02:46→21:25)
[2020-08-31] MEDS: methylPREDNISolone SOD SUC 40 MG/1 ML VIAL IV SCH ×2 (05:00→15:58)
[2020-08-31] MEDS: FUROSEMIDE 40 MG/4 ML VIAL IV SCH ×2 (07:55→15:59)
[2020-08-31] MEDS: DULoxetine 30 MG CAPSULE PO SCH ×2 (09:12→20:40)
[2020-08-31] MEDS: oxyCODONE ER 20 MG TABLET PO SCH ×2 (09:13→20:41)
[2020-08-31] MEDS: POTASSIUM CHLORIDE 8 MEQ CAPSULE PO SCH ×3 (09:13→20:40)
[2020-08-31] MEDS: CYANOCOBALAMIN 500 MCG TABLET PO SCH (09:13)
[2020-08-31] MEDS: DOXAZOSIN 4 MG TABLET PO SCH (09:13)
[2020-08-31] MEDS: ASPIRIN EC 81 MG TABLET PO SCH (09:13)
[2020-08-31] MEDS: SILDENAFIL 20 MG TABLET PO SCH ×2 (09:13→20:40)
[2020-08-31] MEDS: azaTHIOprine 50 MG TABLET PO SCH (09:14)
[2020-08-31] MEDS: SIMVASTATIN 20 MG TABLET PO SCH (09:14)
[2020-08-31] MEDS: hydrALAZINE 25 MG TABLET PO SCH ×2 (09:14→20:41)
[2020-08-31] MEDS: busPIRone 5 MG TABLET PO SCH ×3 (09:14→20:40)
[2020-08-31] MEDS: metOLazone 2.5 MG TABLET PO SCH (09:14)
[2020-08-31] MEDS: NITROFURANTOIN MACROCRYSTALS 50 MG CAPSULE PO SCH (09:14)
[2020-08-31] MEDS: amLODIPine 10 MG TABLET PO SCH (09:14)
[2020-08-31] MEDS: DOCUSATE SODIUM 100 MG CAPSULE PO SCH ×2 (09:14→20:41)
[2020-08-31] MEDS: atenoloL 25 MG TABLET PO SCH (09:15)
[2020-08-31] MEDS: LINACLOTIDE 145 MCG CAPSULE PO SCH (10:21)
[2020-08-31] MEDS: NON-FORMULARY MEDICATION (Elderberry Fruit And Flower 460-115 mg Capsule) PO SCH (10:21)
[2020-08-31] MEDS: CRANBERRY C BACILLUS COAG PO SCH (10:21)
[2020-08-31] MEDS: PANTOPRAZOLE 40 MG TABLET PO SCH ×2 (10:21→20:41)
[2020-08-31] MEDS: SODIUM CHLORIDE 0.9% 1,000 ML IV SCH (16:45)
[2020-08-31] MEDS: ENOXAPARIN 30 MG/0.3 ML SYRINGE SUBCUT SCH (17:46)
[2020-08-31] MEDS: MAGNESIUM OXIDE 400 MG TABLET PO SCH (20:40)
[2020-08-31] MEDS: FOLIC ACID 0.4 MG TABLET PO SCH (20:40)
[2020-08-31] MEDS: CHOLECALCIFEROL 1,000 UNIT TABLET PO SCH (20:40)
[2020-08-31] MEDS: EZETIMIBE 10 MG TABLET PO SCH (20:40)
[2020-08-31] MEDS: VITAMIN E 400 UNIT CAPSULE PO SCH (20:40)
[2020-08-31] MEDS: GABAPENTIN 600 MG TABLET PO PRN (20:41)
[2020-09-01] MEDS: PIPERACILLIN/TAZOBACTAM 3,375 MG in SODIUM CHLORIDE 0.9% 100 ML IV SCH ×4 (00:32→23:32)
[2020-09-01] MEDS: METHOCARBAMOL 750 MG TABLET PO SCH ×3 (01:27→15:53)
[2020-09-01] MEDS: INSULIN REGULAR 100 UNIT/ML SUBCUT SCH ×6 (01:28→22:13)
[2020-09-01] MEDS: methylPREDNISolone SOD SUC 40 MG/1 ML VIAL IV SCH ×2 (04:36→15:54)
[2020-09-01 06:33] LABS: Basophils % 0.3 % (0.0-0.8); Hematocrit 36.5 VOL% (35.7-47.0); Hemoglobin 12.4 GM/DL (12.0-16.0); Immature Granulocytes % 3.3 %; Immature Granulocytes Absolute 0.22 #; Lymphocytes # 0.9 10*3/uL (1.4-4.0); Lymphocytes % 12.7 % (21.3-54.2); Mean Corpuscular Volume 80.9 FL (87-102); Mean Platelet Volume 9.5 FL (9.6-12.0); Monocytes % 7.6 % (1.7-12.7); Neutrophils % 76.1 % (38.7-73.9); Platelet Count 349 T/CUMM (130-400); Red Blood Count 4.51 MC/CUMM (3.8-5.5); Red Cell Distribution Width 16.1 % (9.3-17.3); White Blood Count 6.7 T/CUMM (4-12)
[2020-09-01 07:04] LABS: Calcium 8.7 MG/DL (8.5-10.1); Osmolality,Calculated 282.9 MOS/KG (273-304); Thyroid Stimulating Hormone 0.517 uIU/ml (0.358-3.74)
[2020-09-01] MEDS: azaTHIOprine 50 MG TABLET PO SCH (08:51)
[2020-09-01] MEDS: SIMVASTATIN 20 MG TABLET PO SCH (08:51)
[2020-09-01] MEDS: FUROSEMIDE 40 MG/4 ML VIAL IV SCH ×2 (08:51→15:52)
[2020-09-01] MEDS: CYANOCOBALAMIN 500 MCG TABLET PO SCH (08:52)
[2020-09-01] MEDS: DULoxetine 30 MG CAPSULE PO SCH ×2 (08:52→21:08)
[2020-09-01] MEDS: busPIRone 5 MG TABLET PO SCH ×3 (08:52→21:09)
[2020-09-01] MEDS: DOCUSATE SODIUM 100 MG CAPSULE PO SCH ×2 (08:52→21:08)
[2020-09-01] MEDS: SILDENAFIL 20 MG TABLET PO SCH ×2 (08:52→21:08)
[2020-09-01] MEDS: hydrALAZINE 25 MG TABLET PO SCH ×2 (08:52→21:08)
[2020-09-01] MEDS: POTASSIUM CHLORIDE 8 MEQ CAPSULE PO SCH ×3 (08:52→21:08)
[2020-09-01] MEDS: NITROFURANTOIN MACROCRYSTALS 50 MG CAPSULE PO SCH (08:52)
[2020-09-01] MEDS: oxyCODONE ER 20 MG TABLET PO SCH ×2 (08:53→21:09)
[2020-09-01] MEDS: ASPIRIN EC 81 MG TABLET PO SCH (08:53)
[2020-09-01] MEDS: DOXAZOSIN 4 MG TABLET PO SCH (08:53)
[2020-09-01] MEDS: amLODIPine 10 MG TABLET PO SCH (08:53)
[2020-09-01] MEDS: atenoloL 25 MG TABLET PO SCH (08:53)
[2020-09-01] MEDS: metOLazone 2.5 MG TABLET PO SCH (08:53)
[2020-09-01] MEDS: NON-FORMULARY MEDICATION (Elderberry Fruit And Flower 460-115 mg Capsule) PO SCH (09:07)
[2020-09-01] MEDS: LINACLOTIDE 145 MCG CAPSULE PO SCH (09:07)
[2020-09-01] MEDS: CRANBERRY C BACILLUS COAG PO SCH (09:07)
[2020-09-01] MEDS: PANTOPRAZOLE 40 MG TABLET PO SCH ×2 (09:07→21:08)
[2020-09-01] MEDS: SODIUM CHLORIDE 0.9% 1,000 ML IV SCH (15:54)
[2020-09-01] MEDS: ENOXAPARIN 30 MG/0.3 ML SYRINGE SUBCUT SCH (17:47)
[2020-09-01] MEDS: GABAPENTIN 600 MG TABLET PO PRN (21:08)
[2020-09-01] MEDS: FOLIC ACID 0.4 MG TABLET PO SCH (21:08)
[2020-09-01] MEDS: CHOLECALCIFEROL 1,000 UNIT TABLET PO SCH (21:08)
[2020-09-01] MEDS: VITAMIN E 400 UNIT CAPSULE PO SCH (21:09)
[2020-09-01] MEDS: MAGNESIUM OXIDE 400 MG TABLET PO SCH (21:09)
[2020-09-01] MEDS: EZETIMIBE 10 MG TABLET PO SCH (21:09)
[2020-09-02] MEDS: METHOCARBAMOL 750 MG TABLET PO SCH ×3 (03:09→17:31)
[2020-09-02] MEDS: INSULIN REGULAR 100 UNIT/ML SUBCUT SCH ×6 (03:09→21:06)
[2020-09-02] MEDS: methylPREDNISolone SOD SUC 40 MG/1 ML VIAL IV SCH (04:49)
[2020-09-02 05:55] LABS: Basophils % 0.6 % (0.0-0.8); Hematocrit 37.9 VOL% (35.7-47.0); Hemoglobin 12.7 GM/DL (12.0-16.0); Immature Granulocytes % 4.4 %; Immature Granulocytes Absolute 0.23 #; Lymphocytes # 0.8 10*3/uL (1.4-4.0); Lymphocytes % 14.8 % (21.3-54.2); Mean Corpuscular HGB Conc 33.5 GM/DL (32-36); Mean Corpuscular Volume 81.2 FL (87-102); Mean Platelet Volume 9.6 FL (9.6-12.0); Monocytes % 8.7 % (1.7-12.7); Neutrophils % 71.5 % (38.7-73.9); Platelet Count 364 T/CUMM (130-400); Red Blood Count 4.67 MC/CUMM (3.8-5.5); Red Cell Distribution Width 15.9 % (9.3-17.3); White Blood Count 5.3 T/CUMM (4-12)
[2020-09-02 06:07] LABS: Osmolality,Calculated 286.1 MOS/KG (273-304)
[2020-09-02] MEDS: POTASSIUM CHLORIDE 20 MEQ TABLET PO PRN ×3 (09:58→15:15)
[2020-09-02] MEDS: amLODIPine 10 MG TABLET PO SCH (10:22)
[2020-09-02] MEDS: SILDENAFIL 20 MG TABLET PO SCH ×2 (10:22→21:08)
[2020-09-02] MEDS: hydrALAZINE 25 MG TABLET PO SCH ×2 (10:22→21:06)
[2020-09-02] MEDS: PANTOPRAZOLE 40 MG TABLET PO SCH ×2 (10:22→21:08)
[2020-09-02] MEDS: NITROFURANTOIN MACROCRYSTALS 50 MG CAPSULE PO SCH (10:22)
[2020-09-02] MEDS: DOCUSATE SODIUM 100 MG CAPSULE PO SCH ×2 (10:22→21:07)
[2020-09-02] MEDS: DULoxetine 30 MG CAPSULE PO SCH ×2 (10:22→21:07)
[2020-09-02] MEDS: PIPERACILLIN/TAZOBACTAM 3,375 MG in SODIUM CHLORIDE 0.9% 100 ML IV SCH ×2 (10:22→16:27)
[2020-09-02] MEDS: SIMVASTATIN 20 MG TABLET PO SCH (10:22)
[2020-09-02] MEDS: metOLazone 2.5 MG TABLET PO SCH (10:22)
[2020-09-02] MEDS: DOXAZOSIN 4 MG TABLET PO SCH (10:22)
[2020-09-02] MEDS: atenoloL 25 MG TABLET PO SCH (10:22)
[2020-09-02] MEDS: busPIRone 5 MG TABLET PO SCH ×3 (10:22→21:07)
[2020-09-02] MEDS: ASPIRIN EC 81 MG TABLET PO SCH (10:22)
[2020-09-02] MEDS: CYANOCOBALAMIN 500 MCG TABLET PO SCH (10:22)
[2020-09-02] MEDS: POTASSIUM CHLORIDE 8 MEQ CAPSULE PO SCH ×3 (10:22→21:07)
[2020-09-02] MEDS: LINACLOTIDE 145 MCG CAPSULE PO SCH (10:22)
[2020-09-02] MEDS: NON-FORMULARY MEDICATION (Elderberry Fruit And Flower 460-115 mg Capsule) PO SCH (10:46)
[2020-09-02] MEDS: CRANBERRY C BACILLUS COAG PO SCH (10:46)
[2020-09-02] MEDS: oxyCODONE ER 20 MG TABLET PO SCH ×2 (10:49→21:07)
[2020-09-02] MEDS: FUROSEMIDE 40 MG/4 ML VIAL IV SCH (10:53)
[2020-09-02] MEDS: SODIUM CHLORIDE 0.9% 1,000 ML IV SCH (16:27)
[2020-09-02] MEDS: FUROSEMIDE 80 MG TABLET PO SCH (17:30)
[2020-09-02] MEDS: ENOXAPARIN 30 MG/0.3 ML SYRINGE SUBCUT SCH (17:31)
[2020-09-02] MEDS: MAGNESIUM OXIDE 400 MG TABLET PO SCH (21:07)
[2020-09-02] MEDS: FOLIC ACID 0.4 MG TABLET PO SCH (21:07)
[2020-09-02] MEDS: CHOLECALCIFEROL 1,000 UNIT TABLET PO SCH (21:08)
[2020-09-02] MEDS: VITAMIN E 400 UNIT CAPSULE PO SCH (21:08)
[2020-09-02] MEDS: EZETIMIBE 10 MG TABLET PO SCH (21:08)
[2020-09-03] MEDS: INSULIN REGULAR 100 UNIT/ML SUBCUT SCH ×4 (00:27→12:32)
[2020-09-03] MEDS: PIPERACILLIN/TAZOBACTAM 3,375 MG in SODIUM CHLORIDE 0.9% 100 ML IV SCH ×3 (00:31→16:16)
[2020-09-03] MEDS: METHOCARBAMOL 750 MG TABLET PO SCH ×3 (00:32→15:45)
[2020-09-03] MEDS ORDERED: methylPREDNISolone SOD SUC 40 MG/1 ML VIAL IV SCH (04:00)
[2020-09-03 06:15] LABS: Basophils # 0.1 10*3/uL (0.0-0.2); Basophils % 0.9 % (0.0-0.8); Eosinophils # 0.1 10*3/uL (0.0-0.87); Eosinophils % 1.6 % (0.00-10.9); Hematocrit 37.5 VOL% (35.7-47.0); Hemoglobin 12.6 GM/DL (12.0-16.0); Immature Granulocytes % 5.3 %; Immature Granulocytes Absolute 0.37 #; Lymphocytes # 1.3 10*3/uL (1.4-4.0); Lymphocytes % 18.8 % (21.3-54.2); Mean Corpuscular HGB Conc 33.6 GM/DL (32-36); Mean Corpuscular Volume 81.7 FL (87-102); Mean Platelet Volume 9.3 FL (9.6-12.0); Monocytes % 7.4 % (1.7-12.7); Platelet Count 358 T/CUMM (130-400); Red Blood Count 4.59 MC/CUMM (3.8-5.5); Red Cell Distribution Width 16.1 % (9.3-17.3)
[2020-09-03 06:39] LABS: Calcium 8.7 MG/DL (8.5-10.1); Osmolality,Calculated 284.1 MOS/KG (273-304)
[2020-09-03 06:43] LABS: Eosinophils 4 % (0-10); Hypochromasia 1+; Lymphocytes 25 % (20-55); Microcytosis 1+; Ovalocytes Slight; Platelet Estimate Adequate; Segmented Neutrophils 58 % (50-85); Total Cells Counted 100
[2020-09-03] MEDS: FUROSEMIDE 80 MG TABLET PO SCH ×2 (08:32→15:45)
[2020-09-03] MEDS: hydrALAZINE 25 MG TABLET PO SCH ×2 (08:33→20:42)
[2020-09-03] MEDS: DOXAZOSIN 4 MG TABLET PO SCH (08:33)
[2020-09-03] MEDS: busPIRone 5 MG TABLET PO SCH ×3 (08:33→20:42)
[2020-09-03] MEDS: ASPIRIN EC 81 MG TABLET PO SCH (08:33)
[2020-09-03] MEDS: DOCUSATE SODIUM 100 MG CAPSULE PO SCH ×2 (08:33→20:48)
[2020-09-03] MEDS: LINACLOTIDE 145 MCG CAPSULE PO SCH (08:34)
[2020-09-03] MEDS: DULoxetine 30 MG CAPSULE PO SCH ×2 (08:34→20:41)
[2020-09-03] MEDS: PANTOPRAZOLE 40 MG TABLET PO SCH ×2 (08:34→20:42)
[2020-09-03] MEDS: NON-FORMULARY MEDICATION (Elderberry Fruit And Flower 460-115 mg Capsule) PO SCH (08:34)
[2020-09-03] MEDS: oxyCODONE ER 20 MG TABLET PO SCH ×2 (08:34→20:48)
[2020-09-03] MEDS: NITROFURANTOIN MACROCRYSTALS 50 MG CAPSULE PO SCH (08:34)
[2020-09-03] MEDS: amLODIPine 10 MG TABLET PO SCH (08:34)
[2020-09-03] MEDS: POTASSIUM CHLORIDE 8 MEQ CAPSULE PO SCH ×3 (08:34→20:41)
[2020-09-03] MEDS: CRANBERRY C BACILLUS COAG PO SCH (08:34)
[2020-09-03] MEDS: atenoloL 25 MG TABLET PO SCH (08:35)
[2020-09-03] MEDS: CYANOCOBALAMIN 500 MCG TABLET PO SCH (08:35)
[2020-09-03] MEDS: metOLazone 2.5 MG TABLET PO SCH (08:35)
[2020-09-03] MEDS: SILDENAFIL 20 MG TABLET PO SCH ×2 (08:35→20:40)
[2020-09-03] MEDS: SIMVASTATIN 20 MG TABLET PO SCH (08:35)
[2020-09-03] MEDS: predniSONE 10 MG TABLET PO SCH ×2 (09:03→20:41)
[2020-09-03] MEDS: SODIUM CHLORIDE 0.9% 1,000 ML IV SCH (13:45)
[2020-09-03] MEDS: ENOXAPARIN 30 MG/0.3 ML SYRINGE SUBCUT SCH (17:19)
[2020-09-03] MEDS: FOLIC ACID 0.4 MG TABLET PO SCH (20:41)
[2020-09-03] MEDS: MAGNESIUM OXIDE 400 MG TABLET PO SCH (20:41)
[2020-09-03] MEDS: VITAMIN E 400 UNIT CAPSULE PO SCH (20:41)
[2020-09-03] MEDS: CHOLECALCIFEROL 1,000 UNIT TABLET PO SCH (20:41)
[2020-09-03] MEDS: EZETIMIBE 10 MG TABLET PO SCH (20:42)
[2020-09-04] MEDS: PIPERACILLIN/TAZOBACTAM 3,375 MG in SODIUM CHLORIDE 0.9% 100 ML IV SCH ×3 (00:24→15:06)
[2020-09-04] MEDS: METHOCARBAMOL 750 MG TABLET PO SCH ×3 (00:24→15:43)
[2020-09-04 05:01] LABS: Basophils % 0.3 % (0.0-0.8); Eosinophils # 0.1 10*3/uL (0.0-0.87); Eosinophils % 0.8 % (0.00-10.9); Hematocrit 37.9 VOL% (35.7-47.0); Immature Granulocytes % 4.2 %; Immature Granulocytes Absolute 0.42 #; Lymphocytes # 1.1 10*3/uL (1.4-4.0); Lymphocytes % 10.5 % (21.3-54.2); Mean Corpuscular HGB Conc 34.3 GM/DL (32-36); Mean Corpuscular Volume 80.5 FL (87-102); Mean Platelet Volume 9.2 FL (9.6-12.0); Monocytes % 4.8 % (1.7-12.7); Neutrophils % 79.4 % (38.7-73.9); Platelet Count 411 T/CUMM (130-400); Red Blood Count 4.71 MC/CUMM (3.8-5.5); Red Cell Distribution Width 15.9 % (9.3-17.3); White Blood Count 10.1 T/CUMM (4-12)
[2020-09-04 05:20] LABS: Osmolality,Calculated 289.2 MOS/KG (273-304)
[2020-09-04] MEDS: FUROSEMIDE 80 MG TABLET PO SCH ×2 (09:00→15:06)
[2020-09-04] MEDS: busPIRone 5 MG TABLET PO SCH ×3 (09:01→21:14)
[2020-09-04] MEDS: ASPIRIN EC 81 MG TABLET PO SCH (09:01)
[2020-09-04] MEDS: hydrALAZINE 25 MG TABLET PO SCH ×2 (09:01→21:14)
[2020-09-04] MEDS: NITROFURANTOIN MACROCRYSTALS 50 MG CAPSULE PO SCH (09:02)
[2020-09-04] MEDS: DULoxetine 30 MG CAPSULE PO SCH ×2 (09:02→21:14)
[2020-09-04] MEDS: DOXAZOSIN 4 MG TABLET PO SCH (09:02)
[2020-09-04] MEDS: POTASSIUM CHLORIDE 8 MEQ CAPSULE PO SCH ×3 (09:02→21:14)
[2020-09-04] MEDS: predniSONE 10 MG TABLET PO SCH ×2 (09:03→21:19)
[2020-09-04] MEDS: CYANOCOBALAMIN 500 MCG TABLET PO SCH (09:03)
[2020-09-04] MEDS: amLODIPine 10 MG TABLET PO SCH (09:03)
[2020-09-04] MEDS: atenoloL 25 MG TABLET PO SCH (09:03)
[2020-09-04] MEDS: SILDENAFIL 20 MG TABLET PO SCH ×2 (09:03→21:15)
[2020-09-04] MEDS: PANTOPRAZOLE 40 MG TABLET PO SCH ×2 (09:03→21:15)
[2020-09-04] MEDS: SIMVASTATIN 20 MG TABLET PO SCH (09:04)
[2020-09-04] MEDS: metOLazone 2.5 MG TABLET PO SCH (09:04)
[2020-09-04] MEDS: oxyCODONE ER 20 MG TABLET PO SCH ×2 (09:22→21:14)
[2020-09-04] MEDS: NON-FORMULARY MEDICATION (Elderberry Fruit And Flower 460-115 mg Capsule) PO SCH (10:07)
[2020-09-04] MEDS: CRANBERRY C BACILLUS COAG PO SCH (10:07)
[2020-09-04] MEDS: DOCUSATE SODIUM 100 MG CAPSULE PO SCH ×2 (10:07→21:14)
[2020-09-04] MEDS: SODIUM CHLORIDE 0.9% 1,000 ML IV SCH (14:10)
[2020-09-04] MEDS: ENOXAPARIN 30 MG/0.3 ML SYRINGE SUBCUT SCH (17:25)
[2020-09-04] MEDS: MAGNESIUM OXIDE 400 MG TABLET PO SCH (21:14)
[2020-09-04] MEDS: FOLIC ACID 0.4 MG TABLET PO SCH (21:14)
[2020-09-04] MEDS: CHOLECALCIFEROL 1,000 UNIT TABLET PO SCH (21:15)
[2020-09-04] MEDS: VITAMIN E 400 UNIT CAPSULE PO SCH (21:15)
[2020-09-04] MEDS: EZETIMIBE 10 MG TABLET PO SCH (21:15)
[2020-09-05] MEDS: PIPERACILLIN/TAZOBACTAM 3,375 MG in SODIUM CHLORIDE 0.9% 100 ML IV SCH ×2 (00:05→08:27)
[2020-09-05] MEDS: METHOCARBAMOL 750 MG TABLET PO SCH ×2 (00:11→08:27)
[2020-09-05 05:27] LABS: Basophils % 0.5 % (0.0-0.8); Eosinophils # 0.1 10*3/uL (0.0-0.87); Eosinophils % 1.8 % (0.00-10.9); Hematocrit 36.2 VOL% (35.7-47.0); Hemoglobin 12.1 GM/DL (12.0-16.0); Immature Granulocytes % 2.3 %; Immature Granulocytes Absolute 0.18 #; Lymphocytes # 1.1 10*3/uL (1.4-4.0); Lymphocytes % 13.5 % (21.3-54.2); Mean Corpuscular HGB Conc 33.4 GM/DL (32-36); Mean Corpuscular Volume 80.4 FL (87-102); Mean Platelet Volume 8.8 FL (9.6-12.0); Monocytes % 7.4 % (1.7-12.7); Neutrophils % 74.5 % (38.7-73.9); Platelet Count 400 T/CUMM (130-400); Red Cell Distribution Width 16.1 % (9.3-17.3); White Blood Count 7.9 T/CUMM (4-12)
[2020-09-05 05:50] LABS: Osmolality,Calculated 284.2 MOS/KG (273-304)
[2020-09-05] MEDS ORDERED: POTASSIUM CHLORIDE 20 MEQ TABLET PO ONE ×3 (08:25→21:00)
[2020-09-05] MEDS ORDERED: SODIUM CHLORIDE 0.9% 1,000 ML IV SCH (08:25)
[2020-09-05] MEDS: FUROSEMIDE 80 MG TABLET PO SCH (08:27)
[2020-09-05] MEDS: hydrALAZINE 25 MG TABLET PO SCH (08:27)
[2020-09-05] MEDS: busPIRone 5 MG TABLET PO SCH (08:28)
[2020-09-05] MEDS: DOCUSATE SODIUM 100 MG CAPSULE PO SCH (08:28)
[2020-09-05] MEDS: ASPIRIN EC 81 MG TABLET PO SCH (08:28)
[2020-09-05] MEDS: CRANBERRY C BACILLUS COAG PO SCH (08:28)
[2020-09-05] MEDS: DOXAZOSIN 4 MG TABLET PO SCH (08:28)
[2020-09-05] MEDS: DULoxetine 30 MG CAPSULE PO SCH (08:29)
[2020-09-05] MEDS: NON-FORMULARY MEDICATION (Elderberry Fruit And Flower 460-115 mg Capsule) PO SCH (08:29)
[2020-09-05] MEDS: predniSONE 10 MG TABLET PO SCH (08:29)
[2020-09-05] MEDS: SILDENAFIL 20 MG TABLET PO SCH (08:29)
[2020-09-05] MEDS: amLODIPine 10 MG TABLET PO SCH (08:29)
[2020-09-05] MEDS: PANTOPRAZOLE 40 MG TABLET PO SCH (08:29)
[2020-09-05] MEDS: CYANOCOBALAMIN 500 MCG TABLET PO SCH (08:30)
[2020-09-05] MEDS: atenoloL 25 MG TABLET PO SCH (08:30)
[2020-09-05] MEDS: metOLazone 2.5 MG TABLET PO SCH (08:30)
[2020-09-05] MEDS: SIMVASTATIN 20 MG TABLET PO SCH (08:30)
[2020-09-05] MEDS: oxyCODONE ER 20 MG TABLET PO SCH (09:42)
[2020-09-05 12:19] VITALS: BP 132/44
== END 2020-09-05 12:51 | disposition home health service (06) | DRG 640 ==
LOC: N.ED 13:00 → N.EDINP 13:00 → N.2E 17:38
PROVIDERS: ADMIT Internal Medicine; ATTEND Internal Medicine

== ENCOUNTER 2021-02-19 21:20 | Inpatient (IN) ==
[2021-02-19] MEDS ORDERED: ONDANSETRON 4 MG/2 ML VIAL IV STA (21:59)
[2021-02-19] MEDS ORDERED: FUROSEMIDE 40 MG/4 ML VIAL IV STA (21:59)
[2021-02-19] MEDS ORDERED: PIPERACILLIN/TAZOBACTAM 3,375 MG in SODIUM CHLORIDE 0.9% 100 ML IV STA (21:59)
[2021-02-19] MEDS ORDERED: methylPREDNISolone SOD SUC 125 MG/2 ML VIAL IV STA (21:59)
[2021-02-19] MEDS ORDERED: ALBUTEROL NEB SOLN 5 MG/ML 20 ML/BOTTLE CONT NEB SCH (22:00)
[2021-02-19 22:26] LABS: Basophils % 0.4 % (0.0-0.8); Eosinophils # 0.1 10*3/uL (0.0-0.87); Hematocrit 32.6 VOL% (35.7-47.0); Hemoglobin 10.3 GM/DL (12.0-16.0); Immature Granulocytes % 0.4 %; Immature Granulocytes Absolute 0.03 #; Lymphocytes # 0.6 10*3/uL (1.4-4.0); Lymphocytes % 8.3 % (21.3-54.2); Mean Corpuscular HGB Conc 31.6 GM/DL (32-36); Mean Corpuscular Volume 81.3 FL (87-102); Mean Platelet Volume 8.7 FL (9.6-12.0); Neutrophils % 80.9 % (38.7-73.9); Platelet Count 266 T/CUMM (130-400); Red Blood Count 4.01 MC/CUMM (3.8-5.5); Red Cell Distribution Width 16.7 % (9.3-17.3); White Blood Count 7.2 T/CUMM (4-12)
[2021-02-19 22:35] LABS: PT Patient Result 11.4 SECS (10.5-12.0)
[2021-02-19 22:50] LABS: Alanine Aminotransferase 14 U/L (13-56); Albumin 3.1 G/DL (3.4-5.0); Alkaline Phosphatase 89 U/L (45-117); Aspartate Amino Transferase 12 U/L (0-37); Bilirubin,Total < 0.39 MG/DL (0.2-1.0); Blood Urea Nitrogen 30 MG/DL (7-18); Calcium 8.7 MG/DL (8.5-10.1); Carbon Dioxide 34 MMOL/L (21-32); Estimated Glom Filtration Rate 28 ML/MIN; Glucose 112 MG/DL (74-106); Osmolality,Calculated 274.2 MOS/KG (273-304); Potassium 3.6 MMOL/L (3.5-5.1); Sodium 134 MMOL/L (136-145); Total Protein 7.2 G/DL (6.4-8.2)
[2021-02-20 01:22] LABS: Bacteria,Urine Occasional /HPF (Few); Bilirubin,Urine Negative (Negative); Blood, Urine Negative (Negative); Glucose,Urine (UA) Negative (Negative); Ketones,Urine Negative (Negative); Nitrite,Urine Negative (Negative); Protein,Urine Negative; RBC,Urine <1 /HPF (0-4); Squamous Epithelial Cell,Urine Occasional /HPF (0-10); Urine Appearance CLEAR (Clear); Urine Color Yellow (Yellow); Urine Specific Gravity 1.006 (1.001-1.035); Urine Urobilinogen < 2.0 EU/DL (0.2-1.0)
[2021-02-20] MEDS ORDERED: CIPROFLOXACIN 500 MG TABLET PO SCH (02:31)
[2021-02-20] MEDS ORDERED: GABAPENTIN 600 MG TABLET PO PRN (02:31)
[2021-02-20] MEDS ORDERED: ONDANSETRON 4 MG/2 ML VIAL IV PRN (02:31)
[2021-02-20] MEDS ORDERED: SODIUM CHLORIDE 0.9% 1,000 ML IV SCH (02:31)
[2021-02-20] MEDS ORDERED: ACETAMINOPHEN 325 MG TABLET PO PRN (02:31)
[2021-02-20] MEDS ORDERED: DEXTROSE 50% 25 GM/50 ML VIAL IV PRN (02:31)
[2021-02-20] MEDS ORDERED: ALBUTEROL/IPRATROPIUM 3 ML NEB RESP TX PRN (02:31)
[2021-02-20] MEDS ORDERED: GLUCAGON 1 MG VIAL IM PRN (02:31)
[2021-02-20] MEDS ORDERED: LINACLOTIDE 145 MCG CAPSULE PO PRN (02:42)
[2021-02-20] MEDS: INSULIN REGULAR 100 UNIT/ML SUBCUT SCH ×2 (02:53→07:36)
[2021-02-20] MEDS: oxyCODONE IR 5 MG TABLET PO PRN ×3 (03:15→21:23)
[2021-02-20] MEDS: PIPERACILLIN/TAZOBACTAM 3,375 MG in SODIUM CHLORIDE 0.9% 100 ML IV SCH ×3 (03:17→18:18)
[2021-02-20] MEDS: ENOXAPARIN 40 MG/0.4 ML SYRINGE SUBCUT SCH (03:17)
[2021-02-20] MEDS: methylPREDNISolone SOD SUC 40 MG/1 ML VIAL IV SCH ×3 (03:17→18:18)
[2021-02-20] MEDS: ALBUTEROL/IPRATROPIUM 3 ML NEB RESP TX SCH ×7 (03:36→22:52)
[2021-02-20 05:29] LABS: Basophils % 0.1 % (0.0-0.8); Hematocrit 29.9 VOL% (35.7-47.0); Hemoglobin 9.5 GM/DL (12.0-16.0); Immature Granulocytes % 0.6 %; Immature Granulocytes Absolute 0.04 #; Lymphocytes # 0.2 10*3/uL (1.4-4.0); Lymphocytes % 2.5 % (21.3-54.2); Mean Corpuscular HGB Conc 31.8 GM/DL (32-36); Mean Corpuscular Volume 81.7 FL (87-102); Mean Platelet Volume 9.3 FL (9.6-12.0); Monocytes % 1.6 % (1.7-12.7); Neutrophils % 95.2 % (38.7-73.9); Platelet Count 254 T/CUMM (130-400); Red Blood Count 3.66 MC/CUMM (3.8-5.5); Red Cell Distribution Width 16.4 % (9.3-17.3); White Blood Count 6.7 T/CUMM (4-12)
[2021-02-20 05:49] LABS: Albumin 3.1 G/DL (3.4-5.0); Bilirubin,Total 0.4 MG/DL (0.2-1.0); Calcium 8.7 MG/DL (8.5-10.1); Osmolality,Calculated 273.5 MOS/KG (273-304); Potassium 3.3 MMOL/L (3.5-5.1)
[2021-02-20 05:52] LABS: Band Neutrophils 3 % (0-10); Lymphocytes 4 % (20-55); Platelet Estimate Normal; Segmented Neutrophils 93 % (50-85); Total Cells Counted 100
[2021-02-20 05:53] LABS: Hypochromasia Slight; Microcytosis Slight
[2021-02-20] MEDS ORDERED: azaTHIOprine 50 MG TABLET PO SCH (09:00)
[2021-02-20] MEDS ORDERED: NON-FORMULARY MEDICATION (Esomeprazole Magnesium [Nexium] 40 mg Capsule,Delayed Release(Dr PO SCH (09:00)
[2021-02-20] MEDS: POTASSIUM CHLORIDE 8 MEQ CAPSULE PO SCH ×3 (09:29→21:13)
[2021-02-20] MEDS: DULoxetine 30 MG CAPSULE PO SCH ×2 (09:29→21:12)
[2021-02-20] MEDS: DOXAZOSIN 4 MG TABLET PO SCH (09:29)
[2021-02-20] MEDS: MULTIVITAMIN (CENTRUM) TABLET PO SCH (09:29)
[2021-02-20] MEDS: METHOCARBAMOL 500 MG TABLET PO SCH ×2 (09:29→16:33)
[2021-02-20] MEDS: atenoloL 25 MG TABLET PO SCH (09:29)
[2021-02-20] MEDS: oxyCODONE ER 20 MG TABLET PO SCH ×2 (09:30→21:13)
[2021-02-20] MEDS: CYANOCOBALAMIN 500 MCG TABLET PO SCH (09:30)
[2021-02-20] MEDS: ASPIRIN EC 81 MG TABLET PO SCH (09:30)
[2021-02-20] MEDS: amLODIPine 10 MG TABLET PO SCH (09:30)
[2021-02-20] MEDS: POTASSIUM CHLORIDE 20 MEQ TABLET PO PRN ×3 (09:30→18:20)
[2021-02-20] MEDS: hydrALAZINE 25 MG TABLET PO SCH ×2 (09:30→21:12)
[2021-02-20] MEDS: PANTOPRAZOLE 40 MG TABLET PO SCH (09:30)
[2021-02-20] MEDS: metOLazone 2.5 MG TABLET PO SCH (09:30)
[2021-02-20] MEDS: FUROSEMIDE 40 MG TABLET PO SCH ×2 (09:31→21:13)
[2021-02-20] MEDS: PNV CMB FERROUS FUMARATE FA PO SCH (09:31)
[2021-02-20] MEDS: [UNRECOGNIZED DRUG - OTHER] PO SCH (09:31)
[2021-02-20] MEDS: DOCUSATE SODIUM 100 MG CAPSULE PO SCH ×2 (09:31→21:13)
[2021-02-20] MEDS: ELDERBERRY PO SCH (09:31)
[2021-02-20] MEDS: CRANBERRY FRUIT PO SCH (09:31)
[2021-02-20] MEDS: SILDENAFIL 20 MG TABLET PO SCH ×2 (09:31→21:13)
[2021-02-20] MEDS: busPIRone 5 MG TABLET PO SCH ×3 (09:31→21:12)
[2021-02-20] MEDS: EZETIMIBE 10 MG TABLET PO SCH (21:12)
[2021-02-20] MEDS: SIMVASTATIN 20 MG TABLET PO SCH (21:12)
[2021-02-20] MEDS: MAGNESIUM OXIDE 400 MG TABLET PO SCH (21:13)
[2021-02-20] MEDS: CHOLECALCIFEROL 1,000 UNIT TABLET PO SCH (21:13)
[2021-02-20] MEDS: FOLIC ACID 800MCG PO SCH (21:13)
[2021-02-20] MEDS: VITAMIN E 400 UNIT CAPSULE PO SCH (21:13)
[2021-02-21] MEDS: ALBUTEROL/IPRATROPIUM 3 ML NEB RESP TX SCH ×5 (02:15→19:49)
[2021-02-21] MEDS: METHOCARBAMOL 500 MG TABLET PO SCH ×3 (02:22→18:17)
[2021-02-21] MEDS: PIPERACILLIN/TAZOBACTAM 3,375 MG in SODIUM CHLORIDE 0.9% 100 ML IV SCH ×3 (02:22→17:34)
[2021-02-21] MEDS: ENOXAPARIN 40 MG/0.4 ML SYRINGE SUBCUT SCH (02:22)
[2021-02-21] MEDS: methylPREDNISolone SOD SUC 40 MG/1 ML VIAL IV SCH ×3 (02:22→17:33)
[2021-02-21 05:29] LABS: Basophils % 0.1 % (0.0-0.8); Hemoglobin 9.7 GM/DL (12.0-16.0); Immature Granulocytes % 0.8 %; Immature Granulocytes Absolute 0.07 #; Lymphocytes # 0.5 10*3/uL (1.4-4.0); Lymphocytes % 5.7 % (21.3-54.2); Mean Corpuscular HGB Conc 33.4 GM/DL (32-36); Mean Corpuscular Volume 78.4 FL (87-102); Mean Platelet Volume 9.3 FL (9.6-12.0); Monocytes % 3.3 % (1.7-12.7); Neutrophils % 90.1 % (38.7-73.9); Platelet Count 280 T/CUMM (130-400); Red Cell Distribution Width 16.3 % (9.3-17.3); White Blood Count 9.3 T/CUMM (4-12)
[2021-02-21 05:51] LABS: Osmolality,Calculated 277.6 MOS/KG (273-304); Potassium 4.3 MMOL/L (3.5-5.1)
[2021-02-21] MEDS ORDERED: FUROSEMIDE 40 MG/4 ML VIAL IV ONE (08:40)
[2021-02-21] MEDS: MULTIVITAMIN (CENTRUM) TABLET PO SCH (09:00)
[2021-02-21] MEDS: DOCUSATE SODIUM 100 MG CAPSULE PO SCH ×2 (09:01→21:36)
[2021-02-21] MEDS: POTASSIUM CHLORIDE 8 MEQ CAPSULE PO SCH ×3 (09:01→21:37)
[2021-02-21] MEDS: ASPIRIN EC 81 MG TABLET PO SCH (09:01)
[2021-02-21] MEDS: DOXAZOSIN 4 MG TABLET PO SCH (09:01)
[2021-02-21] MEDS: DULoxetine 30 MG CAPSULE PO SCH ×2 (09:01→21:36)
[2021-02-21] MEDS: CYANOCOBALAMIN 500 MCG TABLET PO SCH (09:01)
[2021-02-21] MEDS: PANTOPRAZOLE 40 MG TABLET PO SCH (09:02)
[2021-02-21] MEDS: busPIRone 5 MG TABLET PO SCH ×3 (09:02→21:36)
[2021-02-21] MEDS: atenoloL 25 MG TABLET PO SCH (09:02)
[2021-02-21] MEDS: oxyCODONE ER 20 MG TABLET PO SCH ×2 (09:02→21:36)
[2021-02-21] MEDS: CRANBERRY FRUIT PO SCH (09:03)
[2021-02-21] MEDS: hydrALAZINE 25 MG TABLET PO SCH ×2 (09:03→21:36)
[2021-02-21] MEDS: amLODIPine 10 MG TABLET PO SCH (09:03)
[2021-02-21] MEDS: ELDERBERRY PO SCH (09:03)
[2021-02-21] MEDS: [UNRECOGNIZED DRUG - OTHER] PO SCH (09:12)
[2021-02-21] MEDS: metOLazone 2.5 MG TABLET PO SCH (09:12)
[2021-02-21] MEDS: PNV CMB FERROUS FUMARATE FA PO SCH (09:12)
[2021-02-21] MEDS: SILDENAFIL 20 MG TABLET PO SCH ×2 (10:31→21:36)
[2021-02-21] MEDS: CHOLECALCIFEROL 1,000 UNIT TABLET PO SCH (21:36)
[2021-02-21] MEDS: EZETIMIBE 10 MG TABLET PO SCH (21:36)
[2021-02-21] MEDS: VITAMIN E 400 UNIT CAPSULE PO SCH (21:36)
[2021-02-21] MEDS: MAGNESIUM OXIDE 400 MG TABLET PO SCH (21:36)
[2021-02-21] MEDS: SIMVASTATIN 20 MG TABLET PO SCH (21:37)
[2021-02-21] MEDS: FOLIC ACID 800MCG PO SCH (21:38)
[2021-02-22] MEDS: ALBUTEROL/IPRATROPIUM 3 ML NEB RESP TX SCH ×6 (00:39→19:52)
[2021-02-22] MEDS: METHOCARBAMOL 500 MG TABLET PO SCH ×3 (01:25→18:23)
[2021-02-22] MEDS: PIPERACILLIN/TAZOBACTAM 3,375 MG in SODIUM CHLORIDE 0.9% 100 ML IV SCH ×3 (03:24→18:30)
[2021-02-22] MEDS: methylPREDNISolone SOD SUC 40 MG/1 ML VIAL IV SCH ×3 (03:24→18:26)
[2021-02-22 04:50] LABS: Basophils % 0.2 % (0.0-0.8); Hematocrit 30.2 VOL% (35.7-47.0); Hemoglobin 10.1 GM/DL (12.0-16.0); Immature Granulocytes % 1.1 %; Immature Granulocytes Absolute 0.12 #; Lymphocytes # 0.8 10*3/uL (1.4-4.0); Lymphocytes % 7.9 % (21.3-54.2); Mean Corpuscular HGB Conc 33.4 GM/DL (32-36); Mean Corpuscular Volume 77.4 FL (87-102); Mean Platelet Volume 9.3 FL (9.6-12.0); Monocytes % 5.9 % (1.7-12.7); Neutrophils % 84.9 % (38.7-73.9); Platelet Count 314 T/CUMM (130-400); Red Cell Distribution Width 16.5 % (9.3-17.3); White Blood Count 10.6 T/CUMM (4-12)
[2021-02-22 05:12] LABS: Calcium 8.8 MG/DL (8.5-10.1); Osmolality,Calculated 285.2 MOS/KG (273-304); Potassium 4.7 MMOL/L (3.5-5.1)
[2021-02-22] MEDS: oxyCODONE ER 20 MG TABLET PO SCH ×2 (09:22→21:25)
[2021-02-22] MEDS: DOXAZOSIN 4 MG TABLET PO SCH (09:22)
[2021-02-22] MEDS: hydrALAZINE 25 MG TABLET PO SCH ×2 (09:23→21:25)
[2021-02-22] MEDS: POTASSIUM CHLORIDE 8 MEQ CAPSULE PO SCH ×3 (09:23→21:24)
[2021-02-22] MEDS: ASPIRIN EC 81 MG TABLET PO SCH (09:23)
[2021-02-22] MEDS: DULoxetine 30 MG CAPSULE PO SCH ×2 (09:23→21:24)
[2021-02-22] MEDS: ELDERBERRY PO SCH (09:24)
[2021-02-22] MEDS: amLODIPine 10 MG TABLET PO SCH (09:24)
[2021-02-22] MEDS: PANTOPRAZOLE 40 MG TABLET PO SCH (09:24)
[2021-02-22] MEDS: busPIRone 5 MG TABLET PO SCH ×3 (09:24→21:25)
[2021-02-22] MEDS: CRANBERRY FRUIT PO SCH (09:25)
[2021-02-22] MEDS ORDERED: FUROSEMIDE 40 MG/4 ML VIAL IV ONE (09:28)
[2021-02-22] MEDS: CYANOCOBALAMIN 500 MCG TABLET PO SCH (09:34)
[2021-02-22] MEDS: atenoloL 25 MG TABLET PO SCH (09:34)
[2021-02-22] MEDS: SILDENAFIL 20 MG TABLET PO SCH ×2 (09:34→21:25)
[2021-02-22] MEDS: ENOXAPARIN 30 MG/0.3 ML SYRINGE SUBCUT SCH (09:38)
[2021-02-22] MEDS: DOCUSATE SODIUM 100 MG CAPSULE PO SCH ×2 (09:38→21:25)
[2021-02-22] MEDS: MULTIVITAMIN (CENTRUM) TABLET PO SCH (09:38)
[2021-02-22] MEDS: metOLazone 2.5 MG TABLET PO SCH (09:38)
[2021-02-22] MEDS: PNV CMB FERROUS FUMARATE FA PO SCH (09:48)
[2021-02-22] MEDS: [UNRECOGNIZED DRUG - OTHER] PO SCH (09:48)
[2021-02-22] MEDS: oxyCODONE IR 5 MG TABLET PO PRN (15:10)
[2021-02-22] MEDS: SIMVASTATIN 20 MG TABLET PO SCH (21:24)
[2021-02-22] MEDS: MAGNESIUM OXIDE 400 MG TABLET PO SCH (21:24)
[2021-02-22] MEDS: VITAMIN E 400 UNIT CAPSULE PO SCH (21:25)
[2021-02-22] MEDS: CHOLECALCIFEROL 1,000 UNIT TABLET PO SCH (21:25)
[2021-02-22] MEDS: EZETIMIBE 10 MG TABLET PO SCH (21:26)
[2021-02-22] MEDS: FOLIC ACID 800MCG PO SCH (21:27)
[2021-02-23] MEDS: ALBUTEROL/IPRATROPIUM 3 ML NEB RESP TX SCH ×7 (00:01→22:50)
[2021-02-23] MEDS: METHOCARBAMOL 500 MG TABLET PO SCH ×3 (01:33→18:26)
[2021-02-23] MEDS: PIPERACILLIN/TAZOBACTAM 3,375 MG in SODIUM CHLORIDE 0.9% 100 ML IV SCH ×3 (04:20→18:30)
[2021-02-23] MEDS: methylPREDNISolone SOD SUC 40 MG/1 ML VIAL IV SCH ×3 (04:20→18:29)
[2021-02-23 05:51] LABS: Basophils % 0.3 % (0.0-0.8); Eosinophils % 0.1 % (0.00-10.9); Hematocrit 30.5 VOL% (35.7-47.0); Hemoglobin 10.2 GM/DL (12.0-16.0); Immature Granulocytes % 2.9 %; Immature Granulocytes Absolute 0.28 #; Lymphocytes # 1.7 10*3/uL (1.4-4.0); Lymphocytes % 17.9 % (21.3-54.2); Mean Corpuscular HGB Conc 33.4 GM/DL (32-36); Mean Corpuscular Volume 77.8 FL (87-102); Mean Platelet Volume 9.1 FL (9.6-12.0); Monocytes % 8.7 % (1.7-12.7); Neutrophils % 70.1 % (38.7-73.9); Platelet Count 350 T/CUMM (130-400); Red Blood Count 3.92 MC/CUMM (3.8-5.5); Red Cell Distribution Width 16.6 % (9.3-17.3); White Blood Count 9.5 T/CUMM (4-12)
[2021-02-23 06:09] LABS: Calcium 8.9 MG/DL (8.5-10.1); Osmolality,Calculated 286.1 MOS/KG (273-304)
[2021-02-23 06:57] LABS: Hypochromasia 1+; Microcytosis 1+; Ovalocytes Slight; Platelet Estimate Normal
[2021-02-23] MEDS ORDERED: FUROSEMIDE 40 MG/4 ML VIAL IV ONE (07:54)
[2021-02-23] MEDS: CYANOCOBALAMIN 500 MCG TABLET PO SCH (08:31)
[2021-02-23] MEDS: DULoxetine 30 MG CAPSULE PO SCH ×2 (08:31→21:25)
[2021-02-23] MEDS: POTASSIUM CHLORIDE 8 MEQ CAPSULE PO SCH ×3 (08:32→21:26)
[2021-02-23] MEDS: ASPIRIN EC 81 MG TABLET PO SCH (08:32)
[2021-02-23] MEDS: PANTOPRAZOLE 40 MG TABLET PO SCH (08:32)
[2021-02-23] MEDS: metOLazone 2.5 MG TABLET PO SCH (08:33)
[2021-02-23] MEDS: DOCUSATE SODIUM 100 MG CAPSULE PO SCH ×2 (08:33→21:26)
[2021-02-23] MEDS: oxyCODONE ER 20 MG TABLET PO SCH ×2 (08:33→21:26)
[2021-02-23] MEDS: DOXAZOSIN 4 MG TABLET PO SCH (08:33)
[2021-02-23] MEDS: busPIRone 5 MG TABLET PO SCH ×3 (08:34→21:26)
[2021-02-23] MEDS: amLODIPine 10 MG TABLET PO SCH (08:34)
[2021-02-23] MEDS: CRANBERRY FRUIT PO SCH (08:34)
[2021-02-23] MEDS: MULTIVITAMIN (CENTRUM) TABLET PO SCH (08:34)
[2021-02-23] MEDS: SILDENAFIL 20 MG TABLET PO SCH ×2 (08:34→21:27)
[2021-02-23] MEDS: atenoloL 25 MG TABLET PO SCH (08:34)
[2021-02-23] MEDS: hydrALAZINE 25 MG TABLET PO SCH ×2 (08:34→21:32)
[2021-02-23] MEDS: ELDERBERRY PO SCH (08:35)
[2021-02-23] MEDS: ENOXAPARIN 30 MG/0.3 ML SYRINGE SUBCUT SCH (08:40)
[2021-02-23] MEDS: PNV CMB FERROUS FUMARATE FA PO SCH (12:24)
[2021-02-23] MEDS: [UNRECOGNIZED DRUG - OTHER] PO SCH (12:24)
[2021-02-23] MEDS: FLUCONAZOLE 100 MG TABLET PO SCH (13:08)
[2021-02-23] MEDS: BENZONATATE 100 MG CAPSULE PO PRN (21:25)
[2021-02-23] MEDS: EZETIMIBE 10 MG TABLET PO SCH (21:26)
[2021-02-23] MEDS: MAGNESIUM OXIDE 400 MG TABLET PO SCH (21:26)
[2021-02-23] MEDS: CHOLECALCIFEROL 1,000 UNIT TABLET PO SCH (21:26)
[2021-02-23] MEDS: VITAMIN E 400 UNIT CAPSULE PO SCH (21:26)
[2021-02-23] MEDS: SIMVASTATIN 20 MG TABLET PO SCH (21:26)
[2021-02-23] MEDS: FOLIC ACID 800MCG PO SCH (21:29)
[2021-02-23] MEDS: oxyCODONE IR 5 MG TABLET PO PRN (22:35)
[2021-02-24] MEDS: ALBUTEROL/IPRATROPIUM 3 ML NEB RESP TX SCH ×6 (03:05→23:00)
[2021-02-24] MEDS: METHOCARBAMOL 500 MG TABLET PO SCH ×3 (03:59→20:56)
[2021-02-24] MEDS: PIPERACILLIN/TAZOBACTAM 3,375 MG in SODIUM CHLORIDE 0.9% 100 ML IV SCH ×3 (04:00→20:58)
[2021-02-24] MEDS: methylPREDNISolone SOD SUC 40 MG/1 ML VIAL IV SCH ×3 (04:00→20:59)
[2021-02-24 09:43] LABS: Albumin 3.2 G/DL (3.4-5.0); Bilirubin,Total 0.6 MG/DL (0.2-1.0); Calcium 9.2 MG/DL (8.5-10.1); Osmolality,Calculated 280.5 MOS/KG (273-304); Potassium 4.8 MMOL/L (3.5-5.1); Total Protein 7.4 G/DL (6.4-8.2)
[2021-02-24] MEDS: POTASSIUM CHLORIDE 8 MEQ CAPSULE PO SCH ×3 (09:58→20:54)
[2021-02-24] MEDS: FUROSEMIDE 80 MG TABLET PO SCH ×2 (09:58→18:08)
[2021-02-24] MEDS: DULoxetine 30 MG CAPSULE PO SCH ×2 (09:58→20:55)
[2021-02-24] MEDS: DOXAZOSIN 4 MG TABLET PO SCH (09:58)
[2021-02-24] MEDS: FLUCONAZOLE 100 MG TABLET PO SCH (09:58)
[2021-02-24] MEDS: MULTIVITAMIN (CENTRUM) TABLET PO SCH (09:58)
[2021-02-24] MEDS: ASPIRIN EC 81 MG TABLET PO SCH (09:58)
[2021-02-24] MEDS: SILDENAFIL 20 MG TABLET PO SCH ×2 (09:58→20:55)
[2021-02-24] MEDS: oxyCODONE ER 20 MG TABLET PO SCH ×2 (09:58→20:59)
[2021-02-24] MEDS: hydrALAZINE 25 MG TABLET PO SCH ×2 (09:58→20:56)
[2021-02-24] MEDS: CYANOCOBALAMIN 500 MCG TABLET PO SCH (09:58)
[2021-02-24] MEDS: atenoloL 25 MG TABLET PO SCH (09:59)
[2021-02-24] MEDS: metOLazone 2.5 MG TABLET PO SCH (09:59)
[2021-02-24] MEDS: amLODIPine 10 MG TABLET PO SCH (09:59)
[2021-02-24] MEDS: PANTOPRAZOLE 40 MG TABLET PO SCH (09:59)
[2021-02-24] MEDS: busPIRone 5 MG TABLET PO SCH ×3 (09:59→20:55)
[2021-02-24] MEDS: DOCUSATE SODIUM 100 MG CAPSULE PO SCH ×2 (09:59→20:55)
[2021-02-24] MEDS: CRANBERRY FRUIT PO SCH (10:00)
[2021-02-24] MEDS: ENOXAPARIN 30 MG/0.3 ML SYRINGE SUBCUT SCH (10:01)
[2021-02-24] MEDS: ELDERBERRY PO SCH (10:01)
[2021-02-24 10:03] LABS: Basophils # 0.1 10*3/uL (0.0-0.2); Basophils % 0.5 % (0.0-0.8); Eosinophils % 0.1 % (0.00-10.9); Hematocrit 36.7 VOL% (35.7-47.0); Hemoglobin 11.5 GM/DL (12.0-16.0); Immature Granulocytes % 6.7 %; Immature Granulocytes Absolute 0.74 #; Lymphocytes # 1.2 10*3/uL (1.4-4.0); Lymphocytes % 10.6 % (21.3-54.2); Mean Corpuscular HGB Conc 31.3 GM/DL (32-36); Mean Corpuscular Volume 80.7 FL (87-102); Monocytes % 5.8 % (1.7-12.7); Neutrophils % 76.3 % (38.7-73.9); Platelet Count 469 T/CUMM (130-400); Red Blood Count 4.55 MC/CUMM (3.8-5.5); Red Cell Distribution Width 17.1 % (9.3-17.3); White Blood Count 11.1 T/CUMM (4-12)
[2021-02-24] MEDS: [UNRECOGNIZED DRUG - OTHER] PO SCH (10:05)
[2021-02-24] MEDS: PNV CMB FERROUS FUMARATE FA PO SCH (10:05)
[2021-02-24 10:21] LABS: Band Neutrophils 1 % (0-10); Hypochromasia 1+; Lymphocytes 12 % (20-55); Microcytosis 1+; Platelet Estimate Adequate; Segmented Neutrophils 83 % (50-85); Total Cells Counted 100
[2021-02-24] MEDS ORDERED: FUROSEMIDE 80 MG TABLET PO SCH (16:00)
[2021-02-24] MEDS: EZETIMIBE 10 MG TABLET PO SCH (20:55)
[2021-02-24] MEDS: SIMVASTATIN 20 MG TABLET PO SCH (20:55)
[2021-02-24] MEDS: CHOLECALCIFEROL 1,000 UNIT TABLET PO SCH (20:55)
[2021-02-24] MEDS: MAGNESIUM OXIDE 400 MG TABLET PO SCH (20:55)
[2021-02-24] MEDS: VITAMIN E 400 UNIT CAPSULE PO SCH (20:55)
[2021-02-24] MEDS: FOLIC ACID 800MCG PO SCH (21:00)
[2021-02-24] MEDS: BENZONATATE 100 MG CAPSULE PO PRN (22:34)
[2021-02-25] MEDS: oxyCODONE IR 5 MG TABLET PO PRN (01:05)
[2021-02-25] MEDS: ALBUTEROL/IPRATROPIUM 3 ML NEB RESP TX SCH ×6 (03:00→23:00)
[2021-02-25] MEDS: PIPERACILLIN/TAZOBACTAM 3,375 MG in SODIUM CHLORIDE 0.9% 100 ML IV SCH ×3 (04:58→21:51)
[2021-02-25] MEDS: METHOCARBAMOL 500 MG TABLET PO SCH ×3 (05:01→21:50)
[2021-02-25] MEDS: oxyCODONE ER 20 MG TABLET PO SCH ×2 (09:33→21:51)
[2021-02-25] MEDS: amLODIPine 10 MG TABLET PO SCH (09:33)
[2021-02-25] MEDS: MULTIVITAMIN (CENTRUM) TABLET PO SCH (09:33)
[2021-02-25] MEDS: CYANOCOBALAMIN 500 MCG TABLET PO SCH (09:33)
[2021-02-25] MEDS: ASPIRIN EC 81 MG TABLET PO SCH (09:34)
[2021-02-25] MEDS: DULoxetine 30 MG CAPSULE PO SCH ×2 (09:34→21:51)
[2021-02-25] MEDS: PANTOPRAZOLE 40 MG TABLET PO SCH (09:34)
[2021-02-25] MEDS: busPIRone 5 MG TABLET PO SCH ×3 (09:34→21:51)
[2021-02-25] MEDS: hydrALAZINE 25 MG TABLET PO SCH ×2 (09:34→21:51)
[2021-02-25] MEDS: metOLazone 2.5 MG TABLET PO SCH (09:34)
[2021-02-25] MEDS: DOXAZOSIN 4 MG TABLET PO SCH (09:35)
[2021-02-25] MEDS: FLUCONAZOLE 100 MG TABLET PO SCH (09:35)
[2021-02-25] MEDS: atenoloL 25 MG TABLET PO SCH (09:35)
[2021-02-25] MEDS: DOCUSATE SODIUM 100 MG CAPSULE PO SCH ×2 (09:35→21:50)
[2021-02-25] MEDS: CRANBERRY FRUIT PO SCH (09:36)
[2021-02-25] MEDS: FUROSEMIDE 80 MG TABLET PO SCH ×2 (09:36→17:44)
[2021-02-25] MEDS: ENOXAPARIN 30 MG/0.3 ML SYRINGE SUBCUT SCH (09:36)
[2021-02-25] MEDS: ELDERBERRY PO SCH (09:36)
[2021-02-25] MEDS: PNV CMB FERROUS FUMARATE FA PO SCH (09:37)
[2021-02-25] MEDS: [UNRECOGNIZED DRUG - OTHER] PO SCH (09:37)
[2021-02-25] MEDS: methylPREDNISolone SOD SUC 40 MG/1 ML VIAL IV SCH ×2 (09:38→21:59)
[2021-02-25] MEDS: POTASSIUM CHLORIDE 8 MEQ CAPSULE PO SCH ×3 (09:42→21:50)
[2021-02-25] MEDS: SILDENAFIL 20 MG TABLET PO SCH ×2 (12:33→21:51)
[2021-02-25] MEDS: VITAMIN E 400 UNIT CAPSULE PO SCH (21:51)
[2021-02-25] MEDS: EZETIMIBE 10 MG TABLET PO SCH (21:51)
[2021-02-25] MEDS: MAGNESIUM OXIDE 400 MG TABLET PO SCH (21:51)
[2021-02-25] MEDS: SIMVASTATIN 20 MG TABLET PO SCH (21:51)
[2021-02-25] MEDS: CHOLECALCIFEROL 1,000 UNIT TABLET PO SCH (21:51)
[2021-02-25] MEDS: FOLIC ACID 800MCG PO SCH (21:52)
[2021-02-26] MEDS: ALBUTEROL/IPRATROPIUM 3 ML NEB RESP TX SCH ×2 (03:00→06:56)
[2021-02-26] MEDS: PIPERACILLIN/TAZOBACTAM 3,375 MG in SODIUM CHLORIDE 0.9% 100 ML IV SCH (04:13)
[2021-02-26] MEDS: METHOCARBAMOL 500 MG TABLET PO SCH (04:13)
[2021-02-26 06:15] LABS: Basophils # 0.1 10*3/uL (0.0-0.2); Basophils % 0.7 % (0.0-0.8); Eosinophils % 0.1 % (0.00-10.9); Hematocrit 37.1 VOL% (35.7-47.0); Hemoglobin 12.1 GM/DL (12.0-16.0); Immature Granulocytes % 6.4 %; Immature Granulocytes Absolute 0.78 #; Lymphocytes % 8.4 % (21.3-54.2); Mean Corpuscular HGB Conc 32.6 GM/DL (32-36); Mean Corpuscular Volume 78.8 FL (87-102); Monocytes % 5.6 % (1.7-12.7); Neutrophils % 78.8 % (38.7-73.9); Platelet Count 464 T/CUMM (130-400); Red Blood Count 4.71 MC/CUMM (3.8-5.5); Red Cell Distribution Width 17.1 % (9.3-17.3); White Blood Count 12.2 T/CUMM (4-12)
[2021-02-26 06:43] LABS: Albumin 3.1 G/DL (3.4-5.0); Bilirubin,Total 0.6 MG/DL (0.2-1.0); Calcium 9.1 MG/DL (8.5-10.1); Osmolality,Calculated 291.5 MOS/KG (273-304); Potassium 4.8 MMOL/L (3.5-5.1); Total Protein 7.3 G/DL (6.4-8.2)
[2021-02-26 06:44] LABS: Hypochromasia Slight; Lymphocytes 5 % (20-55); Microcytosis Slight; Platelet Estimate Adequate; Segmented Neutrophils 90 % (50-85); Total Cells Counted 100
[2021-02-26] MEDS: DOXAZOSIN 4 MG TABLET PO SCH (09:52)
[2021-02-26] MEDS: methylPREDNISolone SOD SUC 40 MG/1 ML VIAL IV SCH (09:52)
[2021-02-26] MEDS: hydrALAZINE 25 MG TABLET PO SCH (09:52)
[2021-02-26] MEDS: DOCUSATE SODIUM 100 MG CAPSULE PO SCH (09:52)
[2021-02-26] MEDS: busPIRone 5 MG TABLET PO SCH (09:53)
[2021-02-26] MEDS: FLUCONAZOLE 100 MG TABLET PO SCH (09:53)
[2021-02-26] MEDS: amLODIPine 10 MG TABLET PO SCH (09:53)
[2021-02-26] MEDS: atenoloL 25 MG TABLET PO SCH (09:53)
[2021-02-26] MEDS: DULoxetine 30 MG CAPSULE PO SCH (09:53)
[2021-02-26] MEDS: FUROSEMIDE 80 MG TABLET PO SCH (09:54)
[2021-02-26] MEDS: MULTIVITAMIN (CENTRUM) TABLET PO SCH (09:54)
[2021-02-26] MEDS: CYANOCOBALAMIN 500 MCG TABLET PO SCH (09:54)
[2021-02-26] MEDS: ASPIRIN EC 81 MG TABLET PO SCH (09:54)
[2021-02-26] MEDS: ELDERBERRY PO SCH (09:55)
[2021-02-26] MEDS: CRANBERRY FRUIT PO SCH (09:55)
[2021-02-26] MEDS: ENOXAPARIN 30 MG/0.3 ML SYRINGE SUBCUT SCH (10:10)
[2021-02-26] MEDS: POTASSIUM CHLORIDE 8 MEQ CAPSULE PO SCH (10:10)
[2021-02-26] MEDS: metOLazone 2.5 MG TABLET PO SCH (10:11)
[2021-02-26] MEDS: SILDENAFIL 20 MG TABLET PO SCH (10:11)
[2021-02-26] MEDS: oxyCODONE ER 20 MG TABLET PO SCH (10:11)
[2021-02-26] MEDS: PANTOPRAZOLE 40 MG TABLET PO SCH (10:11)
[2021-02-26] MEDS: PNV CMB FERROUS FUMARATE FA PO SCH (10:13)
[2021-02-26] MEDS: [UNRECOGNIZED DRUG - OTHER] PO SCH (10:13)
[2021-02-26 10:22] VITALS: BP 120/58
[2021-02-27] MEDS ORDERED: predniSONE 20 MG TABLET PO SCH (09:00)
== END 2021-02-26 11:15 | disposition home or self-care (01) | DRG 193 ==
LOC: N.ED 21:20 → N.EDINP 02-20 00:04 → N.4E 02-20 00:56
PROVIDERS: ADMIT Internal Medicine; ATTEND Internal Medicine

== ENCOUNTER 2021-05-23 16:21 | Inpatient (IN) ==
[2021-05-23] MEDS ORDERED: FUROSEMIDE 40 MG/4 ML VIAL IV STA (16:38)
[2021-05-23] MEDS ORDERED: methylPREDNISolone SOD SUC 40 MG/1 ML VIAL IV STA (16:40)
[2021-05-23] MEDS ORDERED: ALBUTEROL 2.5 MG/3 ML NEB RESP TX STA (16:43)
[2021-05-23] MEDS ORDERED: ALBUTEROL NEB SOLN 5 MG/ML 20 ML/BOTTLE CONT NEB SCH (17:00)
[2021-05-23] MEDS ORDERED: FUROSEMIDE 100 MG/10 ML VIAL IV STA (17:00)
[2021-05-23] MEDS ORDERED: cefTRIAXone 1,000 MG in SODIUM CHLORIDE 0.9% 100 ML IV STA (17:01)
[2021-05-23] MEDS ORDERED: AZITHROMYCIN INJ 500 MG in SODIUM CHLORIDE 0.9% 250 ML IV STA (17:01)
[2021-05-23] MEDS ORDERED: MORPHINE 2 MG/1 ML SYRINGE IV STA (17:02)
[2021-05-23 17:06] LABS: Basophils % 0.3 % (0.0-0.8); Eosinophils # 0.2 10*3/uL (0.0-0.87); Eosinophils % 1.9 % (0.00-10.9); Hematocrit 28.5 VOL% (35.7-47.0); Hemoglobin 8.4 GM/DL (12.0-16.0); Immature Granulocytes % 0.8 %; Immature Granulocytes Absolute 0.07 #; Lymphocytes % 10.3 % (21.3-54.2); Mean Corpuscular HGB Conc 29.5 GM/DL (32-36); Mean Corpuscular Volume 80.5 FL (87-102); Mean Platelet Volume 9.5 FL (9.6-12.0); Monocytes % 8.5 % (1.7-12.7); Neutrophils % 78.2 % (38.7-73.9); Platelet Count 343 T/CUMM (130-400); Red Blood Count 3.54 MC/CUMM (3.8-5.5); Red Cell Distribution Width 18.2 % (9.3-17.3); White Blood Count 9.3 T/CUMM (4-12)
[2021-05-23 17:21] LABS: PT Patient Result 10.9 SECS (10.5-12.0)
[2021-05-23 17:21] LABS: ABG Base Excess 0.3 MMOL/L (-2.5-2.5); ABG HCO3 24.2 MMOL/L (20-26); ABG Oxygen Saturation 65.4 % (95-100); ABG PCO2 52.8 MM HG (35-48); ABG PH 7.316 (7.35-7.45); ABG TCO2 25.4 MMOL/L (23-27)
[2021-05-23 17:25] LABS: Alanine Aminotransferase 21 U/L (13-56); Albumin 3.1 G/DL (3.4-5.0); Alkaline Phosphatase 95 U/L (45-117); Aspartate Amino Transferase 33 U/L (0-37); Bilirubin,Total < 0.39 MG/DL (0.20-1.00); Blood Urea Nitrogen 40 MG/DL (7-18); Carbon Dioxide 27 MMOL/L (21-32); Estimated Glom Filtration Rate 26 ML/MIN; Glucose 82 MG/DL (74-106); Osmolality,Calculated 274.4 MOS/KG (273-304); Potassium 5.1 MMOL/L (3.5-5.1); Sodium 133 MMOL/L (136-145); Total Protein 6.8 G/DL (6.4-8.2)
[2021-05-23 17:29] LABS: ABG PO2 36.8 MM HG (80-95)
[2021-05-23] MEDS ORDERED: ROCURONIUM 100 MG/10 ML VIAL IV STA (17:43)
[2021-05-23] MEDS ORDERED: ETOMIDATE 20 MG/10 ML VIAL IV STA (17:43)
[2021-05-23] MEDS ORDERED: ETOMIDATE 20 MG/10 ML VIAL IV ONE (17:50)
[2021-05-23] MEDS ORDERED: ROCURONIUM 100 MG/10 ML VIAL IV ONE (17:50)
[2021-05-23] MEDS ORDERED: ACETAMINOPHEN 325 MG TABLET ONE (18:27)
[2021-05-23 18:28] LABS: Bacteria,Urine Occasional /HPF (Few); Bilirubin,Urine Negative (Negative); Blood, Urine Small mg/dL (Negative); Glucose,Urine (UA) Negative (Negative); Ketones,Urine Negative (Negative); Mucus,Urine Occasional /LPF (Occasional); Nitrite,Urine Negative (Negative); Protein,Urine Negative; RBC,Urine 1 /HPF (0-4); Urine Appearance CLEAR (Clear); Urine Color Yellow (Yellow); Urine Specific Gravity 1.006 (1.001-1.035); Urine Urobilinogen < 2.0 EU/DL (0.2-1.0)
[2021-05-23] MEDS: ACETAMINOPHEN 325 MG TABLET PO PRN (18:30)
[2021-05-23] MEDS ORDERED: ALBUTEROL 2.5 MG/3 ML NEB RESP TX PRN (18:45)
[2021-05-23] MEDS ORDERED: ENOXAPARIN 30 MG/0.3 ML SYRINGE SUBCUT SCH (19:00)
[2021-05-23] MEDS: MEROPENEM 500 MG in SODIUM CHLORIDE 0.9% 100 ML IV SCH (20:06)
[2021-05-23] MEDS: PANTOPRAZOLE 40 MG VIAL IV SCH (20:07)
[2021-05-23] MEDS: methylPREDNISolone SOD SUC 40 MG/1 ML VIAL IV SCH (20:07)
[2021-05-23 20:15] LABS: ABG Base Excess -1.7 MMOL/L (-2.5-2.5); ABG Oxygen Saturation 99.6 % (95-100); ABG PH 7.264 (7.35-7.45); ABG TCO2 24.3 MMOL/L (23-27)
[2021-05-24] MEDS: INSULIN REGULAR 100 UNIT/ML SUBCUT SCH ×2 (00:04→06:08)
[2021-05-24 03:51] LABS: ABG Base Excess -1.3 MMOL/L (-2.5-2.5); ABG HCO3 22.5 MMOL/L (20-26); ABG Oxygen Saturation 99.3 % (95-100); ABG PCO2 33.9 MM HG (35-48); ABG PO2 282.2 MM HG (80-95); ABG TCO2 23.5 MMOL/L (23-27)
[2021-05-24] MEDS: methylPREDNISolone SOD SUC 40 MG/1 ML VIAL IV SCH ×3 (04:14→19:58)
[2021-05-24 06:08] LABS: Basophils % 0.1 % (0.0-0.8); Hematocrit 27.1 VOL% (35.7-47.0); Hemoglobin 8.2 GM/DL (12.0-16.0); Immature Granulocytes % 0.5 %; Immature Granulocytes Absolute 0.05 #; Lymphocytes # 0.4 10*3/uL (1.4-4.0); Lymphocytes % 3.4 % (21.3-54.2); Mean Corpuscular HGB Conc 30.3 GM/DL (32-36); Mean Corpuscular Volume 77.9 FL (87-102); Mean Platelet Volume 9.4 FL (9.6-12.0); Monocytes % 3.3 % (1.7-12.7); Neutrophils % 92.7 % (38.7-73.9); Platelet Count 325 T/CUMM (130-400); Red Blood Count 3.48 MC/CUMM (3.8-5.5); Red Cell Distribution Width 18.1 % (9.3-17.3); White Blood Count 10.7 T/CUMM (4-12)
[2021-05-24] MEDS: MEROPENEM 500 MG in SODIUM CHLORIDE 0.9% 100 ML IV SCH ×2 (06:11→18:48)
[2021-05-24 06:35] LABS: Albumin 2.5 G/DL (3.4-5.0); Bilirubin,Total 0.5 MG/DL (0.20-1.00); Calcium 8.4 MG/DL (8.5-10.1); Osmolality,Calculated 285.5 MOS/KG (273-304); Potassium 4.1 MMOL/L (3.5-5.1); Total Protein 6.5 G/DL (6.4-8.2)
[2021-05-24 06:55] LABS: Band Neutrophils 8 % (0-10); Lymphocytes 1 % (20-55); Platelet Estimate Normal; Segmented Neutrophils 87 % (50-85); Total Cells Counted 100
[2021-05-24 06:56] LABS: Hypochromasia Slight; Microcytosis 1+
[2021-05-24] MEDS ORDERED: GLUCAGON 1 MG VIAL IM PRN (09:31)
[2021-05-24] MEDS ORDERED: DEXTROSE 50% 25 GM/50 ML VIAL IV PRN (09:31)
[2021-05-24] MEDS ORDERED: fentaNYL INJ 1,250 MCG in SODIUM CHLORIDE 0.9% 225 ML IV PRN (09:31)
[2021-05-24] MEDS: INSULIN LISPRO 100 UNIT/ML SUBCUT SCH ×5 (12:56→23:59)
[2021-05-24] MEDS: INSULIN GLARGINE 100 UNIT/ML SUBCUT SCH (12:57)
[2021-05-24] MEDS ORDERED: GABAPENTIN 600 MG TABLET PO PRN (13:16)
[2021-05-24] MEDS: FUROSEMIDE 40 MG TABLET PO SCH (18:47)
[2021-05-24] MEDS: PANTOPRAZOLE 40 MG VIAL IV SCH (19:02)
[2021-05-24] MEDS: DULoxetine 30 MG CAPSULE PO SCH (20:30)
[2021-05-24] MEDS: SIMVASTATIN 20 MG TABLET PO SCH (20:31)
[2021-05-24] MEDS: APIXABAN 5 MG TABLET PO SCH (20:31)
[2021-05-24] MEDS: SILDENAFIL 20 MG TABLET PO SCH (20:34)
[2021-05-24] MEDS: EZETIMIBE 10 MG TABLET PO SCH (20:34)
[2021-05-24] MEDS ORDERED: FUROSEMIDE 80 MG TABLET PO SCH (21:00)
[2021-05-25] MEDS: fentaNYL INJ 2,500 MCG in SODIUM CHLORIDE 0.9% 75 ML IV PRN ×3 (01:28→10:00)
[2021-05-25] MEDS: methylPREDNISolone SOD SUC 40 MG/1 ML VIAL IV SCH ×3 (03:14→22:13)
[2021-05-25 03:28] LABS: ABG HCO3 27.2 MMOL/L (20-26); ABG Oxygen Saturation 98.7 % (95-100); ABG PH 7.476 (7.35-7.45); ABG TCO2 24.7 MMOL/L (23-27); Pt O2 Delivery Device Ventilator
[2021-05-25] MEDS: INSULIN LISPRO 100 UNIT/ML SUBCUT SCH ×5 (04:43→22:08)
[2021-05-25] MEDS: MEROPENEM 500 MG in SODIUM CHLORIDE 0.9% 100 ML IV SCH ×2 (06:23→18:22)
[2021-05-25 06:49] LABS: Basophils % 0.1 % (0.0-0.8); Hematocrit 26.5 VOL% (35.7-47.0); Hemoglobin 8.3 GM/DL (12.0-16.0); Immature Granulocytes % 0.8 %; Immature Granulocytes Absolute 0.08 #; Lymphocytes # 0.4 10*3/uL (1.4-4.0); Mean Corpuscular HGB Conc 31.3 GM/DL (32-36); Mean Corpuscular Volume 75.7 FL (87-102); Mean Platelet Volume 9.5 FL (9.6-12.0); Monocytes % 2.4 % (1.7-12.7); Neutrophils % 92.7 % (38.7-73.9); Platelet Count 357 T/CUMM (130-400); Red Cell Distribution Width 18.6 % (9.3-17.3); White Blood Count 10.5 T/CUMM (4-12)
[2021-05-25 07:04] LABS: Calcium 8.4 MG/DL (8.5-10.1); Potassium 4.9 MMOL/L (3.5-5.1)
[2021-05-25] MEDS ORDERED: fentaNYL INJ 1,250 MCG in SODIUM CHLORIDE 0.9% 225 ML IV PRN (07:05)
[2021-05-25 07:07] LABS: Risk Ratio 3.61; VLDL Cholesterol 39.6 MG/DL
[2021-05-25 07:09] LABS: % Iron Saturation 5.1 % (18-50); Ferritin 113.4 ng/ml (8-252)
[2021-05-25 07:14] LABS: Band Neutrophils 1 % (0-10); Hypochromasia 1+; Lymphocytes 2 % (20-55); Microcytosis 1+; Ovalocytes Slight; Platelet Estimate Adequate; Segmented Neutrophils 94 % (50-85); Total Cells Counted 100
[2021-05-25] MEDS: FUROSEMIDE 40 MG TABLET PO SCH (07:57)
[2021-05-25] MEDS: INSULIN GLARGINE 100 UNIT/ML SUBCUT SCH ×2 (08:02→09:24)
[2021-05-25] MEDS: ASPIRIN CHEW 81 MG TABLET PO SCH (08:03)
[2021-05-25] MEDS: APIXABAN 5 MG TABLET PO SCH ×2 (08:03→22:00)
[2021-05-25] MEDS: SILDENAFIL 20 MG TABLET PO SCH ×2 (08:03→22:00)
[2021-05-25] MEDS: DULoxetine 30 MG CAPSULE PO SCH ×2 (08:03→22:00)
[2021-05-25] MEDS: azaTHIOprine 50 MG TABLET PO SCH (08:05)
[2021-05-25] MEDS ORDERED: ASPIRIN EC 81 MG TABLET PO SCH (09:00)
[2021-05-25] MEDS ORDERED: metOLazone 2.5 MG TABLET PO SCH (09:00)
[2021-05-25] MEDS ORDERED: oxyCODONE IR 5 MG TABLET PO PRN (10:17)
[2021-05-25] MEDS ORDERED: LORazepam 2 MG/1 ML VIAL ONE (10:38)
[2021-05-25] MEDS: LORazepam 2 MG/1 ML VIAL IV PRN (10:46)
[2021-05-25] MEDS ORDERED: RACEPINEPHRINE 0.5 ML NEB RESP TX ONE ×2 (10:54→10:56)
[2021-05-25] MEDS ORDERED: methylPREDNISolone SOD SUC 125 MG/2 ML VIAL ONE (10:56)
[2021-05-25] MEDS ORDERED: methylPREDNISolone SOD SUC 40 MG/1 ML VIAL IV ONE (10:59)
[2021-05-25] MEDS: MORPHINE 2 MG/1 ML SYRINGE IV PRN ×3 (11:43→20:00)
[2021-05-25] MEDS: FUROSEMIDE 80 MG TABLET PO SCH (15:39)
[2021-05-25] MEDS: PANTOPRAZOLE 40 MG VIAL IV SCH (18:21)
[2021-05-25] MEDS: EZETIMIBE 10 MG TABLET PO SCH (22:00)
[2021-05-25] MEDS: SIMVASTATIN 20 MG TABLET PO SCH (22:10)
[2021-05-26] MEDS: LORazepam 2 MG/1 ML VIAL IV PRN (01:35)
[2021-05-26 04:16] LABS: ABG HCO3 27.1 MMOL/L (20-26); ABG Oxygen Saturation 94.1 % (95-100); ABG PCO2 50.7 MM HG (35-48); ABG PH 7.366 (7.35-7.45)
[2021-05-26] MEDS: INSULIN LISPRO 100 UNIT/ML SUBCUT SCH ×6 (05:19→19:55)
[2021-05-26] MEDS: MORPHINE 2 MG/1 ML SYRINGE IV PRN ×2 (05:57→08:12)
[2021-05-26] MEDS: MEROPENEM 500 MG in SODIUM CHLORIDE 0.9% 100 ML IV SCH ×2 (06:20→19:44)
[2021-05-26 07:34] LABS: Basophils % 0.1 % (0.0-0.8); Hematocrit 27.3 VOL% (35.7-47.0); Hemoglobin 8.5 GM/DL (12.0-16.0); Immature Granulocytes % 0.9 %; Immature Granulocytes Absolute 0.11 #; Lymphocytes # 0.9 10*3/uL (1.4-4.0); Lymphocytes % 7.1 % (21.3-54.2); Mean Corpuscular HGB Conc 31.1 GM/DL (32-36); Mean Corpuscular Volume 76.7 FL (87-102); Mean Platelet Volume 9.3 FL (9.6-12.0); Monocytes % 3.8 % (1.7-12.7); Neutrophils % 88.1 % (38.7-73.9); Platelet Count 420 T/CUMM (130-400); Red Blood Count 3.56 MC/CUMM (3.8-5.5); Red Cell Distribution Width 18.6 % (9.3-17.3); White Blood Count 12.7 T/CUMM (4-12)
[2021-05-26 08:01] LABS: Calcium 8.5 MG/DL (8.5-10.1); Osmolality,Calculated 301.8 MOS/KG (273-304); Potassium 4.4 MMOL/L (3.5-5.1)
[2021-05-26] MEDS: APIXABAN 5 MG TABLET PO SCH ×2 (08:08→21:47)
[2021-05-26] MEDS: DULoxetine 30 MG CAPSULE PO SCH ×2 (08:08→21:47)
[2021-05-26] MEDS: ASPIRIN CHEW 81 MG TABLET PO SCH (08:08)
[2021-05-26] MEDS: azaTHIOprine 50 MG TABLET PO SCH (08:11)
[2021-05-26] MEDS: SILDENAFIL 20 MG TABLET PO SCH ×2 (08:12→21:47)
[2021-05-26] MEDS: FUROSEMIDE 80 MG TABLET PO SCH ×2 (08:15→16:42)
[2021-05-26] MEDS: INSULIN GLARGINE 100 UNIT/ML SUBCUT SCH (09:08)
[2021-05-26] MEDS ORDERED: LINACLOTIDE 145 MCG CAPSULE PO PRN (10:11)
[2021-05-26] MEDS: methylPREDNISolone SOD SUC 40 MG/1 ML VIAL IV SCH ×2 (10:19→23:41)
[2021-05-26] MEDS: DOXAZOSIN 4 MG TABLET PO SCH (10:19)
[2021-05-26] MEDS: amLODIPine 5 MG TABLET PO SCH (10:19)
[2021-05-26] MEDS: oxyCODONE ER 10 MG TABLET PO SCH ×2 (10:19→22:02)
[2021-05-26] MEDS: PANTOPRAZOLE 40 MG VIAL IV SCH (19:45)
[2021-05-26] MEDS: SIMVASTATIN 20 MG TABLET PO SCH (21:47)
[2021-05-26] MEDS: EZETIMIBE 10 MG TABLET PO SCH (21:47)
[2021-05-26] MEDS: hydrALAZINE 25 MG TABLET PO SCH (21:47)
[2021-05-27] MEDS: INSULIN LISPRO 100 UNIT/ML SUBCUT SCH ×3 (00:40→11:43)
[2021-05-27] MEDS: ACETAMINOPHEN 325 MG TABLET PO PRN (03:31)
[2021-05-27] MEDS: MORPHINE 2 MG/1 ML SYRINGE IV PRN (04:04)
[2021-05-27 05:18] LABS: ABG Base Excess 11.5 MMOL/L (-2.5-2.5); ABG HCO3 36.7 MMOL/L (20-26); ABG Oxygen Saturation 92.4 % (95-100); ABG PCO2 52.2 MM HG (35-48); ABG PH 7.465 (7.35-7.45); ABG PO2 68.9 MM HG (80-95); ABG TCO2 38.3 MMOL/L (23-27); Allen Test Positive; Pt O2 Delivery Device Room Air
[2021-05-27] MEDS: MEROPENEM 500 MG in SODIUM CHLORIDE 0.9% 100 ML IV SCH ×2 (07:17→22:21)
[2021-05-27] MEDS ORDERED: ALBUTEROL/IPRATROPIUM 3 ML NEB RESP TX PRN (08:28)
[2021-05-27 08:55] LABS: Basophils % 0.1 % (0.0-0.8); Eosinophils % 0.1 % (0.00-10.9); Hematocrit 31.8 VOL% (35.7-47.0); Hemoglobin 9.7 GM/DL (12.0-16.0); Immature Granulocytes % 1.6 %; Immature Granulocytes Absolute 0.16 #; Lymphocytes # 1.2 10*3/uL (1.4-4.0); Lymphocytes % 12.5 % (21.3-54.2); Mean Corpuscular HGB Conc 30.5 GM/DL (32-36); Mean Platelet Volume 9.3 FL (9.6-12.0); Monocytes % 6.7 % (1.7-12.7); Platelet Count 426 T/CUMM (130-400); Red Blood Count 4.13 MC/CUMM (3.8-5.5); Red Cell Distribution Width 18.4 % (9.3-17.3); White Blood Count 9.9 T/CUMM (4-12)
[2021-05-27] MEDS ORDERED: INSULIN LISPRO 100 UNIT/ML SUBCUT ONE (09:00)
[2021-05-27 09:25] LABS: Calcium 8.9 MG/DL (8.5-10.1); Osmolality,Calculated 297.1 MOS/KG (273-304); Potassium 4.5 MMOL/L (3.5-5.1)
[2021-05-27] MEDS: methylPREDNISolone SOD SUC 40 MG/1 ML VIAL IV SCH ×2 (11:10→22:45)
[2021-05-27] MEDS: atenoloL 25 MG TABLET PO SCH (11:11)
[2021-05-27] MEDS: SILDENAFIL 20 MG TABLET PO SCH ×2 (11:11→20:59)
[2021-05-27] MEDS: DULoxetine 30 MG CAPSULE PO SCH ×2 (11:11→21:00)
[2021-05-27] MEDS: DOXAZOSIN 4 MG TABLET PO SCH (11:11)
[2021-05-27] MEDS: PANTOPRAZOLE 40 MG TABLET PO SCH ×2 (11:12→20:59)
[2021-05-27] MEDS: azaTHIOprine 50 MG TABLET PO SCH (11:12)
[2021-05-27] MEDS: FUROSEMIDE 80 MG TABLET PO SCH ×2 (11:12→15:00)
[2021-05-27] MEDS: hydrALAZINE 25 MG TABLET PO SCH ×2 (11:12→20:59)
[2021-05-27] MEDS: APIXABAN 5 MG TABLET PO SCH ×2 (11:12→20:59)
[2021-05-27] MEDS: ASPIRIN CHEW 81 MG TABLET PO SCH (11:13)
[2021-05-27] MEDS: oxyCODONE ER 10 MG TABLET PO SCH ×2 (11:28→21:00)
[2021-05-27] MEDS: amLODIPine 5 MG TABLET PO SCH (11:29)
[2021-05-27] MEDS: INSULIN GLARGINE 100 UNIT/ML SUBCUT SCH (11:43)
[2021-05-27] MEDS: EZETIMIBE 10 MG TABLET PO SCH (20:59)
[2021-05-27] MEDS: MAGNESIUM OXIDE 400 MG TABLET PO SCH (20:59)
[2021-05-27] MEDS: FOLIC ACID 1 MG TABLET PO SCH (20:59)
[2021-05-27] MEDS: SIMVASTATIN 20 MG TABLET PO SCH (21:00)
[2021-05-28 04:22] LABS: Allen Test Positive
[2021-05-28 04:24] LABS: ABG HCO3 35.8 MMOL/L (20-26); ABG Oxygen Saturation 97.3 % (95-100); ABG PCO2 57.3 MM HG (35-48); ABG PH 7.435 (7.35-7.45); ABG PO2 96.7 MM HG (80-95); ABG TCO2 34.8 MMOL/L (23-27)
[2021-05-28 05:08] LABS: Basophils % 0.1 % (0.0-0.8); Hemoglobin 10.5 GM/DL (12.0-16.0); Immature Granulocytes % 2.1 %; Immature Granulocytes Absolute 0.16 #; Lymphocytes # 0.9 10*3/uL (1.4-4.0); Lymphocytes % 11.1 % (21.3-54.2); Mean Corpuscular HGB Conc 30.9 GM/DL (32-36); Mean Corpuscular Volume 76.1 FL (87-102); Mean Platelet Volume 9.1 FL (9.6-12.0); Monocytes % 4.7 % (1.7-12.7); Platelet Count 433 T/CUMM (130-400); Red Blood Count 4.47 MC/CUMM (3.8-5.5); Red Cell Distribution Width 18.2 % (9.3-17.3); White Blood Count 7.6 T/CUMM (4-12)
[2021-05-28 05:22] LABS: Calcium 8.8 MG/DL (8.5-10.1); Osmolality,Calculated 290.1 MOS/KG (273-304); Potassium 4.4 MMOL/L (3.5-5.1)
[2021-05-28] MEDS: MEROPENEM 500 MG in SODIUM CHLORIDE 0.9% 100 ML IV SCH ×2 (06:33→18:49)
[2021-05-28] MEDS: atenoloL 25 MG TABLET PO SCH (08:50)
[2021-05-28] MEDS: APIXABAN 5 MG TABLET PO SCH ×2 (08:50→21:08)
[2021-05-28] MEDS: DULoxetine 30 MG CAPSULE PO SCH ×2 (08:50→21:08)
[2021-05-28] MEDS: ASPIRIN CHEW 81 MG TABLET PO SCH (08:50)
[2021-05-28] MEDS: oxyCODONE ER 10 MG TABLET PO SCH (08:51)
[2021-05-28] MEDS: SILDENAFIL 20 MG TABLET PO SCH ×2 (08:51→21:08)
[2021-05-28] MEDS: amLODIPine 5 MG TABLET PO SCH (08:51)
[2021-05-28] MEDS: FUROSEMIDE 80 MG TABLET PO SCH ×2 (08:51→15:32)
[2021-05-28] MEDS: hydrALAZINE 25 MG TABLET PO SCH ×2 (08:51→21:08)
[2021-05-28] MEDS: PANTOPRAZOLE 40 MG TABLET PO SCH ×2 (08:51→21:08)
[2021-05-28] MEDS: DOXAZOSIN 4 MG TABLET PO SCH (09:24)
[2021-05-28] MEDS: azaTHIOprine 50 MG TABLET PO SCH (09:24)
[2021-05-28] MEDS: methylPREDNISolone SOD SUC 40 MG/1 ML VIAL IV SCH ×2 (09:32→21:49)
[2021-05-28] MEDS ORDERED: oxyCODONE IR 5 MG TABLET PO PRN (15:18)
[2021-05-28] MEDS: EZETIMIBE 10 MG TABLET PO SCH (21:08)
[2021-05-28] MEDS: oxyCODONE ER 20 MG TABLET PO SCH (21:08)
[2021-05-28] MEDS: MAGNESIUM OXIDE 400 MG TABLET PO SCH (21:08)
[2021-05-28] MEDS: SIMVASTATIN 20 MG TABLET PO SCH (21:08)
[2021-05-28] MEDS: FOLIC ACID 1 MG TABLET PO SCH (21:08)
[2021-05-29 05:43] LABS: ABG Base Excess 11.2 MMOL/L (-2.5-2.5); ABG HCO3 36.9 MMOL/L (20-26); ABG Oxygen Saturation 97.1 % (95-100); ABG PH 7.452 (7.35-7.45); ABG PO2 100.5 MM HG (80-95); ABG TCO2 38.5 MMOL/L (23-27)
[2021-05-29 05:48] LABS: Basophils % 0.2 % (0.0-0.8); Eosinophils % 0.1 % (0.00-10.9); Hematocrit 32.6 VOL% (35.7-47.0); Hemoglobin 10.4 GM/DL (12.0-16.0); Immature Granulocytes % 1.8 %; Immature Granulocytes Absolute 0.18 #; Lymphocytes # 1.2 10*3/uL (1.4-4.0); Lymphocytes % 12.7 % (21.3-54.2); Mean Corpuscular HGB Conc 31.9 GM/DL (32-36); Mean Corpuscular Volume 75.8 FL (87-102); Mean Platelet Volume 9.2 FL (9.6-12.0); Monocytes % 5.5 % (1.7-12.7); Neutrophils % 79.7 % (38.7-73.9); Platelet Count 434 T/CUMM (130-400); Red Cell Distribution Width 17.8 % (9.3-17.3); White Blood Count 9.7 T/CUMM (4-12)
[2021-05-29 06:14] LABS: Calcium 8.9 MG/DL (8.5-10.1); Osmolality,Calculated 294.7 MOS/KG (273-304); Potassium 4.3 MMOL/L (3.5-5.1)
[2021-05-29] MEDS: DOXAZOSIN 4 MG TABLET PO SCH (09:57)
[2021-05-29] MEDS: SILDENAFIL 20 MG TABLET PO SCH ×2 (09:57→21:25)
[2021-05-29] MEDS: atenoloL 25 MG TABLET PO SCH (09:57)
[2021-05-29] MEDS: amLODIPine 5 MG TABLET PO SCH (09:57)
[2021-05-29] MEDS: FUROSEMIDE 80 MG TABLET PO SCH ×2 (09:58→16:45)
[2021-05-29] MEDS: oxyCODONE ER 20 MG TABLET PO SCH ×2 (09:58→21:24)
[2021-05-29] MEDS: hydrALAZINE 25 MG TABLET PO SCH ×2 (09:59→21:24)
[2021-05-29] MEDS: ASPIRIN CHEW 81 MG TABLET PO SCH (09:59)
[2021-05-29] MEDS: APIXABAN 5 MG TABLET PO SCH ×2 (09:59→21:25)
[2021-05-29] MEDS: DULoxetine 30 MG CAPSULE PO SCH ×2 (09:59→21:24)
[2021-05-29] MEDS: azaTHIOprine 50 MG TABLET PO SCH (09:59)
[2021-05-29] MEDS: PANTOPRAZOLE 40 MG TABLET PO SCH ×2 (09:59→21:25)
[2021-05-29] MEDS: methylPREDNISolone SOD SUC 40 MG/1 ML VIAL IV SCH (10:06)
[2021-05-29] MEDS: MEROPENEM 500 MG in SODIUM CHLORIDE 0.9% 100 ML IV SCH ×2 (10:10→21:28)
[2021-05-29] MEDS: EZETIMIBE 10 MG TABLET PO SCH (21:24)
[2021-05-29] MEDS: SIMVASTATIN 20 MG TABLET PO SCH (21:24)
[2021-05-29] MEDS: MAGNESIUM OXIDE 400 MG TABLET PO SCH (21:24)
[2021-05-29] MEDS: FOLIC ACID 1 MG TABLET PO SCH (21:25)
[2021-05-30 06:00] LABS: Basophils % 0.1 % (0.0-0.8); Eosinophils # 0.3 10*3/uL (0.0-0.87); Eosinophils % 3.1 % (0.00-10.9); Hematocrit 34.5 VOL% (35.7-47.0); Hemoglobin 10.4 GM/DL (12.0-16.0); Immature Granulocytes % 2.2 %; Immature Granulocytes Absolute 0.24 #; Lymphocytes # 2.8 10*3/uL (1.4-4.0); Lymphocytes % 25.8 % (21.3-54.2); Mean Corpuscular HGB Conc 30.1 GM/DL (32-36); Mean Corpuscular Volume 77.9 FL (87-102); Mean Platelet Volume 9.1 FL (9.6-12.0); Monocytes % 9.3 % (1.7-12.7); Neutrophils % 59.5 % (38.7-73.9); Platelet Count 409 T/CUMM (130-400); Red Blood Count 4.43 MC/CUMM (3.8-5.5); Red Cell Distribution Width 17.9 % (9.3-17.3); White Blood Count 10.9 T/CUMM (4-12)
[2021-05-30 06:10] LABS: Calcium 8.6 MG/DL (8.5-10.1); Osmolality,Calculated 294.7 MOS/KG (273-304); Potassium 3.5 MMOL/L (3.5-5.1)
[2021-05-30] MEDS: FUROSEMIDE 80 MG TABLET PO SCH (08:30)
[2021-05-30] MEDS: oxyCODONE ER 20 MG TABLET PO SCH (08:30)
[2021-05-30] MEDS: hydrALAZINE 25 MG TABLET PO SCH (08:30)
[2021-05-30] MEDS: DOXAZOSIN 4 MG TABLET PO SCH (08:30)
[2021-05-30] MEDS: APIXABAN 5 MG TABLET PO SCH (08:30)
[2021-05-30] MEDS: atenoloL 25 MG TABLET PO SCH (08:31)
[2021-05-30] MEDS: PANTOPRAZOLE 40 MG TABLET PO SCH (08:31)
[2021-05-30] MEDS: ASPIRIN CHEW 81 MG TABLET PO SCH (08:31)
[2021-05-30] MEDS: amLODIPine 5 MG TABLET PO SCH (08:31)
[2021-05-30] MEDS: azaTHIOprine 50 MG TABLET PO SCH (08:31)
[2021-05-30] MEDS: SILDENAFIL 20 MG TABLET PO SCH (08:34)
[2021-05-30] MEDS: methylPREDNISolone SOD SUC 40 MG/1 ML VIAL IV SCH (08:36)
[2021-05-30] MEDS: DULoxetine 30 MG CAPSULE PO SCH (08:38)
[2021-05-30] MEDS ORDERED: predniSONE 20 MG TABLET PO SCH (09:00)
[2021-05-30 11:45] VITALS: BP 130/60
[2021-06-02] MEDS ORDERED: predniSONE 10 MG TABLET PO SCH (09:00)
== END 2021-05-30 11:39 | disposition home health service (06) | DRG 208 ==
LOC: N.ED 16:21 → N.EDINP 18:45 → SUATTDRO 18:45 → N.ICU 19:14 → N.CVR 05-24 18:11 → N.TELES 05-26 10:51
PROVIDERS: ADMIT Internal Medicine; ATTEND Internal Medicine

== ENCOUNTER 2021-06-25 20:43 | Inpatient (IN) ==
[2021-06-25 21:38] LABS: Bilirubin,Urine Negative (Negative); Blood, Urine Negative (Negative); Glucose,Urine (UA) Negative (Negative); Ketones,Urine Negative (Negative); Nitrite,Urine Negative (Negative); Protein,Urine Negative; RBC,Urine 2 /HPF (0-4); Squamous Epithelial Cell,Urine Occasional /HPF (0-10); Urine Appearance CLOUDY (Clear); Urine Color Amber (Yellow); Urine Specific Gravity 1.012 (1.001-1.035); Urine Urobilinogen < 2.0 EU/DL (0.2-1.0)
[2021-06-25 21:43] LABS: Basophils % 0.6 % (0.0-0.8); Eosinophils # 0.2 10*3/uL (0.0-0.87); Eosinophils % 2.7 % (0.00-10.9); Hematocrit 28.6 VOL% (35.7-47.0); Hemoglobin 8.7 GM/DL (12.0-16.0); Immature Granulocytes % 0.6 %; Immature Granulocytes Absolute 0.04 #; Lymphocytes # 1.4 10*3/uL (1.4-4.0); Lymphocytes % 23.1 % (21.3-54.2); Mean Corpuscular HGB Conc 30.4 GM/DL (32-36); Mean Corpuscular Volume 77.1 FL (87-102); Mean Platelet Volume 8.9 FL (9.6-12.0); Monocytes % 13.2 % (1.7-12.7); Neutrophils % 59.8 % (38.7-73.9); Platelet Count 463 T/CUMM (130-400); Red Blood Count 3.71 MC/CUMM (3.8-5.5); Red Cell Distribution Width 19.6 % (9.3-17.3); White Blood Count 6.2 T/CUMM (4-12)
[2021-06-25 21:56] LABS: Alanine Aminotransferase 13 U/L (13-56); Alkaline Phosphatase 102 U/L (45-117); Aspartate Amino Transferase 14 U/L (0-37); Bilirubin,Total < 0.39 MG/DL (0.20-1.00); Blood Urea Nitrogen 31 MG/DL (7-18); Calcium 8.3 MG/DL (8.5-10.1); Carbon Dioxide 30 MMOL/L (21-32); Estimated Glom Filtration Rate 27 ML/MIN; Glucose 62 MG/DL (74-106); Osmolality,Calculated 274.1 MOS/KG (273-304); Potassium 4.1 MMOL/L (3.5-5.1); Sodium 135 MMOL/L (136-145); Total Protein 6.6 G/DL (6.4-8.2)
[2021-06-26] MEDS ORDERED: ONDANSETRON 4 MG/2 ML VIAL IV PRN (00:04)
[2021-06-26] MEDS ORDERED: ACETAMINOPHEN 325 MG TABLET PO PRN (00:04)
[2021-06-26] MEDS ORDERED: MORPHINE 2 MG/1 ML SYRINGE IV PRN (00:04)
[2021-06-26] MEDS ORDERED: DEXTROSE 50% 25 GM/50 ML VIAL IV PRN (00:04)
[2021-06-26] MEDS ORDERED: GLUCAGON 1 MG VIAL IM PRN (00:04)
[2021-06-26] MEDS: SODIUM CHLORIDE 0.9% 1,000 ML IV SCH ×3 (01:23→15:56)
[2021-06-26] MEDS: ALBUTEROL/IPRATROPIUM 3 ML NEB RESP TX SCH ×4 (04:32→19:30)
[2021-06-26] MEDS ORDERED: INSULIN LISPRO 100 UNIT/ML SUBCUT SCH (06:45)
[2021-06-26] MEDS ORDERED: INSULIN REGULAR 100 UNIT/ML SUBCUT SCH (07:30)
[2021-06-26] MEDS ORDERED: ALBUTEROL/IPRATROPIUM 3 ML NEB RESP TX PRN ×2 (08:10→08:42)
[2021-06-26] MEDS ORDERED: LINACLOTIDE 145 MCG CAPSULE PO PRN (08:42)
[2021-06-26] MEDS ORDERED: CRANBERRY C BACILLUS COAG PO SCH (09:00)
[2021-06-26] MEDS ORDERED: NON-FORMULARY MEDICATION (Elderberry Fruit And Flower 460-115 mg Capsule) PO SCH (09:00)
[2021-06-26] MEDS: PANTOPRAZOLE 40 MG TABLET PO SCH ×3 (09:26→16:39)
[2021-06-26] MEDS: DOCUSATE SODIUM 100 MG CAPSULE PO SCH ×2 (09:26→20:38)
[2021-06-26] MEDS: AZITHROMYCIN 250 MG TABLET PO SCH (09:26)
[2021-06-26] MEDS: cefTRIAXone 1,000 MG in SODIUM CHLORIDE 0.9% 100 ML IV SCH (09:28)
[2021-06-26] MEDS: CYANOCOBALAMIN 500 MCG TABLET PO SCH (09:57)
[2021-06-26] MEDS: SILDENAFIL 20 MG TABLET PO SCH ×2 (09:57→20:38)
[2021-06-26] MEDS: ASPIRIN EC 81 MG TABLET PO SCH (09:57)
[2021-06-26] MEDS: hydrALAZINE 25 MG TABLET PO SCH ×2 (09:57→20:38)
[2021-06-26] MEDS: DULoxetine 30 MG CAPSULE PO SCH ×2 (09:57→20:38)
[2021-06-26] MEDS: oxyCODONE ER 20 MG TABLET PO SCH ×2 (09:58→20:39)
[2021-06-26] MEDS: azaTHIOprine 50 MG TABLET PO SCH (09:58)
[2021-06-26] MEDS: predniSONE 20 MG TABLET PO SCH (09:58)
[2021-06-26] MEDS: FUROSEMIDE 80 MG TABLET PO SCH ×2 (09:58→16:39)
[2021-06-26] MEDS: amLODIPine 5 MG TABLET PO SCH (09:59)
[2021-06-26] MEDS: APIXABAN 5 MG TABLET PO SCH ×2 (09:59→20:38)
[2021-06-26] MEDS: atenoloL 25 MG TABLET PO SCH (09:59)
[2021-06-26] MEDS: POTASSIUM CHLORIDE 10 MEQ TABLET PO SCH ×3 (12:31→20:39)
[2021-06-26] MEDS: DOXAZOSIN 4 MG TABLET PO SCH (20:38)
[2021-06-26] MEDS: FOLIC ACID 1 MG TABLET PO SCH (20:38)
[2021-06-26] MEDS: CHOLECALCIFEROL 1,000 UNIT TABLET PO SCH (20:38)
[2021-06-26] MEDS: EZETIMIBE 10 MG TABLET PO SCH (20:38)
[2021-06-26] MEDS: SIMVASTATIN 20 MG TABLET PO SCH (20:38)
[2021-06-26] MEDS: VITAMIN E 400 UNIT CAPSULE PO SCH (20:39)
[2021-06-26] MEDS: MAGNESIUM OXIDE 400 MG TABLET PO SCH (20:39)
[2021-06-27] MEDS: ALBUTEROL/IPRATROPIUM 3 ML NEB RESP TX SCH ×4 (01:17→19:54)
[2021-06-27 05:10] LABS: Basophils % 0.4 % (0.0-0.8); Eosinophils % 0.4 % (0.00-10.9); Hematocrit 27.1 VOL% (35.7-47.0); Hemoglobin 8.2 GM/DL (12.0-16.0); Immature Granulocytes % 0.8 %; Immature Granulocytes Absolute 0.04 #; Lymphocytes # 0.8 10*3/uL (1.4-4.0); Lymphocytes % 14.4 % (21.3-54.2); Mean Corpuscular HGB Conc 30.3 GM/DL (32-36); Mean Corpuscular Volume 76.3 FL (87-102); Mean Platelet Volume 8.8 FL (9.6-12.0); Monocytes % 9.5 % (1.7-12.7); Neutrophils % 74.5 % (38.7-73.9); Platelet Count 434 T/CUMM (130-400); Red Blood Count 3.55 MC/CUMM (3.8-5.5); Red Cell Distribution Width 19.2 % (9.3-17.3); White Blood Count 5.3 T/CUMM (4-12)
[2021-06-27 05:32] LABS: Calcium 8.6 MG/DL (8.5-10.1); Osmolality,Calculated 286.1 MOS/KG (273-304); Potassium 4.2 MMOL/L (3.5-5.1)
[2021-06-27] MEDS: SODIUM CHLORIDE 0.9% 1,000 ML IV SCH ×3 (05:58→15:19)
[2021-06-27] MEDS: DULoxetine 30 MG CAPSULE PO SCH ×2 (08:59→20:54)
[2021-06-27] MEDS: POTASSIUM CHLORIDE 10 MEQ TABLET PO SCH ×3 (08:59→21:00)
[2021-06-27] MEDS: DOCUSATE SODIUM 100 MG CAPSULE PO SCH ×2 (09:00→20:55)
[2021-06-27] MEDS: AZITHROMYCIN 250 MG TABLET PO SCH (09:00)
[2021-06-27] MEDS: oxyCODONE ER 20 MG TABLET PO SCH ×2 (09:00→20:55)
[2021-06-27] MEDS: APIXABAN 5 MG TABLET PO SCH ×2 (09:00→20:53)
[2021-06-27] MEDS: azaTHIOprine 50 MG TABLET PO SCH (09:00)
[2021-06-27] MEDS: atenoloL 25 MG TABLET PO SCH (09:00)
[2021-06-27] MEDS: SILDENAFIL 20 MG TABLET PO SCH ×2 (09:00→20:54)
[2021-06-27] MEDS: CYANOCOBALAMIN 500 MCG TABLET PO SCH (09:00)
[2021-06-27] MEDS: ASPIRIN EC 81 MG TABLET PO SCH (09:00)
[2021-06-27] MEDS: hydrALAZINE 25 MG TABLET PO SCH ×2 (09:00→20:55)
[2021-06-27] MEDS: PANTOPRAZOLE 40 MG TABLET PO SCH ×3 (09:01→15:35)
[2021-06-27] MEDS: amLODIPine 5 MG TABLET PO SCH (09:01)
[2021-06-27] MEDS: FUROSEMIDE 80 MG TABLET PO SCH ×2 (09:01→15:35)
[2021-06-27] MEDS: predniSONE 20 MG TABLET PO SCH (09:01)
[2021-06-27] MEDS: cefTRIAXone 1,000 MG in SODIUM CHLORIDE 0.9% 100 ML IV SCH (09:01)
[2021-06-27] MEDS: CHOLECALCIFEROL 1,000 UNIT TABLET PO SCH (20:54)
[2021-06-27] MEDS: EZETIMIBE 10 MG TABLET PO SCH (20:54)
[2021-06-27] MEDS: DOXAZOSIN 4 MG TABLET PO SCH (20:54)
[2021-06-27] MEDS: SIMVASTATIN 20 MG TABLET PO SCH (20:55)
[2021-06-27] MEDS: VITAMIN E 400 UNIT CAPSULE PO SCH (20:55)
[2021-06-27] MEDS: FOLIC ACID 1 MG TABLET PO SCH (20:55)
[2021-06-27] MEDS: MAGNESIUM OXIDE 400 MG TABLET PO SCH (21:00)
[2021-06-28] MEDS: ALBUTEROL/IPRATROPIUM 3 ML NEB RESP TX SCH ×4 (00:47→19:07)
[2021-06-28] MEDS: SODIUM CHLORIDE 0.9% 1,000 ML IV SCH ×3 (01:21→16:04)
[2021-06-28 06:57] LABS: Basophils % 0.6 % (0.0-0.8); Eosinophils # 0.1 10*3/uL (0.0-0.87); Hematocrit 25.6 VOL% (35.7-47.0); Hemoglobin 7.7 GM/DL (12.0-16.0); Immature Granulocytes % 0.6 %; Immature Granulocytes Absolute 0.03 #; Lymphocytes # 1.1 10*3/uL (1.4-4.0); Lymphocytes % 21.1 % (21.3-54.2); Mean Corpuscular HGB Conc 30.1 GM/DL (32-36); Mean Corpuscular Volume 77.6 FL (87-102); Mean Platelet Volume 9.3 FL (9.6-12.0); Monocytes % 9.9 % (1.7-12.7); Neutrophils % 66.8 % (38.7-73.9); Platelet Count 470 T/CUMM (130-400); Red Cell Distribution Width 19.8 % (9.3-17.3); White Blood Count 5.3 T/CUMM (4-12)
[2021-06-28 07:12] LABS: Calcium 9.1 MG/DL (8.5-10.1); Osmolality,Calculated 278.8 MOS/KG (273-304); Potassium 4.1 MMOL/L (3.5-5.1)
[2021-06-28] MEDS: PANTOPRAZOLE 40 MG TABLET PO SCH ×3 (10:06→17:08)
[2021-06-28] MEDS: hydrALAZINE 25 MG TABLET PO SCH ×2 (10:06→21:46)
[2021-06-28] MEDS: FUROSEMIDE 80 MG TABLET PO SCH ×2 (10:06→17:06)
[2021-06-28] MEDS: ASPIRIN EC 81 MG TABLET PO SCH (10:07)
[2021-06-28] MEDS: azaTHIOprine 50 MG TABLET PO SCH (10:08)
[2021-06-28] MEDS: DOCUSATE SODIUM 100 MG CAPSULE PO SCH ×2 (10:08→21:43)
[2021-06-28] MEDS: APIXABAN 5 MG TABLET PO SCH ×2 (10:08→21:43)
[2021-06-28] MEDS: DULoxetine 30 MG CAPSULE PO SCH ×2 (10:08→21:42)
[2021-06-28] MEDS: amLODIPine 5 MG TABLET PO SCH (10:09)
[2021-06-28] MEDS: POTASSIUM CHLORIDE 10 MEQ TABLET PO SCH ×3 (10:09→21:43)
[2021-06-28] MEDS: predniSONE 20 MG TABLET PO SCH (10:10)
[2021-06-28] MEDS: oxyCODONE ER 20 MG TABLET PO SCH ×2 (10:10→21:45)
[2021-06-28] MEDS: SILDENAFIL 20 MG TABLET PO SCH ×2 (10:10→21:44)
[2021-06-28] MEDS: atenoloL 25 MG TABLET PO SCH (10:13)
[2021-06-28] MEDS: AZITHROMYCIN 250 MG TABLET PO SCH (10:13)
[2021-06-28] MEDS: CYANOCOBALAMIN 500 MCG TABLET PO SCH (10:13)
[2021-06-28] MEDS: cefTRIAXone 1,000 MG in SODIUM CHLORIDE 0.9% 100 ML IV SCH (10:17)
[2021-06-28] MEDS: oxyCODONE IR 5 MG TABLET PO PRN (19:57)
[2021-06-28] MEDS: DOXAZOSIN 4 MG TABLET PO SCH (21:42)
[2021-06-28] MEDS: EZETIMIBE 10 MG TABLET PO SCH (21:43)
[2021-06-28] MEDS: VITAMIN E 400 UNIT CAPSULE PO SCH (21:43)
[2021-06-28] MEDS: CHOLECALCIFEROL 1,000 UNIT TABLET PO SCH (21:43)
[2021-06-28] MEDS: FOLIC ACID 1 MG TABLET PO SCH (21:43)
[2021-06-28] MEDS: MAGNESIUM OXIDE 400 MG TABLET PO SCH (21:43)
[2021-06-28] MEDS: SIMVASTATIN 20 MG TABLET PO SCH (21:45)
[2021-06-29] MEDS: ALBUTEROL/IPRATROPIUM 3 ML NEB RESP TX SCH ×5 (01:13→19:40)
[2021-06-29] MEDS: SODIUM CHLORIDE 0.9% 1,000 ML IV SCH ×3 (02:03→19:28)
[2021-06-29 05:40] LABS: Basophils # 0.1 10*3/uL (0.0-0.2); Basophils % 0.9 % (0.0-0.8); Eosinophils % 0.6 % (0.00-10.9); Hemoglobin 8.7 GM/DL (12.0-16.0); Immature Granulocytes % 0.6 %; Immature Granulocytes Absolute 0.03 #; Lymphocytes # 1.1 10*3/uL (1.4-4.0); Lymphocytes % 20.5 % (21.3-54.2); Mean Corpuscular HGB Conc 31.1 GM/DL (32-36); Mean Corpuscular Volume 77.3 FL (87-102); Monocytes % 9.1 % (1.7-12.7); Neutrophils % 68.3 % (38.7-73.9); Platelet Count 503 T/CUMM (130-400); Red Blood Count 3.62 MC/CUMM (3.8-5.5); Red Cell Distribution Width 19.7 % (9.3-17.3); White Blood Count 5.4 T/CUMM (4-12)
[2021-06-29 06:05] LABS: Calcium 8.8 MG/DL (8.5-10.1); Osmolality,Calculated 284.5 MOS/KG (273-304); Potassium 4.1 MMOL/L (3.5-5.1)
[2021-06-29] MEDS: cefTRIAXone 1,000 MG in SODIUM CHLORIDE 0.9% 100 ML IV SCH (09:26)
[2021-06-29] MEDS: ASPIRIN EC 81 MG TABLET PO SCH (09:27)
[2021-06-29] MEDS: AZITHROMYCIN 250 MG TABLET PO SCH (09:27)
[2021-06-29] MEDS: POTASSIUM CHLORIDE 10 MEQ TABLET PO SCH ×3 (09:27→22:07)
[2021-06-29] MEDS: oxyCODONE ER 20 MG TABLET PO SCH ×2 (09:27→22:07)
[2021-06-29] MEDS: CYANOCOBALAMIN 500 MCG TABLET PO SCH (09:28)
[2021-06-29] MEDS: APIXABAN 5 MG TABLET PO SCH ×2 (09:28→22:08)
[2021-06-29] MEDS: DULoxetine 30 MG CAPSULE PO SCH ×2 (09:28→22:07)
[2021-06-29] MEDS: SILDENAFIL 20 MG TABLET PO SCH ×2 (09:28→22:09)
[2021-06-29] MEDS: amLODIPine 5 MG TABLET PO SCH (09:28)
[2021-06-29] MEDS: FUROSEMIDE 80 MG TABLET PO SCH ×2 (09:28→15:28)
[2021-06-29] MEDS: azaTHIOprine 50 MG TABLET PO SCH (09:29)
[2021-06-29] MEDS: PANTOPRAZOLE 40 MG TABLET PO SCH ×4 (09:29→15:46)
[2021-06-29] MEDS: hydrALAZINE 25 MG TABLET PO SCH ×2 (09:30→22:09)
[2021-06-29] MEDS: DOCUSATE SODIUM 100 MG CAPSULE PO SCH ×2 (09:30→22:07)
[2021-06-29] MEDS: atenoloL 25 MG TABLET PO SCH (09:30)
[2021-06-29] MEDS: predniSONE 20 MG TABLET PO SCH (09:30)
[2021-06-29] MEDS: oxyCODONE IR 5 MG TABLET PO PRN (17:16)
[2021-06-29] MEDS: CHOLECALCIFEROL 1,000 UNIT TABLET PO SCH (22:07)
[2021-06-29] MEDS: FOLIC ACID 1 MG TABLET PO SCH (22:08)
[2021-06-29] MEDS: DOXAZOSIN 4 MG TABLET PO SCH (22:08)
[2021-06-29] MEDS: MAGNESIUM OXIDE 400 MG TABLET PO SCH (22:08)
[2021-06-29] MEDS: SIMVASTATIN 20 MG TABLET PO SCH (22:08)
[2021-06-29] MEDS: VITAMIN E 400 UNIT CAPSULE PO SCH (22:08)
[2021-06-29] MEDS: EZETIMIBE 10 MG TABLET PO SCH (22:08)
[2021-06-30] MEDS: SODIUM CHLORIDE 0.9% 1,000 ML IV SCH ×3 (00:52→15:13)
[2021-06-30] MEDS: ALBUTEROL/IPRATROPIUM 3 ML NEB RESP TX SCH ×4 (00:56→19:43)
[2021-06-30] MEDS: APIXABAN 5 MG TABLET PO SCH ×2 (08:26→20:52)
[2021-06-30] MEDS: azaTHIOprine 50 MG TABLET PO SCH (08:27)
[2021-06-30] MEDS: amLODIPine 5 MG TABLET PO SCH (08:27)
[2021-06-30] MEDS: DULoxetine 30 MG CAPSULE PO SCH ×2 (08:27→20:51)
[2021-06-30] MEDS: AZITHROMYCIN 250 MG TABLET PO SCH (08:27)
[2021-06-30] MEDS: PANTOPRAZOLE 40 MG TABLET PO SCH ×3 (08:27→16:13)
[2021-06-30] MEDS: ASPIRIN EC 81 MG TABLET PO SCH (08:27)
[2021-06-30] MEDS: POTASSIUM CHLORIDE 10 MEQ TABLET PO SCH ×3 (08:27→20:53)
[2021-06-30] MEDS: hydrALAZINE 25 MG TABLET PO SCH ×2 (08:27→20:52)
[2021-06-30] MEDS: predniSONE 20 MG TABLET PO SCH (08:28)
[2021-06-30] MEDS: SILDENAFIL 20 MG TABLET PO SCH ×2 (08:28→20:52)
[2021-06-30] MEDS: oxyCODONE ER 20 MG TABLET PO SCH ×2 (08:28→20:52)
[2021-06-30] MEDS: FUROSEMIDE 80 MG TABLET PO SCH ×2 (08:28→16:13)
[2021-06-30] MEDS: DOCUSATE SODIUM 100 MG CAPSULE PO SCH ×2 (08:28→20:52)
[2021-06-30] MEDS: CYANOCOBALAMIN 500 MCG TABLET PO SCH (08:28)
[2021-06-30] MEDS: atenoloL 25 MG TABLET PO SCH (08:28)
[2021-06-30] MEDS: cefTRIAXone 1,000 MG in SODIUM CHLORIDE 0.9% 100 ML IV SCH (08:29)
[2021-06-30] MEDS: predniSONE 10 MG TABLET PO SCH (09:00)
[2021-06-30] MEDS: oxyCODONE IR 5 MG TABLET PO PRN (09:57)
[2021-06-30] MEDS: CHOLECALCIFEROL 1,000 UNIT TABLET PO SCH (20:51)
[2021-06-30] MEDS: DOXAZOSIN 4 MG TABLET PO SCH (20:52)
[2021-06-30] MEDS: VITAMIN E 400 UNIT CAPSULE PO SCH (20:52)
[2021-06-30] MEDS: SIMVASTATIN 20 MG TABLET PO SCH (20:53)
[2021-06-30] MEDS: EZETIMIBE 10 MG TABLET PO SCH (20:53)
[2021-06-30] MEDS: FOLIC ACID 1 MG TABLET PO SCH (20:53)
[2021-06-30] MEDS: MAGNESIUM OXIDE 400 MG TABLET PO SCH (20:53)
[2021-07-01] MEDS: ALBUTEROL/IPRATROPIUM 3 ML NEB RESP TX SCH ×2 (00:52→07:40)
[2021-07-01] MEDS: SODIUM CHLORIDE 0.9% 1,000 ML IV SCH ×2 (01:46→08:00)
[2021-07-01 06:18] LABS: Basophils # 0.1 10*3/uL (0.0-0.2); Basophils % 0.8 % (0.0-0.8); Eosinophils # 0.1 10*3/uL (0.0-0.87); Eosinophils % 1.1 % (0.00-10.9); Hematocrit 29.7 VOL% (35.7-47.0); Immature Granulocytes % 0.5 %; Immature Granulocytes Absolute 0.04 #; Lymphocytes % 23.7 % (21.3-54.2); Mean Corpuscular HGB Conc 30.3 GM/DL (32-36); Mean Corpuscular Volume 76.3 FL (87-102); Mean Platelet Volume 8.7 FL (9.6-12.0); Monocytes % 9.3 % (1.7-12.7); Neutrophils % 64.6 % (38.7-73.9); Platelet Count 505 T/CUMM (130-400); Red Blood Count 3.89 MC/CUMM (3.8-5.5); Red Cell Distribution Width 19.7 % (9.3-17.3); White Blood Count 8.3 T/CUMM (4-12)
[2021-07-01 06:35] LABS: Calcium 8.9 MG/DL (8.5-10.1); Osmolality,Calculated 281.7 MOS/KG (273-304); Potassium 3.4 MMOL/L (3.5-5.1)
[2021-07-01 08:08] VITALS: BP 150/60
[2021-07-01] MEDS: AZITHROMYCIN 250 MG TABLET PO SCH (09:18)
[2021-07-01] MEDS: POTASSIUM CHLORIDE 10 MEQ TABLET PO SCH (09:18)
[2021-07-01] MEDS: DOCUSATE SODIUM 100 MG CAPSULE PO SCH (09:18)
[2021-07-01] MEDS: predniSONE 10 MG TABLET PO SCH (09:19)
[2021-07-01] MEDS: ASPIRIN EC 81 MG TABLET PO SCH (09:19)
[2021-07-01] MEDS: SILDENAFIL 20 MG TABLET PO SCH (09:19)
[2021-07-01] MEDS: DULoxetine 30 MG CAPSULE PO SCH (09:19)
[2021-07-01] MEDS: FUROSEMIDE 80 MG TABLET PO SCH (09:19)
[2021-07-01] MEDS: APIXABAN 5 MG TABLET PO SCH (09:19)
[2021-07-01] MEDS: atenoloL 25 MG TABLET PO SCH (09:19)
[2021-07-01] MEDS: amLODIPine 5 MG TABLET PO SCH (09:19)
[2021-07-01] MEDS: hydrALAZINE 25 MG TABLET PO SCH (09:19)
[2021-07-01] MEDS: azaTHIOprine 50 MG TABLET PO SCH (09:19)
[2021-07-01] MEDS: CYANOCOBALAMIN 500 MCG TABLET PO SCH (09:20)
[2021-07-01] MEDS: PANTOPRAZOLE 40 MG TABLET PO SCH (09:20)
[2021-07-01] MEDS: cefTRIAXone 1,000 MG in SODIUM CHLORIDE 0.9% 100 ML IV SCH (09:27)
[2021-07-01] MEDS: oxyCODONE ER 20 MG TABLET PO SCH (09:35)
== END 2021-07-01 11:00 | disposition home health service (06) | DRG 190 ==
LOC: N.ED 20:43 → N.EDINP 23:12 → N.3E 23:38
PROVIDERS: ADMIT Internal Medicine; ATTEND Internal Medicine

== ENCOUNTER 2021-07-16 10:52 | Inpatient (IN) ==
[2021-07-16 11:35] LABS: Basophils % 0.3 % (0.0-0.8); Eosinophils # 0.2 10*3/uL (0.0-0.87); Eosinophils % 1.5 % (0.00-10.9); Hematocrit 32.3 VOL% (35.7-47.0); Immature Granulocytes % 0.3 %; Immature Granulocytes Absolute 0.04 #; Lymphocytes # 0.8 10*3/uL (1.4-4.0); Lymphocytes % 6.9 % (21.3-54.2); Mean Corpuscular Volume 76.5 FL (87-102); Mean Platelet Volume 8.8 FL (9.6-12.0); Monocytes % 3.2 % (1.7-12.7); Neutrophils % 87.8 % (38.7-73.9); Platelet Count 314 T/CUMM (130-400); Red Blood Count 4.22 MC/CUMM (3.8-5.5); Red Cell Distribution Width 21.5 % (9.3-17.3); White Blood Count 11.7 T/CUMM (4-12)
[2021-07-16 11:56] LABS: Albumin 3.3 G/DL (3.4-5.0); Bilirubin,Total 0.4 MG/DL (0.20-1.00); Calcium 9.1 MG/DL (8.5-10.1); Osmolality,Calculated 273.8 MOS/KG (273-304); Potassium 3.6 MMOL/L (3.5-5.1); Total Protein 7.5 G/DL (6.4-8.2)
[2021-07-16] MEDS ORDERED: cefTRIAXone 1,000 MG in SODIUM CHLORIDE 0.9% 100 ML IV STA (13:00)
[2021-07-16] MEDS ORDERED: AZITHROMYCIN 250 MG TABLET PO STA (13:00)
[2021-07-16] MEDS ORDERED: ONDANSETRON 4 MG/2 ML VIAL IV PRN (13:13)
[2021-07-16] MEDS ORDERED: ACETAMINOPHEN 325 MG TABLET PO PRN (13:13)
[2021-07-16] MEDS ORDERED: DEXTROSE 50% 25 GM/50 ML VIAL IV STA (16:41)
[2021-07-16] MEDS ORDERED: ALBUTEROL 2.5 MG/3 ML NEB RESP TX PRN (17:23)
[2021-07-16] MEDS ORDERED: LINACLOTIDE 145 MCG CAPSULE PO PRN (17:27)
[2021-07-16] MEDS ORDERED: DEXTROSE 50% 25 GM/50 ML VIAL IV PRN (17:32)
[2021-07-16] MEDS ORDERED: GLUCAGON 1 MG VIAL IM PRN (17:32)
[2021-07-16] MEDS ORDERED: oxyCODONE IR 5 MG TABLET PO PRN (18:53)
[2021-07-16] MEDS: cefTRIAXone 1,000 MG VIAL IM SCH (19:01)
[2021-07-16] MEDS: ALBUTEROL/IPRATROPIUM 3 ML NEB RESP TX SCH (19:21)
[2021-07-16] MEDS: MAGNESIUM OXIDE 400 MG TABLET PO SCH (21:41)
[2021-07-16] MEDS: methylPREDNISolone SOD SUC 40 MG/1 ML VIAL IV SCH (21:41)
[2021-07-16] MEDS: DULoxetine 30 MG CAPSULE PO SCH (21:42)
[2021-07-16] MEDS: CHOLECALCIFEROL 1,000 UNIT TABLET PO SCH (21:42)
[2021-07-16] MEDS: DOCUSATE SODIUM 100 MG CAPSULE PO SCH (21:42)
[2021-07-16] MEDS: POTASSIUM CHLORIDE 10 MEQ TABLET PO SCH (21:42)
[2021-07-16] MEDS: VITAMIN E 400 UNIT CAPSULE PO SCH (21:42)
[2021-07-16] MEDS: EZETIMIBE 10 MG TABLET PO SCH (21:42)
[2021-07-16] MEDS: hydrALAZINE 25 MG TABLET PO SCH (21:43)
[2021-07-16] MEDS: FOLIC ACID 1 MG TABLET PO SCH (21:43)
[2021-07-16] MEDS: SILDENAFIL 20 MG TABLET PO SCH (21:43)
[2021-07-16] MEDS: oxyCODONE ER 20 MG TABLET PO SCH (21:43)
[2021-07-16] MEDS: APIXABAN 5 MG TABLET PO SCH (21:43)
[2021-07-16] MEDS: FUROSEMIDE 40 MG TABLET PO SCH (21:44)
[2021-07-16] MEDS: PANTOPRAZOLE 40 MG TABLET PO SCH (21:44)
[2021-07-16] MEDS: INSULIN LISPRO 100 UNIT/ML SUBCUT SCH (22:13)
[2021-07-17] MEDS ORDERED: INSULIN LISPRO 100 UNIT/ML SUBCUT ONE (04:13)
[2021-07-17 06:00] LABS: Basophils % 0.1 % (0.0-0.8); Hematocrit 29.4 VOL% (35.7-47.0); Immature Granulocytes % 0.6 %; Immature Granulocytes Absolute 0.08 #; Lymphocytes # 0.3 10*3/uL (1.4-4.0); Lymphocytes % 1.9 % (21.3-54.2); Mean Corpuscular HGB Conc 30.6 GM/DL (32-36); Mean Corpuscular Volume 76.8 FL (87-102); Mean Platelet Volume 9.1 FL (9.6-12.0); Monocytes % 0.5 % (1.7-12.7); Neutrophils % 96.9 % (38.7-73.9); Platelet Count 274 T/CUMM (130-400); Red Blood Count 3.83 MC/CUMM (3.8-5.5); Red Cell Distribution Width 21.5 % (9.3-17.3); White Blood Count 13.2 T/CUMM (4-12)
[2021-07-17] MEDS: methylPREDNISolone SOD SUC 40 MG/1 ML VIAL IV SCH (06:10)
[2021-07-17 06:24] LABS: Band Neutrophils 2 % (0-10); Hypochromasia Slight; Lymphocytes 3 % (20-55); Microcytosis 1+; Platelet Estimate Normal; Segmented Neutrophils 93 % (50-85); Total Cells Counted 100
[2021-07-17 06:25] LABS: Osmolality,Calculated 294.2 MOS/KG (273-304); Potassium 4.7 MMOL/L (3.5-5.1)
[2021-07-17 06:53] LABS: Bacteria,Urine Occasional /HPF (Few); Bilirubin,Urine Negative (Negative); Blood, Urine Negative (Negative); Glucose,Urine (UA) >=500 mg/dL (Negative); Ketones,Urine 5 mg/dL (Negative); Nitrite,Urine Negative (Negative); Protein,Urine Negative; RBC,Urine <1 /HPF (0-4); Squamous Epithelial Cell,Urine Occasional /HPF (0-10); Urine Appearance CLEAR (Clear); Urine Color Yellow (Yellow); Urine Specific Gravity 1.011 (1.001-1.035); Urine Urobilinogen < 2.0 EU/DL (0.2-1.0)
[2021-07-17] MEDS: ALBUTEROL/IPRATROPIUM 3 ML NEB RESP TX SCH ×3 (07:11→20:02)
[2021-07-17] MEDS ORDERED: INSULIN GLARGINE 100 UNIT/ML SUBCUT SCH (09:00)
[2021-07-17] MEDS ORDERED: PANTOPRAZOLE 40 MG TABLET PO SCH (09:00)
[2021-07-17] MEDS ORDERED: ELDERBERRY FRUIT AND FLOWER PO SCH (09:00)
[2021-07-17] MEDS ORDERED: azaTHIOprine 50 MG TABLET PO SCH (09:00)
[2021-07-17] MEDS ORDERED: CRANBERRY C BACILLUS COAG PO SCH (09:00)
[2021-07-17] MEDS: CYANOCOBALAMIN 500 MCG TABLET PO SCH (09:04)
[2021-07-17] MEDS: POTASSIUM CHLORIDE 10 MEQ TABLET PO SCH ×3 (09:04→22:11)
[2021-07-17] MEDS: PANTOPRAZOLE 40 MG TABLET PO SCH ×2 (09:04→22:11)
[2021-07-17] MEDS: SILDENAFIL 20 MG TABLET PO SCH ×2 (09:04→22:09)
[2021-07-17] MEDS: DOXAZOSIN 4 MG TABLET PO SCH (09:04)
[2021-07-17] MEDS: INSULIN LISPRO 100 UNIT/ML SUBCUT SCH ×2 (09:04→13:16)
[2021-07-17] MEDS: oxyCODONE ER 20 MG TABLET PO SCH ×2 (09:05→22:10)
[2021-07-17] MEDS: DULoxetine 30 MG CAPSULE PO SCH ×2 (09:05→22:09)
[2021-07-17] MEDS: ASPIRIN EC 81 MG TABLET PO SCH (09:05)
[2021-07-17] MEDS: DOCUSATE SODIUM 100 MG CAPSULE PO SCH ×2 (09:05→22:10)
[2021-07-17] MEDS: APIXABAN 5 MG TABLET PO SCH ×2 (09:05→22:09)
[2021-07-17] MEDS: amLODIPine 5 MG TABLET PO SCH (09:06)
[2021-07-17] MEDS: AZITHROMYCIN 250 MG TABLET PO SCH (09:06)
[2021-07-17] MEDS: FUROSEMIDE 40 MG TABLET PO SCH ×2 (09:06→22:11)
[2021-07-17] MEDS: predniSONE 10 MG TABLET PO SCH (09:06)
[2021-07-17] MEDS: hydrALAZINE 25 MG TABLET PO SCH ×2 (09:06→22:09)
[2021-07-17] MEDS: atenoloL 25 MG TABLET PO SCH (09:07)
[2021-07-17] MEDS ORDERED: INSULIN LISPRO 100 UNIT/ML SUBCUT PRN (09:45)
[2021-07-17] MEDS: cefTRIAXone 1,000 MG VIAL IM SCH (22:08)
[2021-07-17] MEDS: CHOLECALCIFEROL 1,000 UNIT TABLET PO SCH (22:09)
[2021-07-17] MEDS: EZETIMIBE 10 MG TABLET PO SCH (22:09)
[2021-07-17] MEDS: SIMVASTATIN 20 MG TABLET PO SCH (22:10)
[2021-07-17] MEDS: MAGNESIUM OXIDE 400 MG TABLET PO SCH (22:11)
[2021-07-17] MEDS: VITAMIN E 400 UNIT CAPSULE PO SCH (22:11)
[2021-07-17] MEDS: FOLIC ACID 1 MG TABLET PO SCH (22:11)
[2021-07-18] MEDS ORDERED: INSULIN LISPRO 100 UNIT/ML SUBCUT PRN (00:22)
[2021-07-18 03:54] LABS: Basophils % 0.2 % (0.0-0.8); Eosinophils % 0.1 % (0.00-10.9); Hematocrit 26.6 VOL% (35.7-47.0); Hemoglobin 7.9 GM/DL (12.0-16.0); Immature Granulocytes % 0.6 %; Immature Granulocytes Absolute 0.08 #; Lymphocytes # 1.1 10*3/uL (1.4-4.0); Lymphocytes % 8.3 % (21.3-54.2); Mean Corpuscular HGB Conc 29.7 GM/DL (32-36); Mean Corpuscular Volume 77.3 FL (87-102); Mean Platelet Volume 9.3 FL (9.6-12.0); Monocytes % 6.8 % (1.7-12.7); Platelet Count 268 T/CUMM (130-400); Red Blood Count 3.44 MC/CUMM (3.8-5.5); Red Cell Distribution Width 21.3 % (9.3-17.3)
[2021-07-18 04:11] LABS: Osmolality,Calculated 290.2 MOS/KG (273-304); Potassium 4.9 MMOL/L (3.5-5.1)
[2021-07-18] MEDS: AZITHROMYCIN 250 MG TABLET PO SCH (08:29)
[2021-07-18] MEDS: atenoloL 25 MG TABLET PO SCH (08:29)
[2021-07-18] MEDS: amLODIPine 5 MG TABLET PO SCH (08:29)
[2021-07-18] MEDS: APIXABAN 5 MG TABLET PO SCH ×2 (08:30→21:55)
[2021-07-18] MEDS: DULoxetine 30 MG CAPSULE PO SCH ×2 (08:30→21:53)
[2021-07-18] MEDS: POTASSIUM CHLORIDE 10 MEQ TABLET PO SCH ×3 (08:30→21:54)
[2021-07-18] MEDS: SILDENAFIL 20 MG TABLET PO SCH ×2 (08:30→21:55)
[2021-07-18] MEDS: DOXAZOSIN 4 MG TABLET PO SCH (08:30)
[2021-07-18] MEDS: FUROSEMIDE 40 MG TABLET PO SCH ×3 (08:30→21:54)
[2021-07-18] MEDS: ASPIRIN EC 81 MG TABLET PO SCH (08:30)
[2021-07-18] MEDS: CYANOCOBALAMIN 500 MCG TABLET PO SCH (08:30)
[2021-07-18] MEDS: oxyCODONE ER 20 MG TABLET PO SCH ×2 (08:31→21:55)
[2021-07-18] MEDS: PANTOPRAZOLE 40 MG TABLET PO SCH ×2 (08:31→21:54)
[2021-07-18] MEDS: predniSONE 10 MG TABLET PO SCH (08:31)
[2021-07-18] MEDS: hydrALAZINE 25 MG TABLET PO SCH ×2 (08:31→21:53)
[2021-07-18] MEDS: DOCUSATE SODIUM 100 MG CAPSULE PO SCH ×2 (08:31→21:53)
[2021-07-18] MEDS: ALBUTEROL/IPRATROPIUM 3 ML NEB RESP TX SCH ×4 (08:35→18:51)
[2021-07-18] MEDS ORDERED: cefTRIAXone 1,000 MG VIAL IV SCH (08:51)
[2021-07-18] MEDS: EZETIMIBE 10 MG TABLET PO SCH (21:53)
[2021-07-18] MEDS: cefTRIAXone 1,000 MG in SODIUM CHLORIDE 0.9% 100 ML IV SCH (21:53)
[2021-07-18] MEDS: FOLIC ACID 1 MG TABLET PO SCH (21:53)
[2021-07-18] MEDS: VITAMIN E 400 UNIT CAPSULE PO SCH (21:53)
[2021-07-18] MEDS: CHOLECALCIFEROL 1,000 UNIT TABLET PO SCH (21:54)
[2021-07-18] MEDS: MAGNESIUM OXIDE 400 MG TABLET PO SCH (21:55)
[2021-07-18] MEDS: SIMVASTATIN 20 MG TABLET PO SCH (21:55)
[2021-07-19 04:49] LABS: Basophils % 0.3 % (0.0-0.8); Eosinophils # 0.2 10*3/uL (0.0-0.87); Hematocrit 26.1 VOL% (35.7-47.0); Hemoglobin 7.6 GM/DL (12.0-16.0); Immature Granulocytes % 0.2 %; Immature Granulocytes Absolute 0.02 #; Lymphocytes # 1.5 10*3/uL (1.4-4.0); Lymphocytes % 17.5 % (21.3-54.2); Mean Corpuscular HGB Conc 29.1 GM/DL (32-36); Mean Corpuscular Volume 78.1 FL (87-102); Mean Platelet Volume 9.3 FL (9.6-12.0); Monocytes % 5.9 % (1.7-12.7); Neutrophils % 74.1 % (38.7-73.9); Platelet Count 291 T/CUMM (130-400); Red Blood Count 3.34 MC/CUMM (3.8-5.5); Red Cell Distribution Width 21.2 % (9.3-17.3); White Blood Count 8.6 T/CUMM (4-12)
[2021-07-19 05:13] LABS: Calcium 8.9 MG/DL (8.5-10.1); Osmolality,Calculated 282.8 MOS/KG (273-304); Potassium 4.8 MMOL/L (3.5-5.1)
[2021-07-19] MEDS: ALBUTEROL/IPRATROPIUM 3 ML NEB RESP TX SCH ×3 (07:15→19:48)
[2021-07-19] MEDS: CYANOCOBALAMIN 500 MCG TABLET PO SCH (08:29)
[2021-07-19] MEDS: PANTOPRAZOLE 40 MG TABLET PO SCH ×2 (08:29→22:30)
[2021-07-19] MEDS: SILDENAFIL 20 MG TABLET PO SCH ×2 (08:29→22:31)
[2021-07-19] MEDS: APIXABAN 5 MG TABLET PO SCH ×2 (08:30→22:31)
[2021-07-19] MEDS: atenoloL 25 MG TABLET PO SCH (08:30)
[2021-07-19] MEDS: POTASSIUM CHLORIDE 10 MEQ TABLET PO SCH ×3 (08:30→22:30)
[2021-07-19] MEDS: ASPIRIN EC 81 MG TABLET PO SCH (08:31)
[2021-07-19] MEDS: oxyCODONE ER 20 MG TABLET PO SCH ×2 (08:31→22:31)
[2021-07-19] MEDS: amLODIPine 5 MG TABLET PO SCH (08:31)
[2021-07-19] MEDS: AZITHROMYCIN 250 MG TABLET PO SCH (08:31)
[2021-07-19] MEDS: predniSONE 10 MG TABLET PO SCH (08:32)
[2021-07-19] MEDS: DOCUSATE SODIUM 100 MG CAPSULE PO SCH ×2 (08:32→22:31)
[2021-07-19] MEDS: FUROSEMIDE 40 MG TABLET PO SCH ×2 (08:32→22:30)
[2021-07-19] MEDS: DULoxetine 30 MG CAPSULE PO SCH ×2 (08:32→22:30)
[2021-07-19] MEDS: DOXAZOSIN 4 MG TABLET PO SCH (08:32)
[2021-07-19] MEDS: hydrALAZINE 25 MG TABLET PO SCH ×2 (08:33→22:31)
[2021-07-19] MEDS: cefTRIAXone 1,000 MG in SODIUM CHLORIDE 0.9% 100 ML IV SCH (22:29)
[2021-07-19] MEDS: MAGNESIUM OXIDE 400 MG TABLET PO SCH (22:30)
[2021-07-19] MEDS: CHOLECALCIFEROL 1,000 UNIT TABLET PO SCH (22:30)
[2021-07-19] MEDS: EZETIMIBE 10 MG TABLET PO SCH (22:30)
[2021-07-19] MEDS: SIMVASTATIN 20 MG TABLET PO SCH (22:31)
[2021-07-19] MEDS: FOLIC ACID 1 MG TABLET PO SCH (22:31)
[2021-07-19] MEDS: VITAMIN E 400 UNIT CAPSULE PO SCH (22:31)
[2021-07-20 05:02] LABS: Basophils # 0.1 10*3/uL (0.0-0.2); Basophils % 0.7 % (0.0-0.8); Eosinophils # 0.2 10*3/uL (0.0-0.87); Eosinophils % 3.2 % (0.00-10.9); Hematocrit 29.9 VOL% (35.7-47.0); Hemoglobin 9.1 GM/DL (12.0-16.0); Immature Granulocytes % 0.4 %; Immature Granulocytes Absolute 0.03 #; Lymphocytes # 1.6 10*3/uL (1.4-4.0); Mean Corpuscular HGB Conc 30.4 GM/DL (32-36); Mean Corpuscular Volume 77.9 FL (87-102); Mean Platelet Volume 9.2 FL (9.6-12.0); Monocytes % 8.6 % (1.7-12.7); Neutrophils % 65.1 % (38.7-73.9); Platelet Count 353 T/CUMM (130-400); Red Blood Count 3.84 MC/CUMM (3.8-5.5); Red Cell Distribution Width 21.3 % (9.3-17.3); White Blood Count 7.5 T/CUMM (4-12)
[2021-07-20 05:35] LABS: Calcium 8.9 MG/DL (8.5-10.1); Osmolality,Calculated 284.4 MOS/KG (273-304); Potassium 4.5 MMOL/L (3.5-5.1)
[2021-07-20] MEDS: ALBUTEROL/IPRATROPIUM 3 ML NEB RESP TX SCH ×3 (07:06→19:34)
[2021-07-20] MEDS: ASPIRIN EC 81 MG TABLET PO SCH (08:14)
[2021-07-20] MEDS: DULoxetine 30 MG CAPSULE PO SCH ×2 (08:14→21:56)
[2021-07-20] MEDS: hydrALAZINE 25 MG TABLET PO SCH ×2 (08:14→21:56)
[2021-07-20] MEDS: DOXAZOSIN 4 MG TABLET PO SCH (08:14)
[2021-07-20] MEDS: DOCUSATE SODIUM 100 MG CAPSULE PO SCH ×2 (08:14→21:56)
[2021-07-20] MEDS: amLODIPine 5 MG TABLET PO SCH (08:14)
[2021-07-20] MEDS: POTASSIUM CHLORIDE 10 MEQ TABLET PO SCH ×3 (08:14→21:55)
[2021-07-20] MEDS: SILDENAFIL 20 MG TABLET PO SCH ×2 (08:15→21:55)
[2021-07-20] MEDS: AZITHROMYCIN 250 MG TABLET PO SCH (08:15)
[2021-07-20] MEDS: PANTOPRAZOLE 40 MG TABLET PO SCH ×2 (08:15→21:56)
[2021-07-20] MEDS: atenoloL 25 MG TABLET PO SCH (08:15)
[2021-07-20] MEDS: predniSONE 10 MG TABLET PO SCH (08:15)
[2021-07-20] MEDS: CYANOCOBALAMIN 500 MCG TABLET PO SCH (08:15)
[2021-07-20] MEDS: oxyCODONE ER 20 MG TABLET PO SCH ×2 (08:15→21:56)
[2021-07-20] MEDS: FUROSEMIDE 40 MG TABLET PO SCH ×2 (08:15→21:55)
[2021-07-20] MEDS: APIXABAN 5 MG TABLET PO SCH ×2 (08:15→21:56)
[2021-07-20] MEDS ORDERED: MAGNESIUM CITRATE 300 ML BOTTLE PO ONE (13:53)
[2021-07-20] MEDS: cefTRIAXone 1,000 MG in SODIUM CHLORIDE 0.9% 100 ML IV SCH (21:54)
[2021-07-20] MEDS: VITAMIN E 400 UNIT CAPSULE PO SCH (21:55)
[2021-07-20] MEDS: FOLIC ACID 1 MG TABLET PO SCH (21:56)
[2021-07-20] MEDS: EZETIMIBE 10 MG TABLET PO SCH (21:56)
[2021-07-20] MEDS: MAGNESIUM OXIDE 400 MG TABLET PO SCH (21:56)
[2021-07-20] MEDS: CHOLECALCIFEROL 1,000 UNIT TABLET PO SCH (21:56)
[2021-07-20] MEDS: SIMVASTATIN 20 MG TABLET PO SCH (21:57)
[2021-07-21 05:18] LABS: Basophils % 0.6 % (0.0-0.8); Eosinophils # 0.2 10*3/uL (0.0-0.87); Eosinophils % 2.7 % (0.00-10.9); Hematocrit 31.4 VOL% (35.7-47.0); Hemoglobin 9.5 GM/DL (12.0-16.0); Immature Granulocytes % 0.3 %; Immature Granulocytes Absolute 0.02 #; Lymphocytes # 1.3 10*3/uL (1.4-4.0); Mean Corpuscular HGB Conc 30.3 GM/DL (32-36); Mean Corpuscular Volume 77.3 FL (87-102); Mean Platelet Volume 10.7 FL (9.6-12.0); Monocytes % 8.2 % (1.7-12.7); Neutrophils % 68.2 % (38.7-73.9); Platelet Count 218 T/CUMM (130-400); Red Blood Count 4.06 MC/CUMM (3.8-5.5); Red Cell Distribution Width 21.3 % (9.3-17.3); White Blood Count 6.6 T/CUMM (4-12)
[2021-07-21 05:44] LABS: Calcium 8.9 MG/DL (8.5-10.1); Osmolality,Calculated 281.5 MOS/KG (273-304)
[2021-07-21] MEDS: ALBUTEROL/IPRATROPIUM 3 ML NEB RESP TX SCH ×3 (07:27→19:18)
[2021-07-21] MEDS: DOCUSATE SODIUM 100 MG CAPSULE PO SCH ×2 (10:04→21:12)
[2021-07-21] MEDS: DULoxetine 30 MG CAPSULE PO SCH ×2 (10:04→21:12)
[2021-07-21] MEDS: oxyCODONE ER 20 MG TABLET PO SCH ×2 (10:05→21:13)
[2021-07-21] MEDS: SILDENAFIL 20 MG TABLET PO SCH ×2 (10:05→21:13)
[2021-07-21] MEDS: atenoloL 25 MG TABLET PO SCH (10:05)
[2021-07-21] MEDS: FUROSEMIDE 40 MG TABLET PO SCH ×2 (10:06→21:12)
[2021-07-21] MEDS: DOXAZOSIN 4 MG TABLET PO SCH (10:06)
[2021-07-21] MEDS: POTASSIUM CHLORIDE 10 MEQ TABLET PO SCH ×3 (10:06→21:12)
[2021-07-21] MEDS: predniSONE 10 MG TABLET PO SCH (10:06)
[2021-07-21] MEDS: CYANOCOBALAMIN 500 MCG TABLET PO SCH (10:06)
[2021-07-21] MEDS: APIXABAN 5 MG TABLET PO SCH ×2 (10:06→21:12)
[2021-07-21] MEDS: hydrALAZINE 25 MG TABLET PO SCH ×2 (10:07→21:12)
[2021-07-21] MEDS: amLODIPine 5 MG TABLET PO SCH (10:07)
[2021-07-21] MEDS: ASPIRIN EC 81 MG TABLET PO SCH (10:07)
[2021-07-21] MEDS: PANTOPRAZOLE 40 MG TABLET PO SCH ×2 (10:07→21:13)
[2021-07-21] MEDS: FOLIC ACID 1 MG TABLET PO SCH (21:12)
[2021-07-21] MEDS: MAGNESIUM OXIDE 400 MG TABLET PO SCH (21:12)
[2021-07-21] MEDS: VITAMIN E 400 UNIT CAPSULE PO SCH (21:13)
[2021-07-21] MEDS: cefTRIAXone 1,000 MG in SODIUM CHLORIDE 0.9% 100 ML IV SCH (21:13)
[2021-07-21] MEDS: CHOLECALCIFEROL 1,000 UNIT TABLET PO SCH (21:13)
[2021-07-21] MEDS: EZETIMIBE 10 MG TABLET PO SCH (21:14)
[2021-07-21] MEDS: SIMVASTATIN 20 MG TABLET PO SCH (21:14)
[2021-07-22 06:11] LABS: Basophils # 0.1 10*3/uL (0.0-0.2); Basophils % 0.7 % (0.0-0.8); Eosinophils # 0.3 10*3/uL (0.0-0.87); Eosinophils % 4.3 % (0.00-10.9); Hematocrit 32.2 VOL% (35.7-47.0); Hemoglobin 10.1 GM/DL (12.0-16.0); Immature Granulocytes % 0.5 %; Immature Granulocytes Absolute 0.04 #; Lymphocytes # 1.7 10*3/uL (1.4-4.0); Lymphocytes % 22.4 % (21.3-54.2); Mean Corpuscular HGB Conc 31.4 GM/DL (32-36); Mean Corpuscular Volume 75.6 FL (87-102); Mean Platelet Volume 9.2 FL (9.6-12.0); Monocytes % 9.2 % (1.7-12.7); Neutrophils % 62.9 % (38.7-73.9); Platelet Count 398 T/CUMM (130-400); Red Blood Count 4.26 MC/CUMM (3.8-5.5); White Blood Count 7.4 T/CUMM (4-12)
[2021-07-22 06:33] LABS: Calcium 9.2 MG/DL (8.5-10.1); Osmolality,Calculated 282.4 MOS/KG (273-304); Potassium 3.8 MMOL/L (3.5-5.1)
[2021-07-22] MEDS: PANTOPRAZOLE 40 MG TABLET PO SCH (08:49)
[2021-07-22] MEDS: DULoxetine 30 MG CAPSULE PO SCH (08:49)
[2021-07-22] MEDS: oxyCODONE ER 20 MG TABLET PO SCH (08:50)
[2021-07-22] MEDS: DOCUSATE SODIUM 100 MG CAPSULE PO SCH (08:51)
[2021-07-22] MEDS: predniSONE 10 MG TABLET PO SCH (08:51)
[2021-07-22] MEDS: FUROSEMIDE 40 MG TABLET PO SCH (08:51)
[2021-07-22] MEDS: APIXABAN 5 MG TABLET PO SCH (08:51)
[2021-07-22] MEDS: CYANOCOBALAMIN 500 MCG TABLET PO SCH (08:51)
[2021-07-22] MEDS: POTASSIUM CHLORIDE 10 MEQ TABLET PO SCH (08:51)
[2021-07-22] MEDS: ASPIRIN EC 81 MG TABLET PO SCH (08:52)
[2021-07-22] MEDS: SILDENAFIL 20 MG TABLET PO SCH (09:03)
[2021-07-22] MEDS: DOXAZOSIN 4 MG TABLET PO SCH (09:03)
[2021-07-22] MEDS: hydrALAZINE 25 MG TABLET PO SCH (09:03)
[2021-07-22] MEDS: amLODIPine 5 MG TABLET PO SCH (09:03)
[2021-07-22] MEDS: atenoloL 25 MG TABLET PO SCH (09:03)
[2021-07-22 09:05] VITALS: BP 144/51
== END 2021-07-22 11:50 | disposition home health service (06) | DRG 190 ==
LOC: N.ED 10:52 → N.EDINP 13:12 → N.5E 18:50
PROVIDERS: ADMIT Internal Medicine; ATTEND Internal Medicine

== ENCOUNTER 2021-09-28 14:53 | Inpatient (IN) ==
[2021-09-28] MEDS ORDERED: DEXTROSE 50% 25 GM/50 ML SYRINGE IV ONE (16:08)
[2021-09-28] MEDS ORDERED: DEXTROSE 50% 25 GM/50 ML VIAL IV STA (16:10)
[2021-09-28 16:25] LABS: Basophils # 0.1 10*3/uL (0.0-0.2); Basophils % 0.5 % (0.0-0.8); Eosinophils # 0.1 10*3/uL (0.0-0.87); Eosinophils % 0.7 % (0.00-10.9); Hematocrit 37.2 VOL% (35.7-47.0); Hemoglobin 11.5 GM/DL (12.0-16.0); Immature Granulocytes % 0.4 %; Immature Granulocytes Absolute 0.06 #; Lymphocytes # 1.2 10*3/uL (1.4-4.0); Lymphocytes % 8.5 % (21.3-54.2); Mean Corpuscular HGB Conc 30.9 GM/DL (32-36); Mean Corpuscular Volume 77.2 FL (87-102); Mean Platelet Volume 8.8 FL (9.6-12.0); Monocytes % 6.4 % (1.7-12.7); Neutrophils % 83.5 % (38.7-73.9); Platelet Count 385 T/CUMM (130-400); Red Blood Count 4.82 MC/CUMM (3.8-5.5); Red Cell Distribution Width 18.9 % (9.3-17.3); White Blood Count 14.5 T/CUMM (4-12)
[2021-09-28 16:48] LABS: Albumin 3.3 G/DL (3.4-5.0); Bilirubin,Total 0.5 MG/DL (0.20-1.00); Calcium 9.4 MG/DL (8.5-10.1); Osmolality,Calculated 263.4 MOS/KG (273-304); Potassium 3.4 MMOL/L (3.5-5.1)
[2021-09-28] MEDS ORDERED: PIPERACILLIN/TAZOBACTAM 3,375 MG in SODIUM CHLORIDE 0.9% 100 ML IV STA ×2 (17:48→17:59)
[2021-09-28] MEDS ORDERED: FUROSEMIDE 100 MG/10 ML VIAL IV STA (17:48)
[2021-09-28] MEDS ORDERED: ACETAMINOPHEN 325 MG TABLET PO PRN (17:57)
[2021-09-28] MEDS ORDERED: GLUCAGON 1 MG VIAL IM PRN ×2 (17:57→22:52)
[2021-09-28] MEDS ORDERED: ONDANSETRON 4 MG/2 ML VIAL IV PRN (17:57)
[2021-09-28] MEDS ORDERED: DEXTROSE 50% 25 GM/50 ML SYRINGE IV PRN (18:04)
[2021-09-28] MEDS ORDERED: ALBUTEROL 2.5 MG/3 ML NEB RESP TX PRN (18:15)
[2021-09-28] MEDS: ALBUTEROL/IPRATROPIUM 3 ML NEB RESP TX SCH (20:07)
[2021-09-28] MEDS: POTASSIUM CHLORIDE 20 MEQ TABLET PO SCH (22:25)
[2021-09-28] MEDS: DOCUSATE SODIUM 100 MG CAPSULE PO SCH (22:25)
[2021-09-28] MEDS: APIXABAN 5 MG TABLET PO SCH (22:25)
[2021-09-28] MEDS: DULoxetine 30 MG CAPSULE PO SCH (22:25)
[2021-09-28] MEDS: SILDENAFIL 20 MG TABLET PO SCH (22:25)
[2021-09-28] MEDS: oxyCODONE IR 5 MG TABLET PO PRN (22:32)
[2021-09-28] MEDS: hydrALAZINE 25 MG TABLET PO SCH (22:33)
[2021-09-28] MEDS ORDERED: DEXTROSE 50% 25 GM/50 ML VIAL IV PRN (22:52)
[2021-09-29] MEDS: PIPERACILLIN/TAZOBACTAM 3,375 MG in SODIUM CHLORIDE 0.9% 100 ML IV SCH ×3 (03:19→17:35)
[2021-09-29 04:28] LABS: Basophils % 0.4 % (0.0-0.8); Eosinophils # 0.1 10*3/uL (0.0-0.87); Eosinophils % 1.7 % (0.00-10.9); Hematocrit 31.9 VOL% (35.7-47.0); Hemoglobin 9.9 GM/DL (12.0-16.0); Immature Granulocytes % 0.3 %; Immature Granulocytes Absolute 0.02 #; Lymphocytes # 1.2 10*3/uL (1.4-4.0); Lymphocytes % 16.2 % (21.3-54.2); Mean Corpuscular Volume 76.7 FL (87-102); Mean Platelet Volume 9.4 FL (9.6-12.0); Monocytes % 9.1 % (1.7-12.7); Neutrophils % 72.3 % (38.7-73.9); Platelet Count 304 T/CUMM (130-400); Red Blood Count 4.16 MC/CUMM (3.8-5.5); Red Cell Distribution Width 18.7 % (9.3-17.3); White Blood Count 7.2 T/CUMM (4-12)
[2021-09-29 05:07] LABS: Albumin 2.5 G/DL (3.4-5.0); Bilirubin,Total 0.4 MG/DL (0.20-1.00); Calcium 8.8 MG/DL (8.5-10.1); Osmolality,Calculated 278.8 MOS/KG (273-304); Potassium 3.2 MMOL/L (3.5-5.1); Total Protein 6.3 G/DL (6.4-8.2)
[2021-09-29] MEDS: ALBUTEROL/IPRATROPIUM 3 ML NEB RESP TX SCH ×3 (07:52→20:23)
[2021-09-29] MEDS: INSULIN REGULAR 100 UNIT/ML SUBCUT SCH ×4 (08:08→21:46)
[2021-09-29] MEDS: DULoxetine 30 MG CAPSULE PO SCH ×2 (09:29→21:45)
[2021-09-29] MEDS: SILDENAFIL 20 MG TABLET PO SCH ×2 (09:30→21:43)
[2021-09-29] MEDS: ASPIRIN EC 81 MG TABLET PO SCH (09:30)
[2021-09-29] MEDS: atenoloL 50 MG TABLET PO SCH (09:31)
[2021-09-29] MEDS: POTASSIUM CHLORIDE 20 MEQ TABLET PO SCH ×3 (09:31→23:32)
[2021-09-29] MEDS: hydrALAZINE 25 MG TABLET PO SCH ×2 (09:31→21:46)
[2021-09-29] MEDS: APIXABAN 5 MG TABLET PO SCH ×2 (09:31→21:45)
[2021-09-29] MEDS: PANTOPRAZOLE 40 MG TABLET PO SCH ×2 (09:31→09:43)
[2021-09-29] MEDS: predniSONE 10 MG TABLET PO SCH (09:31)
[2021-09-29] MEDS: amLODIPine 5 MG TABLET PO SCH (09:31)
[2021-09-29] MEDS: DOCUSATE SODIUM 100 MG CAPSULE PO SCH ×2 (09:31→21:43)
[2021-09-29] MEDS: FUROSEMIDE 40 MG TABLET PO SCH ×2 (09:32→17:34)
[2021-09-29] MEDS: azaTHIOprine 50 MG TABLET PO SCH (09:44)
[2021-09-29] MEDS: oxyCODONE IR 5 MG TABLET PO PRN ×2 (09:52→15:12)
[2021-09-29] MEDS ORDERED: POTASSIUM CHLORIDE 20 MEQ TABLET PO PRN (19:24)
[2021-09-29] MEDS ORDERED: POTASSIUM CHLORIDE 20 MEQ TABLET PO ONE (19:24)
[2021-09-29] MEDS: busPIRone 5 MG TABLET PO SCH (21:43)
[2021-09-29] MEDS: GABAPENTIN 600 MG TABLET PO SCH (21:44)
[2021-09-29] MEDS: oxyCODONE ER 20 MG TABLET PO SCH (21:45)
[2021-09-29] MEDS: SIMVASTATIN 20 MG TABLET PO SCH (21:45)
[2021-09-30] MEDS: PIPERACILLIN/TAZOBACTAM 3,375 MG in SODIUM CHLORIDE 0.9% 100 ML IV SCH ×4 (02:11→17:59)
[2021-09-30 04:27] LABS: Calcium 8.4 MG/DL (8.5-10.1); Osmolality,Calculated 283.1 MOS/KG (273-304)
[2021-09-30] MEDS: ALBUTEROL/IPRATROPIUM 3 ML NEB RESP TX SCH ×3 (07:16→19:52)
[2021-09-30] MEDS: INSULIN REGULAR 100 UNIT/ML SUBCUT SCH ×4 (07:45→22:03)
[2021-09-30] MEDS: DOCUSATE SODIUM 100 MG CAPSULE PO SCH ×2 (09:30→21:21)
[2021-09-30] MEDS: GABAPENTIN 600 MG TABLET PO SCH ×3 (09:30→21:20)
[2021-09-30] MEDS: predniSONE 10 MG TABLET PO SCH (09:30)
[2021-09-30] MEDS: ASPIRIN EC 81 MG TABLET PO SCH (09:30)
[2021-09-30] MEDS: DULoxetine 30 MG CAPSULE PO SCH ×2 (09:30→21:20)
[2021-09-30] MEDS: atenoloL 50 MG TABLET PO SCH (09:31)
[2021-09-30] MEDS: hydrALAZINE 25 MG TABLET PO SCH ×2 (09:31→21:21)
[2021-09-30] MEDS: azaTHIOprine 50 MG TABLET PO SCH (09:31)
[2021-09-30] MEDS: POTASSIUM CHLORIDE 20 MEQ TABLET PO SCH ×3 (09:31→21:21)
[2021-09-30] MEDS: busPIRone 5 MG TABLET PO SCH ×2 (09:31→21:21)
[2021-09-30] MEDS: FUROSEMIDE 40 MG TABLET PO SCH ×2 (09:31→16:21)
[2021-09-30] MEDS: oxyCODONE ER 20 MG TABLET PO SCH ×2 (09:32→21:21)
[2021-09-30] MEDS: amLODIPine 5 MG TABLET PO SCH (09:32)
[2021-09-30] MEDS: APIXABAN 5 MG TABLET PO SCH ×2 (09:32→21:20)
[2021-09-30] MEDS: SILDENAFIL 20 MG TABLET PO SCH ×2 (09:33→22:03)
[2021-09-30] MEDS: PANTOPRAZOLE 40 MG TABLET PO SCH ×2 (09:33→21:21)
[2021-09-30] MEDS ORDERED: LINACLOTIDE 145 MCG CAPSULE PO PRN (15:37)
[2021-09-30] MEDS: SIMVASTATIN 20 MG TABLET PO SCH (21:20)
[2021-09-30] MEDS: EZETIMIBE 10 MG TABLET PO SCH (21:20)
[2021-09-30] MEDS: FOLIC ACID 0.8 MG PO SCH (22:03)
[2021-10-01] MEDS: PIPERACILLIN/TAZOBACTAM 3,375 MG in SODIUM CHLORIDE 0.9% 100 ML IV SCH ×3 (02:55→18:54)
[2021-10-01 06:11] LABS: Basophils # 0.1 10*3/uL (0.0-0.2); Basophils % 0.9 % (0.0-0.8); Eosinophils # 0.2 10*3/uL (0.0-0.87); Eosinophils % 2.2 % (0.00-10.9); Hematocrit 32.2 VOL% (35.7-47.0); Hemoglobin 9.9 GM/DL (12.0-16.0); Immature Granulocytes % 0.4 %; Immature Granulocytes Absolute 0.03 #; Lymphocytes # 1.4 10*3/uL (1.4-4.0); Lymphocytes % 18.7 % (21.3-54.2); Mean Corpuscular HGB Conc 30.7 GM/DL (32-36); Mean Corpuscular Volume 77.8 FL (87-102); Mean Platelet Volume 9.1 FL (9.6-12.0); Monocytes % 8.4 % (1.7-12.7); Neutrophils % 69.4 % (38.7-73.9); Platelet Count 360 T/CUMM (130-400); Red Blood Count 4.14 MC/CUMM (3.8-5.5); Red Cell Distribution Width 19.5 % (9.3-17.3); White Blood Count 7.6 T/CUMM (4-12)
[2021-10-01 06:35] LABS: Albumin 2.7 G/DL (3.4-5.0); Bilirubin,Total 0.8 MG/DL (0.20-1.00); Calcium 8.9 MG/DL (8.5-10.1); Osmolality,Calculated 285.5 MOS/KG (273-304); Potassium 3.8 MMOL/L (3.5-5.1); Total Protein 6.8 G/DL (6.4-8.2)
[2021-10-01] MEDS: ALBUTEROL/IPRATROPIUM 3 ML NEB RESP TX SCH ×3 (08:06→19:54)
[2021-10-01] MEDS: DULoxetine 30 MG CAPSULE PO SCH ×2 (08:26→22:01)
[2021-10-01] MEDS: SILDENAFIL 20 MG TABLET PO SCH ×2 (08:26→22:00)
[2021-10-01] MEDS: DOCUSATE SODIUM 100 MG CAPSULE PO SCH ×2 (08:26→22:01)
[2021-10-01] MEDS: POTASSIUM CHLORIDE 20 MEQ TABLET PO SCH ×3 (08:27→22:00)
[2021-10-01] MEDS: FUROSEMIDE 40 MG TABLET PO SCH (08:27)
[2021-10-01] MEDS: GABAPENTIN 600 MG TABLET PO SCH ×3 (08:27→22:00)
[2021-10-01] MEDS: busPIRone 5 MG TABLET PO SCH ×2 (08:27→22:01)
[2021-10-01] MEDS: amLODIPine 5 MG TABLET PO SCH (08:28)
[2021-10-01] MEDS: oxyCODONE ER 20 MG TABLET PO SCH ×2 (08:28→22:01)
[2021-10-01] MEDS: ASPIRIN EC 81 MG TABLET PO SCH (08:29)
[2021-10-01] MEDS: atenoloL 50 MG TABLET PO SCH (08:29)
[2021-10-01] MEDS: predniSONE 10 MG TABLET PO SCH (08:29)
[2021-10-01] MEDS: hydrALAZINE 25 MG TABLET PO SCH ×2 (08:29→22:00)
[2021-10-01] MEDS: azaTHIOprine 50 MG TABLET PO SCH (08:29)
[2021-10-01] MEDS: PANTOPRAZOLE 40 MG TABLET PO SCH ×2 (08:29→08:41)
[2021-10-01] MEDS: APIXABAN 5 MG TABLET PO SCH ×2 (08:29→22:00)
[2021-10-01] MEDS: INSULIN REGULAR 100 UNIT/ML SUBCUT SCH ×4 (08:30→21:09)
[2021-10-01] MEDS: oxyCODONE IR 5 MG TABLET PO PRN (15:08)
[2021-10-01] MEDS: FUROSEMIDE 80 MG TABLET PO SCH (15:14)
[2021-10-01] MEDS: EZETIMIBE 10 MG TABLET PO SCH (22:00)
[2021-10-01] MEDS: SIMVASTATIN 20 MG TABLET PO SCH (22:01)
[2021-10-01] MEDS: FOLIC ACID 0.8 MG PO SCH (22:01)
[2021-10-02] MEDS: PANTOPRAZOLE 40 MG TABLET PO SCH ×2 (01:27→09:09)
[2021-10-02] MEDS: PIPERACILLIN/TAZOBACTAM 3,375 MG in SODIUM CHLORIDE 0.9% 100 ML IV SCH ×3 (03:38→18:52)
[2021-10-02 04:28] LABS: Basophils # 0.1 10*3/uL (0.0-0.2); Basophils % 0.7 % (0.0-0.8); Eosinophils # 0.2 10*3/uL (0.0-0.87); Eosinophils % 2.8 % (0.00-10.9); Hematocrit 31.2 VOL% (35.7-47.0); Hemoglobin 9.8 GM/DL (12.0-16.0); Immature Granulocytes % 0.3 %; Immature Granulocytes Absolute 0.02 #; Lymphocytes # 1.6 10*3/uL (1.4-4.0); Lymphocytes % 22.6 % (21.3-54.2); Mean Corpuscular HGB Conc 31.4 GM/DL (32-36); Mean Corpuscular Volume 76.5 FL (87-102); Mean Platelet Volume 9.5 FL (9.6-12.0); Monocytes % 8.3 % (1.7-12.7); Neutrophils % 65.3 % (38.7-73.9); Platelet Count 351 T/CUMM (130-400); Red Blood Count 4.08 MC/CUMM (3.8-5.5); Red Cell Distribution Width 19.3 % (9.3-17.3); White Blood Count 6.9 T/CUMM (4-12)
[2021-10-02 05:03] LABS: Alanine Aminotransferase 12 U/L (13-56); Albumin 2.7 G/DL (3.4-5.0); Alkaline Phosphatase 76 U/L (45-117); Aspartate Amino Transferase 8 U/L (0-37); Bilirubin,Total < 0.39 MG/DL (0.20-1.00); Blood Urea Nitrogen 24 MG/DL (7-18); Calcium 9.1 MG/DL (8.5-10.1); Carbon Dioxide 31 MMOL/L (21-32); Estimated Glom Filtration Rate 33 ML/MIN; Glucose 259 MG/DL (74-106); Osmolality,Calculated 282.1 MOS/KG (273-304); Potassium 3.9 MMOL/L (3.5-5.1); Sodium 135 MMOL/L (136-145); Total Protein 6.7 G/DL (6.4-8.2)
[2021-10-02] MEDS: ALBUTEROL/IPRATROPIUM 3 ML NEB RESP TX SCH ×3 (07:32→19:46)
[2021-10-02] MEDS: INSULIN REGULAR 100 UNIT/ML SUBCUT SCH ×3 (07:47→18:16)
[2021-10-02] MEDS: DOCUSATE SODIUM 100 MG CAPSULE PO SCH ×2 (09:20→22:06)
[2021-10-02] MEDS: FUROSEMIDE 80 MG TABLET PO SCH ×2 (09:20→16:10)
[2021-10-02] MEDS: azaTHIOprine 50 MG TABLET PO SCH (09:21)
[2021-10-02] MEDS: atenoloL 50 MG TABLET PO SCH (09:21)
[2021-10-02] MEDS: GABAPENTIN 600 MG TABLET PO SCH ×3 (09:21→22:07)
[2021-10-02] MEDS: predniSONE 10 MG TABLET PO SCH (09:21)
[2021-10-02] MEDS: DULoxetine 30 MG CAPSULE PO SCH ×2 (09:21→22:05)
[2021-10-02] MEDS: POTASSIUM CHLORIDE 20 MEQ TABLET PO SCH ×3 (09:21→22:06)
[2021-10-02] MEDS: ASPIRIN EC 81 MG TABLET PO SCH (09:22)
[2021-10-02] MEDS: busPIRone 5 MG TABLET PO SCH ×2 (09:22→22:05)
[2021-10-02] MEDS: SILDENAFIL 20 MG TABLET PO SCH ×2 (09:22→22:06)
[2021-10-02] MEDS: oxyCODONE ER 20 MG TABLET PO SCH ×2 (09:22→22:05)
[2021-10-02] MEDS: amLODIPine 5 MG TABLET PO SCH (09:22)
[2021-10-02] MEDS: hydrALAZINE 25 MG TABLET PO SCH ×2 (09:22→22:05)
[2021-10-02] MEDS: APIXABAN 5 MG TABLET PO SCH ×2 (09:22→22:05)
[2021-10-02] MEDS: oxyCODONE IR 5 MG TABLET PO PRN (12:49)
[2021-10-02] MEDS: SIMVASTATIN 20 MG TABLET PO SCH (22:06)
[2021-10-02] MEDS: FOLIC ACID 0.8 MG PO SCH (22:07)
[2021-10-02] MEDS: EZETIMIBE 10 MG TABLET PO SCH (22:07)
[2021-10-03] MEDS: PANTOPRAZOLE 40 MG TABLET PO SCH ×2 (00:59→09:05)
[2021-10-03] MEDS: INSULIN REGULAR 100 UNIT/ML SUBCUT SCH ×2 (00:59→10:27)
[2021-10-03] MEDS: PIPERACILLIN/TAZOBACTAM 3,375 MG in SODIUM CHLORIDE 0.9% 100 ML IV SCH ×2 (03:47→10:29)
[2021-10-03 05:52] LABS: Basophils # 0.1 10*3/uL (0.0-0.2); Basophils % 0.9 % (0.0-0.8); Eosinophils # 0.2 10*3/uL (0.0-0.87); Eosinophils % 2.9 % (0.00-10.9); Hematocrit 32.6 VOL% (35.7-47.0); Hemoglobin 10.2 GM/DL (12.0-16.0); Immature Granulocytes % 0.7 %; Immature Granulocytes Absolute 0.05 #; Lymphocytes # 1.7 10*3/uL (1.4-4.0); Lymphocytes % 23.1 % (21.3-54.2); Mean Corpuscular HGB Conc 31.3 GM/DL (32-36); Mean Corpuscular Volume 76.2 FL (87-102); Mean Platelet Volume 9.1 FL (9.6-12.0); Monocytes % 9.6 % (1.7-12.7); Neutrophils % 62.8 % (38.7-73.9); Platelet Count 362 T/CUMM (130-400); Red Blood Count 4.28 MC/CUMM (3.8-5.5); Red Cell Distribution Width 19.2 % (9.3-17.3); White Blood Count 7.5 T/CUMM (4-12)
[2021-10-03 06:14] LABS: Calcium 8.8 MG/DL (8.5-10.1); Potassium 3.9 MMOL/L (3.5-5.1)
[2021-10-03 07:45] VITALS: BP 125/81
[2021-10-03] MEDS: ALBUTEROL/IPRATROPIUM 3 ML NEB RESP TX SCH (07:45)
[2021-10-03] MEDS: predniSONE 10 MG TABLET PO SCH (09:04)
[2021-10-03] MEDS: DOCUSATE SODIUM 100 MG CAPSULE PO SCH (09:04)
[2021-10-03] MEDS: GABAPENTIN 600 MG TABLET PO SCH (09:05)
[2021-10-03] MEDS: ASPIRIN EC 81 MG TABLET PO SCH (09:05)
[2021-10-03] MEDS: atenoloL 50 MG TABLET PO SCH (09:05)
[2021-10-03] MEDS: DULoxetine 30 MG CAPSULE PO SCH (09:05)
[2021-10-03] MEDS: azaTHIOprine 50 MG TABLET PO SCH (09:06)
[2021-10-03] MEDS: POTASSIUM CHLORIDE 20 MEQ TABLET PO SCH (09:06)
[2021-10-03] MEDS: FUROSEMIDE 80 MG TABLET PO SCH (09:06)
[2021-10-03] MEDS: hydrALAZINE 25 MG TABLET PO SCH (09:06)
[2021-10-03] MEDS: busPIRone 5 MG TABLET PO SCH (09:06)
[2021-10-03] MEDS: SILDENAFIL 20 MG TABLET PO SCH (09:06)
[2021-10-03] MEDS: amLODIPine 5 MG TABLET PO SCH (09:06)
[2021-10-03] MEDS: APIXABAN 5 MG TABLET PO SCH (09:07)
[2021-10-03] MEDS: oxyCODONE ER 20 MG TABLET PO SCH (10:05)
== END 2021-10-03 10:26 | disposition home or self-care (01) | DRG 291 ==
LOC: N.ED 14:53 → N.EDINP 17:57 → N.TELEN 19:21
PROVIDERS: ADMIT Internal Medicine; ATTEND Internal Medicine

== ENCOUNTER 2021-12-06 15:52 | Inpatient (IN) ==
[2021-12-06] MEDS ORDERED: ALBUTEROL 2.5 MG/3 ML NEB RESP TX STA (17:43)
[2021-12-06 18:16] LABS: Basophils # 0.1 10*3/uL (0.0-0.2); Basophils % 0.6 % (0.0-0.8); Eosinophils # 0.3 10*3/uL (0.0-0.87); Eosinophils % 1.8 % (0.00-10.9); Hematocrit 32.9 VOL% (35.7-47.0); Hemoglobin 10.2 GM/DL (12.0-16.0); Immature Granulocytes % 0.6 %; Immature Granulocytes Absolute 0.08 #; Lymphocytes # 1.1 10*3/uL (1.4-4.0); Lymphocytes % 8.1 % (21.3-54.2); Mean Corpuscular Volume 78.5 FL (87-102); Mean Platelet Volume 9.6 FL (9.6-12.0); Monocytes % 5.4 % (1.7-12.7); Neutrophils % 83.5 % (38.7-73.9); Platelet Count 417 T/CUMM (130-400); Red Blood Count 4.19 MC/CUMM (3.8-5.5); Red Cell Distribution Width 18.4 % (9.3-17.3)
[2021-12-06 18:35] LABS: Bilirubin,Total 0.4 MG/DL (0.20-1.00); Calcium 8.8 MG/DL (8.5-10.1); Osmolality,Calculated 272.5 MOS/KG (273-304); Potassium 4.3 MMOL/L (3.5-5.1); Total Protein 7.6 G/DL (6.4-8.2)
[2021-12-06] MEDS ORDERED: PIPERACILLIN/TAZOBACTAM 3,375 MG in SODIUM CHLORIDE 0.9% 100 ML IV STA ×2 (18:44→18:48)
[2021-12-06] MEDS ORDERED: FUROSEMIDE 100 MG/10 ML VIAL IV STA (18:44)
[2021-12-06] MEDS ORDERED: GLUCAGON 1 MG VIAL IM PRN (19:13)
[2021-12-06] MEDS ORDERED: DEXTROSE 10% 250 ML BAG IV PRN (19:13)
[2021-12-06] MEDS ORDERED: ONDANSETRON 4 MG/2 ML VIAL IV PRN (19:13)
[2021-12-06] MEDS ORDERED: ACETAMINOPHEN 325 MG TABLET PO PRN (19:13)
[2021-12-06] MEDS ORDERED: LINACLOTIDE 145 MCG CAPSULE PO PRN (19:16)
[2021-12-06] MEDS ORDERED: ALBUTEROL 2.5 MG/3 ML NEB RESP TX PRN (19:16)
[2021-12-06] MEDS: DULoxetine 30 MG CAPSULE PO SCH (22:36)
[2021-12-06] MEDS: FOLIC ACID 1 MG TABLET PO SCH (22:36)
[2021-12-06] MEDS: busPIRone 10 MG TABLET PO SCH (22:36)
[2021-12-06] MEDS: hydrALAZINE 25 MG TABLET PO SCH (22:36)
[2021-12-06] MEDS: DOCUSATE SODIUM 100 MG CAPSULE PO SCH (22:36)
[2021-12-06] MEDS: APIXABAN 5 MG TABLET PO SCH (22:36)
[2021-12-06] MEDS: CHOLECALCIFEROL 1,000 UNIT TABLET PO SCH (22:37)
[2021-12-06] MEDS: MAGNESIUM OXIDE 400 MG TABLET PO SCH (22:37)
[2021-12-06] MEDS: GABAPENTIN 300 MG CAPSULE PO SCH (22:37)
[2021-12-06] MEDS: FUROSEMIDE 40 MG TABLET PO SCH (22:37)
[2021-12-06] MEDS: POTASSIUM CHLORIDE 10 MEQ TABLET PO SCH (22:37)
[2021-12-06] MEDS: VITAMIN E 400 UNIT CAPSULE PO SCH (22:38)
[2021-12-06] MEDS: EZETIMIBE 10 MG TABLET PO SCH (22:38)
[2021-12-07] MEDS: FUROSEMIDE 40 MG TABLET PO SCH ×3 (01:13→21:43)
[2021-12-07] MEDS: cloNIDine 0.1 MG TABLET PO SCH ×4 (02:50→21:42)
[2021-12-07 04:14] LABS: Basophils # 0.1 10*3/uL (0.0-0.2); Basophils % 0.6 % (0.0-0.8); Eosinophils # 0.3 10*3/uL (0.0-0.87); Eosinophils % 2.8 % (0.00-10.9); Hematocrit 29.7 VOL% (35.7-47.0); Hemoglobin 9.2 GM/DL (12.0-16.0); Immature Granulocytes % 0.6 %; Immature Granulocytes Absolute 0.05 #; Lymphocytes # 1.3 10*3/uL (1.4-4.0); Lymphocytes % 14.6 % (21.3-54.2); Mean Corpuscular Volume 78.2 FL (87-102); Mean Platelet Volume 9.1 FL (9.6-12.0); Monocytes % 8.2 % (1.7-12.7); Neutrophils % 73.2 % (38.7-73.9); Platelet Count 339 T/CUMM (130-400); Red Cell Distribution Width 18.1 % (9.3-17.3); White Blood Count 8.8 T/CUMM (4-12)
[2021-12-07 04:58] LABS: Albumin 2.5 G/DL (3.4-5.0); Bilirubin,Total 0.4 MG/DL (0.20-1.00); Calcium 8.7 MG/DL (8.5-10.1); Total Protein 6.6 G/DL (6.4-8.2)
[2021-12-07 05:01] LABS: Osmolality,Calculated 274.2 MOS/KG (273-304); Potassium 3.7 MMOL/L (3.5-5.1)
[2021-12-07] MEDS: PIPERACILLIN/TAZOBACTAM 3,375 MG in SODIUM CHLORIDE 0.9% 100 ML IV SCH ×3 (05:02→21:39)
[2021-12-07] MEDS ORDERED: CRANBERRY C BACILLUS COAG PO SCH (09:00)
[2021-12-07] MEDS ORDERED: NON-FORMULARY MEDICATION (Elderberry Fruit And Flower 460-115 mg Capsule) PO SCH (09:00)
[2021-12-07] MEDS: DOXAZOSIN 4 MG TABLET PO SCH (09:30)
[2021-12-07] MEDS: ASPIRIN EC 81 MG TABLET PO SCH (09:30)
[2021-12-07] MEDS: DULoxetine 30 MG CAPSULE PO SCH ×2 (09:30→21:41)
[2021-12-07] MEDS: DOCUSATE SODIUM 100 MG CAPSULE PO SCH ×2 (09:30→21:40)
[2021-12-07] MEDS: hydrALAZINE 25 MG TABLET PO SCH ×2 (09:30→21:42)
[2021-12-07] MEDS: busPIRone 10 MG TABLET PO SCH ×2 (09:30→21:42)
[2021-12-07] MEDS: APIXABAN 5 MG TABLET PO SCH ×2 (09:31→21:42)
[2021-12-07] MEDS: PANTOPRAZOLE 40 MG TABLET PO SCH (09:31)
[2021-12-07] MEDS: CYANOCOBALAMIN 500 MCG TABLET PO SCH (09:31)
[2021-12-07] MEDS: GABAPENTIN 300 MG CAPSULE PO SCH ×3 (09:31→21:41)
[2021-12-07] MEDS: POTASSIUM CHLORIDE 10 MEQ TABLET PO SCH ×3 (09:31→21:41)
[2021-12-07] MEDS: amLODIPine 5 MG TABLET PO SCH (09:31)
[2021-12-07] MEDS: SIMVASTATIN 20 MG TABLET PO SCH (09:31)
[2021-12-07] MEDS: atenoloL 50 MG TABLET PO SCH (09:31)
[2021-12-07] MEDS: azaTHIOprine 50 MG TABLET PO SCH (09:31)
[2021-12-07] MEDS: ALBUTEROL/IPRATROPIUM 3 ML NEB RESP TX SCH ×3 (10:30→19:27)
[2021-12-07] MEDS: MAGNESIUM OXIDE 400 MG TABLET PO SCH (21:41)
[2021-12-07] MEDS: EZETIMIBE 10 MG TABLET PO SCH (21:42)
[2021-12-07] MEDS: CHOLECALCIFEROL 1,000 UNIT TABLET PO SCH (21:42)
[2021-12-07] MEDS: FOLIC ACID 1 MG TABLET PO SCH (21:42)
[2021-12-07] MEDS: VITAMIN E 400 UNIT CAPSULE PO SCH (21:42)
[2021-12-08] MEDS: PIPERACILLIN/TAZOBACTAM 3,375 MG in SODIUM CHLORIDE 0.9% 100 ML IV SCH ×3 (04:07→19:38)
[2021-12-08] MEDS: cloNIDine 0.1 MG TABLET PO SCH ×4 (04:09→21:55)
[2021-12-08 05:45] LABS: Basophils # 0.1 10*3/uL (0.0-0.2); Basophils % 0.8 % (0.0-0.8); Eosinophils # 0.4 10*3/uL (0.0-0.87); Hematocrit 27.7 VOL% (35.7-47.0); Hemoglobin 8.6 GM/DL (12.0-16.0); Immature Granulocytes % 0.8 %; Immature Granulocytes Absolute 0.05 #; Lymphocytes # 0.9 10*3/uL (1.4-4.0); Lymphocytes % 13.9 % (21.3-54.2); Mean Corpuscular Volume 78.5 FL (87-102); Monocytes % 9.1 % (1.7-12.7); Neutrophils % 68.4 % (38.7-73.9); Platelet Count 302 T/CUMM (130-400); Red Blood Count 3.53 MC/CUMM (3.8-5.5); Red Cell Distribution Width 18.3 % (9.3-17.3); White Blood Count 6.1 T/CUMM (4-12)
[2021-12-08 05:57] LABS: Calcium 8.4 MG/DL (8.5-10.1); Osmolality,Calculated 282.8 MOS/KG (273-304); Potassium 4.2 MMOL/L (3.5-5.1)
[2021-12-08] MEDS: ALBUTEROL/IPRATROPIUM 3 ML NEB RESP TX SCH ×3 (08:02→20:20)
[2021-12-08 09:12] LABS: % Iron Saturation 7.7 % (18-50); Ferritin 40.2 ng/mL (8-252)
[2021-12-08] MEDS: DULoxetine 30 MG CAPSULE PO SCH ×2 (09:23→21:55)
[2021-12-08] MEDS: hydrALAZINE 25 MG TABLET PO SCH ×2 (09:24→21:54)
[2021-12-08] MEDS: GABAPENTIN 300 MG CAPSULE PO SCH ×3 (09:24→21:54)
[2021-12-08] MEDS: PANTOPRAZOLE 40 MG TABLET PO SCH (09:24)
[2021-12-08] MEDS: SIMVASTATIN 20 MG TABLET PO SCH (09:24)
[2021-12-08] MEDS: amLODIPine 5 MG TABLET PO SCH (09:24)
[2021-12-08] MEDS: DOXAZOSIN 4 MG TABLET PO SCH (09:24)
[2021-12-08] MEDS: POTASSIUM CHLORIDE 10 MEQ TABLET PO SCH ×3 (09:25→21:55)
[2021-12-08] MEDS: ASPIRIN EC 81 MG TABLET PO SCH (09:25)
[2021-12-08] MEDS: busPIRone 10 MG TABLET PO SCH ×2 (09:25→21:55)
[2021-12-08] MEDS: CYANOCOBALAMIN 500 MCG TABLET PO SCH (09:26)
[2021-12-08] MEDS: APIXABAN 5 MG TABLET PO SCH ×2 (09:26→21:54)
[2021-12-08] MEDS: azaTHIOprine 50 MG TABLET PO SCH (09:26)
[2021-12-08] MEDS: FUROSEMIDE 40 MG TABLET PO SCH ×2 (09:26→21:55)
[2021-12-08] MEDS: atenoloL 50 MG TABLET PO SCH (09:26)
[2021-12-08] MEDS: DOCUSATE SODIUM 100 MG CAPSULE PO SCH ×2 (09:26→21:54)
[2021-12-08] MEDS: oxyCODONE IR 5 MG TABLET PO PRN ×2 (09:33→15:07)
[2021-12-08] MEDS: FOLIC ACID 1 MG TABLET PO SCH (21:53)
[2021-12-08] MEDS: VITAMIN E 400 UNIT CAPSULE PO SCH (21:53)
[2021-12-08] MEDS: EZETIMIBE 10 MG TABLET PO SCH (21:54)
[2021-12-08] MEDS: CHOLECALCIFEROL 1,000 UNIT TABLET PO SCH (21:54)
[2021-12-08] MEDS: MAGNESIUM OXIDE 400 MG TABLET PO SCH (21:54)
[2021-12-08] MEDS: oxyCODONE ER 20 MG TABLET PO SCH (21:56)
[2021-12-09] MEDS: cloNIDine 0.1 MG TABLET PO SCH ×2 (04:28→08:47)
[2021-12-09] MEDS: PIPERACILLIN/TAZOBACTAM 3,375 MG in SODIUM CHLORIDE 0.9% 100 ML IV SCH (04:29)
[2021-12-09 05:06] LABS: Basophils # 0.1 10*3/uL (0.0-0.2); Basophils % 0.8 % (0.0-0.8); Eosinophils # 0.5 10*3/uL (0.0-0.87); Hemoglobin 8.6 GM/DL (12.0-16.0); Immature Granulocytes % 0.3 %; Immature Granulocytes Absolute 0.02 #; Lymphocytes # 1.5 10*3/uL (1.4-4.0); Lymphocytes % 22.1 % (21.3-54.2); Mean Corpuscular HGB Conc 29.7 GM/DL (32-36); Mean Corpuscular Volume 78.4 FL (87-102); Mean Platelet Volume 9.2 FL (9.6-12.0); Monocytes % 10.1 % (1.7-12.7); Neutrophils % 58.7 % (38.7-73.9); Platelet Count 323 T/CUMM (130-400); Red Cell Distribution Width 17.9 % (9.3-17.3); White Blood Count 6.7 T/CUMM (4-12)
[2021-12-09 05:32] LABS: Calcium 8.5 MG/DL (8.5-10.1); Osmolality,Calculated 271.5 MOS/KG (273-304); Potassium 4.1 MMOL/L (3.5-5.1)
[2021-12-09] MEDS: ALBUTEROL/IPRATROPIUM 3 ML NEB RESP TX SCH (07:19)
[2021-12-09] MEDS: POTASSIUM CHLORIDE 10 MEQ TABLET PO SCH (08:37)
[2021-12-09] MEDS: DULoxetine 30 MG CAPSULE PO SCH (08:38)
[2021-12-09] MEDS: GABAPENTIN 300 MG CAPSULE PO SCH (08:38)
[2021-12-09] MEDS: oxyCODONE ER 20 MG TABLET PO SCH (08:44)
[2021-12-09] MEDS: DOCUSATE SODIUM 100 MG CAPSULE PO SCH (08:45)
[2021-12-09] MEDS: PANTOPRAZOLE 40 MG TABLET PO SCH (08:45)
[2021-12-09] MEDS: DOXAZOSIN 4 MG TABLET PO SCH (08:45)
[2021-12-09] MEDS: amLODIPine 5 MG TABLET PO SCH (08:45)
[2021-12-09] MEDS: busPIRone 10 MG TABLET PO SCH (08:45)
[2021-12-09] MEDS: CYANOCOBALAMIN 500 MCG TABLET PO SCH (08:46)
[2021-12-09] MEDS: hydrALAZINE 25 MG TABLET PO SCH (08:46)
[2021-12-09] MEDS: APIXABAN 5 MG TABLET PO SCH (08:46)
[2021-12-09] MEDS: SIMVASTATIN 20 MG TABLET PO SCH (08:46)
[2021-12-09] MEDS: atenoloL 50 MG TABLET PO SCH (08:46)
[2021-12-09] MEDS: FUROSEMIDE 40 MG TABLET PO SCH (08:46)
[2021-12-09] MEDS: azaTHIOprine 50 MG TABLET PO SCH (08:46)
[2021-12-09] MEDS: ASPIRIN EC 81 MG TABLET PO SCH (08:46)
[2021-12-09 10:08] VITALS: BP 111/49
== END 2021-12-09 11:05 | disposition home health service (06) | DRG 177 ==
LOC: N.EDINP 15:52 → N.ED 15:52 → N.EDINP 12-07 13:26 → N.TELES 12-07 13:56
PROVIDERS: ADMIT Internal Medicine; ATTEND Internal Medicine

== ENCOUNTER 2022-05-31 13:20 | Inpatient (IN) ==
[2022-05-31] MEDS ORDERED: ALBUTEROL/IPRATROPIUM 3 ML NEB RESP TX STA (14:03)
[2022-05-31] MEDS ORDERED: SODIUM CHLORIDE 0.9% 1,000 ML IV STA (14:23)
[2022-05-31] MEDS ORDERED: cefTRIAXone 1,000 MG in SODIUM CHLORIDE 0.9% 100 ML IV STA (14:23)
[2022-05-31 15:45] LABS: Basophils % 0.4 % (0.0-0.8); Eosinophils # 0.2 10*3/uL (0.0-0.87); Hematocrit 32.7 VOL% (35.7-47.0); Immature Granulocytes % 0.5 %; Immature Granulocytes Absolute 0.05 #; Lymphocytes # 1.2 10*3/uL (1.4-4.0); Lymphocytes % 12.1 % (21.3-54.2); Mean Corpuscular HGB Conc 30.6 GM/DL (32-36); Monocytes # 0.7 10*3/uL (0.11-0.8); Monocytes % 7.2 % (1.7-12.7); Neutrophils % 77.8 % (38.7-73.9); Platelet Count 347 T/CUMM (130-400); Red Blood Count 4.14 MC/CUMM (3.8-5.5); Red Cell Distribution Width 18.3 % (9.3-17.3); White Blood Count 10.2 T/CUMM (4-12)
[2022-05-31 16:00] LABS: Bilirubin,Total 0.4 MG/DL (0.20-1.00); Osmolality,Calculated 278.4 MOS/KG (273-304); Potassium 4.4 MMOL/L (3.5-5.1); Total Protein 6.8 G/DL (6.4-8.2)
[2022-05-31] MEDS ORDERED: GLUCAGON 1 MG VIAL IM PRN (17:09)
[2022-05-31] MEDS ORDERED: ACETAMINOPHEN 325 MG TABLET PO PRN (17:09)
[2022-05-31] MEDS ORDERED: MORPHINE 2 MG/1 ML SYRINGE IV PRN (17:09)
[2022-05-31] MEDS ORDERED: ONDANSETRON 4 MG/2 ML VIAL IV PRN (17:09)
[2022-05-31] MEDS ORDERED: DEXTROSE 10% 250 ML BAG IV PRN (17:17)
[2022-05-31] MEDS ORDERED: FUROSEMIDE 40 MG TABLET PO PRN (18:03)
[2022-05-31] MEDS ORDERED: ALBUTEROL/IPRATROPIUM 3 ML NEB RESP TX PRN (18:03)
[2022-05-31] MEDS ORDERED: LINACLOTIDE 145 MCG CAPSULE PO PRN (18:22)
[2022-05-31] MEDS: ALBUTEROL/IPRATROPIUM 3 ML NEB RESP TX SCH (19:32)
[2022-05-31] MEDS: DULoxetine 30 MG CAPSULE PO SCH (20:41)
[2022-05-31] MEDS: oxyCODONE IR 5 MG TABLET PO PRN (20:41)
[2022-05-31] MEDS: GABAPENTIN 600 MG TABLET PO SCH (20:42)
[2022-05-31] MEDS: EZETIMIBE 10 MG TABLET PO SCH (20:42)
[2022-05-31] MEDS: SIMVASTATIN 20 MG TABLET PO SCH (20:42)
[2022-05-31] MEDS: MAGNESIUM OXIDE 400 MG TABLET PO SCH (20:42)
[2022-05-31] MEDS: DOCUSATE SODIUM 100 MG CAPSULE PO SCH (20:42)
[2022-05-31] MEDS: VITAMIN E 400 UNIT CAPSULE PO SCH (20:42)
[2022-05-31] MEDS: POTASSIUM CHLORIDE 20 MEQ TABLET PO SCH (20:42)
[2022-05-31] MEDS: CHOLECALCIFEROL 1,000 UNIT TABLET PO SCH (20:43)
[2022-05-31] MEDS: APIXABAN 5 MG TABLET PO SCH (20:43)
[2022-05-31] MEDS ORDERED: NON-FORMULARY MEDICATION (Esomeprazole Magnesium [Nexium] 40 mg capsule,delayed release(DR PO SCH (21:00)
[2022-05-31] MEDS: oxyCODONE ER 20 MG TABLET PO SCH (21:30)
[2022-05-31] MEDS: INSULIN REGULAR 100 UNIT/ML SUBCUT SCH (21:51)
[2022-05-31] MEDS: PIPERACILLIN/TAZOBACTAM 3,375 MG in SODIUM CHLORIDE 0.9% 100 ML IV SCH (22:04)
[2022-06-01] MEDS: ALBUTEROL/IPRATROPIUM 3 ML NEB RESP TX SCH ×4 (00:43→19:32)
[2022-06-01] MEDS: PIPERACILLIN/TAZOBACTAM 3,375 MG in SODIUM CHLORIDE 0.9% 100 ML IV SCH ×3 (05:41→21:47)
[2022-06-01] MEDS: INSULIN REGULAR 100 UNIT/ML SUBCUT SCH (08:24)
[2022-06-01] MEDS: atenoloL 25 MG TABLET PO SCH (08:25)
[2022-06-01] MEDS: azaTHIOprine 50 MG TABLET PO SCH (08:25)
[2022-06-01] MEDS: APIXABAN 5 MG TABLET PO SCH ×2 (08:25→21:47)
[2022-06-01] MEDS: oxyCODONE ER 20 MG TABLET PO SCH ×2 (08:26→21:46)
[2022-06-01] MEDS: GABAPENTIN 600 MG TABLET PO SCH ×3 (08:26→21:46)
[2022-06-01] MEDS: MULTIVITAMIN (OCUVITE) TABLET PO SCH (08:26)
[2022-06-01] MEDS: PANTOPRAZOLE 40 MG TABLET PO SCH (08:26)
[2022-06-01] MEDS: DOCUSATE SODIUM 100 MG CAPSULE PO SCH ×2 (08:26→21:45)
[2022-06-01] MEDS: POTASSIUM CHLORIDE 20 MEQ TABLET PO SCH ×3 (08:26→21:47)
[2022-06-01] MEDS: DULoxetine 30 MG CAPSULE PO SCH ×2 (08:26→21:45)
[2022-06-01] MEDS: amLODIPine 5 MG TABLET PO SCH (08:26)
[2022-06-01] MEDS: ASPIRIN EC 81 MG TABLET PO SCH (08:27)
[2022-06-01] MEDS: CYANOCOBALAMIN 500 MCG TABLET PO SCH (08:27)
[2022-06-01] MEDS ORDERED: LINACLOTIDE 145 MCG CAPSULE PO PRN (09:00)
[2022-06-01] MEDS: ELDERBERRY FRUIT AND FLOWER PO SCH (11:40)
[2022-06-01] MEDS: CRANBERRY C BACILLUS COAG PO SCH (11:40)
[2022-06-01] MEDS: INSULIN LISPRO 100 UNIT/ML CONTDEVICE SCH ×3 (11:42→21:51)
[2022-06-01] MEDS: oxyCODONE IR 5 MG TABLET PO PRN (12:35)
[2022-06-01] MEDS: VITAMIN E 400 UNIT CAPSULE PO SCH (21:45)
[2022-06-01] MEDS: SIMVASTATIN 20 MG TABLET PO SCH (21:46)
[2022-06-01] MEDS: CHOLECALCIFEROL 1,000 UNIT TABLET PO SCH (21:47)
[2022-06-01] MEDS: EZETIMIBE 10 MG TABLET PO SCH (21:47)
[2022-06-01] MEDS: MAGNESIUM OXIDE 400 MG TABLET PO SCH (21:47)
[2022-06-02] MEDS: PIPERACILLIN/TAZOBACTAM 3,375 MG in SODIUM CHLORIDE 0.9% 100 ML IV SCH ×3 (06:23→21:01)
[2022-06-02] MEDS: ALBUTEROL/IPRATROPIUM 3 ML NEB RESP TX SCH ×4 (07:43→19:07)
[2022-06-02] MEDS: INSULIN LISPRO 100 UNIT/ML CONTDEVICE SCH ×4 (08:30→20:59)
[2022-06-02 08:57] LABS: Basophils # 0.1 10*3/uL (0.0-0.2); Basophils % 0.8 % (0.0-0.8); Eosinophils # 0.4 10*3/uL (0.0-0.87); Eosinophils % 5.6 % (0.00-10.9); Hematocrit 29.7 VOL% (35.7-47.0); Hemoglobin 9.2 GM/DL (12.0-16.0); Immature Granulocytes % 0.4 %; Immature Granulocytes Absolute 0.03 #; Lymphocytes % 12.5 % (21.3-54.2); Mean Corpuscular Volume 78.2 FL (87-102); Mean Platelet Volume 8.7 FL (9.6-12.0); Monocytes # 0.7 10*3/uL (0.11-0.8); Monocytes % 9.4 % (1.7-12.7); Neutrophils % 71.3 % (38.7-73.9); Platelet Count 296 T/CUMM (130-400); Red Cell Distribution Width 17.7 % (9.3-17.3); White Blood Count 7.7 T/CUMM (4-12)
[2022-06-02 09:16] LABS: Calcium 8.9 MG/DL (8.5-10.1); Osmolality,Calculated 267.2 MOS/KG (273-304); Potassium 4.3 MMOL/L (3.5-5.1)
[2022-06-02] MEDS: DOCUSATE SODIUM 100 MG CAPSULE PO SCH ×2 (09:30→20:58)
[2022-06-02] MEDS: amLODIPine 5 MG TABLET PO SCH (09:30)
[2022-06-02] MEDS: APIXABAN 5 MG TABLET PO SCH ×2 (09:30→20:58)
[2022-06-02] MEDS: GABAPENTIN 600 MG TABLET PO SCH ×3 (09:30→20:57)
[2022-06-02] MEDS: CYANOCOBALAMIN 500 MCG TABLET PO SCH (09:30)
[2022-06-02] MEDS: atenoloL 25 MG TABLET PO SCH (09:30)
[2022-06-02] MEDS: ASPIRIN EC 81 MG TABLET PO SCH (09:30)
[2022-06-02] MEDS: DULoxetine 30 MG CAPSULE PO SCH ×2 (09:30→20:57)
[2022-06-02] MEDS: MULTIVITAMIN (OCUVITE) TABLET PO SCH (09:30)
[2022-06-02] MEDS: PANTOPRAZOLE 40 MG TABLET PO SCH (09:31)
[2022-06-02] MEDS: azaTHIOprine 50 MG TABLET PO SCH (09:31)
[2022-06-02] MEDS: POTASSIUM CHLORIDE 20 MEQ TABLET PO SCH ×3 (09:31→20:58)
[2022-06-02] MEDS: oxyCODONE ER 20 MG TABLET PO SCH ×2 (09:32→20:58)
[2022-06-02] MEDS: CRANBERRY C BACILLUS COAG PO SCH (09:37)
[2022-06-02] MEDS: ELDERBERRY FRUIT AND FLOWER PO SCH (09:37)
[2022-06-02] MEDS: oxyCODONE IR 5 MG TABLET PO PRN (15:07)
[2022-06-02] MEDS: EZETIMIBE 10 MG TABLET PO SCH (20:57)
[2022-06-02] MEDS: SIMVASTATIN 20 MG TABLET PO SCH (20:57)
[2022-06-02] MEDS: VITAMIN E 400 UNIT CAPSULE PO SCH (20:57)
[2022-06-02] MEDS: CHOLECALCIFEROL 1,000 UNIT TABLET PO SCH (20:57)
[2022-06-02] MEDS: MAGNESIUM OXIDE 400 MG TABLET PO SCH (20:58)
[2022-06-02] MEDS ORDERED: methylPREDNISolone SOD SUC 40 MG/1 ML VIAL IV ONE (22:00)
[2022-06-02 23:51] LABS: Arterial Base Excess iSTAT 0 MMOL/L (-2.5-2.5); Arterial Bicarbonate iSTAT 26.3 MMOL/L (20-26); Arterial O2 Saturation iSTAT 90 % (95-100); Arterial PCO2 iSTAT 52 MM HG (35-48); Arterial PO2 iSTAT 65 MM HG (80-95); Arterial Total CO2 iSTAT 28 MMO/L (23-27); Arterial pH iSTAT 7.316 (7.35-7.45)
[2022-06-03] MEDS: ALBUTEROL/IPRATROPIUM 3 ML NEB RESP TX SCH ×4 (01:13→20:00)
[2022-06-03 05:07] LABS: Basophils % 0.1 % (0.0-0.8); Hematocrit 29.4 VOL% (35.7-47.0); Hemoglobin 9.1 GM/DL (12.0-16.0); Immature Granulocytes % 0.6 %; Immature Granulocytes Absolute 0.05 #; Lymphocytes # 0.2 10*3/uL (1.4-4.0); Lymphocytes % 2.6 % (21.3-54.2); Mean Corpuscular Volume 79.2 FL (87-102); Mean Platelet Volume 8.9 FL (9.6-12.0); Monocytes # 0.2 10*3/uL (0.11-0.8); Monocytes % 2.1 % (1.7-12.7); Neutrophils % 94.6 % (38.7-73.9); Platelet Count 322 T/CUMM (130-400); Red Blood Count 3.71 MC/CUMM (3.8-5.5); Red Cell Distribution Width 17.3 % (9.3-17.3); White Blood Count 8.4 T/CUMM (4-12)
[2022-06-03 05:28] LABS: Calcium 8.9 MG/DL (8.5-10.1); Osmolality,Calculated 265.8 MOS/KG (273-304); Potassium 5.4 MMOL/L (3.5-5.1)
[2022-06-03 05:35] LABS: Hypochromia Slight; Lymphocytes 8 % (20-55); Microcytosis Slight; Platelet Estimate Adequate; Total Cells Counted 100
[2022-06-03] MEDS: PIPERACILLIN/TAZOBACTAM 3,375 MG in SODIUM CHLORIDE 0.9% 100 ML IV SCH ×2 (05:52→13:43)
[2022-06-03] MEDS ORDERED: GLUCAGON 1 MG VIAL IM PRN (08:47)
[2022-06-03] MEDS ORDERED: DEXTROSE 50% 25 GM/50 ML VIAL IV PRN (08:47)
[2022-06-03] MEDS ORDERED: INSULIN GLARGINE 100 UNIT/ML SUBCUT ONE ×2 (09:00)
[2022-06-03] MEDS: atenoloL 25 MG TABLET PO SCH (09:41)
[2022-06-03] MEDS: PANTOPRAZOLE 40 MG TABLET PO SCH (09:42)
[2022-06-03] MEDS: DOCUSATE SODIUM 100 MG CAPSULE PO SCH ×2 (09:42→21:22)
[2022-06-03] MEDS: GABAPENTIN 600 MG TABLET PO SCH ×3 (09:42→21:22)
[2022-06-03] MEDS: ASPIRIN EC 81 MG TABLET PO SCH (09:43)
[2022-06-03] MEDS: amLODIPine 5 MG TABLET PO SCH (09:43)
[2022-06-03] MEDS: oxyCODONE ER 20 MG TABLET PO SCH ×2 (09:43→21:23)
[2022-06-03] MEDS: APIXABAN 5 MG TABLET PO SCH ×2 (09:43→21:23)
[2022-06-03] MEDS: CYANOCOBALAMIN 500 MCG TABLET PO SCH (09:43)
[2022-06-03] MEDS: MULTIVITAMIN (OCUVITE) TABLET PO SCH (09:44)
[2022-06-03] MEDS: CRANBERRY C BACILLUS COAG PO SCH (11:24)
[2022-06-03] MEDS: ELDERBERRY FRUIT AND FLOWER PO SCH (11:25)
[2022-06-03] MEDS: FUROSEMIDE 40 MG/4 ML VIAL IV SCH ×2 (11:35→18:31)
[2022-06-03] MEDS: INSULIN LISPRO 100 UNIT/ML SUBCUT SCH ×4 (12:00→21:25)
[2022-06-03] MEDS: INSULIN GLARGINE 100 UNIT/ML SUBCUT SCH (14:36)
[2022-06-03] MEDS: INSULIN LISPRO 100 UNIT/ML CONTDEVICE SCH (14:54)
[2022-06-03] MEDS: oxyCODONE IR 5 MG TABLET PO PRN (17:04)
[2022-06-03] MEDS: SIMVASTATIN 20 MG TABLET PO SCH (21:22)
[2022-06-03] MEDS: EZETIMIBE 10 MG TABLET PO SCH (21:22)
[2022-06-03] MEDS: MAGNESIUM OXIDE 400 MG TABLET PO SCH (21:22)
[2022-06-03] MEDS: CHOLECALCIFEROL 1,000 UNIT TABLET PO SCH (21:22)
[2022-06-03] MEDS: VITAMIN E 400 UNIT CAPSULE PO SCH (21:22)
[2022-06-04] MEDS: INSULIN LISPRO 100 UNIT/ML SUBCUT SCH ×5 (00:20→20:59)
[2022-06-04] MEDS: PIPERACILLIN/TAZOBACTAM 3,375 MG in SODIUM CHLORIDE 0.9% 100 ML IV SCH ×5 (00:45→21:34)
[2022-06-04] MEDS: ALBUTEROL/IPRATROPIUM 3 ML NEB RESP TX SCH ×3 (01:19→19:20)
[2022-06-04] MEDS: oxyCODONE IR 5 MG TABLET PO PRN ×2 (05:57→12:12)
[2022-06-04 06:12] LABS: Calcium 9.1 MG/DL (8.5-10.1); Osmolality,Calculated 267.6 MOS/KG (273-304); Potassium 4.4 MMOL/L (3.5-5.1)
[2022-06-04] MEDS ORDERED: FUROSEMIDE 40 MG/4 ML VIAL IV ONE ×2 (06:30→12:00)
[2022-06-04 07:17] LABS: Arterial Base Excess iSTAT 4 MMOL/L (-2.5-2.5); Arterial Bicarbonate iSTAT 30.9 MMOL/L (20-26); Arterial O2 Saturation iSTAT 94 % (95-100); Arterial PCO2 iSTAT 56 MM HG (35-48); Arterial PO2 iSTAT 77 MM HG (80-95); Arterial Total CO2 iSTAT 33 MMO/L (23-27); Arterial pH iSTAT 7.352 (7.35-7.45)
[2022-06-04] MEDS: methylPREDNISolone SOD SUC 40 MG/1 ML VIAL IV SCH ×3 (07:26→23:14)
[2022-06-04] MEDS: FUROSEMIDE 40 MG/4 ML VIAL IV SCH ×2 (08:43→16:47)
[2022-06-04] MEDS: DOCUSATE SODIUM 100 MG CAPSULE PO SCH ×2 (09:02→20:58)
[2022-06-04] MEDS: GABAPENTIN 600 MG TABLET PO SCH ×3 (09:04→20:58)
[2022-06-04] MEDS: CYANOCOBALAMIN 500 MCG TABLET PO SCH (09:04)
[2022-06-04] MEDS: MULTIVITAMIN (OCUVITE) TABLET PO SCH (09:04)
[2022-06-04] MEDS: oxyCODONE ER 20 MG TABLET PO SCH ×2 (09:04→20:58)
[2022-06-04] MEDS: atenoloL 25 MG TABLET PO SCH (09:05)
[2022-06-04] MEDS: PANTOPRAZOLE 40 MG TABLET PO SCH (09:05)
[2022-06-04] MEDS: ASPIRIN EC 81 MG TABLET PO SCH (09:05)
[2022-06-04] MEDS: APIXABAN 5 MG TABLET PO SCH ×2 (09:05→20:58)
[2022-06-04] MEDS: amLODIPine 5 MG TABLET PO SCH (09:05)
[2022-06-04] MEDS: INSULIN GLARGINE 100 UNIT/ML SUBCUT SCH (09:07)
[2022-06-04] MEDS: ELDERBERRY FRUIT AND FLOWER PO SCH (09:14)
[2022-06-04] MEDS: CRANBERRY C BACILLUS COAG PO SCH (09:14)
[2022-06-04] MEDS: MAGNESIUM OXIDE 400 MG TABLET PO SCH (20:57)
[2022-06-04] MEDS: CHOLECALCIFEROL 1,000 UNIT TABLET PO SCH (20:57)
[2022-06-04] MEDS: VITAMIN E 400 UNIT CAPSULE PO SCH (20:57)
[2022-06-04] MEDS: SIMVASTATIN 20 MG TABLET PO SCH (20:58)
[2022-06-04] MEDS: EZETIMIBE 10 MG TABLET PO SCH (20:59)
[2022-06-05] MEDS: ALBUTEROL/IPRATROPIUM 3 ML NEB RESP TX SCH ×5 (00:25→19:41)
[2022-06-05 05:05] LABS: Basophils % 0.1 % (0.0-0.8); Hematocrit 28.2 VOL% (35.7-47.0); Hemoglobin 8.8 GM/DL (12.0-16.0); Immature Granulocytes % 0.9 %; Lymphocytes # 0.5 10*3/uL (1.4-4.0); Lymphocytes % 4.5 % (21.3-54.2); Mean Corpuscular HGB Conc 31.2 GM/DL (32-36); Mean Corpuscular Volume 76.6 FL (87-102); Mean Platelet Volume 9.1 FL (9.6-12.0); Monocytes # 0.5 10*3/uL (0.11-0.8); Monocytes % 4.7 % (1.7-12.7); Neutrophils % 89.8 % (38.7-73.9); Platelet Count 366 T/CUMM (130-400); Red Blood Count 3.68 MC/CUMM (3.8-5.5); Red Cell Distribution Width 17.4 % (9.3-17.3); White Blood Count 10.8 T/CUMM (4-12)
[2022-06-05] MEDS: PIPERACILLIN/TAZOBACTAM 3,375 MG in SODIUM CHLORIDE 0.9% 100 ML IV SCH ×3 (05:06→21:05)
[2022-06-05 05:24] LABS: Calcium 9.1 MG/DL (8.5-10.1); Osmolality,Calculated 267.1 MOS/KG (273-304); Potassium 4.4 MMOL/L (3.5-5.1)
[2022-06-05 05:29] LABS: Hypochromia Slight; Lymphocytes 6 % (20-55); Microcytosis Slight; Platelet Estimate Adequate; Total Cells Counted 100
[2022-06-05] MEDS: methylPREDNISolone SOD SUC 40 MG/1 ML VIAL IV SCH ×2 (06:09→17:55)
[2022-06-05] MEDS ORDERED: INSULIN GLARGINE 100 UNIT/ML SUBCUT SCH (09:00)
[2022-06-05] MEDS: amLODIPine 5 MG TABLET PO SCH (09:18)
[2022-06-05] MEDS: PANTOPRAZOLE 40 MG TABLET PO SCH (09:19)
[2022-06-05] MEDS: ASPIRIN EC 81 MG TABLET PO SCH (09:19)
[2022-06-05] MEDS: APIXABAN 5 MG TABLET PO SCH ×2 (09:19→20:05)
[2022-06-05] MEDS: atenoloL 25 MG TABLET PO SCH (09:19)
[2022-06-05] MEDS: MULTIVITAMIN (OCUVITE) TABLET PO SCH (09:19)
[2022-06-05] MEDS: CYANOCOBALAMIN 500 MCG TABLET PO SCH (09:19)
[2022-06-05] MEDS: GABAPENTIN 600 MG TABLET PO SCH ×3 (09:19→20:05)
[2022-06-05] MEDS: oxyCODONE ER 20 MG TABLET PO SCH ×2 (09:19→20:05)
[2022-06-05] MEDS: FUROSEMIDE 40 MG/4 ML VIAL IV SCH ×2 (09:20→15:57)
[2022-06-05] MEDS: ELDERBERRY FRUIT AND FLOWER PO SCH (09:21)
[2022-06-05] MEDS: INSULIN LISPRO 100 UNIT/ML SUBCUT SCH ×7 (09:21→21:20)
[2022-06-05] MEDS: CRANBERRY C BACILLUS COAG PO SCH (09:21)
[2022-06-05] MEDS: DOCUSATE SODIUM 100 MG CAPSULE PO SCH ×2 (09:22→20:05)
[2022-06-05] MEDS: VITAMIN E 400 UNIT CAPSULE PO SCH (20:04)
[2022-06-05] MEDS: EZETIMIBE 10 MG TABLET PO SCH (20:04)
[2022-06-05] MEDS: MAGNESIUM OXIDE 400 MG TABLET PO SCH (20:05)
[2022-06-05] MEDS: CHOLECALCIFEROL 1,000 UNIT TABLET PO SCH (20:05)
[2022-06-05] MEDS: SIMVASTATIN 20 MG TABLET PO SCH (20:05)
[2022-06-06] MEDS: ALBUTEROL/IPRATROPIUM 3 ML NEB RESP TX SCH ×4 (01:21→19:49)
[2022-06-06] MEDS: methylPREDNISolone SOD SUC 40 MG/1 ML VIAL IV SCH ×2 (05:01→17:34)
[2022-06-06] MEDS: PIPERACILLIN/TAZOBACTAM 3,375 MG in SODIUM CHLORIDE 0.9% 100 ML IV SCH ×3 (05:02→22:03)
[2022-06-06 06:14] LABS: Calcium 9.4 MG/DL (8.5-10.1); Osmolality,Calculated 273.9 MOS/KG (273-304)
[2022-06-06] MEDS: PANTOPRAZOLE 40 MG TABLET PO SCH (09:07)
[2022-06-06] MEDS: amLODIPine 5 MG TABLET PO SCH (09:08)
[2022-06-06] MEDS: GABAPENTIN 600 MG TABLET PO SCH ×3 (09:08→21:58)
[2022-06-06] MEDS: CYANOCOBALAMIN 500 MCG TABLET PO SCH (09:08)
[2022-06-06] MEDS: oxyCODONE ER 20 MG TABLET PO SCH ×2 (09:08→21:59)
[2022-06-06] MEDS: MULTIVITAMIN (OCUVITE) TABLET PO SCH (09:08)
[2022-06-06] MEDS: atenoloL 25 MG TABLET PO SCH (09:09)
[2022-06-06] MEDS: INSULIN GLARGINE 100 UNIT/ML SUBCUT SCH (09:09)
[2022-06-06] MEDS: APIXABAN 5 MG TABLET PO SCH ×2 (09:09→21:58)
[2022-06-06] MEDS: INSULIN LISPRO 100 UNIT/ML SUBCUT SCH ×4 (09:10→21:58)
[2022-06-06] MEDS: CRANBERRY C BACILLUS COAG PO SCH (09:41)
[2022-06-06] MEDS: ASPIRIN EC 81 MG TABLET PO SCH (10:18)
[2022-06-06] MEDS: DOCUSATE SODIUM 100 MG CAPSULE PO SCH ×2 (10:18→21:57)
[2022-06-06] MEDS: FUROSEMIDE 40 MG/4 ML VIAL IV SCH ×2 (10:19→15:50)
[2022-06-06] MEDS: ELDERBERRY FRUIT AND FLOWER PO SCH (11:22)
[2022-06-06] MEDS: SIMVASTATIN 20 MG TABLET PO SCH (21:58)
[2022-06-06] MEDS: CHOLECALCIFEROL 1,000 UNIT TABLET PO SCH (21:58)
[2022-06-06] MEDS: VITAMIN E 400 UNIT CAPSULE PO SCH (21:58)
[2022-06-06] MEDS: MAGNESIUM OXIDE 400 MG TABLET PO SCH (21:58)
[2022-06-06] MEDS: EZETIMIBE 10 MG TABLET PO SCH (21:58)
[2022-06-07] MEDS: ALBUTEROL/IPRATROPIUM 3 ML NEB RESP TX SCH ×2 (00:37→07:30)
[2022-06-07 05:03] LABS: Calcium 9.1 MG/DL (8.5-10.1); Osmolality,Calculated 287.5 MOS/KG (273-304); Potassium 3.4 MMOL/L (3.5-5.1)
[2022-06-07] MEDS: PIPERACILLIN/TAZOBACTAM 3,375 MG in SODIUM CHLORIDE 0.9% 100 ML IV SCH (06:18)
[2022-06-07] MEDS: methylPREDNISolone SOD SUC 40 MG/1 ML VIAL IV SCH (07:21)
[2022-06-07 08:21] VITALS: BP 165/68
[2022-06-07] MEDS: CYANOCOBALAMIN 500 MCG TABLET PO SCH (09:15)
[2022-06-07] MEDS: amLODIPine 5 MG TABLET PO SCH (09:15)
[2022-06-07] MEDS: GABAPENTIN 600 MG TABLET PO SCH (09:15)
[2022-06-07] MEDS: DOCUSATE SODIUM 100 MG CAPSULE PO SCH (09:15)
[2022-06-07] MEDS: atenoloL 25 MG TABLET PO SCH (09:15)
[2022-06-07] MEDS: PANTOPRAZOLE 40 MG TABLET PO SCH (09:15)
[2022-06-07] MEDS: MULTIVITAMIN (OCUVITE) TABLET PO SCH (09:15)
[2022-06-07] MEDS: APIXABAN 5 MG TABLET PO SCH (09:16)
[2022-06-07] MEDS: oxyCODONE ER 20 MG TABLET PO SCH (09:16)
[2022-06-07] MEDS: FUROSEMIDE 40 MG/4 ML VIAL IV SCH (09:16)
[2022-06-07] MEDS: ASPIRIN EC 81 MG TABLET PO SCH (09:16)
[2022-06-07] MEDS: INSULIN LISPRO 100 UNIT/ML SUBCUT SCH (09:17)
[2022-06-07] MEDS: INSULIN GLARGINE 100 UNIT/ML SUBCUT SCH (09:17)
[2022-06-07] MEDS: CRANBERRY C BACILLUS COAG PO SCH (10:19)
[2022-06-07] MEDS: ELDERBERRY FRUIT AND FLOWER PO SCH (10:19)
== END 2022-06-07 11:58 | disposition home or self-care (01) | DRG 178 ==
LOC: N.ED 13:20 → N.EDINP 16:41 → N.3E 17:45
PROVIDERS: ADMIT Internal Medicine; ATTEND Internal Medicine

== ENCOUNTER 2022-10-06 15:50 | Inpatient (IN) ==
[2022-10-06 16:57] LABS: Basophils # 0.1 10*3/uL (0.0-0.2); Basophils % 0.6 % (0.0-0.8); Eosinophils # 0.1 10*3/uL (0.0-0.87); Eosinophils % 0.7 % (0.00-10.9); Hematocrit 32.5 VOL% (35.7-47.0); Hemoglobin 9.7 GM/DL (12.0-16.0); Immature Granulocytes % 0.3 %; Immature Granulocytes Absolute 0.03 #; Lymphocytes # 0.4 10*3/uL (1.4-4.0); Lymphocytes % 4.3 % (21.3-54.2); Mean Corpuscular HGB Conc 29.8 GM/DL (32-36); Mean Corpuscular Volume 74.4 FL (87-102); Mean Platelet Volume 9.2 FL (9.6-12.0); Monocytes # 0.5 10*3/uL (0.11-0.8); Neutrophils % 89.1 % (38.7-73.9); Platelet Count 449 T/CUMM (130-400); Red Blood Count 4.37 MC/CUMM (3.8-5.5); Red Cell Distribution Width 18.9 % (9.3-17.3); White Blood Count 10.1 T/CUMM (4-12)
[2022-10-06 17:01] LABS: Albumin 3.4 G/DL (3.4-5.0); Bilirubin,Total 0.5 MG/DL (0.20-1.00); Osmolality,Calculated 272.1 MOS/KG (273-304); Potassium 4.6 MMOL/L (3.5-5.1); Total Protein 7.2 G/DL (6.4-8.2)
[2022-10-06] MEDS ORDERED: DEXTROSE 50% 25 GM/50 ML VIAL IV STA ×2 (17:45→17:50)
[2022-10-06] MEDS ORDERED: DEXTROSE 50% 25 GM/50 ML SYRINGE IV STA (17:48)
[2022-10-06] MEDS ORDERED: DEXTROSE 50% 25 GM/50 ML SYRINGE IV ONE (17:53)
[2022-10-06] MEDS ORDERED: FUROSEMIDE 40 MG/4 ML VIAL IV STA (18:07)
[2022-10-06 19:59] LABS: Band Neutrophils 3 % (0-10); Eosinophils 3 % (0-10); Hypochromia Slight; Lymphocytes 4 % (20-55); Total Cells Counted 100
[2022-10-06 20:00] LABS: Platelet Estimate Increased
[2022-10-06] MEDS ORDERED: ACETAMINOPHEN 325 MG TABLET PO PRN (22:24)
[2022-10-06] MEDS ORDERED: GLUCAGON 1 MG VIAL IM PRN (22:24)
[2022-10-06] MEDS ORDERED: ONDANSETRON 4 MG/2 ML VIAL IV PRN (22:24)
[2022-10-06] MEDS ORDERED: DEXTROSE 10% 250 ML BAG IV PRN (22:42)
[2022-10-07] MEDS: DOCUSATE SODIUM 100 MG CAPSULE PO SCH ×3 (01:42→21:43)
[2022-10-07] MEDS: FUROSEMIDE 40 MG/4 ML VIAL IV SCH ×3 (01:42→15:54)
[2022-10-07] MEDS: INSULIN REGULAR 100 UNIT/ML SUBCUT SCH ×2 (01:55→07:15)
[2022-10-07] MEDS ORDERED: DOCUSATE SODIUM 100 MG CAPSULE PO PRN (08:46)
[2022-10-07] MEDS ORDERED: ALBUTEROL 2.5 MG/3 ML NEB RESP TX PRN (08:46)
[2022-10-07] MEDS ORDERED: FUROSEMIDE 40 MG TABLET PO PRN (08:46)
[2022-10-07] MEDS ORDERED: ACETAMINOPHEN 325 MG TABLET PO PRN (08:46)
[2022-10-07] MEDS ORDERED: ALBUTEROL/IPRATROPIUM 3 ML NEB RESP TX PRN (08:46)
[2022-10-07] MEDS ORDERED: LINACLOTIDE 145 MCG CAPSULE PO PRN (08:46)
[2022-10-07] MEDS: ASPIRIN EC 81 MG TABLET PO SCH (09:13)
[2022-10-07] MEDS: busPIRone 10 MG TABLET PO SCH ×2 (09:13→21:44)
[2022-10-07] MEDS: DULoxetine 30 MG CAPSULE PO SCH ×2 (09:13→21:42)
[2022-10-07] MEDS: APIXABAN 5 MG TABLET PO SCH ×2 (09:14→21:43)
[2022-10-07] MEDS: FOLIC ACID 1 MG TABLET PO SCH (09:14)
[2022-10-07] MEDS: azaTHIOprine 50 MG TABLET PO SCH (09:14)
[2022-10-07] MEDS: amLODIPine 5 MG TABLET PO SCH (09:15)
[2022-10-07] MEDS: MULTIVITAMIN (OCUVITE) TABLET PO SCH (09:15)
[2022-10-07] MEDS: GABAPENTIN 300 MG CAPSULE PO SCH ×3 (09:15→21:42)
[2022-10-07] MEDS: POTASSIUM CHLORIDE 10 MEQ TABLET PO SCH ×2 (09:15→21:43)
[2022-10-07] MEDS: atenoloL 50 MG TABLET PO SCH (09:16)
[2022-10-07] MEDS: PANTOPRAZOLE 40 MG TABLET PO SCH ×3 (09:16→21:43)
[2022-10-07] MEDS: CYANOCOBALAMIN 500 MCG TABLET PO SCH (09:17)
[2022-10-07] MEDS: PIPERACILLIN/TAZOBACTAM 3,375 MG in SODIUM CHLORIDE 0.9% 100 ML IV SCH ×2 (09:27→17:16)
[2022-10-07] MEDS: methylPREDNISolone SOD SUC 40 MG/1 ML VIAL IV SCH ×2 (11:21→17:16)
[2022-10-07] MEDS: oxyCODONE ER 10 MG TABLET PO SCH (11:23)
[2022-10-07 12:40] LABS: Basophils % 0.4 % (0.0-0.8); Eosinophils # 0.1 10*3/uL (0.0-0.87); Hematocrit 30.2 VOL% (35.7-47.0); Hemoglobin 9.2 GM/DL (12.0-16.0); Immature Granulocytes % 0.4 %; Immature Granulocytes Absolute 0.04 #; Lymphocytes # 0.5 10*3/uL (1.4-4.0); Lymphocytes % 4.8 % (21.3-54.2); Mean Corpuscular HGB Conc 30.5 GM/DL (32-36); Mean Corpuscular Volume 72.9 FL (87-102); Mean Platelet Volume 9.2 FL (9.6-12.0); Monocytes # 0.2 10*3/uL (0.11-0.8); Monocytes % 1.5 % (1.7-12.7); Neutrophils % 91.9 % (38.7-73.9); Platelet Count 402 T/CUMM (130-400); Red Blood Count 4.14 MC/CUMM (3.8-5.5); Red Cell Distribution Width 18.9 % (9.3-17.3); White Blood Count 10.4 T/CUMM (4-12)
[2022-10-07 12:53] LABS: Calcium 8.7 MG/DL (8.5-10.1); Potassium 4.3 MMOL/L (3.5-5.1)
[2022-10-07 13:11] LABS: Anisocytosis 1+; Band Neutrophils 9 % (0-10); Eosinophils 2 % (0-10); Lymphocytes 7 % (20-55); Platelet Estimate Normal; Total Cells Counted 100
[2022-10-07 13:12] LABS: Hypochromia Slight; Ovalocytes Few; Target Cells Few; Tear Drop Cells Few
[2022-10-07] MEDS: SILDENAFIL 20 MG TABLET PO SCH ×2 (15:53→21:43)
[2022-10-07] MEDS: oxyCODONE IR 5 MG TABLET PO PRN (15:55)
[2022-10-07] MEDS: INSULIN LISPRO 100 UNIT/ML CONTDEVICE SCH ×2 (16:30→21:58)
[2022-10-07] MEDS: VITAMIN E 400 UNIT CAPSULE PO SCH (21:42)
[2022-10-07] MEDS: SIMVASTATIN 20 MG TABLET PO SCH (21:43)
[2022-10-07] MEDS: MAGNESIUM OXIDE 400 MG TABLET PO SCH (21:43)
[2022-10-07] MEDS: CHOLECALCIFEROL 1,000 UNIT TABLET PO SCH (21:44)
[2022-10-07] MEDS: EZETIMIBE 10 MG TABLET PO SCH (21:44)
[2022-10-08] MEDS: methylPREDNISolone SOD SUC 40 MG/1 ML VIAL IV SCH (01:14)
[2022-10-08] MEDS: PIPERACILLIN/TAZOBACTAM 3,375 MG in SODIUM CHLORIDE 0.9% 100 ML IV SCH ×3 (01:15→17:01)
[2022-10-08 04:49] LABS: Basophils % 0.1 % (0.0-0.8); Hematocrit 26.8 VOL% (35.7-47.0); Hemoglobin 8.1 GM/DL (12.0-16.0); Immature Granulocytes % 0.7 %; Immature Granulocytes Absolute 0.06 #; Lymphocytes # 0.5 10*3/uL (1.4-4.0); Mean Corpuscular HGB Conc 30.2 GM/DL (32-36); Mean Platelet Volume 9.2 FL (9.6-12.0); Monocytes # 0.2 10*3/uL (0.11-0.8); Monocytes % 2.1 % (1.7-12.7); Neutrophils % 92.1 % (38.7-73.9); Platelet Count 333 T/CUMM (130-400); Red Blood Count 3.67 MC/CUMM (3.8-5.5); Red Cell Distribution Width 18.8 % (9.3-17.3)
[2022-10-08 05:06] LABS: Calcium 9.1 MG/DL (8.5-10.1); Osmolality,Calculated 281.5 MOS/KG (273-304); Potassium 4.3 MMOL/L (3.5-5.1)
[2022-10-08 05:23] LABS: Hypochromia 1+; Lymphocytes 4 % (20-55); Microcytosis 1+; Platelet Estimate Adequate; Total Cells Counted 100
[2022-10-08] MEDS: DULoxetine 30 MG CAPSULE PO SCH ×2 (08:54→21:57)
[2022-10-08] MEDS: FUROSEMIDE 40 MG/4 ML VIAL IV SCH (08:54)
[2022-10-08] MEDS: FOLIC ACID 1 MG TABLET PO SCH (08:54)
[2022-10-08] MEDS: MULTIVITAMIN (OCUVITE) TABLET PO SCH (08:54)
[2022-10-08] MEDS: POTASSIUM CHLORIDE 10 MEQ TABLET PO SCH ×2 (08:54→21:58)
[2022-10-08] MEDS: APIXABAN 5 MG TABLET PO SCH ×2 (08:54→21:57)
[2022-10-08] MEDS: ASPIRIN EC 81 MG TABLET PO SCH (08:55)
[2022-10-08] MEDS: CYANOCOBALAMIN 500 MCG TABLET PO SCH (08:55)
[2022-10-08] MEDS: GABAPENTIN 300 MG CAPSULE PO SCH ×3 (08:55→21:56)
[2022-10-08] MEDS: atenoloL 50 MG TABLET PO SCH (08:55)
[2022-10-08] MEDS: DOCUSATE SODIUM 100 MG CAPSULE PO SCH ×2 (08:56→21:58)
[2022-10-08] MEDS: SILDENAFIL 20 MG TABLET PO SCH ×3 (08:56→21:58)
[2022-10-08] MEDS: azaTHIOprine 50 MG TABLET PO SCH (08:56)
[2022-10-08] MEDS: PANTOPRAZOLE 40 MG TABLET PO SCH ×3 (08:56→22:02)
[2022-10-08] MEDS: amLODIPine 5 MG TABLET PO SCH (08:56)
[2022-10-08] MEDS: INSULIN LISPRO 100 UNIT/ML CONTDEVICE SCH ×4 (08:57→22:00)
[2022-10-08] MEDS: oxyCODONE ER 10 MG TABLET PO SCH (08:57)
[2022-10-08] MEDS ORDERED: NON-FORMULARY MEDICATION (Elderberry Fruit And Flower 460-115 mg Capsule) PO SCH (09:00)
[2022-10-08] MEDS ORDERED: CRANBERRY C BACILLUS COAG PO SCH (09:00)
[2022-10-08] MEDS: busPIRone 10 MG TABLET PO SCH ×2 (09:02→21:59)
[2022-10-08] MEDS: FUROSEMIDE 40 MG TABLET PO SCH (15:10)
[2022-10-08] MEDS: oxyCODONE IR 5 MG TABLET PO PRN ×2 (19:13→22:09)
[2022-10-08] MEDS: SIMVASTATIN 20 MG TABLET PO SCH (21:57)
[2022-10-08] MEDS: VITAMIN E 400 UNIT CAPSULE PO SCH (21:57)
[2022-10-08] MEDS: EZETIMIBE 10 MG TABLET PO SCH (21:57)
[2022-10-08] MEDS: CHOLECALCIFEROL 1,000 UNIT TABLET PO SCH (21:57)
[2022-10-08] MEDS: MAGNESIUM OXIDE 400 MG TABLET PO SCH (21:59)
[2022-10-09] MEDS: PIPERACILLIN/TAZOBACTAM 3,375 MG in SODIUM CHLORIDE 0.9% 100 ML IV SCH ×3 (01:12→17:07)
[2022-10-09 05:01] LABS: Basophils % 0.4 % (0.0-0.8); Eosinophils # 0.2 10*3/uL (0.0-0.87); Eosinophils % 1.7 % (0.00-10.9); Hemoglobin 7.7 GM/DL (12.0-16.0); Immature Granulocytes % 0.5 %; Immature Granulocytes Absolute 0.05 #; Lymphocytes # 1.5 10*3/uL (1.4-4.0); Lymphocytes % 13.4 % (21.3-54.2); Mean Corpuscular HGB Conc 30.8 GM/DL (32-36); Mean Platelet Volume 8.8 FL (9.6-12.0); Monocytes # 0.9 10*3/uL (0.11-0.8); Monocytes % 7.9 % (1.7-12.7); Neutrophils % 76.1 % (38.7-73.9); Platelet Count 348 T/CUMM (130-400); Red Blood Count 3.47 MC/CUMM (3.8-5.5); Red Cell Distribution Width 18.6 % (9.3-17.3); White Blood Count 10.9 T/CUMM (4-12)
[2022-10-09 05:23] LABS: Calcium 8.7 MG/DL (8.5-10.1); Osmolality,Calculated 274.7 MOS/KG (273-304); Potassium 3.7 MMOL/L (3.5-5.1)
[2022-10-09] MEDS: oxyCODONE IR 5 MG TABLET PO PRN ×2 (05:39→15:05)
[2022-10-09] MEDS: INSULIN LISPRO 100 UNIT/ML CONTDEVICE SCH ×4 (08:00→23:12)
[2022-10-09] MEDS ORDERED: oxyCODONE ER 20 MG TABLET PO SCH (09:00)
[2022-10-09] MEDS: PANTOPRAZOLE 40 MG TABLET PO SCH ×3 (09:14→23:09)
[2022-10-09] MEDS: SILDENAFIL 20 MG TABLET PO SCH ×3 (09:14→23:19)
[2022-10-09] MEDS: DULoxetine 30 MG CAPSULE PO SCH ×2 (09:15→23:09)
[2022-10-09] MEDS: oxyCODONE ER 10 MG TABLET PO SCH ×2 (09:15→23:08)
[2022-10-09] MEDS: POTASSIUM CHLORIDE 10 MEQ TABLET PO SCH ×2 (09:16→23:07)
[2022-10-09] MEDS: CYANOCOBALAMIN 500 MCG TABLET PO SCH (09:16)
[2022-10-09] MEDS: atenoloL 25 MG TABLET PO SCH ×2 (09:16→23:10)
[2022-10-09] MEDS: DOCUSATE SODIUM 100 MG CAPSULE PO SCH ×2 (09:16→23:09)
[2022-10-09] MEDS: amLODIPine 5 MG TABLET PO SCH (09:17)
[2022-10-09] MEDS: APIXABAN 5 MG TABLET PO SCH ×2 (09:17→23:04)
[2022-10-09] MEDS: MULTIVITAMIN (OCUVITE) TABLET PO SCH (09:17)
[2022-10-09] MEDS: GABAPENTIN 300 MG CAPSULE PO SCH ×3 (09:18→23:06)
[2022-10-09] MEDS: FUROSEMIDE 40 MG TABLET PO SCH ×2 (09:18→16:10)
[2022-10-09] MEDS: FOLIC ACID 1 MG TABLET PO SCH (09:18)
[2022-10-09] MEDS: busPIRone 10 MG TABLET PO SCH ×2 (09:18→23:05)
[2022-10-09] MEDS: ASPIRIN EC 81 MG TABLET PO SCH (09:18)
[2022-10-09] MEDS: azaTHIOprine 50 MG TABLET PO SCH (09:19)
[2022-10-09] MEDS: BENZONATATE 100 MG CAPSULE PO PRN (12:39)
[2022-10-09] MEDS: CHOLECALCIFEROL 1,000 UNIT TABLET PO SCH (23:04)
[2022-10-09] MEDS: VITAMIN E 400 UNIT CAPSULE PO SCH (23:07)
[2022-10-09] MEDS: SIMVASTATIN 20 MG TABLET PO SCH (23:09)
[2022-10-09] MEDS: EZETIMIBE 10 MG TABLET PO SCH (23:09)
[2022-10-09] MEDS: MAGNESIUM OXIDE 400 MG TABLET PO SCH (23:12)
[2022-10-09] MEDS: ALBUTEROL/IPRATROPIUM 3 ML NEB RESP TX SCH (23:52)
[2022-10-10] MEDS: PIPERACILLIN/TAZOBACTAM 3,375 MG in SODIUM CHLORIDE 0.9% 100 ML IV SCH ×3 (02:01→16:45)
[2022-10-10] MEDS: oxyCODONE IR 5 MG TABLET PO PRN ×3 (02:02→22:16)
[2022-10-10] MEDS: DOCUSATE SODIUM 100 MG CAPSULE PO SCH ×3 (02:16→22:16)
[2022-10-10 07:36] LABS: Basophils # 0.1 10*3/uL (0.0-0.2); Basophils % 0.8 % (0.0-0.8); Eosinophils # 0.3 10*3/uL (0.0-0.87); Eosinophils % 3.9 % (0.00-10.9); Hematocrit 28.7 VOL% (35.7-47.0); Hemoglobin 8.5 GM/DL (12.0-16.0); Immature Granulocytes % 0.3 %; Immature Granulocytes Absolute 0.02 #; Lymphocytes # 1.1 10*3/uL (1.4-4.0); Lymphocytes % 16.5 % (21.3-54.2); Mean Corpuscular HGB Conc 29.6 GM/DL (32-36); Mean Corpuscular Volume 73.8 FL (87-102); Mean Platelet Volume 9.8 FL (9.6-12.0); Monocytes # 0.9 10*3/uL (0.11-0.8); Monocytes % 14.5 % (1.7-12.7); Platelet Count 358 T/CUMM (130-400); Red Blood Count 3.89 MC/CUMM (3.8-5.5); Red Cell Distribution Width 18.6 % (9.3-17.3); White Blood Count 6.4 T/CUMM (4-12)
[2022-10-10 07:56] LABS: Calcium 8.6 MG/DL (8.5-10.1); Osmolality,Calculated 285.5 MOS/KG (273-304); Potassium 4.5 MMOL/L (3.5-5.1)
[2022-10-10] MEDS: INSULIN LISPRO 100 UNIT/ML CONTDEVICE SCH ×4 (08:27→22:15)
[2022-10-10] MEDS: DULoxetine 30 MG CAPSULE PO SCH ×2 (08:48→21:00)
[2022-10-10] MEDS: SILDENAFIL 20 MG TABLET PO SCH ×3 (08:48→21:04)
[2022-10-10] MEDS: APIXABAN 5 MG TABLET PO SCH ×2 (08:48→21:03)
[2022-10-10] MEDS: azaTHIOprine 50 MG TABLET PO SCH (08:48)
[2022-10-10] MEDS: MULTIVITAMIN (OCUVITE) TABLET PO SCH (08:49)
[2022-10-10] MEDS: PANTOPRAZOLE 40 MG TABLET PO SCH ×3 (08:49→21:03)
[2022-10-10] MEDS: GABAPENTIN 300 MG CAPSULE PO SCH ×3 (08:50→21:01)
[2022-10-10] MEDS: amLODIPine 5 MG TABLET PO SCH (08:50)
[2022-10-10] MEDS: POTASSIUM CHLORIDE 10 MEQ TABLET PO SCH ×2 (08:50→21:02)
[2022-10-10] MEDS: CYANOCOBALAMIN 500 MCG TABLET PO SCH (08:50)
[2022-10-10] MEDS: FOLIC ACID 1 MG TABLET PO SCH (08:51)
[2022-10-10] MEDS: FUROSEMIDE 40 MG TABLET PO SCH ×2 (08:51→15:14)
[2022-10-10] MEDS: ASPIRIN EC 81 MG TABLET PO SCH (08:51)
[2022-10-10] MEDS: busPIRone 10 MG TABLET PO SCH ×2 (08:52→21:01)
[2022-10-10] MEDS: atenoloL 25 MG TABLET PO SCH ×2 (08:52→21:02)
[2022-10-10] MEDS: oxyCODONE ER 10 MG TABLET PO SCH ×2 (08:53→21:06)
[2022-10-10] MEDS: ALBUTEROL/IPRATROPIUM 3 ML NEB RESP TX SCH ×3 (11:18→19:24)
[2022-10-10] MEDS: methylPREDNISolone SOD SUC 40 MG/1 ML VIAL IV SCH ×2 (11:42→21:04)
[2022-10-10] MEDS: EZETIMIBE 10 MG TABLET PO SCH (21:00)
[2022-10-10] MEDS: VITAMIN E 400 UNIT CAPSULE PO SCH (21:01)
[2022-10-10] MEDS: CHOLECALCIFEROL 1,000 UNIT TABLET PO SCH (21:03)
[2022-10-10] MEDS: SIMVASTATIN 20 MG TABLET PO SCH (21:03)
[2022-10-10] MEDS: MAGNESIUM OXIDE 400 MG TABLET PO SCH (21:06)
[2022-10-11] MEDS: PIPERACILLIN/TAZOBACTAM 3,375 MG in SODIUM CHLORIDE 0.9% 100 ML IV SCH ×3 (01:59→16:20)
[2022-10-11] MEDS: ALBUTEROL/IPRATROPIUM 3 ML NEB RESP TX SCH ×5 (03:21→18:47)
[2022-10-11] MEDS: INSULIN LISPRO 100 UNIT/ML CONTDEVICE SCH ×7 (07:30→22:53)
[2022-10-11] MEDS: DOCUSATE SODIUM 100 MG CAPSULE PO SCH ×2 (08:07→22:48)
[2022-10-11] MEDS: GABAPENTIN 300 MG CAPSULE PO SCH ×3 (08:07→22:32)
[2022-10-11] MEDS: DULoxetine 30 MG CAPSULE PO SCH ×2 (08:08→22:30)
[2022-10-11] MEDS: PANTOPRAZOLE 40 MG TABLET PO SCH ×3 (08:08→22:32)
[2022-10-11] MEDS: busPIRone 10 MG TABLET PO SCH ×2 (08:08→22:33)
[2022-10-11] MEDS: POTASSIUM CHLORIDE 10 MEQ TABLET PO SCH ×2 (08:08→22:31)
[2022-10-11] MEDS: FUROSEMIDE 40 MG TABLET PO SCH ×2 (08:09→15:02)
[2022-10-11] MEDS: azaTHIOprine 50 MG TABLET PO SCH (08:09)
[2022-10-11] MEDS: MULTIVITAMIN (OCUVITE) TABLET PO SCH (08:09)
[2022-10-11] MEDS: APIXABAN 5 MG TABLET PO SCH ×2 (08:09→22:34)
[2022-10-11] MEDS: oxyCODONE ER 10 MG TABLET PO SCH ×2 (08:10→22:36)
[2022-10-11] MEDS: FOLIC ACID 1 MG TABLET PO SCH (08:11)
[2022-10-11] MEDS: atenoloL 25 MG TABLET PO SCH ×2 (08:11→22:33)
[2022-10-11] MEDS: amLODIPine 5 MG TABLET PO SCH (08:11)
[2022-10-11] MEDS: CYANOCOBALAMIN 500 MCG TABLET PO SCH (08:12)
[2022-10-11] MEDS: SILDENAFIL 20 MG TABLET PO SCH ×3 (08:12→22:34)
[2022-10-11] MEDS: methylPREDNISolone SOD SUC 40 MG/1 ML VIAL IV SCH ×2 (08:12→22:35)
[2022-10-11] MEDS: ASPIRIN EC 81 MG TABLET PO SCH (08:12)
[2022-10-11] MEDS: oxyCODONE IR 5 MG TABLET PO PRN (11:32)
[2022-10-11] MEDS: VITAMIN E 400 UNIT CAPSULE PO SCH (22:31)
[2022-10-11] MEDS: EZETIMIBE 10 MG TABLET PO SCH (22:32)
[2022-10-11] MEDS: SIMVASTATIN 20 MG TABLET PO SCH (22:33)
[2022-10-11] MEDS: CHOLECALCIFEROL 1,000 UNIT TABLET PO SCH (22:35)
[2022-10-11] MEDS: MAGNESIUM OXIDE 400 MG TABLET PO SCH (22:36)
[2022-10-12] MEDS: ALBUTEROL/IPRATROPIUM 3 ML NEB RESP TX SCH ×7 (00:20→23:38)
[2022-10-12] MEDS: PIPERACILLIN/TAZOBACTAM 3,375 MG in SODIUM CHLORIDE 0.9% 100 ML IV SCH ×3 (01:19→17:28)
[2022-10-12] MEDS: oxyCODONE IR 5 MG TABLET PO PRN ×2 (01:25→15:08)
[2022-10-12 05:42] LABS: Basophils % 0.1 % (0.0-0.8); Hematocrit 26.4 VOL% (35.7-47.0); Hemoglobin 8.1 GM/DL (12.0-16.0); Immature Granulocytes % 1.1 %; Lymphocytes # 0.6 10*3/uL (1.4-4.0); Lymphocytes % 6.7 % (21.3-54.2); Mean Corpuscular HGB Conc 30.7 GM/DL (32-36); Mean Corpuscular Volume 71.7 FL (87-102); Monocytes # 0.4 10*3/uL (0.11-0.8); Monocytes % 3.8 % (1.7-12.7); Neutrophils % 88.3 % (38.7-73.9); Platelet Count 349 T/CUMM (130-400); Red Blood Count 3.68 MC/CUMM (3.8-5.5); Red Cell Distribution Width 18.4 % (9.3-17.3); White Blood Count 9.2 T/CUMM (4-12)
[2022-10-12 05:59] LABS: Calcium 9.1 MG/DL (8.5-10.1); Osmolality,Calculated 279.2 MOS/KG (273-304); Potassium 4.1 MMOL/L (3.5-5.1)
[2022-10-12] MEDS ORDERED: methylPREDNISolone SOD SUC 40 MG/1 ML VIAL IV SCH (09:00)
[2022-10-12] MEDS: azaTHIOprine 50 MG TABLET PO SCH (09:07)
[2022-10-12] MEDS: APIXABAN 5 MG TABLET PO SCH ×2 (09:07→20:51)
[2022-10-12] MEDS: busPIRone 10 MG TABLET PO SCH ×2 (09:07→20:52)
[2022-10-12] MEDS: GABAPENTIN 300 MG CAPSULE PO SCH ×3 (09:08→20:53)
[2022-10-12] MEDS: amLODIPine 5 MG TABLET PO SCH (09:08)
[2022-10-12] MEDS: DOCUSATE SODIUM 100 MG CAPSULE PO SCH ×2 (09:09→20:52)
[2022-10-12] MEDS: CYANOCOBALAMIN 500 MCG TABLET PO SCH (09:09)
[2022-10-12] MEDS: FUROSEMIDE 40 MG TABLET PO SCH ×2 (09:09→15:04)
[2022-10-12] MEDS: MULTIVITAMIN (OCUVITE) TABLET PO SCH (09:10)
[2022-10-12] MEDS: DULoxetine 30 MG CAPSULE PO SCH ×2 (09:10→20:52)
[2022-10-12] MEDS: POTASSIUM CHLORIDE 10 MEQ TABLET PO SCH ×2 (09:10→20:53)
[2022-10-12] MEDS: PANTOPRAZOLE 40 MG TABLET PO SCH ×3 (09:10→20:53)
[2022-10-12] MEDS: atenoloL 25 MG TABLET PO SCH ×2 (09:11→20:51)
[2022-10-12] MEDS: FOLIC ACID 1 MG TABLET PO SCH (09:11)
[2022-10-12] MEDS: ASPIRIN EC 81 MG TABLET PO SCH (09:11)
[2022-10-12] MEDS: SILDENAFIL 20 MG TABLET PO SCH ×3 (09:11→20:51)
[2022-10-12] MEDS: oxyCODONE ER 10 MG TABLET PO SCH ×2 (09:12→20:50)
[2022-10-12] MEDS: INSULIN LISPRO 100 UNIT/ML CONTDEVICE SCH ×4 (09:13→20:54)
[2022-10-12 09:18] LABS: Ferritin 48.9 ng/mL (8-252)
[2022-10-12] MEDS: BENZONATATE 100 MG CAPSULE PO PRN (12:04)
[2022-10-12] MEDS: VITAMIN E 400 UNIT CAPSULE PO SCH (20:51)
[2022-10-12] MEDS: MAGNESIUM OXIDE 400 MG TABLET PO SCH (20:51)
[2022-10-12] MEDS: EZETIMIBE 10 MG TABLET PO SCH (20:53)
[2022-10-12] MEDS: CHOLECALCIFEROL 1,000 UNIT TABLET PO SCH (20:53)
[2022-10-12] MEDS: SIMVASTATIN 20 MG TABLET PO SCH (20:53)
[2022-10-13] MEDS: PIPERACILLIN/TAZOBACTAM 3,375 MG in SODIUM CHLORIDE 0.9% 100 ML IV SCH ×3 (01:50→18:02)
[2022-10-13] MEDS: ALBUTEROL/IPRATROPIUM 3 ML NEB RESP TX SCH ×6 (03:06→22:53)
[2022-10-13 05:20] LABS: Basophils % 0.4 % (0.0-0.8); Eosinophils # 0.2 10*3/uL (0.0-0.87); Eosinophils % 1.6 % (0.00-10.9); Hemoglobin 8.1 GM/DL (12.0-16.0); Immature Granulocytes % 1.2 %; Immature Granulocytes Absolute 0.11 #; Lymphocytes # 1.8 10*3/uL (1.4-4.0); Lymphocytes % 19.3 % (21.3-54.2); Mean Corpuscular Volume 72.8 FL (87-102); Mean Platelet Volume 8.8 FL (9.6-12.0); Monocytes # 0.9 10*3/uL (0.11-0.8); Monocytes % 9.5 % (1.7-12.7); Platelet Count 353 T/CUMM (130-400); Red Blood Count 3.71 MC/CUMM (3.8-5.5); Red Cell Distribution Width 18.6 % (9.3-17.3); White Blood Count 9.4 T/CUMM (4-12)
[2022-10-13] MEDS: oxyCODONE IR 5 MG TABLET PO PRN (05:35)
[2022-10-13 05:54] LABS: Calcium 8.8 MG/DL (8.5-10.1); Osmolality,Calculated 282.8 MOS/KG (273-304); Potassium 3.5 MMOL/L (3.5-5.1)
[2022-10-13] MEDS: azaTHIOprine 50 MG TABLET PO SCH (09:10)
[2022-10-13] MEDS: CYANOCOBALAMIN 500 MCG TABLET PO SCH (09:11)
[2022-10-13] MEDS: oxyCODONE ER 10 MG TABLET PO SCH ×2 (09:11→20:59)
[2022-10-13] MEDS: SILDENAFIL 20 MG TABLET PO SCH ×3 (09:11→21:01)
[2022-10-13] MEDS: ASPIRIN EC 81 MG TABLET PO SCH (09:11)
[2022-10-13] MEDS: POTASSIUM CHLORIDE 10 MEQ TABLET PO SCH ×2 (09:11→20:59)
[2022-10-13] MEDS: GABAPENTIN 300 MG CAPSULE PO SCH ×3 (09:11→20:58)
[2022-10-13] MEDS: busPIRone 10 MG TABLET PO SCH ×2 (09:12→21:00)
[2022-10-13] MEDS: MULTIVITAMIN (OCUVITE) TABLET PO SCH (09:12)
[2022-10-13] MEDS: DOCUSATE SODIUM 100 MG CAPSULE PO SCH ×2 (09:12→21:00)
[2022-10-13] MEDS: DULoxetine 30 MG CAPSULE PO SCH ×2 (09:12→20:58)
[2022-10-13] MEDS: PANTOPRAZOLE 40 MG TABLET PO SCH ×3 (09:13→21:05)
[2022-10-13] MEDS: amLODIPine 5 MG TABLET PO SCH (09:13)
[2022-10-13] MEDS: FOLIC ACID 1 MG TABLET PO SCH (09:13)
[2022-10-13] MEDS: APIXABAN 5 MG TABLET PO SCH ×2 (09:13→21:00)
[2022-10-13] MEDS: FUROSEMIDE 40 MG TABLET PO SCH ×2 (09:14→15:31)
[2022-10-13] MEDS: atenoloL 25 MG TABLET PO SCH ×2 (09:14→21:00)
[2022-10-13] MEDS: INSULIN LISPRO 100 UNIT/ML CONTDEVICE SCH ×4 (09:23→22:16)
[2022-10-13] MEDS: VITAMIN E 400 UNIT CAPSULE PO SCH (20:59)
[2022-10-13] MEDS: EZETIMIBE 10 MG TABLET PO SCH (20:59)
[2022-10-13] MEDS: MAGNESIUM OXIDE 400 MG TABLET PO SCH (21:00)
[2022-10-13] MEDS: CHOLECALCIFEROL 1,000 UNIT TABLET PO SCH (21:00)
[2022-10-13] MEDS: SIMVASTATIN 20 MG TABLET PO SCH (21:01)
[2022-10-14] MEDS: PIPERACILLIN/TAZOBACTAM 3,375 MG in SODIUM CHLORIDE 0.9% 100 ML IV SCH ×2 (01:12→08:39)
[2022-10-14] MEDS: ALBUTEROL/IPRATROPIUM 3 ML NEB RESP TX SCH ×3 (03:30→11:07)
[2022-10-14 05:37] LABS: Basophils # 0.1 10*3/uL (0.0-0.2); Basophils % 0.6 % (0.0-0.8); Eosinophils # 0.6 10*3/uL (0.0-0.87); Eosinophils % 6.7 % (0.00-10.9); Hematocrit 30.8 VOL% (35.7-47.0); Hemoglobin 9.1 GM/DL (12.0-16.0); Immature Granulocytes % 1.2 %; Immature Granulocytes Absolute 0.11 #; Lymphocytes # 1.9 10*3/uL (1.4-4.0); Lymphocytes % 21.7 % (21.3-54.2); Mean Corpuscular HGB Conc 29.5 GM/DL (32-36); Mean Corpuscular Volume 74.2 FL (87-102); Mean Platelet Volume 9.1 FL (9.6-12.0); Monocytes # 0.9 10*3/uL (0.11-0.8); Monocytes % 9.5 % (1.7-12.7); Neutrophils % 60.3 % (38.7-73.9); Platelet Count 406 T/CUMM (130-400); Red Blood Count 4.15 MC/CUMM (3.8-5.5); Red Cell Distribution Width 18.9 % (9.3-17.3); White Blood Count 8.9 T/CUMM (4-12)
[2022-10-14 05:50] LABS: Calcium 8.7 MG/DL (8.5-10.1); Osmolality,Calculated 277.8 MOS/KG (273-304); Potassium 3.3 MMOL/L (3.5-5.1)
[2022-10-14] MEDS: oxyCODONE ER 10 MG TABLET PO SCH (08:32)
[2022-10-14] MEDS: amLODIPine 5 MG TABLET PO SCH (08:33)
[2022-10-14] MEDS: FUROSEMIDE 40 MG TABLET PO SCH (08:33)
[2022-10-14] MEDS: DULoxetine 30 MG CAPSULE PO SCH (08:34)
[2022-10-14] MEDS: busPIRone 10 MG TABLET PO SCH (08:35)
[2022-10-14] MEDS: POTASSIUM CHLORIDE 10 MEQ TABLET PO SCH (08:35)
[2022-10-14] MEDS: MULTIVITAMIN (OCUVITE) TABLET PO SCH (08:35)
[2022-10-14] MEDS: azaTHIOprine 50 MG TABLET PO SCH (08:36)
[2022-10-14] MEDS: DOCUSATE SODIUM 100 MG CAPSULE PO SCH (08:36)
[2022-10-14] MEDS: FOLIC ACID 1 MG TABLET PO SCH (08:36)
[2022-10-14] MEDS: PANTOPRAZOLE 40 MG TABLET PO SCH ×2 (08:37→08:41)
[2022-10-14] MEDS: ASPIRIN EC 81 MG TABLET PO SCH (08:37)
[2022-10-14] MEDS: SILDENAFIL 20 MG TABLET PO SCH (08:37)
[2022-10-14] MEDS: APIXABAN 5 MG TABLET PO SCH (08:37)
[2022-10-14] MEDS: atenoloL 25 MG TABLET PO SCH (08:38)
[2022-10-14] MEDS: INSULIN LISPRO 100 UNIT/ML CONTDEVICE SCH ×2 (08:39→11:53)
[2022-10-14] MEDS: GABAPENTIN 300 MG CAPSULE PO SCH (08:41)
[2022-10-14] MEDS: CYANOCOBALAMIN 500 MCG TABLET PO SCH (08:42)
[2022-10-14] MEDS ORDERED: POTASSIUM CHLORIDE 20 MEQ TABLET PO ONE (08:48)
[2022-10-14] MEDS: oxyCODONE IR 5 MG TABLET PO PRN (10:42)
[2022-10-14 13:27] VITALS: BP 137/73
== END 2022-10-14 14:24 | disposition home health service (06) | DRG 190 ==
LOC: N.ED 15:50 → N.EDINP 15:50 → N.2W 10-07 11:25
PROVIDERS: ADMIT Internal Medicine; ATTEND Internal Medicine